=== PATIENT | female | born 1960 | race African-American/Black ===

== ENCOUNTER 2016-06-26 11:04 | Emergency (ER) | payer MEDICAID ==
[2016-06-26 11:11] VITALS: BP 150/117; BMI 34.3
--- NOTE | 2016-06-26 11:46 | DR.GENAD ---
HPI - PCP Primary Care Physician: dr. siddiqui - Complaint/Symptoms Chief Complaint:: patient stated that her left side has been hurting for the last 3 days she stated that she has been in bed the pain in so severe. it also running down her left leg - Nurses notes reviewed Nurses Notes Review: Yes - Source History Provided: Patient - Mode of Arrival Mode of Arrival: Ambulatory - Timing Onset of Chief Complaint: 06/23/16 Came on: Gradually - Duration Duration: Constant How lon Duration: Days - Location Location: left flank - Severity Severity: Mild - Modifying Factors Worsens:: nothing - Associated Signs and Symptoms Associated Signs and Symptoms: radiates to left leg - Other History Other History: hx of same but nothing found PMH - PMH Past Medical History: Yes Past Medical History: Arthritis, Hypertension Past Surgical History: Yes Surgical History: , RIVET THROWER Surgery, 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 - Family History History of Family Medical Conditions: Yes Family Medical History: Hypertension - Social History Does patient currently use any type of tobacco product: No Have you used tobacco products in the last 12 months: No Type of Tobacco Use: None Does any household member use tobacco: No Alcohol Use: None Do you use any recreational Drugs:: No Lives With: Family Lives Where: Home - infectious screening In the last 2 months have you had wt loss of >10#?: NO Have you had fever, night sweats or hemotysis?: No Have you traveled outside the country in the last 6 months?: No Isolation: Standard ROS - Review of Systems Constitutional: No Symptoms Reported Eyes: No Symptoms Reported ENTM: No Symptoms Reported Respiratoy: No Symptoms Reported Cardiovascular: No Symptoms Reported Gastrointestinal/Abdominal: No Symptoms Reported Genitourinary: No Symptoms Reported Neurological: No Symptoms Reported Musculoskeletal: Leg (left leg pain) Integumentary: No Symptoms Reported Hematologic/Lymphatic: No Symptoms Reported Endocrine: No Symptoms Reported Psychiatric: No Symptoms Reported All Other Systems: Reviewed and Negative PE - Vital Signs Vitals: Temperature 99.1 F Pulse Rate 117 Respiratory Rate 20 Blood Pressure [Right Arm] 175/85 Blood Pressure [Left Arm] 147/85 Blood Pressure 150/117 O2 Sat by Pulse Oximetry 98 - General Limitations: No Limitations General Appearance: Alert, In No Apparent Distress - Head Head Exam: Normal Inspection - Eyes Eye exam: Normal Appearance, EOMI. negative: Scleral Icterus, Conjunctival Injection - ENT ENT Exam: Normal Exam External Ear Exam: Normal External Inspection - Neck Neck Exam: Normal Inspection, Full ROM, Trachea Midline - Respiratory Respiratory Exam: negative: Accessory Muscle Use, Respiratory Distress - Cardiovascular Cardiovascular Exam: Regular Rate - Abdominal Exam Abdominal Exam: Normal Inspection, Normal Bowel Sounds, Soft. negative: Distention - Extremities Extremities Exam: Normal Inspection, Full ROM - Back Back Exam: Normal Inspection, Full ROM. negative: (L) Straight Leg Raise - Neurologic Neurological Exam: Alert, Oriented X3, CN II-XII Intact Course - Treatment Treatment: UDS machine not working will treat and have follow up PCP. ROR - Labs Reviewed Laboratory: Specimen Type Clean catch urine 06/26/16 12:00 Urine Color Yellow (YELLOW) 06/26/16 12:00 Urine Appearance Clear (CLEAR) 06/26/16 12:00 Urine pH 6.0 (5.0 - 8.0) 06/26/16 12:00 Ur Specific [place] 1.025 (1.000-1.030) 06/26/16 12:00 Urine Protein 3+ (NEGATIVE) 06/26/16 12:00 Urine Glucose (UA) Negative (NEGATIVE) 06/26/16 12:00 Urine Ketones 1+ (NEGATIVE) 06/26/16 12:00 Urine Occult Blood 1+ (NEGATIVE) 06/26/16 12:00 Urine Nitrite Negative (NEGATIVE) 06/26/16 12:00 Urine Bilirubin Negative (NEGATIVE) 06/26/16 12:00 Urine Urobilinogen Normal (NORMAL) 06/26/16 12:00 Ur Leukocyte Esterase 1+ (NEGATIVE) 06/26/16 12:00 Urine RBC Rare /HPF (NEGATIVE) 06/26/16 12:00 Urine WBC 0-2 /HPF (NEGATIVE) 06/26/16 12:00 Ur Squamous Epith Cells Moderate /HPF (NEGATIVE) 06/26/16 12:00 Urine Bacteria Trace /HPF (NEGATIVE) 06/26/16 12:00 Urine Mucus Few /HPF (NEGATIVE) 06/26/16 12:00 Ur Culture Indicated? No/not indicated 06/26/16 12:00 - Diagnosis Discharge Problem: Flank pain, chronic - Discharge Plan Condition: Stable Prescriptions: Tramadol HCl 50 mg PO Q8H PRN #15 tab PRN Reason: Pain - Follow ups/Referrals Follow ups/Referrals: Reji SIDDIQUI [Primary Care Provider] - 3 days - Instructions
[2016-06-26] MEDS ORDERED: TORADOL 60 MG VIAL IM ONE (11:48)
[2016-06-26] MEDS ORDERED: TORADOL 60 MG VIAL ONE (12:00)
[2016-06-26 12:40] LABS: BILIRUBIN,URINE NEGATIVE (NEGATIVE); BLOOD/HEMOGLOBIN,URINE 1+ (NEGATIVE); GLUCOSE, URINE NEGATIVE (NEGATIVE); KETONES,URINE 1+ (NEGATIVE); LEUKOCYTE ESTERASE ,URINE 1+ (NEGATIVE); NITRITES,URINE NEGATIVE (NEGATIVE); PROTEIN,URINE 3+ (NEGATIVE); UROBILINOGEN,URINE NORMAL (NORMAL)
[2016-06-26 13:03] LABS: APPEARANCE,URINE CLEAR (CLEAR); BACTERIA,URINE TRACE /HPF (NEGATIVE); COLOR,URINE YELLOW (YELLOW); MUCUS,URINE FEW /HPF (NEGATIVE); RBC,URINE RARE /HPF (NEGATIVE); SQUAMOUS EPITHELIAL CELL,UR MODERATE /HPF (NEGATIVE)
[2016-06-26] MEDS ORDERED: PREDNISONE TAB 20 MG PO ONE ×2 (13:41→13:42)
== END 2016-06-26 13:44 | disposition home or self-care (01) ==
LOC: ER 11:04
DX: R10.84 Generalized abdominal pain (principal)
CPT/HCPCS: 80307; 81001; 96372; 99282; G0434; J1885; J7506

== ENCOUNTER 2016-08-27 12:47 | Emergency (ER) | payer MEDICAID ==
[2016-08-27 12:51] VITALS: BP 107/72; BMI 32.5
--- NOTE | 2016-08-27 14:24 | DR.GENAD ---
HPI - PCP Primary Care Physician: CHEN - Complaint/Symptoms Chief Complaint:: LEFT SIDE PAIN; PAIN IN LEFT FOOT WHEN WALKING. - Nurses notes reviewed Nurses Notes Review: Yes - Source History Provided: Patient - Mode of Arrival Mode of Arrival: Ambulatory - Timing Onset of Chief Complaint: 08/26/16 Came on: Suddenly - Duration Duration: Constant Duration: Days - Severity Severity: Moderate PMH - PMH Past Medical History: Yes Past Medical History: Arthritis, Hypertension Past Surgical History: Yes Surgical History: , 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 - Family History History of Family Medical Conditions: Yes Family Medical History: Hypertension - Social History Does patient currently use any type of tobacco product: No Have you used tobacco products in the last 12 months: No Type of Tobacco Use: None Does any household member use tobacco: No Alcohol Use: Occasionally Do you use any recreational Drugs:: No Lives With: Family Lives Where: Home - infectious screening In the last 2 months have you had wt loss of >10#?: NO Have you had fever, night sweats or hemotysis?: No Have you traveled outside the country in the last 6 months?: No Isolation: Standard PE - Vital Signs Vitals: Temperature 98.8 F Pulse Rate 85 Respiratory Rate 20 Blood Pressure [Right Arm] 175/85 Blood Pressure [Left Arm] 147/85 Blood Pressure 107/72 O2 Sat by Pulse Oximetry 97 - Discharge Plan Condition: Stable Prescriptions: Acetaminophen W/ Codeine [Tylenol/Codeine #3 300-30 mg] 1 tab PO Q4-6H PRN #15 tab PRN Reason: Pain Cyclobenzaprine HCl [FLEXERIL 10 MG *] 10 mg PO TID PRN #20 tab PRN Reason: Ibuprofen [MOTRIN TAB 600 MG *] 600 mg PO TID PRN #20 tab PRN Reason: Pain/Inflammation - Follow ups/Referrals Follow ups/Referrals: Reji SIDDIQUI [Primary Care Provider] - 3 days - Instructions Instructions: Muscle Pain, Adult, Arthritis Additional Instructions: RETURN TO ED IF WORSE.
[2016-08-27] MEDS ORDERED: NORFLEX INJ IM ONE (14:26)
[2016-08-27] MEDS ORDERED: TORADOL 60 MG VIAL IM ONE (14:26)
[2016-08-27] MEDS ORDERED: NORFLEX INJ ONE (14:26)
[2016-08-27] MEDS ORDERED: TORADOL 60 MG VIAL ONE (14:26)
== END 2016-08-27 15:57 | disposition home or self-care (01) ==
LOC: ER 13:09
DX: R10.84 Generalized abdominal pain (principal); M79.672 Pain in left foot; M79.1 Myalgia; M19.90 Unspecified osteoarthritis, unspecified site
CPT/HCPCS: 96372; 99282; J1885; J2360

== ENCOUNTER 2016-10-12 20:03 | Inpatient (IN) | payer MEDICAID ==
[2016-10-12] MEDS ORDERED: NS 1000 ML 1,000 ML IV ONE ×2 (20:41→21:47)
--- NOTE | 2016-10-12 20:42 | DR.GENAD ---
HPI - PCP Primary Care Physician: CHEN - HPI Comment HPI Comment: HISTORY BELOW. - Complaint/Symptoms Chief Complaint Doctors Comments: PATIENT PASSED OUT 3 TIMES AT HOME WHEN SHE TRY TO GET UP AND GO. SHE IS BEING WEAK IN BED FOR 3 DAYS. NO FEVER. DIZZY AND HAVING SEVERE HEADACHE. Chief Complaint:: "I WAS WALKING AND I PASSED OUT, I'M SICK, I'M WEAK AND I HURT ALL OVER. I DON'T KNOW WHAT IS GOING ON. ". O/S 30 MINS PRIOR TO ARRIVAL - Nurses notes reviewed Nurses Notes Review: Yes - Source History Provided: Patient - Mode of Arrival Mode of Arrival: Ambulatory - Timing Onset of Chief Complaint: 10/12/16 Came on: Suddenly - Duration Duration: Constant Duration: Days - Severity Severity: Severe PMH - PMH Past Medical History: Yes Past Medical History: Arthritis, Hypertension Past Medical History Comment: FIBROMYALGIA Past Surgical History: Yes Surgical History: , 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 - Family History History of Family Medical Conditions: Yes Family Medical History: Hypertension - Social History Does patient currently use any type of tobacco product: No Have you used tobacco products in the last 12 months: No Type of Tobacco Use: None Alcohol Use: None Do you use any recreational Drugs:: No Lives With: Spouse Lives Where: Home - infectious screening Have you traveled outside the country in the last 6 months?: No Isolation: Standard ROS - Review of Systems Constitutional: Diaphoresis, Weakness, Fatigue, Loss of Appetite. negative: Chills, Fever Eyes: No Symptoms Reported. negative: Eye Pain, Discharge ENTM: Nose Congestion. negative: Ear Pain, Nose Discharge, Throat Pain Respiratoy: Non-Productive Cough. negative: Productive Cough, Short of Breath, Wheezing, Hemoptysis Cardiovascular: Chest Pain (CHEST WALL SORENESS.), Syncope. negative: Edema, Palpitations Gastrointestinal/Abdominal: Nausea. negative: Abdominal Pain, Diarrhea, Vomiting Genitourinary: Other (DECREASE URINE OUTPUT.). negative: Dysuria, Frequency, Hematuria Neurological: Headache, Weakness, Dizziness Musculoskeletal: Muscle Pain Integumentary: Dryness Hematologic/Lymphatic: No Symptoms Reported Endocrine: No Symptoms Reported All Other Systems: Reviewed and Negative PE - Vital Signs Vitals: Temperature 98.1 F Pulse Rate [Apical] 75 Pulse Rate 95 Respiratory Rate 18 Blood Pressure [Right Arm] 175/85 Blood Pressure [Left Arm] 155/60 Blood Pressure 104/65 O2 Sat by Pulse Oximetry 97 - General Limitations: No Limitations General Appearance: Alert - Head Head Exam: Normal Inspection - Eyes Eye exam: Normal Appearance - ENT ENT Exam: Normal External Ear Exam External Ear Exam: Normal External Inspection TM/Canal Exam: Bilateral Normal Nose Exam: Normal Nose Exam Mouth Exam: Normal Inspection Throat Exam: Normal Inspection - Neck Neck Exam: Trachea Midline - Chest Chest Inspection: Symmetric Chest Wall Rise - Respiratory Respiratory Exam: Normal Lung Sounds Bilat Respiratory Exam: Bilateral Clear to Auscultation - Cardiovascular Cardiovascular Exam: Regular Rate, Normal Rhythm, Normal Heart Sounds - Abdominal Exam Abdominal Exam: Normal Bowel Sounds, Soft. negative: Tenderness - Extremities Extremities Exam: Tenderness (LOWER EXTREMITIES SORE ON PALPATION.) - Back Back Exam: Normal Inspection - Neurologic Neurological Exam: Alert, Oriented X3, CN II-XII Intact, Reflexes Normal. negative: Motor Sensory Deficit - Psychiatric Psychiatric Exam: Anxious - Skin Skin Exam: Erythema MDM - Additional Information Additional Information Obtained From: Family - Differential Diagnosis Differential Diagnosis: DEHYDRATION, HYPOTENSIOMN, UTI, HEADACHE, SINUSITIS, PNEUMONIA. Course - Treatment Treatment: IV FLUIDS AND ANTIBIOTICS IN ED. BP IMPROVED. - Consultation Consultation Comments: DISCUSS PATIENT WITH DR. HENSON. HE WILL ADMIT PATIENT. - Education/Counseling Education/Counseling: Patient, Family, Education Educated On: Treatment, Diagnosis ROR - Labs Reviewed Laboratory Results Reviewed?: Yes Result Diagrams: 10/12/16 20:33 10/12/16 20:33 Laboratory: WBC 21.9 X10^3/uL (3.6-10.0) H* 10/12/16 20:33 RBC 5.37 X10^6/uL (3.5-5.4) 10/12/16 20:33 Hgb 11.7 g/dL (12.0-16.0) L 10/12/16 20:33 Hct 37.5 % (36.0-47.0) 10/12/16 20:33 MCV 69.8 fL (80.0-100.0) L 10/12/16 20:33 MCH 21.8 pg (27.0-34.0) L 10/12/16 20:33 MCHC 31.3 g/dL (33.0-35.0) L 10/12/16 20:33 RDW 14.4 % (11.6-16.5) 10/12/16 20:33 Plt Count 338 X10^3/uL (150.0-450.0) 10/12/16 20:33 Plt Count Comment Adequate (ADEQUATE) 10/12/16 20:33 MPV 8.9 fL (7.4-11.0) 10/12/16 20:33 Neut % 70.2 % (42.0-75.0) 10/12/16 20:33 Lymph % 18.0 % (21.0-51.0) L 10/12/16 20:33 [place] % 9.8 % (0.0-13.0) 10/12/16 20:33 Eos % 1.3 % (0.9-2.9) 10/12/16 20: Baso % 0.7 % (0.2-1.0) 10/12/16 20:33 Neut # 15.4 x10^3/uL (2.2-4.8) H 10/12/16 20:33 Lymph # 4.0 X10^3/uL (1.3-2.9) H 10/12/16 20:33 [place] # 2.1 x10^3/uL (0.3-0.8) H 10/12/16 20:33 Eos # 0.3 x10^3/uL (0.0-0.2) H 10/12/16 20:33 Baso # 0.1 X10^3/uL (0.0-0.1) 10/12/16 20:33 Absolute Nucleated RBC 0.5 /100WBC 10/12/16 20:33 Total Counted 100 10/12/16 20:33 Neutrophils % (Manual) 64 % (39-76) 10/12/16 20:33 Band Neutrophils % 6 % (0-10) 10/12/16 20:33 Lymphocytes % (Manual) 23 % (13-43) 10/12/16 20:33 Monocytes % (Manual) 7 % (4-9) 10/12/16 20:33 Plt Morphology Comment Normal (NORMAL) 10/12/16 20:33 RBC Morphology Abnormal (NORMAL) A 10/12/16 20:33 Hypochromasia Slight A 10/12/16 20:33 Target Cells Noted 10/12/16 20:33 Sodium 137 mmol/L (136-145) 10/12/16 20:33 Corrected Sodium TNP 10/12/16 20:33 Potassium 3.2 mmol/L (3.5-5.1) L 10/12/16 20:33 Chloride 100 mmol/L (98-107) 10/12/16 20:33 Carbon Dioxide 24.9 mmol/L (21-32) 10/12/16 20:33 BUN 27 mg/dL (7-18) H 10/12/16 20:33 Creatinine 2.66 mg/dL (0.55-1.02) H 10/12/16 20:33 Est GFR (MDRD) Af Amer 24 (>60) L 10/12/16 20:33 Est GFR (MDRD) Non-Af 20 (>60) L 10/12/16 20:33 Glucose 109 mg/dL (65-99) H 10/12/16 20:33 Lactic Acid 1.7 mmol/L (0.4-2.0) 10/12/16 22:03 Calcium 9.1 mg/dL (8.5-10.1) 10/12/16 20:33 Corrected Calcium 9.7 mg/dL (8.5-10.1) 10/12/16 20:33 Total Bilirubin 0.20 mg/dL (0.2-1.0) 10/12/16 20:33 AST 20 Units/L (15-37) 10/12/16 20:33 ALT 24 Units/L (12-78) 10/12/16 20:33 Alkaline Phosphatase 154 Units/L (46-116) H 10/12/16 20:33 Creatine Kinase 102 Units/L (26-192) 10/12/16 20:33 CK-MB (CK-2) 2.3 ng/mL (0-4.0) 10/12/16 20:33 CK/CKMB % Calc 2.3 % (<4) 10/12/16 20:33 Troponin I < 0.02 ng/mL (0-1.5) 10/12/16 20:33 Total Protein 8.1 g/dL (6.4-8.2) 10/12/16 20:33 Albumin 3.3 g/dL (3.4-5.0) L 10/12/16 20:33 Globulin 4.8 g/dL (2.5-4.5) H 10/12/16 20:33 Albumin/Globulin Ratio 0.7 Ratio (1.1-2.1) L 10/12/16 20:33 Specimen Type Clean catch urine 10/12/16 22:25 Urine Color Yellow (YELLOW) 10/12/16 22:25 Urine Appearance Slightly hazy (CLEAR) 10/12/16 22:25 Urine pH 6.0 (5.0 - 8.0) 10/12/16 22:25 Ur Specific [place] 1.010 (1.000-1.030) 10/12/16 22:25 Urine Protein 3+ (NEGATIVE) 10/12/16 22:25 Urine Glucose (UA) Negative (NEGATIVE) 10/12/16 22: Urine Ketones Negative (NEGATIVE) 10/12/16 22:25 Urine Occult Blood 4+ (NEGATIVE) 10/12/16 22:25 Urine Nitrite Negative (NEGATIVE) 10/12/16 22: Urine Bilirubin Negative (NEGATIVE) 10/12/16 22:25 Urine Urobilinogen Normal (NORMAL) 10/12/16 22:25 Ur Leukocyte Esterase 1+ (NEGATIVE) 10/12/16 22:25 Urine RBC 0-2 /HPF (NEGATIVE) 10/12/16 22:25 Urine WBC 8-10 /HPF (NEGATIVE) 10/12/16 22:25 Ur Squamous Epith Cells Moderate /HPF (NEGATIVE) 10/12/16 22:25 Urine Bacteria 1+ /HPF (NEGATIVE) 10/12/16 22:25 Hyaline Casts Many /LPF (NEGATIVE) 10/12/16 22:25 Urine Mucus Moderate /HPF (NEGATIVE) 10/12/16 22:25 Ur Culture Indicated? Yes/culture set up 10/12/16 22:25 Urine Opiates Screen Positive (NEG=<300) A 10/12/16 22:25 Urine Methadone Screen Negative (NEG=<300) 10/12/16 22:25 Ur Barbiturates Screen Negative (NEG=<200) 10/12/16 22:25 Ur Phencyclidine Scrn Negative (NEG=<25) 10/12/16 22:25 Ur Amphetamines Screen Negative (NEG=<1000) 10/12/16 22:25 U Benzodiazepines Scrn Positive (NEG=<200) A 10/12/16 22:25 Urine Cocaine Screen Negative (NEG=<300) 10/12/16 22:25 U Marijuana (THC) Screen Positive (NEG=<50) A 10/12/16 22:25 - XRAY XRAY Interpreted by: Radiologist XRAY Findings: REPORT DISCUSS WITH PATIENT AND FAMILY. - EKG Rhythm: NSR - Diagnosis Discharge Problem: Dehydration, Generalized weakness Hypotension Qualifiers: Hypotension type: unspecified hypotension type Qualified Code(s): I95.9 - Hypotension, unspecified UTI (urinary tract infection) Qualifiers: Urinary tract infection type: site unspecified Hematuria presence: without hematuria Qualified Code(s): N39.0 - Urinary tract infection, site not specified Headache Qualifiers: Headache type: unspecified Headache chronicity pattern: acute headache Intractability: intractable Qualified Code(s): R51 - Headache - Discharge Plan Disposition: ADMITTED INPATIENT Condition: Stable - Follow ups/Referrals - Instructions
[2016-10-12] MEDS ORDERED: NS 1000 ML 1,000 ML ONE ×2 (20:44→22:02)
[2016-10-12 20:48] LABS: BASOPHILS # (AUTO) 0.1 X10^3/uL (0.0-0.1); BASOPHILS % (AUTO) 0.7 % (0.2-1.0); EOSINOPHILS # (AUTO) 0.3 x10^3/uL (0.0-0.2); EOSINOPHILS % (AUTO) 1.3 % (0.9-2.9); HEMATOCRIT 37.5 % (36.0-47.0); HEMOGLOBIN 11.7 g/dL (12.0-16.0); MEAN CORPUSCULAR HEMOGLOBIN 21.8 pg (27.0-34.0); MEAN CORPUSCULAR HGB CONC 31.3 g/dL (33.0-35.0); MEAN CORPUSCULAR VOLUME 69.8 fL (80.0-100.0); MEAN PLATELET VOLUME 8.9 fL (7.4-11.0); MONOCYTES # (AUTO) 2.1 x10^3/uL (0.3-0.8); MONOCYTES % (AUTO) 9.8 % (0.0-13.0); NEUTROPHILS # (AUTO) 15.4 x10^3/uL (2.2-4.8); NEUTROPHILS % (AUTO) 70.2 % (42.0-75.0); PLATELET COUNT 338 X10^3/uL (150.0-450.0); RED BLOOD COUNT 5.37 X10^6/uL (3.5-5.4); RED CELL DISTRIBUTION WIDTH 14.4 % (11.6-16.5)
[2016-10-12 20:57] LABS: WHITE BLOOD COUNT 21.9 X10^3/uL (3.6-10.0)
[2016-10-12 20:59] LABS: ALANINE AMINOTRANSFERASE 24 Units/L (12-78); ALBUMIN 3.3 g/dL (3.4-5.0); ALKALINE PHOSPHATASE 154 Units/L (46-116); ASPARTATE AMINO TRANSFERASE 20 Units/L (15-37); BLOOD UREA NITROGEN 27 mg/dL (7-18); CALCIUM 9.1 mg/dL (8.5-10.1); CARBON DIOXIDE 24.9 mmol/L (21-32); CHLORIDE 100 mmol/L (98-107); COR CA(FOR HYPOALB) 9.7 mg/dL (8.5-10.1); CREATININE 2.66 mg/dL (0.55-1.02); GLUCOSE 109 mg/dL (65-99); SODIUM 137 mmol/L (136-145); TOTAL PROTEIN 8.1 g/dL (6.4-8.2); eGFR BLACK RACES 24 (>60); eGFR NON BLACK RACES 20 (>60)
[2016-10-12 21:04] LABS: BAND NEUTROPHILS % 6 % (0-10)
[2016-10-12 21:05] LABS: HYPOCHROMASIA SLIGHT; PLATELET MORPHOLOGY COMMENT NORMAL (NORMAL); TARGET CELLS NOTED
[2016-10-12 21:06] LABS: CKMB % 2.3 % (<4); CREATINE KINASE 102 Units/L (26-192); CREATINE KINASE MB 2.3 ng/mL (0-4.0); TROPONIN I < 0.02 ng/mL (0-1.5)
--- NOTE | 2016-10-12 21:11 | CT ---
EXAM: CT BRAIN WITHOUT CONTRAST INDICATION: Headache COMPARISION: No Priors TECHNIQUE: Routine axial CT of the brain was performed without intravenous contrast. FINDINGS: The cerebral and cerebellar cortex are normal. The ventricular system is nondilated. No intra or ext ra-axial mass or hemorrhage. The marquez-white junction is preserved. There is no evidence of subacute ischemic change. The basilar cisterns are clear. The skull is intact. The mastoid air cells are clear. IMPRESSION: Normal brain CT examination Reported By:
--- NOTE | 2016-10-12 22:22 | RAD ---
HISTORY: 56-year-old female with chest pain. Study: Frontal view of the chest. Comparison: Chest radiographs February 23, 2016. Findings: The trachea is midline. The cardiac silhouette is unremarkable. The lungs are clear without focal consolidation, effusion or pneumothorax. Soft tissues are unremarkable. Osseus structures are unrem arkable. IMPRESSION: 1. No acute cardiopulmonary disease. Reported By:
[2016-10-12 22:37] LABS: BILIRUBIN,URINE NEGATIVE (NEGATIVE); BLOOD/HEMOGLOBIN,URINE 4+ (NEGATIVE); GLUCOSE, URINE NEGATIVE (NEGATIVE); KETONES,URINE NEGATIVE (NEGATIVE); LEUKOCYTE ESTERASE ,URINE 1+ (NEGATIVE); NITRITES,URINE NEGATIVE (NEGATIVE); PROTEIN,URINE 3+ (NEGATIVE); UROBILINOGEN,URINE NORMAL (NORMAL)
[2016-10-12 22:43] LABS: COLOR,URINE YELLOW (YELLOW)
[2016-10-12 22:44] LABS: APPEARANCE,URINE SLIGHTLY HAZY (CLEAR); BACTERIA,URINE 1+ /HPF (NEGATIVE); HYALINE CASTS, URINE MANY /LPF (NEGATIVE); MUCUS,URINE MODERATE /HPF (NEGATIVE); RBC,URINE 0-2 /HPF (NEGATIVE); SQUAMOUS EPITHELIAL CELL,UR MODERATE /HPF (NEGATIVE)
[2016-10-12] MEDS ORDERED: ROCEPHIN VIAL 1 GM 1 GM in NS 50 ML IV + SPIKE MINIBAG* 50 ML IV ONE (22:56)
[2016-10-12] MEDS ORDERED: NS 50 ML IV + SPIKE MINIBAG* 50 ML IV ONE (23:03)
[2016-10-12] MEDS ORDERED: ROCEPHIN VIAL 1 GM ONE (23:04)
[2016-10-13] MEDS ORDERED: NS 100 ML IV + SPIKE MINIBAG* 100 ML IV ONE (00:06)
[2016-10-13] MEDS ORDERED: ZOSYN VIAL 3.375 GM IV ONE (00:07)
[2016-10-13] MEDS ORDERED: TYLENOL 500 MG TAB EXTRA STRENGTH PO PRN (00:11)
[2016-10-13] MEDS: ZOSYN VIAL 3.375 GM 3.375 GM in NS 100 ML IV + SPIKE MINIBAG* 100 ML IV SCH ×4 (00:16→21:45)
[2016-10-13] MEDS ORDERED: ZOFRAN INJ 4 MG VIAL IVP ONE (00:39)
[2016-10-13] MEDS ORDERED: VANCOMYCIN 1 GM PREMIX (ADDVANTAGE) 250 ML IV SCH ×2 (01:00→09:00)
[2016-10-13] MEDS ORDERED: PHARMACY CONSULT - VANCOMYCIN XX SCH (01:00)
[2016-10-13] MEDS ORDERED: CONSULT PHARMACY - ANTIBIOTIC XX SCH (01:00)
[2016-10-13 01:21] VITALS: BMI 31.1
[2016-10-13] MEDS: MORPHINE SULFATE INJ 4 MG IVP PRN ×5 (01:35→20:34)
[2016-10-13] MEDS: NS 1000 ML 1,000 ML IV SCH ×4 (01:35→16:04)
[2016-10-13] MEDS: MAALOX or MYLANTA PO PRN ×3 (04:14→19:30)
[2016-10-13] MEDS ORDERED: LEVAQUIN PREMIX IV 750 MG 750 MG/150 ML BAG IV ONE (06:00)
[2016-10-13 06:14] LABS: BASOPHILS # (AUTO) 0.1 X10^3/uL (0.0-0.1); BASOPHILS % (AUTO) 0.5 % (0.2-1.0); EOSINOPHILS # (AUTO) 0.4 x10^3/uL (0.0-0.2); EOSINOPHILS % (AUTO) 2.3 % (0.9-2.9); HEMATOCRIT 32.7 % (36.0-47.0); HEMOGLOBIN 10.1 g/dL (12.0-16.0); LYMPHOCYTES # (AUTO) 3.8 X10^3/uL (1.3-2.9); LYMPHOCYTES % (AUTO) 23.1 % (21.0-51.0); MEAN CORPUSCULAR HEMOGLOBIN 21.8 pg (27.0-34.0); MEAN CORPUSCULAR VOLUME 70.2 fL (80.0-100.0); MEAN PLATELET VOLUME 9.4 fL (7.4-11.0); MONOCYTES # (AUTO) 1.7 x10^3/uL (0.3-0.8); MONOCYTES % (AUTO) 10.2 % (0.0-13.0); NEUTROPHILS # (AUTO) 10.5 x10^3/uL (2.2-4.8); NEUTROPHILS % (AUTO) 63.9 % (42.0-75.0); PLATELET COUNT 260 X10^3/uL (150.0-450.0); RED BLOOD COUNT 4.65 X10^6/uL (3.5-5.4); RED CELL DISTRIBUTION WIDTH 14.5 % (11.6-16.5); WHITE BLOOD COUNT 16.4 X10^3/uL (3.6-10.0)
[2016-10-13 06:26] LABS: ALANINE AMINOTRANSFERASE 18 Units/L (12-78); ALBUMIN 2.6 g/dL (3.4-5.0); ALKALINE PHOSPHATASE 123 Units/L (46-116); ASPARTATE AMINO TRANSFERASE 18 Units/L (15-37); BLOOD UREA NITROGEN 20 mg/dL (7-18); CALCIUM 7.9 mg/dL (8.5-10.1); CHLORIDE 104 mmol/L (98-107); GLUCOSE 109 mg/dL (65-99); SODIUM 139 mmol/L (136-145); TOTAL PROTEIN 6.8 g/dL (6.4-8.2); eGFR BLACK RACES 46 (>60); eGFR NON BLACK RACES 38 (>60)
[2016-10-13] MEDS ORDERED: K-RIDER 10 MEQ/NS 100 ML 10 MEQ/100 ML BAG IV PRN (06:35)
[2016-10-13] MEDS ORDERED: K-LYTE EFFERVESCENT PO PRN (06:35)
[2016-10-13] MEDS ORDERED: POTASSIUM CHLORIDE LIQ 20 MEQ UDC PO PRN (06:35)
[2016-10-13] MEDS: K-DUR TAB 20 MEQ PO PRN (06:45)
[2016-10-13 07:14] LABS: BAND NEUTROPHILS % 2 % (0-10)
[2016-10-13 07:15] LABS: HYPOCHROMASIA 2+; PLATELET MORPHOLOGY COMMENT NORMAL (NORMAL)
[2016-10-13] MEDS ORDERED: LEVAQUIN PREMIX IV 750 MG 750 MG/150 ML BAG IV SCH (09:00)
[2016-10-13] MEDS: NORVASC TAB 10 MG PO SCH (09:05)
[2016-10-13] MEDS: LYRICA 25 MG PO SCH (09:05)
[2016-10-13] MEDS: ZESTRIL TAB 5 MG PO SCH (09:05)
--- NOTE | 2016-10-13 12:43 | DR.H&P ---
H&P - History & Physical for Day of: H&P Date: 10/12/16 - Chief Complaint Chief Complaint: WEAKNESS, DIZZINESS, HEADACHE, PASSING OUT - Allergies Allergies/Adverse Reactions: Allergies Allergy/AdvReac Type Severity Reaction Status Date / Time MS No Known Drug Allergy Allergy Verified 10/12/16 20:09 [No Known Drug Allergy] - History of Present Illness History of Present Illness: IS A 56 YEAR OLD PATIENT OF WHO PRESENTED TO THE EMERGENCY ROOM WITH COMPLAINTS OF WEAKNESS, DIZZINESS, HEADACHE FOR THE PAST THREE DAYS. PATIENT STATED THAT SHE PASSED OUT 30 MINUTES PRIOR TO ARRIVAL TO ER. SHE REPORTS FATIGUE AND LOSS OF APPETITE. PATIENT IS NOTED WITH CHEST WALL SORENESS, BUT DENIES ANY SHORTNESS OF BREATH OR FEVER. ON ARRIVAL, VITALS WERE 98.1, 75, 97%, 18, 104/65. LABS AND XRAY/CT WERE OBTAINED. CBC WNL EXCEPT WBC 21.9, HGB 11.7, HCT 37.5. CMP WNL EXCEPT POTASSIUM 3.2, BUN 27, CREATININE 2.66, ALKALINE PHOSPHATASE 154, ALBUMIN 8.3. URINALYSIS REPORTED WBC 8-10, LEUKOCYTES 1+, PROTEIN 3+, BACTERIA 1+. URINE DRUG SCREEN REPORTED PATIENT POSITIVE FOR OPIATES, BENZODIAZEPINES, AND MARIJUANA. BRAIN CT AND CHEST XRAY WERE NORMAL . SHE WAS GIVEN IV FLUIDS AND ANTIBIOTICS IN THE ER. BP IMPROVED TO 155/60. WE ADMITTED PATIENT FOR FURTHER TREATMENT AND EVALUATION. WE WILL START PATIENT ON IV FLUIDS, VANCOMYCIN, AND LEVAQUIN. WE WILL REVIEW HOME MEDICATIONS AND CONTINUE TO MONITOR LABS. 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 denies: See HPI, Pain, Vision Change, Conjunctivae Inflammation, Eyelid Inflammation, Redness, Other ENT: No Symptoms Reported. denies: See HPI, Ear Pain, Ear Discharge, Nose Pain , Nose Discharge, Nose Congestion, Mouth Pain, Mouth Swelling, Throat Pain, Throat Swelling, Other Respiratory: No Symptoms Reported. denies: See HPI, Cough, Dry, Shortness of Breath, Hemoptysis, SOB with Excertion, Pleuritic Pain, Sputum, Wheezing, Other Cardiovascular: Chest Pain, See HPI, Light Headedness Gastrointestinal: No Symptoms Reported. denies: See HPI, Nausea, Vomiting, Abdominal Pain, Diarrhea, Constipation, Melena, Hematochezia, Other Genitourinary: Dysuria Musculoskeletal: See HPI (HEADACHE, ACHING ALL OVER ) Skin: denies: No Symptoms Reported, See HPI, Rash, Lesions, Jaundice, Bruising, Wound, Ecchymosis, Other Neurological: No Symptoms Reported. denies: See HPI, Weakness, Numbness, Incoordination, Change in Speech, Confusion, Seizures, Other - Physical Exam Vital Signs: Temperature 97.8 F Pulse Rate [Right Brachial] 78 Respiratory Rate 20 Blood Pressure [Right Arm] 115/79 O2 Sat by Pulse Oximetry 99 Oriented: Normal Eyes: Normal. negative: Blurred Vision, Diplopia, Discharge, Pain, Redness, Photophobia, Other Ear: Normal. negative: Right, Left, Swelling, Ecchymosis, Hemotypanum, Abrasion , Laceration Nose: Normal. negative: Injected, Discharge, Blood, Other Throat: Normal. negative: Tonsillar Hypertrophy, Red, Exudate, Dry, Other Respiratory: Clear Throughout. negative: Diminished Throughout, Rhonchi Throughout, Rales Throughout, Wheezes Throughout, RUL Clear, RML Clear, RLL Clear, ORALIA Clear, LML Clear, LLL Clear, RUL Diminished, RML Diminished, RLL Diminished, [place]ALIA Diminished, LML Diminished, LLL Diminished, RUL Absent, RML Absent, RLL Absent, ORALIA Absent, LML Absent, LLL Absent, RUL Rhonchi, RML Rhonchi , RLL Rhonchi, ORALIA Rhonchi, LML Rhonchi, LLL Rhonchi, RUL Insp. Wheeze, RML Insp. Wheeze, RLL Insp. Wheeze, ORALIA Insp.Wheeze, LML Insp.Wheeze, LLL Insp.Wheeze, RUL Exp. Wheeze, RML Exp. Wheeze, RLL Exp. Wheeze, ORALIA Exp. Wheeze , LML Exp. Wheeze, LLL Exp. Wheeze, RUL Rales, RML Rales, RLL Rales, ORALIA Rales, LML Rales, LLL Rales, RUL Rub, RML Rub, RLL Rub, ORALIA Rub, LML Rub, LLL Rub, RUL Squeak, RML Squeak, RLL Squeak, ORALIA Squeak, LML Squeak, LLL Squeak Cardiovascular: Normal : Dysuria. negative: Normal, Hematuria, Frequency, Discharge, Testicular Pain , Bleeding, , Other Auscultation: Bowel Sounds: Normal. negative: Bruit, Absent, Increased, Decreased, High Pitched, Other Palpation: Normal. negative: Spleen Enlarged, Liver Enlarged, Mass Pulsatile, Other Tenderness: Diffuse Skin: Normal. negative: Decreased Turgur, Rash, Papular, Macular, Maculopapular , Vesicular, Pustular, Petechial, Red, Tender, Hot, Diaphoresis, Wound, Bruising , Ecchymosis, Other Musculoskeletal: Leg, Tender Psychiatric: Normal Mood Description: Calm Affect: Normal Speech Pattern: Clear - Assessment/Plan (1) UTI (urinary tract infection) Qualifiers: Urinary tract infection type: site unspecified Hematuria presence: without hematuria Indwelling urinary catheter type: I Encounter type: E Qualified Code(s): N39.0 - Urinary tract infection, site not specified Status: Acute Plan: LEVAQUIN 750MG IV DAILY, CONTINUE TO MONITOR (2) Generalized weakness Status: Acute Plan: IV FLUIDS, RECHECK LABS, MONITOR (3) Headache Qualifiers: Headache type: unspecified Headache chronicity pattern: acute headache Intractability: intractable Qualified Code(s): R51 - Headache Status: Acute Plan: MORPHINE, MONITOR (4) Fibromyalgia Status: Chronic Plan: CONTINUE LYRICA, CONTINUE TO MONITOR (5) Hypertension Qualifiers: Hypertension type: essential hypertension Qualified Code(s): I10 - Essential (primary) hypertension Status: Chronic Plan: CONTINUE LISINOPRIL, CONTINUE TO MONITOR
--- NOTE | 2016-10-13 15:30 | PCM.PROG ---
Progress Note - Progress Note for Day of Date: 10/13/16 - Subjective Subjective: IS AWAKE IN BED ON MORNING ROUNDS. SHE IS WITH COMPLAINTS OF ABDOMINAL PAIN AND DIARRHEA AT THIS TIME. ON EXAMINATION, LUNGS ARE CLEAR TO AUSCULTATION. BOWEL SOUNDS ARE HYPERACTIVE IN ALL QUADRANTS. VITALS THIS MORNING ARE 97.8,78,20,99,115/79. LABS ARE WNL EXCEPT WBC 16.4, HGB 10.1, HCT 32.7, POTASSIUM 3.3, BUN 20, CREATININE 1.50, GLUCOSE 109, CALCIUM 7.9, ALKALINE PHOSPHATASE 123, ALBUMIN 2.6. WE WILL ORDER CT ABD/PELVIS WITH CONTRAST FOR AM AND CULTURE STOOL. WE WILL RECHECK LABS AND FOLLOW UP WITH PATIENT IN AM. - Past Medical Family Social History Past Med/Fam/Surg Hx: No changes since H&P Allergies: Allergies MS No Known Drug Allergy [No Known Drug Allergy] Allergy (Verified 10/12/16 20: 09) - Review of Systems ROS: No change since H&P - Vital Signs and I&O's Vital Signs: Temperature 98.2 F Pulse Rate [Right Brachial] 83 Respiratory Rate 20 Blood Pressure [Right Arm] 116/82 O2 Sat by Pulse Oximetry 98 - Physical Exam Oriented: Normal Eyes: Normal. negative: Blurred Vision, Diplopia, Discharge, Pain, Redness, Photophobia, Other Ear: Normal. negative: Right, Left, Swelling, Ecchymosis, Hemotypanum, Abrasion , Laceration Nose: Normal. negative: Injected, Discharge, Blood, Other Throat: Normal. negative: Tonsillar Hypertrophy, Red, Exudate, Dry, Other Respiratory: Normal Cardiovascular: Normal : Dysuria. negative: Normal, Hematuria, Frequency, Discharge, Testicular Pain , Bleeding, , Other Auscultation: Bowel Sounds: Normal. negative: Bruit, Absent, Increased, Decreased, High Pitched, Other Palpation: Normal Tenderness: Diffuse Skin: Normal. negative: Decreased Turgur, Rash, Papular, Macular, Maculopapular , Vesicular, Pustular, Petechial, Red, Tender, Hot, Diaphoresis, Wound, Bruising , Ecchymosis, Other Musculoskeletal: Normal Psychiatric: Normal Mood Description: Calm Affect: Normal Speech Pattern: Clear - Laboratory and Diagnostics Result Diagrams: 10/13/16 05:25 10/13/16 09:01 Labs: Laboratory WBC 16.4 X10^3/uL (3.6-10.0) H 10/13/16 05:25 RBC 4.65 X10^6/uL (3.5-5.4) 10/13/16 05:25 Hgb 10.1 g/dL (12.0-16.0) L 10/13/16 05:25 Hct 32.7 % (36.0-47.0) L 10/13/16 05:25 MCV 70.2 fL (80.0-100.0) L 10/13/16 05:25 MCH 21.8 pg (27.0-34.0) L 10/13/16 05:25 MCHC 31.0 g/dL (33.0-35.0) L 10/13/16 05:25 RDW 14.5 % (11.6-16.5) 10/13/16 05:25 Plt Count 260 X10^3/uL (150.0-450.0) 10/13/16 05:25 Plt Count Comment Adequate (ADEQUATE) 10/13/16 05:25 MPV 9.4 fL (7.4-11.0) 10/13/16 05:25 Neut % 63.9 % (42.0-75.0) 10/13/16 05:25 Lymph % 23.1 % (21.0-51.0) 10/13/16 05:25 [place] % 10.2 % (0.0-13.0) 10/13/16 05:25 Eos % 2.3 % (0.9-2.9) 10/13/16 05:25 Baso % 0.5 % (0.2-1.0) 10/13/16 05:25 Neut # 10.5 x10^3/uL (2.2-4.8) H 10/13/16 05:25 Lymph # 3.8 X10^3/uL (1.3-2.9) H 10/13/16 05:25 [place] # 1.7 x10^3/uL (0.3-0.8) H 10/13/16 05:25 Eos # 0.4 x10^3/uL (0.0-0.2) H 10/13/16 05:25 Baso # 0.1 X10^3/uL (0.0-0.1) 10/13/16 05:25 Absolute Nucleated RBC 0.1 /100WBC 10/13/16 05:25 Total Counted 100 10/13/16 05:25 Neutrophils % (Manual) 59 % (39-76) 10/13/16 05:25 Band Neutrophils % 2 % (0-10) 10/13/16 05:25 Lymphocytes % (Manual) 33 % (13-43) 10/13/16 05:25 Monocytes % (Manual) 4 % (4-9) 10/13/16 05:25 Eosinophils % (Manual) 2 % (0-6) 10/13/16 05:25 Plt Morphology Comment Normal (NORMAL) 10/13/16 05:25 RBC Morphology Abnormal (NORMAL) A 10/13/16 05:25 Hypochromasia 2+ A 10/13/16 05:25 Target Cells Noted 10/12/16 20:33 Sodium 139 mmol/L (136-145) 10/13/16 05:25 Corrected Sodium TNP 10/13/16 05:25 Potassium 3.3 mmol/L (3.5-5.1) L 10/13/16 09:01 Chloride 104 mmol/L (98-107) 10/13/16 05:25 Carbon Dioxide 23.0 mmol/L (21-32) 10/13/16 05:25 BUN 20 mg/dL (7-18) H 10/13/16 05:25 Creatinine 1.50 mg/dL (0.55-1.02) H 10/13/16 05:25 Est GFR (MDRD) Af Amer 46 (>60) L 10/13/16 05:25 Est GFR (MDRD) Non-Af 38 (>60) L 10/13/16 05:25 Glucose 109 mg/dL (65-99) H 10/13/16 05:25 Lactic Acid 1.7 mmol/L (0.4-2.0) 10/12/16 22:03 Calcium 7.9 mg/dL (8.5-10.1) L 10/13/16 05:25 Corrected Calcium 9.0 mg/dL (8.5-10.1) 10/13/16 05:25 Total Bilirubin 0.20 mg/dL (0.2-1.0) 10/13/16 05:25 AST 18 Units/L (15-37) 10/13/16 05:25 ALT 18 Units/L (12-78) 10/13/16 05:25 Alkaline Phosphatase 123 Units/L (46-116) H 10/13/16 05:25 Creatine Kinase 102 Units/L (26-192) 10/12/16 20:33 CK-MB (CK-2) 2.3 ng/mL (0-4.0) 10/12/16 20:33 CK/CKMB % Calc 2.3 % (<4) 10/12/16 20:33 Troponin I < 0.02 ng/mL (0-1.5) 10/12/16 20:33 Total Protein 6.8 g/dL (6.4-8.2) 10/13/16 05:25 Albumin 2.6 g/dL (3.4-5.0) L 10/13/16 05:25 Globulin 4.2 g/dL (2.5-4.5) 10/13/16 05:25 Albumin/Globulin Ratio 0.6 Ratio (1.1-2.1) L 10/13/16 05:25 Specimen Type Clean catch urine 10/12/16 22:25 Urine Color Yellow (YELLOW) 10/12/16 22:25 Urine Appearance Slightly hazy (CLEAR) 10/12/16 22:25 Urine pH 6.0 (5.0 - 8.0) 10/12/16 22:25 Ur Specific [place] 1.010 (1.000-1.030) 10/12/16 22:25 Urine Protein 3+ (NEGATIVE) 10/12/16 22:25 Urine Glucose (UA) Negative (NEGATIVE) 10/12/16 22:25 Urine Ketones Negative (NEGATIVE) 10/12/16 22:25 Urine Occult Blood 4+ (NEGATIVE) 10/12/16 22:25 Urine Nitrite Negative (NEGATIVE) 10/12/16 22:25 Urine Bilirubin Negative (NEGATIVE) 10/12/16 22:25 Urine Urobilinogen Normal (NORMAL) 10/12/16 22:25 Ur Leukocyte Esterase 1+ (NEGATIVE) 10/12/16 22:25 Urine RBC 0-2 /HPF (NEGATIVE) 10/12/16 22:25 Urine WBC 8-10 /HPF (NEGATIVE) 10/12/16 22:25 Ur Squamous Epith Cells Moderate /HPF (NEGATIVE) 10/12/16 22:25 Urine Bacteria 1+ /HPF (NEGATIVE) 10/12/16 22:25 Hyaline Casts Many /LPF (NEGATIVE) 10/12/16 22:25 Urine Mucus Moderate /HPF (NEGATIVE) 10/12/16 22:25 Ur Culture Indicated? Yes/culture set up 10/12/16 22:25 Urine Opiates Screen Positive (NEG=<300) A 10/12/16 22:25 Urine Methadone Screen Negative (NEG=<300) 10/12/16 22:25 Ur Barbiturates Screen Negative (NEG=<200) 10/12/16 22:25 Ur Phencyclidine Scrn Negative (NEG=<25) 10/12/16 22:25 Ur Amphetamines Screen Negative (NEG=<1000) 10/12/16 22:25 U Benzodiazepines Scrn Positive (NEG=<200) A 10/12/16 22:25 Urine Cocaine Screen Negative (NEG=<300) 10/12/16 22:25 U Marijuana (THC) Screen Positive (NEG=<50) A 10/12/16 22:25 - Plan (1) UTI (urinary tract infection) Status: Acute Qualifiers: Urinary tract infection type: site unspecified Hematuria presence: without hematuria Indwelling urinary catheter type: I Encounter type: E Qualified Code(s): N39.0 - Urinary tract infection, site not specified Plan: LEVAQUIN 750MG IV DAILY, CONTINUE TO MONITOR (2) Generalized weakness Status: Acute Plan: IV FLUIDS, RECHECK LABS, MONITOR (3) Headache Status: Acute Qualifiers: Headache type: unspecified Headache chronicity pattern: acute headache Intractability: intractable Qualified Code(s): R51 - Headache Plan: MORPHINE, MONITOR (4) Fibromyalgia Status: Chronic Plan: CONTINUE LYRICA, CONTINUE TO MONITOR (5) Hypertension Status: Chronic Qualifiers: Hypertension type: essential hypertension Qualified Code(s): I10 - Essential (primary) hypertension Plan: CONTINUE LISINOPRIL, CONTINUE TO MONITOR (6) Abdominal pain Status: Acute Qualifiers: Abdominal location: A Plan: CHECK CT ABD/PELVIS WITH CONTRAST, CONTINUE MORPHINE, CONTINUE TO MONITOR
[2016-10-14] MEDS: MORPHINE SULFATE INJ 4 MG IVP PRN ×5 (00:34→19:43)
[2016-10-14] MEDS: ATIVAN INJ 2 MG VIAL IVP PRN (02:12)
[2016-10-14] MEDS: MAALOX or MYLANTA PO PRN (02:16)
[2016-10-14] MEDS: NS 1000 ML 1,000 ML IV SCH ×2 (02:17→19:44)
[2016-10-14 02:49] LABS: CRYPTOSPORIDIUM PARVUM ANTIGEN NEGATIVE (NEGATIVE); GIARDIA LAMBLIA ANTIGEN NEGATIVE (NEGATIVE)
[2016-10-14 05:05] LABS: BASOPHILS # (AUTO) 0.1 X10^3/uL (0.0-0.1); BASOPHILS % (AUTO) 0.8 % (0.2-1.0); EOSINOPHILS # (AUTO) 0.2 x10^3/uL (0.0-0.2); EOSINOPHILS % (AUTO) 2.5 % (0.9-2.9); HEMATOCRIT 31.9 % (36.0-47.0); LYMPHOCYTES # (AUTO) 2.8 X10^3/uL (1.3-2.9); MEAN CORPUSCULAR HGB CONC 31.4 g/dL (33.0-35.0); MEAN CORPUSCULAR VOLUME 69.9 fL (80.0-100.0); MEAN PLATELET VOLUME 9.5 fL (7.4-11.0); MONOCYTES # (AUTO) 0.8 x10^3/uL (0.3-0.8); MONOCYTES % (AUTO) 8.2 % (0.0-13.0); NEUTROPHILS # (AUTO) 5.7 x10^3/uL (2.2-4.8); NEUTROPHILS % (AUTO) 59.5 % (42.0-75.0); PLATELET COUNT 235 X10^3/uL (150.0-450.0); RED BLOOD COUNT 4.56 X10^6/uL (3.5-5.4); RED CELL DISTRIBUTION WIDTH 14.7 % (11.6-16.5); WHITE BLOOD COUNT 9.6 X10^3/uL (3.6-10.0)
[2016-10-14 05:09] LABS: ALANINE AMINOTRANSFERASE 18 Units/L (12-78); ALBUMIN 2.6 g/dL (3.4-5.0); ALKALINE PHOSPHATASE 113 Units/L (46-116); ASPARTATE AMINO TRANSFERASE 17 Units/L (15-37); BLOOD UREA NITROGEN 8 mg/dL (7-18); CALCIUM 8.4 mg/dL (8.5-10.1); CARBON DIOXIDE 24.9 mmol/L (21-32); CHLORIDE 107 mmol/L (98-107); COR CA(FOR HYPOALB) 9.5 mg/dL (8.5-10.1); CREATININE 0.82 mg/dL (0.55-1.02); GLUCOSE 100 mg/dL (65-99); SODIUM 141 mmol/L (136-145); TOTAL PROTEIN 6.6 g/dL (6.4-8.2); eGFR BLACK RACES > 60 (>60); eGFR NON BLACK RACES > 60 (>60)
[2016-10-14 05:57] LABS: HYPOCHROMASIA 2+; PLATELET MORPHOLOGY COMMENT NORMAL (NORMAL)
[2016-10-14] MEDS: ZOSYN VIAL 3.375 GM 3.375 GM in NS 100 ML IV + SPIKE MINIBAG* 100 ML IV SCH ×3 (05:58→22:35)
[2016-10-14] MEDS ORDERED: NS 100 ML IV 100 ML IV ONE (07:13)
--- NOTE | 2016-10-14 08:20 | CT ---
HISTORY: Abdominal pain. Study: CT abdomen and pelvis with contrast Comparison: CT abdomen/pelvis dated June 14, 2016. Technique: Multiple axial images of the abdomen and pelvis were obtained from the lung bases to the pubic symph ysis after the administration of IV contrast. Dose reduction techniques including Automated Exposur e Control (AEC) and adjustment of mA and kV were utilized. Findings: The visualized portions of the lung bases are unremarkable. The liver, spleen, pancreas, kidneys, a nd adrenal glands are unremarkable in their CT appearance. The gallbladder is unremarkable in its CT appearance. No significant mesenteric lymphadenopathy or stranding can be observed. No free fluid or free air is seen within the abdomen. The visualized large and small bowel appear normal. The ap pendix is normal. The uterus and ovaries are surgically absent. The urinary bladder is grossly unre markable. The bony structures are grossly intact. IMPRESSION: No CT evidence of acute abdominal/pelvic pathology. Reported By:
[2016-10-14] MEDS: K-DUR TAB 20 MEQ PO PRN (08:41)
[2016-10-14] MEDS: NORVASC TAB 10 MG PO SCH (08:42)
[2016-10-14] MEDS: ZESTRIL TAB 5 MG PO SCH (08:42)
[2016-10-14] MEDS ORDERED: VANCOMYCIN HCL 500 MG VIAL 250 MG, VANCOMYCIN HCL 1 GM VIAL 1 GM in D5W 250 ML IV 250 ML IV SCH (09:00)
[2016-10-14] MEDS ORDERED: ZOFRAN INJ 4 MG VIAL IVP PRN (09:31)
[2016-10-14] MEDS ORDERED: PHENERGAN INJ 25 MG IM PRN (09:31)
--- NOTE | 2016-10-14 10:12 | VAS ---
HISTORY: Left leg pain and swelling Study: Left lower extremity venous ultrasound Comparison: January 16, 2015 TECHNIQUE: Multiple marquez scale and color flow Doppler images of the deep venous system were obtaine d of the right and left lower extremity. FINDINGS: The deep venous system of the left lower extremity was evaluated from the level of the common femora l vein through the popliteal vein. Normal color flow and augmentation can be observed. In addition , normal compression is seen throughout the deep venous system. IMPRESSION: 1. Negative for DVT. Reported By:
[2016-10-14] MEDS: FLAGYL TAB 500 MG PO SCH ×3 (10:25→21:20)
[2016-10-14] MEDS: BENTYL CAP 10 MG PO SCH ×4 (10:26→21:20)
[2016-10-14] MEDS: PEPCID 20 MG IV PREMIX* 20 MG/50 ML BAG IV SCH ×2 (10:26→21:21)
--- NOTE | 2016-10-14 11:35 | PCM.PROG ---
Progress Note - Progress Note for Day of Date: 10/14/16 - Subjective Subjective: IS AWAKE IN BED ON MORNING ROUNDS. SHE CONTINUES WITH COMPLAINTS OF ABDOMINAL PAIN AND DIARRHEA. PATIENT ALSO COMPLAINS OF MODERATE LEFT LEG PAIN AND SWELLING. ON EXAMINATION, LUNGS ARE CLEAR TO AUSCULTATION. BOWEL SOUNDS ARE HYPERACTIVE IN ALL QUADRANTS. VITALS THIS MORNING ARE 98.6,82, 21,98%,142/82. LABS ARE WNL EXCEPT WBC IMPROVED FROM 16.4 TO 9.6, HGB 10.0, HCT 31.9, POTASSIUM 3.3, BUN 8, CREATININE 0.82, GLUCOSE 100, CALCIUM 8.4, ALBUMIN 2.6. STOOL POSITIVE FOR C-DIFF TOXIN AND POSITIVE FOR OCCULT BLOOD. WE WILL START ON PEPCID, FLAGYL, BENTYL, ZOFRAN, AND PHENERGAN. WE WILL ORDER A VENOUS DOPPLER OF LEFT LEG TO CHECK FOR BLOOD CLOT. WE WILL RECHECK LABS AND FOLLOW UP WITH PATIENT IN AM. - Past Medical Family Social History Past Med/Fam/Surg Hx: No changes since H&P Allergies: Allergies MS No Known Drug Allergy [No Known Drug Allergy] Allergy (Verified 10/12/16 20: 09) - Review of Systems ROS: No change since H&P - Vital Signs and I&O's Vital Signs: Temperature 98.6 F Pulse Rate [Right Brachial] 82 Respiratory Rate 21 Blood Pressure [Right Arm] 142/82 O2 Sat by Pulse Oximetry 98 Intake and Output: Intake & Output 10/11/16 10/12/16 10/13/16 10/14/16 11:59 11:59 11:59 11:59 Intake Total 3112 Balance 3112 - Physical Exam Oriented: Normal Eyes: Normal. negative: Blurred Vision, Diplopia, Discharge, Pain, Redness, Photophobia, Other Ear: Normal. negative: Right, Left, Swelling, Ecchymosis, Hemotypanum, Abrasion , Laceration Nose: Normal. negative: Injected, Discharge, Blood, Other Throat: Normal. negative: Tonsillar Hypertrophy, Red, Exudate, Dry, Other Respiratory: Normal Cardiovascular: Normal : Dysuria. negative: Normal, Hematuria, Frequency, Discharge, Testicular Pain , Bleeding, , Other Auscultation: Bowel Sounds: Normal. negative: Bruit, Absent, Increased, Decreased, High Pitched, Other Palpation: Normal Tenderness: Diffuse Skin: Normal. negative: Decreased Turgur, Rash, Papular, Macular, Maculopapular , Vesicular, Pustular, Petechial, Red, Tender, Hot, Diaphoresis, Wound, Bruising , Ecchymosis, Other Musculoskeletal: Leg (LEFT LEG TENDER AND SWELLING ), Swelling, Tender Psychiatric: Normal Mood Description: Calm Affect: Normal Speech Pattern: Clear, Appropriate - Laboratory and Diagnostics Result Diagrams: 10/14/16 03:50 10/14/16 03:50 Labs: 10/14/16 00:49 Stool - Final Laboratory WBC 9.6 X10^3/uL (3.6-10.0) 10/14/16 03:50 RBC 4.56 X10^6/uL (3.5-5.4) 10/14/16 03:50 Hgb 10.0 g/dL (12.0-16.0) L 10/14/16 03:50 Hct 31.9 % (36.0-47.0) L 10/14/16 03:50 MCV 69.9 fL (80.0-100.0) L 10/14/16 03:50 MCH 22.0 pg (27.0-34.0) L 10/14/16 03:50 MCHC 31.4 g/dL (33.0-35.0) L 10/14/16 03:50 RDW 14.7 % (11.6-16.5) 10/14/16 03:50 Plt Count 235 X10^3/uL (150.0-450.0) 10/14/16 03:50 Plt Count Comment Adequate (ADEQUATE) 10/14/16 03:50 MPV 9.5 fL (7.4-11.0) 10/14/16 03:50 Neut % 59.5 % (42.0-75.0) 10/14/16 03:50 Lymph % 29.0 % (21.0-51.0) 10/14/16 03:50 [place] % 8.2 % (0.0-13.0) 10/14/16 03:50 Eos % 2.5 % (0.9-2.9) 10/14/16 03:50 Baso % 0.8 % (0.2-1.0) 10/14/16 03:50 Neut # 5.7 x10^3/uL (2.2-4.8) H 10/14/16 03:50 Lymph # 2.8 X10^3/uL (1.3-2.9) 10/14/16 03:50 [place] # 0.8 x10^3/uL (0.3-0.8) 10/14/16 03:50 Eos # 0.2 x10^3/uL (0.0-0.2) 10/14/16 03:50 Baso # 0.1 X10^3/uL (0.0-0.1) 10/14/16 03:50 Absolute Nucleated RBC 0.0 /100WBC 10/14/16 03:50 Total Counted 100 10/14/16 03:50 Neutrophils % (Manual) 58 % (39-76) 10/14/16 03:50 Band Neutrophils % 2 % (0-10) 10/13/16 05:25 Lymphocytes % (Manual) 34 % (13-43) 10/14/16 03:50 Monocytes % (Manual) 5 % (4-9) 10/14/16 03:50 Eosinophils % (Manual) 3 % (0-6) 10/14/16 03:50 Plt Morphology Comment Normal (NORMAL) 10/14/16 03:50 RBC Morphology Abnormal (NORMAL) A 10/14/16 03:50 Hypochromasia 2+ A 10/14/16 03:50 Target Cells Noted 10/12/16 20:33 Sodium 141 mmol/L (136-145) 10/14/16 03:50 Corrected Sodium TNP 10/14/16 03:50 Potassium 3.3 mmol/L (3.5-5.1) L 10/14/16 03:50 Chloride 107 mmol/L (98-107) 10/14/16 03:50 Carbon Dioxide 24.9 mmol/L (21-32) 10/14/16 03:50 BUN 8 mg/dL (7-18) 10/14/16 03:50 Creatinine 0.82 mg/dL (0.55-1.02) 10/14/16 03:50 Est GFR (MDRD) Af Amer > 60 (>60) 10/14/16 03:50 Est GFR (MDRD) Non-Af > 60 (>60) 10/14/16 03:50 Glucose 100 mg/dL (65-99) H 10/14/16 03:50 Lactic Acid 1.7 mmol/L (0.4-2.0) 10/12/16 22:03 Calcium 8.4 mg/dL (8.5-10.1) L 10/14/16 03:50 Corrected Calcium 9.5 mg/dL (8.5-10.1) 10/14/16 03:50 Magnesium 1.7 mg/dL (1.7-2.9) 10/14/16 03:50 Total Bilirubin 0.30 mg/dL (0.2-1.0) 10/14/16 03:50 AST 17 Units/L (15-37) 10/14/16 03:50 ALT 18 Units/L (12-78) 10/14/16 03:50 Alkaline Phosphatase 113 Units/L (46-116) 10/14/16 03:50 Creatine Kinase 102 Units/L (26-192) 10/12/16 20:33 CK-MB (CK-2) 2.3 ng/mL (0-4.0) 10/12/16 20:33 CK/CKMB % Calc 2.3 % (<4) 10/12/16 20:33 Troponin I < 0.02 ng/mL (0-1.5) 10/12/16 20:33 Total Protein 6.6 g/dL (6.4-8.2) 10/14/16 03:50 Albumin 2.6 g/dL (3.4-5.0) L 10/14/16 03:50 Globulin 4.0 g/dL (2.5-4.5) 10/14/16 03:50 Albumin/Globulin Ratio 0.7 Ratio (1.1-2.1) L 10/14/16 03:50 Specimen Type Clean catch urine 10/12/16 22:25 Urine Color Yellow (YELLOW) 10/12/16 22:25 Urine Appearance Slightly hazy (CLEAR) 10/12/16 22:25 Urine pH 6.0 (5.0 - 8.0) 10/12/16 22:25 Ur Specific [place] 1.010 (1.000-1.030) 10/12/16 22:25 Urine Protein 3+ (NEGATIVE) 10/12/16 22:25 Urine Glucose (UA) Negative (NEGATIVE) 10/12/16 22:25 Urine Ketones Negative (NEGATIVE) 10/12/16 22:25 Urine Occult Blood 4+ (NEGATIVE) 10/12/16 22:25 Urine Nitrite Negative (NEGATIVE) 10/12/16 22:25 Urine Bilirubin Negative (NEGATIVE) 10/12/16 22:25 Urine Urobilinogen Normal (NORMAL) 10/12/16 22:25 Ur Leukocyte Esterase 1+ (NEGATIVE) 10/12/16 22:25 Urine RBC 0-2 /HPF (NEGATIVE) 10/12/16 22:25 Urine WBC 8-10 /HPF (NEGATIVE) 10/12/16 22:25 Ur Squamous Epith Cells Moderate /HPF (NEGATIVE) 10/12/16 22:25 Urine Bacteria 1+ /HPF (NEGATIVE) 10/12/16 22:25 Hyaline Casts Many /LPF (NEGATIVE) 10/12/16 22:25 Urine Mucus Moderate /HPF (NEGATIVE) 10/12/16 22:25 Ur Culture Indicated? Yes/culture set up 10/12/16 22:25 Stool Description 15 g liquid,brown 10/14/16 00:49 Stl Occult Blood (IFOB) Positive (NEGATIVE) A 10/14/16 00:49 Stool for White Cells No wbc's seen (None) 10/14/16 00:49 Stl C. diff Tox B Gene Positive (NEGATIVE) A 10/14/16 00:49 Stl C. diff [id number] Negative (NEGATIVE) 10/14/16 00:49 Urine Opiates Screen Positive (NEG=<300) A 10/12/16 22:25 Urine Methadone Screen Negative (NEG=<300) 10/12/16 22:25 Ur Barbiturates Screen Negative (NEG=<200) 10/12/16 22:25 Ur Phencyclidine Scrn Negative (NEG=<25) 10/12/16 22:25 Ur Amphetamines Screen Negative (NEG=<1000) 10/12/16 22:25 U Benzodiazepines Scrn Positive (NEG=<200) A 10/12/16 22:25 Urine Cocaine Screen Negative (NEG=<300) 10/12/16 22:25 U Marijuana (THC) Screen Positive (NEG=<50) A 10/12/16 22:25 Cryptosporid parvum Ag Negative (NEGATIVE) 10/14/16 00:49 E. histolytica Antigen Negative (NEGATIVE) 10/14/16 00:49 Giardia lamblia Ag Negative (NEGATIVE) 10/14/16 00:49 - Plan (1) UTI (urinary tract infection) Status: Acute Qualifiers: Urinary tract infection type: site unspecified Hematuria presence: without hematuria Indwelling urinary catheter type: I Encounter type: E Qualified Code(s): N39.0 - Urinary tract infection, site not specified Plan: LEVAQUIN 750MG IV DAILY, CONTINUE TO MONITOR (2) Generalized weakness Status: Acute Plan: IV FLUIDS, RECHECK LABS, MONITOR (3) Headache Status: Acute Qualifiers: Headache type: unspecified Headache chronicity pattern: acute headache Intractability: intractable Qualified Code(s): R51 - Headache Plan: MORPHINE, MONITOR (4) Fibromyalgia Status: Chronic Plan: CONTINUE LYRICA, CONTINUE TO MONITOR (5) Hypertension Status: Chronic Qualifiers: Hypertension type: essential hypertension Qualified Code(s): I10 - Essential (primary) hypertension Plan: CONTINUE LISINOPRIL, CONTINUE TO MONITOR (6) Abdominal pain Status: Acute Qualifiers: Abdominal location: A Plan: START BENTYL, CONTINUE MORPHINE, CONTINUE TO MONITOR (7) C. difficile diarrhea Status: Acute Plan: START FLAGYL, CONTINUE TO MONITOR
[2016-10-14] MEDS: LYRICA 25 MG PO SCH (11:36)
[2016-10-14] MEDS: PROTONIX TAB 40 MG PO SCH (13:23)
[2016-10-15 05:28] LABS: BASOPHILS % (AUTO) 0.5 % (0.2-1.0); EOSINOPHILS # (AUTO) 0.3 x10^3/uL (0.0-0.2); EOSINOPHILS % (AUTO) 3.3 % (0.9-2.9); HEMATOCRIT 32.2 % (36.0-47.0); HEMOGLOBIN 10.1 g/dL (12.0-16.0); LYMPHOCYTES # (AUTO) 2.2 X10^3/uL (1.3-2.9); LYMPHOCYTES % (AUTO) 27.1 % (21.0-51.0); MEAN CORPUSCULAR HEMOGLOBIN 21.9 pg (27.0-34.0); MEAN CORPUSCULAR HGB CONC 31.4 g/dL (33.0-35.0); MEAN CORPUSCULAR VOLUME 69.9 fL (80.0-100.0); MEAN PLATELET VOLUME 9.1 fL (7.4-11.0); MONOCYTES # (AUTO) 0.7 x10^3/uL (0.3-0.8); MONOCYTES % (AUTO) 8.3 % (0.0-13.0); NEUTROPHILS # (AUTO) 4.9 x10^3/uL (2.2-4.8); NEUTROPHILS % (AUTO) 60.8 % (42.0-75.0); PLATELET COUNT 240 X10^3/uL (150.0-450.0); RED BLOOD COUNT 4.61 X10^6/uL (3.5-5.4); RED CELL DISTRIBUTION WIDTH 14.3 % (11.6-16.5); WHITE BLOOD COUNT 8.1 X10^3/uL (3.6-10.0)
[2016-10-15 05:31] LABS: ALANINE AMINOTRANSFERASE 18 Units/L (12-78); ALBUMIN 2.7 g/dL (3.4-5.0); ALKALINE PHOSPHATASE 109 Units/L (46-116); ASPARTATE AMINO TRANSFERASE 16 Units/L (15-37); BLOOD UREA NITROGEN 7 mg/dL (7-18); CALCIUM 8.7 mg/dL (8.5-10.1); CARBON DIOXIDE 26.3 mmol/L (21-32); CHLORIDE 107 mmol/L (98-107); COR CA(FOR HYPOALB) 9.7 mg/dL (8.5-10.1); CREATININE 0.82 mg/dL (0.55-1.02); GLUCOSE 95 mg/dL (65-99); SODIUM 142 mmol/L (136-145); TOTAL PROTEIN 6.6 g/dL (6.4-8.2); eGFR BLACK RACES > 60 (>60); eGFR NON BLACK RACES > 60 (>60)
[2016-10-15] MEDS: FLAGYL TAB 500 MG PO SCH ×3 (05:53→22:30)
[2016-10-15] MEDS: ZOSYN VIAL 3.375 GM 3.375 GM in NS 100 ML IV + SPIKE MINIBAG* 100 ML IV SCH ×3 (05:53→22:30)
[2016-10-15] MEDS: MORPHINE SULFATE INJ 4 MG IVP PRN ×4 (05:59→20:42)
[2016-10-15 06:06] LABS: HYPOCHROMASIA 2+; MICROCYTOSIS 1+; PLATELET MORPHOLOGY COMMENT NORMAL (NORMAL)
[2016-10-15] MEDS: BENTYL CAP 10 MG PO SCH ×4 (08:49→20:41)
[2016-10-15] MEDS: PEPCID 20 MG IV PREMIX* 20 MG/50 ML BAG IV SCH ×2 (08:49→20:41)
[2016-10-15] MEDS: ZESTRIL TAB 5 MG PO SCH (08:49)
[2016-10-15] MEDS: NORVASC TAB 10 MG PO SCH (08:50)
[2016-10-15] MEDS: PROTONIX TAB 40 MG PO SCH (08:50)
[2016-10-15] MEDS ORDERED: LEVAQUIN PREMIX IV 750 MG 750 MG/150 ML BAG IV SCH (09:00)
--- NOTE | 2016-10-15 10:11 | PCM.PROG ---
Progress Note - Progress Note for Day of Date: 10/15/16 - Subjective Subjective: IS AWAKE IN BED ON MORNING ROUNDS. SHE CONTINUES WITH COMPLAINTS OF ABDOMINAL PAIN, NAUSEA, AND DIARRHEA. ON EXAMINATION, LUNGS ARE CLEAR TO AUSCULTATION. BOWEL SOUNDS ARE HYPERACTIVE IN ALL QUADRANTS. VITALS THIS MORNING ARE 98.6, 76, 18, 98, 169/86. LABS ARE WNL EXCEPT HGB 10.1, HCT 32.2, POTASSIUM 3.6, BUN 7, CREATININE 0.82, ALBUMIN 2.7. VENOUS DOPPLER NEGATIVE FOR DVT. WE WILL CONTINUE ON PEPCID, FLAGYL, BENTYL, ZOFRAN, AND PHENERGAN. WE WILL RECHECK LABS AND FOLLOW UP WITH PATIENT IN AM. - Past Medical Family Social History Past Med/Fam/Surg Hx: No changes since H&P Allergies: Allergies MS No Known Drug Allergy [No Known Drug Allergy] Allergy (Verified 10/12/16 20: 09) - Review of Systems ROS: No change since H&P - Vital Signs and I&O's Vital Signs: Temperature 98.6 F Pulse Rate [Right Brachial] 76 Respiratory Rate 18 Blood Pressure [Right Arm] 169/86 O2 Sat by Pulse Oximetry 98 Intake and Output: Intake & Output 10/12/16 10/13/16 10/14/16 10/15/16 11:59 11:59 11:59 11:59 Intake Total 3112 1000 Balance 3112 1000 - Physical Exam Oriented: Normal Eyes: Normal. negative: Blurred Vision, Diplopia, Discharge, Pain, Redness, Photophobia, Other Ear: Normal. negative: Right, Left, Swelling, Ecchymosis, Hemotypanum, Abrasion , Laceration Nose: Normal. negative: Injected, Discharge, Blood, Other Throat: Normal. negative: Tonsillar Hypertrophy, Red, Exudate, Dry, Other Respiratory: Normal Cardiovascular: Normal : Dysuria. negative: Normal, Hematuria, Frequency, Discharge, Testicular Pain , Bleeding, , Other Auscultation: Bowel Sounds: Normal. negative: Bruit, Absent, Increased, Decreased, High Pitched, Other Palpation: Normal Tenderness: Diffuse Skin: Normal. negative: Decreased Turgur, Rash, Papular, Macular, Maculopapular , Vesicular, Pustular, Petechial, Red, Tender, Hot, Diaphoresis, Wound, Bruising , Ecchymosis, Other Musculoskeletal: Leg (LEFT LEG TENDER AND SWELLING ), Swelling, Tender Psychiatric: Normal Mood Description: Calm Affect: Normal Speech Pattern: Clear, Appropriate - Laboratory and Diagnostics Result Diagrams: 10/15/16 04:30 10/15/16 04:30 Labs: 10/14/16 00:49 Stool - Final Laboratory WBC 8.1 X10^3/uL (3.6-10.0) 10/15/16 04:30 RBC 4.61 X10^6/uL (3.5-5.4) 10/15/16 04:30 Hgb 10.1 g/dL (12.0-16.0) L 10/15/16 04:30 Hct 32.2 % (36.0-47.0) L 10/15/16 04:30 MCV 69.9 fL (80.0-100.0) L 10/15/16 04:30 MCH 21.9 pg (27.0-34.0) L 10/15/16 04:30 MCHC 31.4 g/dL (33.0-35.0) L 10/15/16 04:30 RDW 14.3 % (11.6-16.5) 10/15/16 04:30 Plt Count 240 X10^3/uL (150.0-450.0) 10/15/16 04:30 Plt Count Comment Adequate (ADEQUATE) 10/15/16 04:30 MPV 9.1 fL (7.4-11.0) 10/15/16 04:30 Neut % 60.8 % (42.0-75.0) 10/15/16 04:30 Lymph % 27.1 % (21.0-51.0) 10/15/16 04:30 [place] % 8.3 % (0.0-13.0) 10/15/16 04:30 Eos % 3.3 % (0.9-2.9) H 10/15/16 04:30 Baso % 0.5 % (0.2-1.0) 10/15/16 04:30 Neut # 4.9 x10^3/uL (2.2-4.8) H 10/15/16 04:30 Lymph # 2.2 X10^3/uL (1.3-2.9) 10/15/16 04:30 [place] # 0.7 x10^3/uL (0.3-0.8) 10/15/16 04:30 Eos # 0.3 x10^3/uL (0.0-0.2) H 10/15/16 04:30 Baso # 0.0 X10^3/uL (0.0-0.1) 10/15/16 04:30 Absolute Nucleated RBC 0.0 /100WBC 10/15/16 04:30 Total Counted 100 10/14/16 03:50 Neutrophils % (Manual) 58 % (39-76) 10/14/16 03:50 Band Neutrophils % 2 % (0-10) 10/13/16 05:25 Lymphocytes % (Manual) 34 % (13-43) 10/14/16 03:50 Monocytes % (Manual) 5 % (4-9) 10/14/16 03:50 Eosinophils % (Manual) 3 % (0-6) 10/14/16 03:50 Plt Morphology Comment Normal (NORMAL) 10/15/16 04:30 RBC Morphology Abnormal (NORMAL) A 10/15/16 04:30 Hypochromasia 2+ A 10/15/16 04:30 Microcytosis 1+ A 10/15/16 04:30 Target Cells Noted 10/12/16 20:33 Sodium 142 mmol/L (136-145) 10/15/16 04:30 Corrected Sodium TNP 10/15/16 04:30 Potassium 3.6 mmol/L (3.5-5.1) 10/15/16 04:30 Chloride 107 mmol/L (98-107) 10/15/16 04:30 Carbon Dioxide 26.3 mmol/L (21-32) 10/15/16 04:30 BUN 7 mg/dL (7-18) 10/15/16 04:30 Creatinine 0.82 mg/dL (0.55-1.02) 10/15/16 04:30 Est GFR (MDRD) Af Amer > 60 (>60) 10/15/16 04:30 Est GFR (MDRD) Non-Af > 60 (>60) 10/15/16 04:30 Glucose 95 mg/dL (65-99) 10/15/16 04:30 Lactic Acid 1.7 mmol/L (0.4-2.0) 10/12/16 22:03 Calcium 8.7 mg/dL (8.5-10.1) 10/15/16 04:30 Corrected Calcium 9.7 mg/dL (8.5-10.1) 10/15/16 04:30 Magnesium 1.7 mg/dL (1.7-2.9) 10/14/16 03:50 Total Bilirubin 0.30 mg/dL (0.2-1.0) 10/15/16 04:30 AST 16 Units/L (15-37) 10/15/16 04:30 ALT 18 Units/L (12-78) 10/15/16 04:30 Alkaline Phosphatase 109 Units/L (46-116) 10/15/16 04:30 Creatine Kinase 102 Units/L (26-192) 10/12/16 20:33 CK-MB (CK-2) 2.3 ng/mL (0-4.0) 10/12/16 20:33 CK/CKMB % Calc 2.3 % (<4) 10/12/16 20:33 Troponin I < 0.02 ng/mL (0-1.5) 10/12/16 20:33 Total Protein 6.6 g/dL (6.4-8.2) 10/15/16 04:30 Albumin 2.7 g/dL (3.4-5.0) L 10/15/16 04:30 Globulin 3.9 g/dL (2.5-4.5) 10/15/16 04:30 Albumin/Globulin Ratio 0.7 Ratio (1.1-2.1) L 10/15/16 04:30 Specimen Type Clean catch urine 10/12/16 22:25 Urine Color Yellow (YELLOW) 10/12/16 22:25 Urine Appearance Slightly hazy (CLEAR) 10/12/16 22:25 Urine pH 6.0 (5.0 - 8.0) 10/12/16 22:25 Ur Specific [place] 1.010 (1.000-1.030) 10/12/16 22:25 Urine Protein 3+ (NEGATIVE) 10/12/16 22:25 Urine Glucose (UA) Negative (NEGATIVE) 10/12/16 22:25 Urine Ketones Negative (NEGATIVE) 10/12/16 22:25 Urine Occult Blood 4+ (NEGATIVE) 10/12/16 22:25 Urine Nitrite Negative (NEGATIVE) 10/12/16 22:25 Urine Bilirubin Negative (NEGATIVE) 10/12/16 22:25 Urine Urobilinogen Normal (NORMAL) 10/12/16 22:25 Ur Leukocyte Esterase 1+ (NEGATIVE) 10/12/16 22:25 Urine RBC 0-2 /HPF (NEGATIVE) 10/12/16 22:25 Urine WBC 8-10 /HPF (NEGATIVE) 10/12/16 22:25 Ur Squamous Epith Cells Moderate /HPF (NEGATIVE) 10/12/16 22:25 Urine Bacteria 1+ /HPF (NEGATIVE) 10/12/16 22:25 Hyaline Casts Many /LPF (NEGATIVE) 10/12/16 22:25 Urine Mucus Moderate /HPF (NEGATIVE) 10/12/16 22:25 Ur Culture Indicated? Yes/culture set up 10/12/16 22:25 Stool Description 15 g liquid,brown 10/14/16 00:49 Stl Occult Blood (IFOB) Positive (NEGATIVE) A 10/14/16 00:49 Stool for White Cells No wbc's seen (None) 10/14/16 00:49 Stl C. diff Tox B Gene Positive (NEGATIVE) A 10/14/16 00:49 Stl C. diff 027-NAP1-BI Negative (NEGATIVE) 10/14/16 00:49 Urine Opiates Screen Positive (NEG=<300) A 10/12/16 22:25 Urine Methadone Screen Negative (NEG=<300) 10/12/16 22:25 Ur Barbiturates Screen Negative (NEG=<200) 10/12/16 22:25 Ur Phencyclidine Scrn Negative (NEG=<25) 10/12/16 22:25 Ur Amphetamines Screen Negative (NEG=<1000) 10/12/16 22:25 U Benzodiazepines Scrn Positive (NEG=<200) A 10/12/16 22:25 Urine Cocaine Screen Negative (NEG=<300) 10/12/16 22:25 U Marijuana (THC) Screen Positive (NEG=<50) A 10/12/16 22:25 Cryptosporid parvum Ag Negative (NEGATIVE) 10/14/16 00:49 E. histolytica Antigen Negative (NEGATIVE) 10/14/16 00:49 Giardia lamblia Ag Negative (NEGATIVE) 10/14/16 00:49 - Plan (1) UTI (urinary tract infection) Status: Acute Qualifiers: Urinary tract infection type: site unspecified Hematuria presence: without hematuria Indwelling urinary catheter type: I Encounter type: E Qualified Code(s): N39.0 - Urinary tract infection, site not specified Plan: LEVAQUIN 750MG IV DAILY, CONTINUE TO MONITOR (2) Abdominal pain Status: Acute Qualifiers: Abdominal location: A Plan: START BENTYL, CONTINUE MORPHINE, CONTINUE TO MONITOR (3) C. difficile diarrhea Status: Acute Plan: START FLAGYL, CONTINUE TO MONITOR (4) Generalized weakness Status: Acute Plan: IV FLUIDS, RECHECK LABS, MONITOR (5) Headache Status: Acute Qualifiers: Headache type: unspecified Headache chronicity pattern: acute headache Intractability: intractable Qualified Code(s): R51 - Headache Plan: MORPHINE, MONITOR (6) Fibromyalgia Status: Chronic Plan: CONTINUE LYRICA, CONTINUE TO MONITOR (7) Hypertension Status: Chronic Qualifiers: Hypertension type: essential hypertension Qualified Code(s): I10 - Essential (primary) hypertension Plan: CONTINUE LISINOPRIL, CONTINUE TO MONITOR
[2016-10-15] MEDS: LYRICA 25 MG PO SCH (10:23)
[2016-10-15] MEDS: NS 1000 ML 1,000 ML IV SCH ×2 (12:09→22:30)
[2016-10-15] MEDS: ATIVAN INJ 2 MG VIAL IVP PRN (22:33)
[2016-10-16] MEDS: NS 1000 ML 1,000 ML IV SCH (01:42)
[2016-10-16] MEDS: MORPHINE SULFATE INJ 4 MG IVP PRN ×5 (02:48→22:17)
[2016-10-16 05:03] LABS: ALANINE AMINOTRANSFERASE 15 Units/L (12-78); ALBUMIN 2.6 g/dL (3.4-5.0); ALKALINE PHOSPHATASE 98 Units/L (46-116); ASPARTATE AMINO TRANSFERASE 13 Units/L (15-37); BLOOD UREA NITROGEN 8 mg/dL (7-18); CALCIUM 8.5 mg/dL (8.5-10.1); CARBON DIOXIDE 25.4 mmol/L (21-32); CHLORIDE 108 mmol/L (98-107); COR CA(FOR HYPOALB) 9.6 mg/dL (8.5-10.1); GLUCOSE 97 mg/dL (65-99); SODIUM 142 mmol/L (136-145); TOTAL PROTEIN 6.2 g/dL (6.4-8.2); eGFR BLACK RACES > 60 (>60); eGFR NON BLACK RACES > 60 (>60)
[2016-10-16 05:32] LABS: BASOPHILS # (AUTO) 0.1 X10^3/uL (0.0-0.1); BASOPHILS % (AUTO) 0.7 % (0.2-1.0); EOSINOPHILS # (AUTO) 0.3 x10^3/uL (0.0-0.2); EOSINOPHILS % (AUTO) 3.2 % (0.9-2.9); HEMATOCRIT 30.6 % (36.0-47.0); HEMOGLOBIN 9.6 g/dL (12.0-16.0); LYMPHOCYTES # (AUTO) 2.5 X10^3/uL (1.3-2.9); LYMPHOCYTES % (AUTO) 29.7 % (21.0-51.0); MEAN CORPUSCULAR HEMOGLOBIN 21.9 pg (27.0-34.0); MEAN CORPUSCULAR HGB CONC 31.2 g/dL (33.0-35.0); MEAN PLATELET VOLUME 9.3 fL (7.4-11.0); MONOCYTES # (AUTO) 0.5 x10^3/uL (0.3-0.8); MONOCYTES % (AUTO) 6.3 % (0.0-13.0); NEUTROPHILS % (AUTO) 60.1 % (42.0-75.0); PLATELET COUNT 229 X10^3/uL (150.0-450.0); RED BLOOD COUNT 4.37 X10^6/uL (3.5-5.4); RED CELL DISTRIBUTION WIDTH 14.5 % (11.6-16.5); WHITE BLOOD COUNT 8.3 X10^3/uL (3.6-10.0)
[2016-10-16] MEDS: FLAGYL TAB 500 MG PO SCH ×5 (05:40→20:59)
[2016-10-16] MEDS: ZOSYN VIAL 3.375 GM 3.375 GM in NS 100 ML IV + SPIKE MINIBAG* 100 ML IV SCH ×4 (05:40→20:59)
[2016-10-16 05:45] LABS: HYPOCHROMASIA 2+; MICROCYTOSIS 1+; PLATELET MORPHOLOGY COMMENT NORMAL (NORMAL)
[2016-10-16] MEDS: ZESTRIL TAB 5 MG PO SCH ×2 (07:57→10:03)
[2016-10-16] MEDS: BENTYL CAP 10 MG PO SCH ×5 (07:57→20:59)
[2016-10-16] MEDS: K-DUR TAB 20 MEQ PO PRN (07:58)
[2016-10-16] MEDS: NORVASC TAB 10 MG PO SCH ×2 (07:58→10:03)
[2016-10-16] MEDS: PROTONIX TAB 40 MG PO SCH ×2 (07:58→10:03)
[2016-10-16] MEDS ORDERED: PHARMACY COMMENT IV SCH (08:45)
[2016-10-16] MEDS: LYRICA 25 MG PO SCH (10:02)
[2016-10-16] MEDS: PEPCID 20 MG IV PREMIX* 20 MG/50 ML BAG IV SCH ×2 (10:03→20:59)
--- NOTE | 2016-10-16 10:17 | PCM.PROG ---
Progress Note - Progress Note for Day of Date: 10/16/16 - Subjective Subjective: IS AWAKE IN BED ON MORNING ROUNDS. SHE CONTINUES WITH COMPLAINTS OF ABDOMINAL PAIN THAT HAS IMPROVED SOME SINCE YESTERDAY. ON EXAMINATION, LUNGS ARE CLEAR TO AUSCULTATION. BOWEL SOUNDS ARE HYPERACTIVE IN ALL QUADRANTS. VITALS THIS MORNING ARE 98.7, 76, 18, 99, 135/77. LABS ARE WNL EXCEPT HGB 9.3, HCT 30.6, POTASSIUM 3.4, BUN 8, CREATININE 0.70, AST 13, TOTAL PROTEIN 6.2, ALBUMIN 2.6. WE WILL CONTINUE ON PEPCID, FLAGYL, BENTYL, ZOFRAN, AND PHENERGAN. WE WILL CHECK A KUB IN AM. WE WILL RECHECK LABS AND FOLLOW UP WITH PATIENT IN AM. - Past Medical Family Social History Past Med/Fam/Surg Hx: No changes since H&P Allergies: Allergies MS No Known Drug Allergy [No Known Drug Allergy] Allergy (Verified 10/12/16 20: 09) - Review of Systems ROS: No change since H&P - Vital Signs and I&O's Vital Signs: Temperature 98.7 F Pulse Rate [Right Brachial] 76 Respiratory Rate 18 Blood Pressure [Right Arm] 135/77 O2 Sat by Pulse Oximetry 99 Intake and Output: Intake & Output 10/13/16 10/14/16 10/15/16 10/16/16 11:59 11:59 11:59 11:59 Intake Total 3112 1000 1752 Balance 3112 1000 1752 - Physical Exam Oriented: Normal Eyes: Normal. negative: Blurred Vision, Diplopia, Discharge, Pain, Redness, Photophobia, Other Ear: Normal. negative: Right, Left, Swelling, Ecchymosis, Hemotypanum, Abrasion , Laceration Nose: Normal. negative: Injected, Discharge, Blood, Other Throat: Normal. negative: Tonsillar Hypertrophy, Red, Exudate, Dry, Other Respiratory: Normal Cardiovascular: Normal : Dysuria. negative: Normal, Hematuria, Frequency, Discharge, Testicular Pain , Bleeding, , Other Auscultation: Bowel Sounds: Normal. negative: Bruit, Absent, Increased, Decreased, High Pitched, Other Tenderness: Diffuse Skin: Normal. negative: Decreased Turgur, Rash, Papular, Macular, Maculopapular , Vesicular, Pustular, Petechial, Red, Tender, Hot, Diaphoresis, Wound, Bruising , Ecchymosis, Other Musculoskeletal: Leg (LEFT LEG TENDER AND SWELLING ), Swelling, Tender Psychiatric: Normal Mood Description: Calm Affect: Normal Speech Pattern: Clear, Appropriate - Laboratory and Diagnostics Result Diagrams: 10/16/16 04:15 10/16/16 04:15 Labs: 10/14/16 00:49 Stool Stool Culture - Final 10/14/16 00:49 Stool - Final Laboratory WBC 8.3 X10^3/uL (3.6-10.0) 10/16/16 04:15 RBC 4.37 X10^6/uL (3.5-5.4) 10/16/16 04:15 Hgb 9.6 g/dL (12.0-16.0) L 10/16/16 04:15 Hct 30.6 % (36.0-47.0) L 10/16/16 04:15 MCV 70.0 fL (80.0-100.0) L 10/16/16 04:15 MCH 21.9 pg (27.0-34.0) L 10/16/16 04:15 MCHC 31.2 g/dL (33.0-35.0) L 10/16/16 04:15 RDW 14.5 % (11.6-16.5) 10/16/16 04:15 Plt Count 229 X10^3/uL (150.0-450.0) 10/16/16 04:15 Plt Count Comment Adequate (ADEQUATE) 10/16/16 04:15 MPV 9.3 fL (7.4-11.0) 10/16/16 04:15 Neut % 60.1 % (42.0-75.0) 10/16/16 04:15 Lymph % 29.7 % (21.0-51.0) 10/16/16 04:15 [place] % 6.3 % (0.0-13.0) 10/16/16 04:15 Eos % 3.2 % (0.9-2.9) H 10/16/16 04:15 Baso % 0.7 % (0.2-1.0) 10/16/16 04:15 Neut # 5.0 x10^3/uL (2.2-4.8) H 10/16/16 04:15 Lymph # 2.5 X10^3/uL (1.3-2.9) 10/16/16 04:15 [place] # 0.5 x10^3/uL (0.3-0.8) 10/16/16 04:15 Eos # 0.3 x10^3/uL (0.0-0.2) H 10/16/16 04:15 Baso # 0.1 X10^3/uL (0.0-0.1) 10/16/16 04:15 Absolute Nucleated RBC 0.1 /100WBC 10/16/16 04:15 Total Counted 100 10/14/16 03:50 Neutrophils % (Manual) 58 % (39-76) 10/14/16 03:50 Band Neutrophils % 2 % (0-10) 10/13/16 05:25 Lymphocytes % (Manual) 34 % (13-43) 10/14/16 03:50 Monocytes % (Manual) 5 % (4-9) 10/14/16 03:50 Eosinophils % (Manual) 3 % (0-6) 10/14/16 03:50 Plt Morphology Comment Normal (NORMAL) 10/16/16 04:15 RBC Morphology Abnormal (NORMAL) A 10/16/16 04:15 Hypochromasia 2+ A 10/16/16 04:15 Microcytosis 1+ A 10/16/16 04:15 Target Cells Noted 10/12/16 20:33 Sodium 142 mmol/L (136-145) 10/16/16 04:15 Corrected Sodium TNP 10/16/16 04:15 Potassium 3.4 mmol/L (3.5-5.1) L 10/16/16 04:15 Chloride 108 mmol/L (98-107) H 10/16/16 04:15 Carbon Dioxide 25.4 mmol/L (21-32) 10/16/16 04:15 BUN 8 mg/dL (7-18) 10/16/16 04:15 Creatinine 0.70 mg/dL (0.55-1.02) 10/16/16 04:15 Est GFR (MDRD) Af Amer > 60 (>60) 10/16/16 04:15 Est GFR (MDRD) Non-Af > 60 (>60) 10/16/16 04:15 Glucose 97 mg/dL (65-99) 10/16/16 04:15 Lactic Acid 1.7 mmol/L (0.4-2.0) 10/12/16 22:03 Calcium 8.5 mg/dL (8.5-10.1) 10/16/16 04:15 Corrected Calcium 9.6 mg/dL (8.5-10.1) 10/16/16 04:15 Magnesium 1.7 mg/dL (1.7-2.9) 10/14/16 03:50 Total Bilirubin 0.20 mg/dL (0.2-1.0) 10/16/16 04:15 AST 13 Units/L (15-37) L 10/16/16 04:15 ALT 15 Units/L (12-78) 10/16/16 04:15 Alkaline Phosphatase 98 Units/L (46-116) 10/16/16 04:15 Creatine Kinase 102 Units/L (26-192) 10/12/16 20:33 CK-MB (CK-2) 2.3 ng/mL (0-4.0) 10/12/16 20:33 CK/CKMB % Calc 2.3 % (<4) 10/12/16 20:33 Troponin I < 0.02 ng/mL (0-1.5) 10/12/16 20:33 Total Protein 6.2 g/dL (6.4-8.2) L 10/16/16 04:15 Albumin 2.6 g/dL (3.4-5.0) L 10/16/16 04:15 Globulin 3.6 g/dL (2.5-4.5) 10/16/16 04:15 Albumin/Globulin Ratio 0.7 Ratio (1.1-2.1) L 10/16/16 04:15 Specimen Type Clean catch urine 10/12/16 22:25 Urine Color Yellow (YELLOW) 10/12/16 22:25 Urine Appearance Slightly hazy (CLEAR) 10/12/16 22:25 Urine pH 6.0 (5.0 - 8.0) 10/12/16 22:25 Ur Specific [place] 1.010 (1.000-1.030) 10/12/16 22:25 Urine Protein 3+ (NEGATIVE) 10/12/16 22:25 Urine Glucose (UA) Negative (NEGATIVE) 10/12/16 22:25 Urine Ketones Negative (NEGATIVE) 10/12/16 22:25 Urine Occult Blood 4+ (NEGATIVE) 10/12/16 22:25 Urine Nitrite Negative (NEGATIVE) 10/12/16 22:25 Urine Bilirubin Negative (NEGATIVE) 10/12/16 22:25 Urine Urobilinogen Normal (NORMAL) 10/12/16 22:25 Ur Leukocyte Esterase 1+ (NEGATIVE) 10/12/16 22:25 Urine RBC 0-2 /HPF (NEGATIVE) 10/12/16 22:25 Urine WBC 8-10 /HPF (NEGATIVE) 10/12/16 22:25 Ur Squamous Epith Cells Moderate /HPF (NEGATIVE) 10/12/16 22:25 Urine Bacteria 1+ /HPF (NEGATIVE) 10/12/16 22:25 Hyaline Casts Many /LPF (NEGATIVE) 10/12/16 22:25 Urine Mucus Moderate /HPF (NEGATIVE) 10/12/16 22:25 Ur Culture Indicated? Yes/culture set up 10/12/16 22:25 Stool Description 15 g liquid,brown 10/14/16 00:49 Stl Occult Blood (IFOB) Positive (NEGATIVE) A 10/14/16 00:49 Stool for White Cells No wbc's seen (None) 10/14/16 00:49 Stl C. diff Tox B Gene Positive (NEGATIVE) A 10/14/16 00:49 Stl C. diff 027-NAP1-BI Negative (NEGATIVE) 10/14/16 00:49 Urine Opiates Screen Positive (NEG=<300) A 10/12/16 22:25 Urine Methadone Screen Negative (NEG=<300) 10/12/16 22:25 Ur Barbiturates Screen Negative (NEG=<200) 10/12/16 22:25 Ur Phencyclidine Scrn Negative (NEG=<25) 10/12/16 22:25 Ur Amphetamines Screen Negative (NEG=<1000) 10/12/16 22:25 U Benzodiazepines Scrn Positive (NEG=<200) A 10/12/16 22:25 Urine Cocaine Screen Negative (NEG=<300) 10/12/16 22:25 U Marijuana (THC) Screen Positive (NEG=<50) A 10/12/16 22:25 Cryptosporid parvum Ag Negative (NEGATIVE) 10/14/16 00:49 E. histolytica Antigen Negative (NEGATIVE) 10/14/16 00:49 Giardia lamblia Ag Negative (NEGATIVE) 10/14/16 00:49 - Plan (1) UTI (urinary tract infection) Status: Acute Qualifiers: Urinary tract infection type: site unspecified Hematuria presence: without hematuria Indwelling urinary catheter type: I Encounter type: E Qualified Code(s): N39.0 - Urinary tract infection, site not specified Plan: CONTINUE TO MONITOR (2) Abdominal pain Status: Acute Qualifiers: Abdominal location: A Plan: START BENTYL, CONTINUE MORPHINE, CONTINUE TO MONITOR (3) C. difficile diarrhea Status: Acute Plan: START FLAGYL, CONTINUE TO MONITOR (4) Generalized weakness Status: Acute Plan: IV FLUIDS, RECHECK LABS, MONITOR (5) Headache Status: Acute Qualifiers: Headache type: tension-type Headache chronicity pattern: acute headache Intractability: intractable Qualified Code(s): G44.201 - Tension-type headache , unspecified, intractable Plan: MORPHINE, MONITOR (6) Fibromyalgia Status: Chronic Plan: CONTINUE LYRICA, CONTINUE TO MONITOR (7) Hypertension Status: Chronic Qualifiers: Hypertension type: essential hypertension Qualified Code(s): I10 - Essential (primary) hypertension Plan: CONTINUE LISINOPRIL, CONTINUE TO MONITOR
[2016-10-16] MEDS: ATIVAN INJ 2 MG VIAL IVP PRN (14:22)
[2016-10-16 22:22] LABS: BILIRUBIN,URINE NEGATIVE (NEGATIVE); BLOOD/HEMOGLOBIN,URINE NEGATIVE (NEGATIVE); GLUCOSE, URINE NEGATIVE (NEGATIVE); KETONES,URINE NEGATIVE (NEGATIVE); LEUKOCYTE ESTERASE ,URINE NEGATIVE (NEGATIVE); NITRITES,URINE NEGATIVE (NEGATIVE); PROTEIN,URINE NEGATIVE (NEGATIVE); UROBILINOGEN,URINE NORMAL (NORMAL)
[2016-10-17] MEDS: NS 1000 ML 1,000 ML IV SCH ×2 (00:20→03:38)
[2016-10-17 00:38] LABS: APPEARANCE,URINE CLEAR (CLEAR); BACTERIA,URINE NEGATIVE /HPF (NEGATIVE); COLOR,URINE YELLOW (YELLOW); RBC,URINE 0-3 /HPF (NEGATIVE); SQUAMOUS EPITHELIAL CELL,UR RARE /HPF (NEGATIVE)
[2016-10-17] MEDS: ATIVAN INJ 2 MG VIAL IVP PRN (03:40)
[2016-10-17] MEDS: MORPHINE SULFATE INJ 4 MG IVP PRN ×2 (03:40→07:30)
[2016-10-17] MEDS: ZOSYN VIAL 3.375 GM 3.375 GM in NS 100 ML IV + SPIKE MINIBAG* 100 ML IV SCH (05:37)
[2016-10-17] MEDS: FLAGYL TAB 500 MG PO SCH (05:37)
[2016-10-17 06:15] LABS: BASOPHILS % (AUTO) 0.5 % (0.2-1.0); EOSINOPHILS # (AUTO) 0.2 x10^3/uL (0.0-0.2); EOSINOPHILS % (AUTO) 3.2 % (0.9-2.9); HEMATOCRIT 31.8 % (36.0-47.0); HEMOGLOBIN 9.9 g/dL (12.0-16.0); LYMPHOCYTES # (AUTO) 2.5 X10^3/uL (1.3-2.9); LYMPHOCYTES % (AUTO) 35.9 % (21.0-51.0); MEAN CORPUSCULAR HEMOGLOBIN 21.9 pg (27.0-34.0); MEAN CORPUSCULAR HGB CONC 31.1 g/dL (33.0-35.0); MEAN CORPUSCULAR VOLUME 70.2 fL (80.0-100.0); MEAN PLATELET VOLUME 9.6 fL (7.4-11.0); MONOCYTES # (AUTO) 0.5 x10^3/uL (0.3-0.8); MONOCYTES % (AUTO) 7.5 % (0.0-13.0); NEUTROPHILS # (AUTO) 3.8 x10^3/uL (2.2-4.8); NEUTROPHILS % (AUTO) 52.9 % (42.0-75.0); PLATELET COUNT 252 X10^3/uL (150.0-450.0); RED BLOOD COUNT 4.53 X10^6/uL (3.5-5.4); RED CELL DISTRIBUTION WIDTH 14.3 % (11.6-16.5); WHITE BLOOD COUNT 7.1 X10^3/uL (3.6-10.0)
[2016-10-17 06:37] LABS: ALANINE AMINOTRANSFERASE 17 Units/L (12-78); ALBUMIN 2.8 g/dL (3.4-5.0); ALKALINE PHOSPHATASE 97 Units/L (46-116); ASPARTATE AMINO TRANSFERASE 16 Units/L (15-37); BLOOD UREA NITROGEN 8 mg/dL (7-18); CALCIUM 8.4 mg/dL (8.5-10.1); CARBON DIOXIDE 24.3 mmol/L (21-32); CHLORIDE 110 mmol/L (98-107); COR CA(FOR HYPOALB) 9.4 mg/dL (8.5-10.1); CREATININE 0.81 mg/dL (0.55-1.02); GLUCOSE 82 mg/dL (65-99); SODIUM 144 mmol/L (136-145); TOTAL PROTEIN 6.5 g/dL (6.4-8.2); eGFR BLACK RACES > 60 (>60); eGFR NON BLACK RACES > 60 (>60)
--- NOTE | 2016-10-17 07:11 | RAD ---
HISTORY: Abdominal pain Study: KUB Comparison: CT abdomen pelvis October 14, 2016 Findings: Evaluation of the abdomen demonstrates a normal bowel gas pattern. No pathological soft tissue mass or calcification can be observed. The bony structures are grossly intact. IMPRESSION: 1. No evidence for acute abdominal pathology identified. Reported By:
[2016-10-17 07:15] LABS: HYPOCHROMASIA SLIGHT; PLATELET MORPHOLOGY COMMENT NORMAL (NORMAL)
[2016-10-17 07:47] VITALS: BP 110/70
[2016-10-17] MEDS: PEPCID 20 MG IV PREMIX* 20 MG/50 ML BAG IV SCH (08:53)
[2016-10-17] MEDS: PROTONIX TAB 40 MG PO SCH (08:54)
[2016-10-17] MEDS: ZESTRIL TAB 5 MG PO SCH (08:55)
[2016-10-17] MEDS: NORVASC TAB 10 MG PO SCH (08:55)
[2016-10-17] MEDS: LYRICA 25 MG PO SCH (08:59)
[2016-10-17] MEDS: BENTYL CAP 10 MG PO SCH (08:59)
== END 2016-10-17 10:25 | disposition home or self-care (01) | DRG 690 ==
LOC: ER 20:03 → ICU 23:52 → OBSVTOIN 10-13 08:30 → MED/SURG 10-13 20:15
PROVIDERS: ADMIT Internal Medicine; ATTEND Internal Medicine
DX: N39.0 Urinary tract infection, site not specified (principal); R51 Headache; R53.83 Other fatigue; D72.828 Other elevated white blood cell count; M79.7 Fibromyalgia; M13.89 Other specified arthritis, multiple sites; I10 Essential (primary) hypertension; R55 Syncope and collapse; I95.89 Other hypotension; R10.84 Generalized abdominal pain; A04.7 Enterocolitis due to Clostridium difficile; R60.0 Localized edema; F12.90 Cannabis use, unspecified, uncomplicated; F11.90 Opioid use, unspecified, uncomplicated; Z79.899 Other long term (current) drug therapy
CPT/HCPCS: 36415; 70450; 71010; 74000; 74177; 80053; 80307; 81001; 82270; 82550; 82553; 83605; 83735; 84132; 84484; 85025; 87040; 87045; 87086; 87205; 87328; 87329; 87336; 87427; 87493; 87899; 93005; 93010; 93971; 96365; 96367; 96374; 96375; 99284; A4222; S0028; G0378; G0434; J0696; J1956; J2060; J2270; J2405; J2543; J2550; J3370

== ENCOUNTER 2016-11-27 12:19 | Inpatient (IN) | payer MEDICAID ==
[2016-11-27 12:25] VITALS: BMI 34.3
[2016-11-27 15:48] LABS: BASOPHILS # (AUTO) 0.1 X10^3/uL (0.0-0.1); BASOPHILS % (AUTO) 0.7 % (0.2-1.0); EOSINOPHILS # (AUTO) 0.2 x10^3/uL (0.0-0.2); EOSINOPHILS % (AUTO) 1.9 % (0.9-2.9); HEMATOCRIT 34.8 % (36.0-47.0); HEMOGLOBIN 10.9 g/dL (12.0-16.0); LYMPHOCYTES # (AUTO) 2.2 X10^3/uL (1.3-2.9); MEAN CORPUSCULAR HEMOGLOBIN 21.9 pg (27.0-34.0); MEAN CORPUSCULAR HGB CONC 31.4 g/dL (33.0-35.0); MEAN CORPUSCULAR VOLUME 69.7 fL (80.0-100.0); MEAN PLATELET VOLUME 9.3 fL (7.4-11.0); MONOCYTES % (AUTO) 9.1 % (0.0-13.0); NEUTROPHILS # (AUTO) 7.5 x10^3/uL (2.2-4.8); NEUTROPHILS % (AUTO) 68.3 % (42.0-75.0); PLATELET COUNT 184 X10^3/uL (150.0-450.0); RED BLOOD COUNT 4.99 X10^6/uL (3.5-5.4); RED CELL DISTRIBUTION WIDTH 14.9 % (11.6-16.5)
--- NOTE | 2016-11-27 15:50 | DR.DIZZY ---
HPI - Time seen Time seen: 15:00 - PCP Primary Care Physician: SIXTO WHITMORE - HPI Comment HPI Comment: pT C/O 2 weeks h/o diarrhea, nausea and vomiting but no fever. She "hurt all over especially abdominal pain." She had a recent hospitalization for C diff. - Complaint Chief Complaint Doctor Comments: "I've had diarrhea for 2 weeks" Chief Complaint:: PT STATES " I HAVE NOT FELT GOOD IN A FEW DAY'S AND I CAN'T DO NOTHING AND MY DAUGHTER CALLED DR. MEDRANO AND THEY TOLD ME TO COME " . Self Treatment fo Chief Complaint: PT STATES " I HAVE BEEN HAVING DIARRHEA FOR 2 WEEKS "... PT IS FALLING ASLEEP IN TRIAGE.. - Nurses Notes Reviewed Nurses Notes Review: Yes - Source History Provided: Patient - Mode of Arrival Mode of Arrival: Ambulatory - Timing Onset of Chief Complaint: 11/24/16 Came on: Gradually Symptom Onset: Known - Duration Duration: Intermittent How lon Duration: Weeks - Location of Weakness Weakness Location: Generalized - Context Does pt take pot. toxic medication?: No Stroke Symptoms: None - Severity Severity: Normal activity level - Modifying factors Worsens: Nothing - Associated signs and symptoms Associated Signs and Symptoms: Weak, Nausea, Vomiting PMH - PMH Past Medical History: Yes Past Medical History: Arthritis, GERD, Hypertension Past Surgical History: Yes Surgical History: , [employer] Surgery, 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, Ortho Surgery - Family History History of Family Medical Conditions: Yes Family Medical History: Hypertension - Social History Does patient currently use any type of tobacco product: No Have you used tobacco products in the last 12 months: No Type of Tobacco Use: None Does any household member use tobacco: No Alcohol Use: None Do you use any recreational Drugs:: No Lives With: Family Lives Where: Home - infectious screening In the last 2 months have you had wt loss of >10#?: NO Have you had fever, night sweats or hemotysis?: No Have you traveled outside the country in the last 6 months?: No Isolation: Standard ROS - Review of Systems Constitutional: Weakness, Fatigue, Loss of Appetite Eyes: No Symptoms Reported ENTM: No Symptoms Reported Respiratoy: No Symptoms Reported Cardiovascular: No Symptoms Reported Gastrointestinal/Abdominal: Abdominal Pain, Diarrhea, Nausea, Vomiting Genitourinary: No Symptoms Reported Neurological: No Symptoms Reported Musculoskeletal: No Symptoms Reported Integumentary: No Symptoms Reported Hematologic/Lymphatic: No Symptoms Reported Endocrine: No Symptoms Reported Psychiatric: No Symptoms Reported All Other Systems: Reviewed and Negative PE - Vital Signs Vitals: Temperature 99.1 F Pulse Rate [Standing] 110 Pulse Rate [Sitting] 101 Pulse Rate [Lying] 101 Pulse Rate 111 Respiratory Rate 20 Blood Pressure [Right Arm] 110/70 Blood Pressure [Left Arm] 155/60 Blood Pressure [Standing] 135/88 Blood Pressure [Sitting] 139/76 Blood Pressure [Lying] 138/77 Blood Pressure 124/74 O2 Sat by Pulse Oximetry 95 - General Limitations: No Limitations General Appearance: Alert, In No Apparent Distress - Head Head Exam: Normal Inspection - Eyes Eye exam: Normal Appearance, PERRL - ENT ENT Exam: Mucous Membranes Moist - Neck Neck Exam: Normal Inspection, Full ROM, Trachea Midline - Chest Chest Inspection: Normal Inspection, Symmetric Chest Wall Rise - Respiratory Respiratory Exam: Normal Lung Sounds Bilat Respiratory Exam: Bilateral Clear to Auscultation - Cardiovascular Cardiovascular Exam: Regular Rate, Normal Rhythm, Tachycardia, Normal Heart Sounds - Abdominal Exam Abdominal Exam: Normal Inspection, Tenderness (LLOQ), Hyperactive Bowel Sounds Abdominal Tenderness: LLQ - Rectal Rectal Exam: Deferred - Extremeties Extremities Exam: Normal Inspection, Full ROM, Tenderness - Back Back Exam: Normal Inspection, Full ROM - Neurologic Neurological Exam: Alert, Oriented X3, CN II-XII Intact Patient Oriented To: Person, Place, Time Speech: Fluid Speech Cranial Nerve Exam: EOM Function (II, III, IV, ): Normal, Facial Sensation (V) : Normal, Facial Palsy (VII): Normal, Gag reflex (XI): Normal, Spinal Accessory Function (XI): Normal, Tongue Deviation: Normal - Psychiatric Psychiatric Exam: Normal Affect, Normal Mood - Skin Skin Exam: Warm, Dry, Intact, Normal Color MDM - Differential Diagnosis Differential Diagnosis: Anemia, Dehydration, Electrolyte disorder, Labyrinthitis , Vertigo- peripheral ROR - Labs Reviewed Result Diagrams: 11/27/16 15:43 11/27/16 15:43 Laboratory: 11/27/16 16:13 Stool - Final WBC 11.0 X10^3/uL (3.6-10.0) H 11/27/16 15:43 RBC 4.99 X10^6/uL (3.5-5.4) 11/27/16 15:43 Hgb 10.9 g/dL (12.0-16.0) L 11/27/16 15:43 Hct 34.8 % (36.0-47.0) L 11/27/16 15:43 MCV 69.7 fL (80.0-100.0) L 11/27/16 15:43 MCH 21.9 pg (27.0-34.0) L 11/27/16 15:43 MCHC 31.4 g/dL (33.0-35.0) L 11/27/16 15:43 RDW 14.9 % (11.6-16.5) 11/27/16 15:43 Plt Count 184 X10^3/uL (150.0-450.0) 11/27/16 15:43 Plt Count Comment Adequate (ADEQUATE) 11/27/16 15:43 MPV 9.3 fL (7.4-11.0) 11/27/16 15:43 Neut % 68.3 % (42.0-75.0) 11/27/16 15:43 Lymph % 20.0 % (21.0-51.0) L 11/27/16 15:43 [place] % 9.1 % (0.0-13.0) 11/27/16 15:43 Eos % 1.9 % (0.9-2.9) 11/27/16 15:43 Baso % 0.7 % (0.2-1.0) 11/27/16 15:43 Neut # 7.5 x10^3/uL (2.2-4.8) H 11/27/16 15:43 Lymph # 2.2 X10^3/uL (1.3-2.9) 11/27/16 15:43 [place] # 1.0 x10^3/uL (0.3-0.8) H 11/27/16 15:43 Eos # 0.2 x10^3/uL (0.0-0.2) 11/27/16 15:43 Baso # 0.1 X10^3/uL (0.0-0.1) 11/27/16 15:43 Absolute Nucleated RBC 0.0 /100WBC 11/27/16 15:43 Plt Morphology Comment Normal (NORMAL) 11/27/16 15:43 RBC Morphology Abnormal (NORMAL) A 11/27/16 15:43 Hypochromasia 2+ A 11/27/16 15:43 Microcytosis 1+ A 11/27/16 15:43 Sodium 143 mmol/L (136-145) 11/27/16 15:43 Corrected Sodium TNP 11/27/16 15:43 Potassium 3.1 mmol/L (3.5-5.1) L 11/27/16 15:43 Chloride 105 mmol/L (98-107) 11/27/16 15:43 Carbon Dioxide 28.8 mmol/L (21-32) 11/27/16 15:43 BUN 12 mg/dL (7-18) 11/27/16 15:43 Creatinine 1.01 mg/dL (0.55-1.02) 11/27/16 15:43 Est GFR (MDRD) Af Amer > 60 (>60) 11/27/16 15:43 Est GFR (MDRD) Non-Af 60 (>60) 11/27/16 15:43 Glucose 90 mg/dL (65-99) 11/27/16 15:43 Calcium 8.4 mg/dL (8.5-10.1) L 11/27/16 15:43 Corrected Calcium 9.1 mg/dL (8.5-10.1) 11/27/16 15:43 Total Bilirubin 0.10 mg/dL (0.2-1.0) L 11/27/16 15:43 AST 21 Units/L (15-37) 11/27/16 15:43 ALT 27 Units/L (12-78) 11/27/16 15:43 Alkaline Phosphatase 128 Units/L (46-116) H 11/27/16 15:43 Total Protein 7.1 g/dL (6.4-8.2) 11/27/16 15:43 Albumin 3.1 g/dL (3.4-5.0) L 11/27/16 15:43 Globulin 4.0 g/dL (2.5-4.5) 11/27/16 15:43 Albumin/Globulin Ratio 0.8 Ratio (1.1-2.1) L 11/27/16 15:43 Stl C. diff Tox B Gene Positive (NEGATIVE) A 11/27/16 16:13 Stl C. diff [id number] Negative (NEGATIVE) 11/27/16 16:13 H. pylori IgG Antibody Positive (NEGATIVE) A 11/27/16 15:43 - Diagnosis Discharge Problem: Dehydration, C. difficile colitis, Hypokalemia - Discharge Plan Condition: Stable - Follow ups/Referrals Follow ups/Referrals: Maldonado Medrano [Primary Care Provider] - 3 days - Instructions Additional Notes - Additional Notes Additional Notes: I spoke with Dr. Amezcua and he agreed to accept this patient for admission.
[2016-11-27] MEDS ORDERED: NS 1000 ML 300 ML IV ONE (16:01)
[2016-11-27] MEDS ORDERED: TORADOL 60 MG VIAL IVP ONE (16:01)
[2016-11-27 16:02] LABS: HYPOCHROMASIA 2+; MICROCYTOSIS 1+; PLATELET MORPHOLOGY COMMENT NORMAL (NORMAL)
[2016-11-27] MEDS ORDERED: ZOFRAN INJ 4 MG VIAL IVP ONE (16:02)
[2016-11-27 16:03] LABS: BLOOD UREA NITROGEN 12 mg/dL (7-18); CALCIUM 8.4 mg/dL (8.5-10.1); CARBON DIOXIDE 28.8 mmol/L (21-32); CHLORIDE 105 mmol/L (98-107); CREATININE 1.01 mg/dL (0.55-1.02); GLUCOSE 90 mg/dL (65-99); SODIUM 143 mmol/L (136-145); eGFR BLACK RACES > 60 (>60); eGFR NON BLACK RACES 60 (>60)
[2016-11-27] MEDS ORDERED: PEPCID 20 MG IV PREMIX* 20 MG/50 ML BAG IV ONE ×2 (16:05→16:10)
[2016-11-27] MEDS ORDERED: NS 1000 ML 1,000 ML ONE (16:08)
[2016-11-27] MEDS ORDERED: ZOFRAN INJ 4 MG VIAL ONE (16:08)
[2016-11-27] MEDS ORDERED: TORADOL 30 MG VIAL ONE (16:09)
[2016-11-27 16:10] LABS: ALANINE AMINOTRANSFERASE 27 Units/L (12-78); ALBUMIN 3.1 g/dL (3.4-5.0); ALKALINE PHOSPHATASE 128 Units/L (46-116); ASPARTATE AMINO TRANSFERASE 21 Units/L (15-37); COR CA(FOR HYPOALB) 9.1 mg/dL (8.5-10.1); TOTAL PROTEIN 7.1 g/dL (6.4-8.2)
[2016-11-27] MEDS ORDERED: K-DUR TAB 20 MEQ PO ONE ×2 (16:48→19:30)
--- NOTE | 2016-11-27 17:23 | RAD ---
HISTORY: 56-year-old female with abdominal pain. Study: Single frontal view of the abdomen and pelvis. Comparison: Abdominal radiographs October 17, 2016. Findings: Evaluation of the abdomen demonstrates a nonobstructive bowel gas pattern with gas and stool througho ut the colon. No radiographic evidence of free intraperitoneal air. No pathological soft tissue mass or calcification can be observed. The bony structures are grossly intact. IMPRESSION: 1. No evidence for acute abdominal pathology identified. Reported By:
[2016-11-27] MEDS ORDERED: FLAGYL IV PREMIX 500 MG BAG 500 MG/100 ML BAG IV ONE ×2 (20:14→21:13)
[2016-11-27] MEDS ORDERED: ZOFRAN INJ 4 MG VIAL IVP PRN (22:16)
[2016-11-27 22:40] LABS: BILIRUBIN,URINE NEGATIVE (NEGATIVE); BLOOD/HEMOGLOBIN,URINE NEGATIVE (NEGATIVE); GLUCOSE, URINE NEGATIVE (NEGATIVE); KETONES,URINE NEGATIVE (NEGATIVE); LEUKOCYTE ESTERASE ,URINE NEGATIVE (NEGATIVE); NITRITES,URINE NEGATIVE (NEGATIVE); PH,URINE 6.5 (5.0 - 8.0); PROTEIN,URINE 1+ (NEGATIVE); UROBILINOGEN,URINE NORMAL (NORMAL)
[2016-11-27 22:49] LABS: APPEARANCE,URINE CLEAR (CLEAR); BACTERIA,URINE NEGATIVE /HPF (NEGATIVE); COLOR,URINE YELLOW (YELLOW); RBC,URINE 0-3 /HPF (NEGATIVE); SQUAMOUS EPITHELIAL CELL,UR MODERATE /HPF (NEGATIVE)
[2016-11-27] MEDS: MORPHINE SULFATE INJ 2 MG IVP PRN (22:49)
[2016-11-27] MEDS: NS 1000 ML 1,000 ML IV SCH (22:50)
[2016-11-27] MEDS ORDERED: ZITHROMAX INJ 500 MG VIAL 500 MG in NS 250 ML IV 250 ML IV SCH (23:00)
[2016-11-28 04:47] LABS: BASOPHILS % (AUTO) 0.5 % (0.2-1.0); EOSINOPHILS # (AUTO) 0.2 x10^3/uL (0.0-0.2); EOSINOPHILS % (AUTO) 2.5 % (0.9-2.9); HEMATOCRIT 32.5 % (36.0-47.0); HEMOGLOBIN 10.2 g/dL (12.0-16.0); LYMPHOCYTES # (AUTO) 2.4 X10^3/uL (1.3-2.9); LYMPHOCYTES % (AUTO) 37.9 % (21.0-51.0); MEAN CORPUSCULAR HEMOGLOBIN 21.8 pg (27.0-34.0); MEAN CORPUSCULAR HGB CONC 31.3 g/dL (33.0-35.0); MEAN CORPUSCULAR VOLUME 69.7 fL (80.0-100.0); MEAN PLATELET VOLUME 10.4 fL (7.4-11.0); MONOCYTES # (AUTO) 0.7 x10^3/uL (0.3-0.8); MONOCYTES % (AUTO) 10.3 % (0.0-13.0); NEUTROPHILS # (AUTO) 3.1 x10^3/uL (2.2-4.8); NEUTROPHILS % (AUTO) 48.8 % (42.0-75.0); PLATELET COUNT 157 X10^3/uL (150.0-450.0); RED BLOOD COUNT 4.67 X10^6/uL (3.5-5.4); WHITE BLOOD COUNT 6.4 X10^3/uL (3.6-10.0)
[2016-11-28 04:59] LABS: ALANINE AMINOTRANSFERASE 24 Units/L (12-78); ALBUMIN 2.7 g/dL (3.4-5.0); ALKALINE PHOSPHATASE 104 Units/L (46-116); ASPARTATE AMINO TRANSFERASE 17 Units/L (15-37); BLOOD UREA NITROGEN 8 mg/dL (7-18); CALCIUM 7.8 mg/dL (8.5-10.1); CARBON DIOXIDE 26.6 mmol/L (21-32); CHLORIDE 111 mmol/L (98-107); COR CA(FOR HYPOALB) 8.8 mg/dL (8.5-10.1); CREATININE 0.66 mg/dL (0.55-1.02); GLUCOSE 97 mg/dL (65-99); SODIUM 146 mmol/L (136-145); TOTAL PROTEIN 6.1 g/dL (6.4-8.2); eGFR BLACK RACES > 60 (>60); eGFR NON BLACK RACES > 60 (>60)
[2016-11-28] MEDS: MORPHINE SULFATE INJ 2 MG IVP PRN ×2 (05:18→12:22)
[2016-11-28] MEDS ORDERED: K-RIDER 10 MEQ/NS 100 ML 10 MEQ/100 ML BAG IV PRN (05:41)
[2016-11-28] MEDS ORDERED: K-LYTE EFFERVESCENT PO PRN (05:41)
[2016-11-28] MEDS: K-DUR TAB 20 MEQ PO PRN ×3 (06:06→21:00)
[2016-11-28 06:44] LABS: HYPOCHROMASIA 2+; MICROCYTOSIS 1+; PLATELET MORPHOLOGY COMMENT NORMAL (NORMAL)
[2016-11-28] MEDS ORDERED: LASIX PO PRN (07:45)
--- NOTE | 2016-11-28 09:02 | DR.H&P ---
H&P - History & Physical for Day of: H&P Date: 11/27/16 - Chief Complaint Chief Complaint: IS A 56 YEAR OLD PATIENT OF OURS WHO PRESENTED TO THE EMERGENCY ROOM WITH COMPLAINTS OF DIARRHEA X 2 WEEKS. SHE ALSO REPORTS ASSOCIATED SYMPTOMS OF ABDOMINAL PAIN, NAUSEA,VOMITING, AND ACHING ALL OVER, BUT DENIES FEVER. SHE REPORTS A RECENT HOSPITALIZATION FOR C-DIFF. ON ARRIVAL TO ER, VITALS WERE 99.1-111-20-95%-124/74. ABNORMAL LABS INCLUDE WBC 11.0, HGB 10.9, HCT 34.8, MCV 69.7, MCH 21.9, MCHC 31.4, LYMPH % 20, NEUT# 7.5, MONO# 1.0 , POTASSIUM 3.1, CALCIUM 8.4, TOTAL BILI 0.10, AKL PHOS 128, ALBUMIN 3.1 A/G RATIO 0.8. STOOL STUDIES WERE POSITIVE FOR C-DIFF AN CAMPY. H-PYLORI POSITIVE. KUB NEGATIVE. SHE WAS GIVEN A NS BOLUS, TORADOL 30MG IVP, ZOFRAN 8MG IVP, PEPCID 20MG IV, FLAGYL 500MG IV, AND ZITHROMAX 500MG IV IN ER. WE ADMITTED PATIENT FOR FURTHER TREATMENT AND EVALUATION. SHE WAS STARTED ON NS @ 80ML/HR, FLAGYL 500MG PO QID, ZOFRAN 4MG IV Q6H PRN, MORPHINE 2MG IV Q6H PRN, AND POTASSIUM PROTOCOL. WE PLANNED TO RECHECK LABS AND FOLLOW UP WITH PATIENT IN AM. - Allergies Allergies/Adverse Reactions: Allergies Allergy/AdvReac Type Severity Reaction Status Date / Time MS No Known Drug Allergy Allergy Verified 11/27/16 22:15 [No Known Drug Allergy] - Past Medical History Past Medical History: Arthritis, GERD, Hypertension Additional Medical History: FIBROMYALGIA - Past Surgical History Surgical History: , WHEEL BLOCKER Surgery, 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, Ortho Surgery - Family History Family Medical History: Hypertension - Social History Does patient currently use any type of tobacco product: No Have you used tobacco products in the last 12 months: No Type of Tobacco Use: None Does any household member use tobacco: No Alcohol Use: None Drug Use: None - Review of Systems Constitutional: See HPI, Fever, Weakness, Malaise Eyes: No Symptoms Reported ENT: No Symptoms Reported Respiratory: No Symptoms Reported Cardiovascular: No Symptoms Reported Gastrointestinal: See HPI, Nausea, Vomiting, Abdominal Pain, Diarrhea Genitourinary: No Symptoms Reported Musculoskeletal: No Symptoms Reported Skin: No Symptoms Reported Neurological: No Symptoms Reported - Physical Exam Vital Signs: Temperature 98.9 F Pulse Rate [Right Brachial] 93 Pulse Rate [Standing] 110 Pulse Rate [Sitting] 101 Pulse Rate [Lying] 101 Pulse Rate 111 Respiratory Rate 18 Blood Pressure [Right Arm] 144/96 Blood Pressure [Left Arm] 155/60 Blood Pressure [Standing] 135/88 Blood Pressure [Sitting] 139/76 Blood Pressure [Lying] 138/77 Blood Pressure 124/74 O2 Sat by Pulse Oximetry 100 Oriented: Normal Eyes: Normal Ear: Normal Nose: Normal Throat: Normal Respiratory: Clear Throughout Cardiovascular: Normal : Normal Auscultation: Bowel Sounds: Increased Palpation: Normal Tenderness: Diffuse, Moderate Skin: Normal Musculoskeletal: Normal Psychiatric: Normal Mood Description: Calm Affect: Normal Speech Pattern: Clear - Assessment/Plan (1) C. difficile colitis Status: Acute Plan: FLAGYL 500MG PO QID, MORPHINE 2MG IV Q6H PRN FOR ABDOMINAL PAIN, CONTINUE TO MONITOR (2) Helicobacter pylori (H. pylori) Status: Acute Plan: PEPCID 20MG IV Q12H, PROTONIX 40MG IV BID, CONTINUE TO MONITOR
--- NOTE | 2016-11-28 09:11 | PCM.PROG ---
Progress Note - Progress Note for Day of Date: 11/28/16 - Past Medical Family Social History Past Med/Fam/Surg Hx: No changes since H&P Allergies: Allergies MS No Known Drug Allergy [No Known Drug Allergy] Allergy (Verified 11/27/16 22: 15) - Review of Systems ROS: No change since H&P - Vital Signs and I&O's Vital Signs: Temperature 98.9 F Pulse Rate [Right Brachial] 93 Pulse Rate [Standing] 110 Pulse Rate [Sitting] 101 Pulse Rate [Lying] 101 Pulse Rate 111 Respiratory Rate 18 Blood Pressure [Right Arm] 144/96 Blood Pressure [Left Arm] 155/60 Blood Pressure [Standing] 135/88 Blood Pressure [Sitting] 139/76 Blood Pressure [Lying] 138/77 Blood Pressure 124/74 O2 Sat by Pulse Oximetry 100 Intake and Output: Intake & Output 11/25/16 11/26/16 11/27/16 11/28/16 11:59 11:59 11:59 11:59 Intake Total 735 Balance 735 - Physical Exam Oriented: Normal Eyes: Normal Ear: Normal Nose: Normal Throat: Normal Respiratory: Normal Cardiovascular: Normal : Normal Auscultation: Bowel Sounds: Increased Palpation: Normal Tenderness: Diffuse, Moderate Skin: Normal Musculoskeletal: Normal Psychiatric: Normal Mood Description: Calm Affect: Normal Speech Pattern: Clear - Laboratory and Diagnostics Result Diagrams: 11/28/16 03:30 11/28/16 03:30 Labs: 11/27/16 16:13 Stool - Final Laboratory WBC 6.4 X10^3/uL (3.6-10.0) 11/28/16 03:30 RBC 4.67 X10^6/uL (3.5-5.4) 11/28/16 03:30 Hgb 10.2 g/dL (12.0-16.0) L 11/28/16 03:30 Hct 32.5 % (36.0-47.0) L 11/28/16 03:30 MCV 69.7 fL (80.0-100.0) L 11/28/16 03:30 MCH 21.8 pg (27.0-34.0) L 11/28/16 03:30 MCHC 31.3 g/dL (33.0-35.0) L 11/28/16 03:30 RDW 15.0 % (11.6-16.5) 11/28/16 03:30 Plt Count 157 X10^3/uL (150.0-450.0) 11/28/16 03:30 Plt Count Comment Adequate (ADEQUATE) 11/28/16 03:30 MPV 10.4 fL (7.4-11.0) 11/28/16 03:30 Neut % 48.8 % (42.0-75.0) 11/28/16 03:30 Lymph % 37.9 % (21.0-51.0) 11/28/16 03:30 [place] % 10.3 % (0.0-13.0) 11/28/16 03:30 Eos % 2.5 % (0.9-2.9) 11/28/16 03:30 Baso % 0.5 % (0.2-1.0) 11/28/16 03:30 Neut # 3.1 x10^3/uL (2.2-4.8) 11/28/16 03:30 Lymph # 2.4 X10^3/uL (1.3-2.9) 11/28/16 03:30 [place] # 0.7 x10^3/uL (0.3-0.8) 11/28/16 03:30 Eos # 0.2 x10^3/uL (0.0-0.2) 11/28/16 03:30 Baso # 0.0 X10^3/uL (0.0-0.1) 11/28/16 03:30 Absolute Nucleated RBC 0.1 /100WBC 11/28/16 03:30 Plt Morphology Comment Normal (NORMAL) 11/28/16 03:30 RBC Morphology Abnormal (NORMAL) A 11/28/16 03:30 Hypochromasia 2+ A 11/28/16 03:30 Microcytosis 1+ A 11/28/16 03:30 Sodium 146 mmol/L (136-145) H 11/28/16 03:30 Corrected Sodium TNP 11/28/16 03:30 Potassium 2.7 mmol/L (3.5-5.1) L* 11/28/16 03:30 Chloride 111 mmol/L (98-107) H 11/28/16 03:30 Carbon Dioxide 26.6 mmol/L (21-32) 11/28/16 03:30 BUN 8 mg/dL (7-18) 11/28/16 03:30 Creatinine 0.66 mg/dL (0.55-1.02) 11/28/16 03:30 Est GFR (MDRD) Af Amer > 60 (>60) 11/28/16 03:30 Est GFR (MDRD) Non-Af > 60 (>60) 11/28/16 03:30 Glucose 97 mg/dL (65-99) 11/28/16 03:30 Calcium 7.8 mg/dL (8.5-10.1) L 11/28/16 03:30 Corrected Calcium 8.8 mg/dL (8.5-10.1) 11/28/16 03:30 Total Bilirubin 0.30 mg/dL (0.2-1.0) 11/28/16 03:30 AST 17 Units/L (15-37) 11/28/16 03:30 ALT 24 Units/L (12-78) 11/28/16 03:30 Alkaline Phosphatase 104 Units/L (46-116) 11/28/16 03:30 Total Protein 6.1 g/dL (6.4-8.2) L 11/28/16 03:30 Albumin 2.7 g/dL (3.4-5.0) L 11/28/16 03:30 Globulin 3.4 g/dL (2.5-4.5) 11/28/16 03:30 Albumin/Globulin Ratio 0.8 Ratio (1.1-2.1) L 11/28/16 03:30 Specimen Type Clean catch urine 11/27/16 22:34 Urine Color Yellow (YELLOW) 11/27/16 22:34 Urine Appearance Clear (CLEAR) 11/27/16 22:34 Urine pH 6.5 (5.0 - 8.0) 11/27/16 22:34 Ur Specific [place] 1.015 (1.000-1.030) 11/27/16 22:34 Urine Protein 1+ (NEGATIVE) 11/27/16 22:34 Urine Glucose (UA) Negative (NEGATIVE) 11/27/16 22:34 Urine Ketones Negative (NEGATIVE) 11/27/16 22:34 Urine Occult Blood Negative (NEGATIVE) 11/27/16 22:34 Urine Nitrite Negative (NEGATIVE) 11/27/16 22:34 Urine Bilirubin Negative (NEGATIVE) 11/27/16 22:34 Urine Urobilinogen Normal (NORMAL) 11/27/16 22:34 Ur Leukocyte Esterase Negative (NEGATIVE) 11/27/16 22:34 Urine RBC 0-3 /HPF (NEGATIVE) 11/27/16 22:34 Urine WBC 0-3 /HPF (NEGATIVE) 11/27/16 22:34 Ur Squamous Epith Cells Moderate /HPF (NEGATIVE) 11/27/16 22:34 Urine Bacteria Negative /HPF (NEGATIVE) 11/27/16 22:34 Ur Culture Indicated? No/not indicated 11/27/16 22:34 Stl C. diff Tox B Gene Positive (NEGATIVE) A 11/27/16 16:13 Stl C. diff 027-NAP1-BI Negative (NEGATIVE) 11/27/16 16:13 H. pylori IgG Antibody Positive (NEGATIVE) A 11/27/16 15:43 - Plan (1) C. difficile colitis Status: Acute Plan: FLAGYL 500MG PO QID, MORPHINE 2MG IV Q6H PRN FOR ABDOMINAL PAIN, CONTINUE TO MONITOR (2) Helicobacter pylori (H. pylori) Status: Acute Plan: PEPCID 20MG IV Q12H, PROTONIX 40MG IV BID, CONTINUE TO MONITOR (3) Nausea & vomiting Status: Acute Qualifiers: Vomiting type: unspecified Vomiting Intractability: unspecified Qualified Code(s): R11.2 - Nausea with vomiting, unspecified Plan: ZOFRAN 4MG IV Q6H PRN, CONTINUE TO MONITOR (4) Hypertension Status: Chronic Qualifiers: Hypertension type: essential hypertension Qualified Code(s): I10 - Essential (primary) hypertension Plan: CONTINUE LISINOPRIL, CONTINUE AMLODIPINE, CONTINUE TO MONITOR
[2016-11-28] MEDS: PROTONIX INJ 40 MG VIAL IVP SCH ×3 (09:59→20:59)
[2016-11-28] MEDS: CIPRO IV 400 MG PREMIX* 400 MG/200 ML IV.SOLN. IV SCH ×2 (10:00→20:58)
[2016-11-28] MEDS: PEPCID 20 MG IV PREMIX* 20 MG/50 ML BAG IV SCH ×2 (10:00→20:59)
[2016-11-28] MEDS: FLAGYL TAB 500 MG PO SCH ×4 (10:00→21:00)
[2016-11-28] MEDS: NORVASC TAB 10 MG PO SCH (10:00)
[2016-11-28] MEDS: LYRICA 25 MG PO SCH (10:01)
[2016-11-28] MEDS: ZESTRIL TAB 5 MG PO SCH (10:01)
[2016-11-28] MEDS: BENTYL CAP 10 MG PO PRN (10:02)
[2016-11-28] MEDS: NORCO 7.5/325 MG TAB PO PRN ×2 (13:30→20:59)
[2016-11-28] MEDS ORDERED: TORADOL 30 MG VIAL IVP ONE (16:32)
[2016-11-28] MEDS: NS 1000 ML 1,000 ML IV SCH (17:35)
[2016-11-29] MEDS: NS 1000 ML 1,000 ML IV SCH ×2 (03:08→14:15)
[2016-11-29] MEDS: NORCO 7.5/325 MG TAB PO PRN ×3 (04:01→16:39)
[2016-11-29 05:20] LABS: ALANINE AMINOTRANSFERASE 20 Units/L (12-78); ALBUMIN 2.7 g/dL (3.4-5.0); ALKALINE PHOSPHATASE 95 Units/L (46-116); ASPARTATE AMINO TRANSFERASE 16 Units/L (15-37); BASOPHILS % (AUTO) 0.2 % (0.2-1.0); BLOOD UREA NITROGEN 7 mg/dL (7-18); CALCIUM 8.3 mg/dL (8.5-10.1); CARBON DIOXIDE 26.8 mmol/L (21-32); CHLORIDE 110 mmol/L (98-107); COR CA(FOR HYPOALB) 9.3 mg/dL (8.5-10.1); CREATININE 0.73 mg/dL (0.55-1.02); EOSINOPHILS # (AUTO) 0.2 x10^3/uL (0.0-0.2); EOSINOPHILS % (AUTO) 3.1 % (0.9-2.9); GLUCOSE 101 mg/dL (65-99); HEMATOCRIT 31.3 % (36.0-47.0); HEMOGLOBIN 9.9 g/dL (12.0-16.0); LYMPHOCYTES # (AUTO) 2.3 X10^3/uL (1.3-2.9); LYMPHOCYTES % (AUTO) 40.5 % (21.0-51.0); MEAN CORPUSCULAR HEMOGLOBIN 22.1 pg (27.0-34.0); MEAN CORPUSCULAR HGB CONC 31.6 g/dL (33.0-35.0); MEAN CORPUSCULAR VOLUME 69.8 fL (80.0-100.0); MEAN PLATELET VOLUME 10.6 fL (7.4-11.0); MONOCYTES # (AUTO) 0.5 x10^3/uL (0.3-0.8); MONOCYTES % (AUTO) 9.6 % (0.0-13.0); NEUTROPHILS # (AUTO) 2.6 x10^3/uL (2.2-4.8); NEUTROPHILS % (AUTO) 46.6 % (42.0-75.0); PLATELET COUNT 172 X10^3/uL (150.0-450.0); RED BLOOD COUNT 4.48 X10^6/uL (3.5-5.4); SODIUM 145 mmol/L (136-145); TOTAL PROTEIN 6.3 g/dL (6.4-8.2); WHITE BLOOD COUNT 5.7 X10^3/uL (3.6-10.0); eGFR BLACK RACES > 60 (>60); eGFR NON BLACK RACES > 60 (>60)
[2016-11-29 05:45] LABS: HYPOCHROMASIA 1+; MICROCYTOSIS 1+; PLATELET MORPHOLOGY COMMENT NORMAL (NORMAL)
[2016-11-29 05:46] LABS: TARGET CELLS FEW
[2016-11-29] MEDS: MORPHINE SULFATE INJ 2 MG IVP PRN ×3 (06:27→20:29)
[2016-11-29] MEDS: CIPRO IV 400 MG PREMIX* 400 MG/200 ML IV.SOLN. IV SCH ×2 (08:48→20:28)
[2016-11-29] MEDS: FLAGYL TAB 500 MG PO SCH ×4 (08:49→20:29)
[2016-11-29] MEDS: NORVASC TAB 10 MG PO SCH (08:49)
[2016-11-29] MEDS: PROTONIX INJ 40 MG VIAL IVP SCH ×2 (08:49→20:29)
[2016-11-29] MEDS: PEPCID 20 MG IV PREMIX* 20 MG/50 ML BAG IV SCH ×2 (08:49→20:28)
[2016-11-29] MEDS: LYRICA 25 MG PO SCH (08:49)
[2016-11-29] MEDS: ZESTRIL TAB 5 MG PO SCH (08:50)
[2016-11-29] MEDS: BENTYL CAP 10 MG PO PRN ×2 (08:51→16:39)
[2016-11-29] MEDS: NORCO 10/325 TAB PO PRN (18:14)
[2016-11-30] MEDS: NORCO 10/325 TAB PO PRN ×5 (00:18→22:24)
[2016-11-30] MEDS: MORPHINE SULFATE INJ 2 MG IVP PRN ×3 (02:45→20:36)
[2016-11-30] MEDS: BENTYL CAP 10 MG PO PRN ×2 (02:46→20:36)
[2016-11-30] MEDS: NS 1000 ML 1,000 ML IV SCH ×3 (03:16→16:11)
[2016-11-30 05:13] LABS: BASOPHILS % (AUTO) 0.4 % (0.2-1.0); EOSINOPHILS # (AUTO) 0.1 x10^3/uL (0.0-0.2); EOSINOPHILS % (AUTO) 2.3 % (0.9-2.9); HEMATOCRIT 31.7 % (36.0-47.0); LYMPHOCYTES # (AUTO) 2.7 X10^3/uL (1.3-2.9); LYMPHOCYTES % (AUTO) 44.6 % (21.0-51.0); MEAN CORPUSCULAR HEMOGLOBIN 21.8 pg (27.0-34.0); MEAN CORPUSCULAR HGB CONC 31.6 g/dL (33.0-35.0); MEAN PLATELET VOLUME 10.6 fL (7.4-11.0); MONOCYTES # (AUTO) 0.5 x10^3/uL (0.3-0.8); MONOCYTES % (AUTO) 7.9 % (0.0-13.0); NEUTROPHILS # (AUTO) 2.7 x10^3/uL (2.2-4.8); NEUTROPHILS % (AUTO) 44.8 % (42.0-75.0); PLATELET COUNT 180 X10^3/uL (150.0-450.0); RED BLOOD COUNT 4.59 X10^6/uL (3.5-5.4); RED CELL DISTRIBUTION WIDTH 14.8 % (11.6-16.5)
[2016-11-30 05:27] LABS: ALANINE AMINOTRANSFERASE 19 Units/L (12-78); ALKALINE PHOSPHATASE 94 Units/L (46-116); ASPARTATE AMINO TRANSFERASE 15 Units/L (15-37); BLOOD UREA NITROGEN 6 mg/dL (7-18); CALCIUM 8.6 mg/dL (8.5-10.1); CARBON DIOXIDE 27.5 mmol/L (21-32); CHLORIDE 107 mmol/L (98-107); COR CA(FOR HYPOALB) 9.4 mg/dL (8.5-10.1); CREATININE 0.63 mg/dL (0.55-1.02); GLUCOSE 97 mg/dL (65-99); SODIUM 143 mmol/L (136-145); TOTAL PROTEIN 6.7 g/dL (6.4-8.2); eGFR BLACK RACES > 60 (>60); eGFR NON BLACK RACES > 60 (>60)
[2016-11-30] MEDS ORDERED: NS 100 ML IV 100 ML IV ONE (05:41)
[2016-11-30 05:57] LABS: HYPOCHROMASIA 2+; MICROCYTOSIS 1+; PLATELET MORPHOLOGY COMMENT NORMAL (NORMAL)
[2016-11-30] MEDS: K-DUR TAB 20 MEQ PO PRN (06:57)
--- NOTE | 2016-11-30 07:58 | CT ---
CT abdomen and pelvis without and with contrast Indication: Abdominal pain. Diarrhea and nausea. Comparison: 10/14/2016 Technique: CT images of the abdomen pelvis were obtained before and after IV contrast administration. Oral contrast was also given prior to scanning. Automatic exposure control was utilized. Findings: No nephrolithiasis or radiopaque cholelithiasis identified on the noncontrast images. No ur eteral stones were seen. After IV contrast administration, the liver, gallbladder, spleen, stomach, duodenum, pancreas, adrena ls, and kidneys are within normal limits. There is mild intrahepatic and extrahepatic biliary dilatio n with smooth tapering of the common duct at the ampulla. This finding is unchanged. There is mild di ffuse thickening of the sigmoid colon and rectum, although these bowel loops are relatively nondisten ded. No significant thickening or dilatation of the remaining lower GI tract appreciated. The appendi x appears normal. The urinary bladder is unremarkable. The uterus is not identified. No free fluid or adenopathy identified. Impression: Mild long segment thickening of the rectosigmoid colon, suggesting colitis, likely infectious. Stable mild biliary dilation of uncertain significance. Correlation with biliary markers for obstruct ion could be helpful, if indicated. Reported By:
[2016-11-30] MEDS: PROTONIX INJ 40 MG VIAL IVP SCH ×2 (08:50→20:36)
[2016-11-30] MEDS: NORVASC TAB 10 MG PO SCH (08:52)
[2016-11-30] MEDS: LYRICA 25 MG PO SCH (08:52)
[2016-11-30] MEDS: FLAGYL TAB 500 MG PO SCH ×4 (08:52→20:36)
[2016-11-30] MEDS: PEPCID 20 MG IV PREMIX* 20 MG/50 ML BAG IV SCH ×2 (08:52→20:35)
[2016-11-30] MEDS: ZESTRIL TAB 5 MG PO SCH (08:52)
[2016-11-30] MEDS: CIPRO IV 400 MG PREMIX* 400 MG/200 ML IV.SOLN. IV SCH ×2 (09:25→20:35)
[2016-12-01] MEDS: MORPHINE SULFATE INJ 2 MG IVP PRN ×5 (01:54→21:43)
[2016-12-01 05:34] LABS: BASOPHILS % (AUTO) 0.4 % (0.2-1.0); EOSINOPHILS # (AUTO) 0.2 x10^3/uL (0.0-0.2); EOSINOPHILS % (AUTO) 1.7 % (0.9-2.9); HEMATOCRIT 34.1 % (36.0-47.0); HEMOGLOBIN 10.6 g/dL (12.0-16.0); LYMPHOCYTES # (AUTO) 2.3 X10^3/uL (1.3-2.9); LYMPHOCYTES % (AUTO) 25.1 % (21.0-51.0); MEAN CORPUSCULAR HEMOGLOBIN 21.6 pg (27.0-34.0); MEAN CORPUSCULAR HGB CONC 31.2 g/dL (33.0-35.0); MEAN CORPUSCULAR VOLUME 69.3 fL (80.0-100.0); MEAN PLATELET VOLUME 10.5 fL (7.4-11.0); MONOCYTES % (AUTO) 10.5 % (0.0-13.0); NEUTROPHILS # (AUTO) 5.7 x10^3/uL (2.2-4.8); NEUTROPHILS % (AUTO) 62.3 % (42.0-75.0); PLATELET COUNT 215 X10^3/uL (150.0-450.0); RED BLOOD COUNT 4.92 X10^6/uL (3.5-5.4); RED CELL DISTRIBUTION WIDTH 14.7 % (11.6-16.5); WHITE BLOOD COUNT 9.1 X10^3/uL (3.6-10.0)
[2016-12-01 05:43] LABS: ALANINE AMINOTRANSFERASE 16 Units/L (12-78); ALBUMIN 3.2 g/dL (3.4-5.0); ALKALINE PHOSPHATASE 101 Units/L (46-116); ASPARTATE AMINO TRANSFERASE 18 Units/L (15-37); BLOOD UREA NITROGEN 7 mg/dL (7-18); CALCIUM 9.1 mg/dL (8.5-10.1); CARBON DIOXIDE 27.6 mmol/L (21-32); CHLORIDE 105 mmol/L (98-107); COR CA(FOR HYPOALB) 9.7 mg/dL (8.5-10.1); CREATININE 0.71 mg/dL (0.55-1.02); GLUCOSE 99 mg/dL (65-99); SODIUM 141 mmol/L (136-145); TOTAL PROTEIN 6.9 g/dL (6.4-8.2); eGFR BLACK RACES > 60 (>60); eGFR NON BLACK RACES > 60 (>60)
[2016-12-01 05:55] LABS: HYPOCHROMASIA 2+; MICROCYTOSIS 1+; PLATELET MORPHOLOGY COMMENT NORMAL (NORMAL); TARGET CELLS NOTED
[2016-12-01] MEDS: POTASSIUM CHLORIDE LIQ 20 MEQ UDC PO PRN (06:05)
[2016-12-01] MEDS: NORCO 10/325 TAB PO PRN ×3 (06:13→19:19)
[2016-12-01] MEDS: NS 1000 ML 1,000 ML IV SCH ×3 (06:16→16:23)
[2016-12-01] MEDS: CIPRO IV 400 MG PREMIX* 400 MG/200 ML IV.SOLN. IV SCH ×2 (08:06→20:40)
[2016-12-01] MEDS: PROTONIX INJ 40 MG VIAL IVP SCH ×2 (08:07→20:41)
[2016-12-01] MEDS: ZESTRIL TAB 5 MG PO SCH (08:07)
[2016-12-01] MEDS: FLAGYL TAB 500 MG PO SCH ×4 (08:07→20:41)
[2016-12-01] MEDS: PEPCID 20 MG IV PREMIX* 20 MG/50 ML BAG IV SCH ×2 (08:07→20:40)
[2016-12-01] MEDS: LYRICA 25 MG PO SCH (08:07)
[2016-12-01] MEDS: NORVASC TAB 10 MG PO SCH (08:08)
--- NOTE | 2016-12-01 08:23 | PCM.PROG ---
Progress Note - Progress Note for Day of Date: 12/01/16 - Subjective Subjective: WAS ADMITTED ON 11/27/16 FOR COLITIS. STOOLS TESTED POSITIVE FOR C-DIFF AND CAMPYLOBACTER. SHE ALSO TESTED POSITIVE FOR H-PYLORI. SHE IS ALERT AND ORIENTED ON MORNING ROUNDS. SHE IS NOTED WITH COMPLAINTS OF ABDOMINAL PAIN AND CONTINUES WITH LOOSE STOOLS. BOWEL SOUNDS ARE HYPERACTIVE ON AUSCULTATION. VITALS THIS AM ARE 98.2-77-20-98%-174/81. CBC WNL EXCEPT HGB 10.6 , HCT 34.1. CMP WNL EXCEPT POTASSIUM 3.3, ALBUMIN 3.2. A CT OF THE ABD/PELVIS WAS OBTAINED YESTERDAY AND REPORTS MILD LONG SEGMENT THICKENING OF THE RECTOSIGMOID COLON, SUGGESTING COLITIS, LIKELY INFECTIOUS; STABLE MILD BILIARY DILATION OF UNCERTAIN SIGNIFICANCE. CORRELATION WITH BILIARY MARKERS FOR OBSTRUCTION COULD BE HELPFUL IF INDICATED. WE WILL CONTINUE TO TREAT PATIENT WITH CIPRO AND FLAGYL. WE WILL RECHECK LABS AND FOLLOW UP WITH PATIENT IN AM. - Past Medical Family Social History Past Med/Fam/Surg Hx: No changes since H&P Allergies: Allergies No Known Drug Allergies Allergy (Verified 11/29/16 11:47) - Review of Systems ROS: No change since H&P - Vital Signs and I&O's Vital Signs: Temperature 98.2 F Pulse Rate [Right Brachial] 77 Pulse Rate [Standing] 110 Pulse Rate [Sitting] 101 Pulse Rate [Lying] 101 Pulse Rate 111 Respiratory Rate 20 Blood Pressure [Right Arm] 174/81 Blood Pressure [Left Arm] 156/98 Blood Pressure [Standing] 135/88 Blood Pressure [Sitting] 139/76 Blood Pressure [Lying] 138/77 Blood Pressure 124/74 O2 Sat by Pulse Oximetry 98 Intake and Output: Intake & Output 11/28/16 11/29/16 11/30/16 12/01/16 11:59 11:59 11:59 11:59 Intake Total 735 1700 2950 3090 Balance 735 1700 2950 3090 - Physical Exam Oriented: Normal Eyes: Normal Ear: Normal Nose: Normal Throat: Normal Respiratory: Normal Cardiovascular: Normal : Normal Auscultation: Bowel Sounds: Increased Palpation: Normal Tenderness: Diffuse, Moderate Skin: Normal Musculoskeletal: Normal Psychiatric: Normal Mood Description: Calm Affect: Normal Speech Pattern: Clear, Appropriate - Laboratory and Diagnostics Result Diagrams: 12/01/16 03:45 12/01/16 03:45 Labs: 11/27/16 16:13 Stool Stool Culture - Final Campylobacter Species 11/27/16 16:13 Stool - Final Laboratory WBC 9.1 X10^3/uL (3.6-10.0) 12/01/16 03:45 RBC 4.92 X10^6/uL (3.5-5.4) 12/01/16 03:45 Hgb 10.6 g/dL (12.0-16.0) L 12/01/16 03:45 Hct 34.1 % (36.0-47.0) L 12/01/16 03:45 MCV 69.3 fL (80.0-100.0) L 12/01/16 03:45 MCH 21.6 pg (27.0-34.0) L 12/01/16 03:45 MCHC 31.2 g/dL (33.0-35.0) L 12/01/16 03:45 RDW 14.7 % (11.6-16.5) 12/01/16 03:45 Plt Count 215 X10^3/uL (150.0-450.0) 12/01/16 03:45 Plt Count Comment Adequate (ADEQUATE) 12/01/16 03:45 MPV 10.5 fL (7.4-11.0) 12/01/16 03:45 Neut % 62.3 % (42.0-75.0) 12/01/16 03:45 Lymph % 25.1 % (21.0-51.0) 12/01/16 03:45 [place] % 10.5 % (0.0-13.0) 12/01/16 03:45 Eos % 1.7 % (0.9-2.9) 12/01/16 03:45 Baso % 0.4 % (0.2-1.0) 12/01/16 03:45 Neut # 5.7 x10^3/uL (2.2-4.8) H 12/01/16 03:45 Lymph # 2.3 X10^3/uL (1.3-2.9) 12/01/16 03:45 [place] # 1.0 x10^3/uL (0.3-0.8) H 12/01/16 03:45 Eos # 0.2 x10^3/uL (0.0-0.2) 12/01/16 03:45 Baso # 0.0 X10^3/uL (0.0-0.1) 12/01/16 03:45 Absolute Nucleated RBC 0.0 /100WBC 12/01/16 03:45 Plt Morphology Comment Normal (NORMAL) 12/01/16 03:45 RBC Morphology Abnormal (NORMAL) A 12/01/16 03:45 Hypochromasia 2+ A 12/01/16 03:45 Microcytosis 1+ A 12/01/16 03:45 Target Cells Noted 12/01/16 03:45 Sodium 141 mmol/L (136-145) 12/01/16 03:45 Corrected Sodium TNP 12/01/16 03:45 Potassium 3.3 mmol/L (3.5-5.1) L 12/01/16 03:45 Chloride 105 mmol/L (98-107) 12/01/16 03:45 Carbon Dioxide 27.6 mmol/L (21-32) 12/01/16 03:45 BUN 7 mg/dL (7-18) 12/01/16 03:45 Creatinine 0.71 mg/dL (0.55-1.02) 12/01/16 03:45 Est GFR (MDRD) Af Amer > 60 (>60) 12/01/16 03:45 Est GFR (MDRD) Non-Af > 60 (>60) 12/01/16 03:45 Glucose 99 mg/dL (65-99) 12/01/16 03:45 Calcium 9.1 mg/dL (8.5-10.1) 12/01/16 03:45 Corrected Calcium 9.7 mg/dL (8.5-10.1) 12/01/16 03:45 Total Bilirubin 0.30 mg/dL (0.2-1.0) 12/01/16 03:45 AST 18 Units/L (15-37) 12/01/16 03:45 ALT 16 Units/L (12-78) 12/01/16 03:45 Alkaline Phosphatase 101 Units/L (46-116) 12/01/16 03:45 Total Protein 6.9 g/dL (6.4-8.2) 12/01/16 03:45 Albumin 3.2 g/dL (3.4-5.0) L 12/01/16 03:45 Globulin 3.7 g/dL (2.5-4.5) 12/01/16 03:45 Albumin/Globulin Ratio 0.9 Ratio (1.1-2.1) L 12/01/16 03:45 Specimen Type Clean catch urine 11/27/16 22:34 Urine Color Yellow (YELLOW) 11/27/16 22:34 Urine Appearance Clear (CLEAR) 11/27/16 22:34 Urine pH 6.5 (5.0 - 8.0) 11/27/16 22:34 Ur Specific [place] 1.015 (1.000-1.030) 11/27/16 22:34 Urine Protein 1+ (NEGATIVE) 11/27/16 22:34 Urine Glucose (UA) Negative (NEGATIVE) 11/27/16 22:34 Urine Ketones Negative (NEGATIVE) 11/27/16 22:34 Urine Occult Blood Negative (NEGATIVE) 11/27/16 22:34 Urine Nitrite Negative (NEGATIVE) 11/27/16 22:34 Urine Bilirubin Negative (NEGATIVE) 11/27/16 22:34 Urine Urobilinogen Normal (NORMAL) 11/27/16 22:34 Ur Leukocyte Esterase Negative (NEGATIVE) 11/27/16 22:34 Urine RBC 0-3 /HPF (NEGATIVE) 11/27/16 22:34 Urine WBC 0-3 /HPF (NEGATIVE) 11/27/16 22:34 Ur Squamous Epith Cells Moderate /HPF (NEGATIVE) 11/27/16 22:34 Urine Bacteria Negative /HPF (NEGATIVE) 11/27/16 22:34 Ur Culture Indicated? No/not indicated 11/27/16 22:34 Stl C. diff Tox B Gene Positive (NEGATIVE) A 11/27/16 16:13 Stl C. diff 027-NAP1-BI Negative (NEGATIVE) 11/27/16 16:13 H. pylori IgG Antibody Positive (NEGATIVE) A 11/27/16 15:43 - Plan (1) C. difficile colitis Status: Acute Plan: FLAGYL 500MG PO QID, MORPHINE 2MG IV Q6H PRN FOR ABDOMINAL PAIN, CONTINUE TO MONITOR (2) Campylobacter diarrhea Status: Acute Plan: CIPRO 400MG IV Q12H, CONTINUE TO MONITOR (3) Helicobacter pylori (H. pylori) Status: Acute Plan: PEPCID 20MG IV Q12H, PROTONIX 40MG IV BID, CONTINUE TO MONITOR (4) Hypertension Status: Chronic Qualifiers: Hypertension type: essential hypertension Qualified Code(s): I10 - Essential (primary) hypertension Plan: CONTINUE LISINOPRIL, CONTINUE AMLODIPINE, CONTINUE TO MONITOR (5) Nausea & vomiting Status: Acute Qualifiers: Vomiting type: unspecified Vomiting Intractability: unspecified Qualified Code(s): R11.2 - Nausea with vomiting, unspecified Plan: ZOFRAN 4MG IV Q6H PRN, CONTINUE TO MONITOR
[2016-12-01] MEDS ORDERED: ZESTRIL TAB 5 MG PO STA (11:35)
[2016-12-02] MEDS: MORPHINE SULFATE INJ 2 MG IVP PRN ×3 (04:23→12:27)
[2016-12-02] MEDS: NS 1000 ML 1,000 ML IV SCH ×4 (04:26→21:35)
[2016-12-02 04:55] LABS: BASOPHILS % (AUTO) 0.6 % (0.2-1.0); EOSINOPHILS # (AUTO) 0.2 x10^3/uL (0.0-0.2); EOSINOPHILS % (AUTO) 2.7 % (0.9-2.9); HEMATOCRIT 32.7 % (36.0-47.0); HEMOGLOBIN 10.2 g/dL (12.0-16.0); LYMPHOCYTES # (AUTO) 2.5 X10^3/uL (1.3-2.9); LYMPHOCYTES % (AUTO) 40.6 % (21.0-51.0); MEAN CORPUSCULAR HEMOGLOBIN 21.8 pg (27.0-34.0); MEAN CORPUSCULAR HGB CONC 31.3 g/dL (33.0-35.0); MEAN CORPUSCULAR VOLUME 69.7 fL (80.0-100.0); MONOCYTES # (AUTO) 0.5 x10^3/uL (0.3-0.8); MONOCYTES % (AUTO) 8.9 % (0.0-13.0); NEUTROPHILS # (AUTO) 2.9 x10^3/uL (2.2-4.8); NEUTROPHILS % (AUTO) 47.2 % (42.0-75.0); PLATELET COUNT 211 X10^3/uL (150.0-450.0); RED BLOOD COUNT 4.69 X10^6/uL (3.5-5.4); RED CELL DISTRIBUTION WIDTH 14.7 % (11.6-16.5); WHITE BLOOD COUNT 6.1 X10^3/uL (3.6-10.0)
[2016-12-02 05:05] LABS: ALANINE AMINOTRANSFERASE 19 Units/L (12-78); ALBUMIN 2.9 g/dL (3.4-5.0); ALKALINE PHOSPHATASE 88 Units/L (46-116); ASPARTATE AMINO TRANSFERASE 14 Units/L (15-37); BLOOD UREA NITROGEN 7 mg/dL (7-18); CALCIUM 8.9 mg/dL (8.5-10.1); CARBON DIOXIDE 27.4 mmol/L (21-32); CHLORIDE 108 mmol/L (98-107); COR CA(FOR HYPOALB) 9.8 mg/dL (8.5-10.1); CREATININE 0.63 mg/dL (0.55-1.02); GLUCOSE 103 mg/dL (65-99); SODIUM 142 mmol/L (136-145); TOTAL PROTEIN 6.5 g/dL (6.4-8.2); eGFR BLACK RACES > 60 (>60); eGFR NON BLACK RACES > 60 (>60)
[2016-12-02 05:36] LABS: HYPOCHROMASIA 2+; MICROCYTOSIS 1+; PLATELET MORPHOLOGY COMMENT NORMAL (NORMAL); TARGET CELLS NOTED
[2016-12-02] MEDS: NORCO 10/325 TAB PO PRN ×4 (06:45→21:39)
[2016-12-02] MEDS: PROTONIX INJ 40 MG VIAL IVP SCH ×2 (08:20→20:24)
[2016-12-02] MEDS: ZESTRIL TAB 10 MG PO SCH (08:21)
[2016-12-02] MEDS: LYRICA 25 MG PO SCH (08:21)
[2016-12-02] MEDS: FLAGYL TAB 500 MG PO SCH ×4 (08:21→20:30)
[2016-12-02] MEDS: NORVASC TAB 10 MG PO SCH (08:21)
[2016-12-02] MEDS: CIPRO IV 400 MG PREMIX* 400 MG/200 ML IV.SOLN. IV SCH ×2 (08:21→20:31)
[2016-12-02] MEDS: PEPCID 20 MG IV PREMIX* 20 MG/50 ML BAG IV SCH ×2 (08:21→20:30)
--- NOTE | 2016-12-02 11:16 | PCM.PROG ---
Progress Note - Progress Note for Day of Date: 12/02/16 - Subjective Subjective: IS ALERT AND ORIENTED ON MORNING ROUNDS. SHE IS SITTING UP IN BED WITH SPOUSE AT BEDSIDE. SHE CONTINUES WITH COMPLAINTS OF ABDOMINAL PAIN. SHE REPORTS THAT STOOLS ARE MORE FORMED. SHE REPORTS FEELINGS OF IMPROVEMENT COMPARED TO THE PAST SEVERAL DAYS. BOWEL SOUNDS REMAIN HYPERACTIVE ON AUSCULTATION. VITALS THIS AM ARE 98.6-78-20-99%-157/93. CBC WNL EXCEPT HGB 10.2 , HCT 32.7. CMP WNL EXCEPT CHLORIDE 108, GLUCOSE 103, AST 14, ALBUMIN 2.9. WE WILL CONTINUE WITH CURRENT PLAN OF CARE. WE WILL RECHECK LABS AND FOLLOW UP WITH PATIENT IN AM. - Past Medical Family Social History Past Med/Fam/Surg Hx: No changes since H&P Allergies: Allergies No Known Drug Allergies Allergy (Verified 11/29/16 11:47) - Review of Systems ROS: No change since H&P - Vital Signs and I&O's Vital Signs: Temperature 98.6 F Pulse Rate [Right Brachial] 78 Pulse Rate [Standing] 110 Pulse Rate [Sitting] 101 Pulse Rate [Lying] 101 Pulse Rate 111 Respiratory Rate 20 Blood Pressure [Right Arm] 157/93 Blood Pressure [Left Arm] 156/98 Blood Pressure [Standing] 135/88 Blood Pressure [Sitting] 139/76 Blood Pressure [Lying] 138/77 Blood Pressure 124/74 O2 Sat by Pulse Oximetry 99 Intake and Output: Intake & Output 11/29/16 11/30/16 12/01/16 12/02/16 11:59 11:59 11:59 11:59 Intake Total 1700 2950 3090 2830 Balance 1700 2950 3090 2830 - Physical Exam Oriented: Normal Eyes: Normal Ear: Normal Nose: Normal Throat: Normal Respiratory: Normal Cardiovascular: Normal : Normal Auscultation: Bowel Sounds: Increased Palpation: Normal Tenderness: Diffuse, Moderate Skin: Normal Musculoskeletal: Normal Psychiatric: Normal Mood Description: Calm Affect: Normal Speech Pattern: Clear, Appropriate - Laboratory and Diagnostics Result Diagrams: 12/02/16 04:05 12/02/16 04:05 Labs: 11/27/16 16:13 Stool Stool Culture - Final Campylobacter Species 11/27/16 16:13 Stool - Final Laboratory WBC 6.1 X10^3/uL (3.6-10.0) 12/02/16 04:05 RBC 4.69 X10^6/uL (3.5-5.4) 12/02/16 04:05 Hgb 10.2 g/dL (12.0-16.0) L 12/02/16 04:05 Hct 32.7 % (36.0-47.0) L 12/02/16 04:05 MCV 69.7 fL (80.0-100.0) L 12/02/16 04:05 MCH 21.8 pg (27.0-34.0) L 12/02/16 04:05 MCHC 31.3 g/dL (33.0-35.0) L 12/02/16 04:05 RDW 14.7 % (11.6-16.5) 12/02/16 04:05 Plt Count 211 X10^3/uL (150.0-450.0) 12/02/16 04:05 Plt Count Comment Adequate (ADEQUATE) 12/02/16 04:05 MPV 10.0 fL (7.4-11.0) 12/02/16 04:05 Neut % 47.2 % (42.0-75.0) 12/02/16 04:05 Lymph % 40.6 % (21.0-51.0) 12/02/16 04:05 [place] % 8.9 % (0.0-13.0) 12/02/16 04:05 Eos % 2.7 % (0.9-2.9) 12/02/16 04:05 Baso % 0.6 % (0.2-1.0) 12/02/16 04:05 Neut # 2.9 x10^3/uL (2.2-4.8) 12/02/16 04:05 Lymph # 2.5 X10^3/uL (1.3-2.9) 12/02/16 04:05 [place] # 0.5 x10^3/uL (0.3-0.8) 12/02/16 04:05 Eos # 0.2 x10^3/uL (0.0-0.2) 12/02/16 04:05 Baso # 0.0 X10^3/uL (0.0-0.1) 12/02/16 04:05 Absolute Nucleated RBC 0.0 /100WBC 12/02/16 04:05 Plt Morphology Comment Normal (NORMAL) 12/02/16 04:05 RBC Morphology Abnormal (NORMAL) A 12/02/16 04:05 Hypochromasia 2+ A 12/02/16 04:05 Microcytosis 1+ A 12/02/16 04:05 Target Cells Noted 12/02/16 04:05 Sodium 142 mmol/L (136-145) 12/02/16 04:05 Corrected Sodium TNP 12/02/16 04:05 Potassium 3.7 mmol/L (3.5-5.1) 12/02/16 04:05 Chloride 108 mmol/L (98-107) H 12/02/16 04:05 Carbon Dioxide 27.4 mmol/L (21-32) 12/02/16 04:05 BUN 7 mg/dL (7-18) 12/02/16 04:05 Creatinine 0.63 mg/dL (0.55-1.02) 12/02/16 04:05 Est GFR (MDRD) Af Amer > 60 (>60) 12/02/16 04:05 Est GFR (MDRD) Non-Af > 60 (>60) 12/02/16 04:05 Glucose 103 mg/dL (65-99) H 12/02/16 04:05 Calcium 8.9 mg/dL (8.5-10.1) 12/02/16 04:05 Corrected Calcium 9.8 mg/dL (8.5-10.1) 12/02/16 04:05 Total Bilirubin 0.20 mg/dL (0.2-1.0) 12/02/16 04:05 AST 14 Units/L (15-37) L 12/02/16 04:05 ALT 19 Units/L (12-78) 12/02/16 04:05 Alkaline Phosphatase 88 Units/L (46-116) 12/02/16 04:05 Total Protein 6.5 g/dL (6.4-8.2) 12/02/16 04:05 Albumin 2.9 g/dL (3.4-5.0) L 12/02/16 04:05 Globulin 3.6 g/dL (2.5-4.5) 12/02/16 04:05 Albumin/Globulin Ratio 0.8 Ratio (1.1-2.1) L 12/02/16 04:05 Specimen Type Clean catch urine 11/27/16 22:34 Urine Color Yellow (YELLOW) 11/27/16 22:34 Urine Appearance Clear (CLEAR) 11/27/16 22:34 Urine pH 6.5 (5.0 - 8.0) 11/27/16 22:34 Ur Specific [place] 1.015 (1.000-1.030) 11/27/16 22:34 Urine Protein 1+ (NEGATIVE) 11/27/16 22:34 Urine Glucose (UA) Negative (NEGATIVE) 11/27/16 22:34 Urine Ketones Negative (NEGATIVE) 11/27/16 22:34 Urine Occult Blood Negative (NEGATIVE) 11/27/16 22:34 Urine Nitrite Negative (NEGATIVE) 11/27/16 22:34 Urine Bilirubin Negative (NEGATIVE) 11/27/16 22:34 Urine Urobilinogen Normal (NORMAL) 11/27/16 22:34 Ur Leukocyte Esterase Negative (NEGATIVE) 11/27/16 22:34 Urine RBC 0-3 /HPF (NEGATIVE) 11/27/16 22:34 Urine WBC 0-3 /HPF (NEGATIVE) 11/27/16 22:34 Ur Squamous Epith Cells Moderate /HPF (NEGATIVE) 11/27/16 22:34 Urine Bacteria Negative /HPF (NEGATIVE) 11/27/16 22:34 Ur Culture Indicated? No/not indicated 11/27/16 22:34 Stl C. diff Tox B Gene Positive (NEGATIVE) A 11/27/16 16:13 Stl C. diff [id number] Negative (NEGATIVE) 11/27/16 16:13 H. pylori IgG Antibody Positive (NEGATIVE) A 11/27/16 15:43 - Plan (1) C. difficile colitis Status: Acute Plan: FLAGYL 500MG PO QID, MORPHINE 2MG IV Q6H PRN FOR ABDOMINAL PAIN, CONTINUE TO MONITOR (2) Campylobacter diarrhea Status: Acute Plan: CIPRO 400MG IV Q12H, CONTINUE TO MONITOR (3) Helicobacter pylori (H. pylori) Status: Acute Plan: PEPCID 20MG IV Q12H, PROTONIX 40MG IV BID, CONTINUE TO MONITOR (4) Hypertension Status: Chronic Qualifiers: Hypertension type: essential hypertension Qualified Code(s): I10 - Essential (primary) hypertension Plan: CONTINUE LISINOPRIL, CONTINUE AMLODIPINE, CONTINUE TO MONITOR (5) Nausea & vomiting Status: Acute Qualifiers: Vomiting type: unspecified Vomiting Intractability: unspecified Qualified Code(s): R11.2 - Nausea with vomiting, unspecified Plan: ZOFRAN 4MG IV Q6H PRN, CONTINUE TO MONITOR
[2016-12-02] MEDS: TORADOL 30 MG VIAL IVP PRN ×2 (14:16→20:28)
[2016-12-03] MEDS: TORADOL 30 MG VIAL IVP PRN ×3 (03:36→17:20)
[2016-12-03 05:18] LABS: BASOPHILS % (AUTO) 0.4 % (0.2-1.0); EOSINOPHILS # (AUTO) 0.1 x10^3/uL (0.0-0.2); EOSINOPHILS % (AUTO) 1.6 % (0.9-2.9); HEMATOCRIT 34.3 % (36.0-47.0); HEMOGLOBIN 10.7 g/dL (12.0-16.0); LYMPHOCYTES # (AUTO) 2.3 X10^3/uL (1.3-2.9); MEAN CORPUSCULAR HEMOGLOBIN 21.5 pg (27.0-34.0); MEAN CORPUSCULAR HGB CONC 31.3 g/dL (33.0-35.0); MEAN CORPUSCULAR VOLUME 68.7 fL (80.0-100.0); MEAN PLATELET VOLUME 10.4 fL (7.4-11.0); MONOCYTES # (AUTO) 0.7 x10^3/uL (0.3-0.8); MONOCYTES % (AUTO) 7.9 % (0.0-13.0); NEUTROPHILS # (AUTO) 5.6 x10^3/uL (2.2-4.8); NEUTROPHILS % (AUTO) 64.1 % (42.0-75.0); PLATELET COUNT 239 X10^3/uL (150.0-450.0); RED BLOOD COUNT 4.99 X10^6/uL (3.5-5.4); RED CELL DISTRIBUTION WIDTH 14.8 % (11.6-16.5); WHITE BLOOD COUNT 8.7 X10^3/uL (3.6-10.0)
[2016-12-03 05:23] LABS: ALANINE AMINOTRANSFERASE 17 Units/L (12-78); ALBUMIN 3.2 g/dL (3.4-5.0); ALKALINE PHOSPHATASE 94 Units/L (46-116); ASPARTATE AMINO TRANSFERASE 15 Units/L (15-37); BLOOD UREA NITROGEN 7 mg/dL (7-18); CALCIUM 9.1 mg/dL (8.5-10.1); CARBON DIOXIDE 25.9 mmol/L (21-32); CHLORIDE 106 mmol/L (98-107); COR CA(FOR HYPOALB) 9.7 mg/dL (8.5-10.1); CREATININE 0.68 mg/dL (0.55-1.02); GLUCOSE 100 mg/dL (65-99); SODIUM 140 mmol/L (136-145); eGFR BLACK RACES > 60 (>60); eGFR NON BLACK RACES > 60 (>60)
[2016-12-03 05:33] LABS: HYPOCHROMASIA 2+; MICROCYTOSIS 1+; PLATELET MORPHOLOGY COMMENT NORMAL (NORMAL); TARGET CELLS NOTED
[2016-12-03] MEDS: NORCO 10/325 TAB PO PRN ×4 (07:21→20:39)
[2016-12-03] MEDS: NORVASC TAB 10 MG PO SCH (09:01)
[2016-12-03] MEDS: ZESTRIL TAB 10 MG PO SCH (09:01)
[2016-12-03] MEDS: LYRICA 25 MG PO SCH (09:01)
[2016-12-03] MEDS: FLAGYL TAB 500 MG PO SCH ×4 (09:01→20:39)
[2016-12-03] MEDS: PEPCID 20 MG IV PREMIX* 20 MG/50 ML BAG IV SCH ×2 (09:02→20:40)
[2016-12-03] MEDS: PROTONIX INJ 40 MG VIAL IVP SCH ×2 (09:02→20:39)
[2016-12-03] MEDS: CIPRO IV 400 MG PREMIX* 400 MG/200 ML IV.SOLN. IV SCH ×2 (09:03→20:40)
--- NOTE | 2016-12-03 10:07 | PCM.PROG ---
Progress Note - Progress Note for Day of Date: 12/03/16 - Subjective Subjective: IS ALERT AND ORIENTED ON MORNING ROUNDS. SHE IS SITTING UP IN BED WITH SPOUSE AT BEDSIDE. SHE DENIES ABDOMINAL PAIN THIS AM AND REPORTS FEELING WELL. SHE REPORTS THAT STOOLS ARE SOFT, BUT DENIES DIARRHEA. VITALS THIS AM ARE 98.4-93-20-100%-161/91. CBC WNL EXCEPT HGB 10.7, HCT 34.3. CMP WNL EXCEPT POTASSIUM 3.4, GLUCOSE 100, ALBUMIN 3.0. WE WILL CONTINUE WITH CURRENT PLAN OF CARE. WE WILL RECHECK LABS AND FOLLOW UP WITH PATIENT IN AM WITH PLANS TO DISCHARGE IF STABLE. - Past Medical Family Social History Past Med/Fam/Surg Hx: No changes since H&P Allergies: Allergies No Known Drug Allergies Allergy (Verified 11/29/16 11:47) - Review of Systems ROS: No change since H&P - Vital Signs and I&O's Vital Signs: Temperature 98.5 F Pulse Rate [Right Brachial] 103 Pulse Rate [Standing] 110 Pulse Rate [Sitting] 101 Pulse Rate [Lying] 101 Pulse Rate 111 Respiratory Rate 20 Blood Pressure [Right Arm] 175/98 Blood Pressure [Left Arm] 156/98 Blood Pressure [Standing] 135/88 Blood Pressure [Sitting] 139/76 Blood Pressure [Lying] 138/77 Blood Pressure 124/74 O2 Sat by Pulse Oximetry 98 Intake and Output: Intake & Output 11/30/16 12/01/16 12/02/16 12/03/16 11:59 11:59 11:59 11:59 Intake Total 2950 3090 2830 2068 Balance 2950 3090 2830 2068 - Physical Exam Oriented: Normal Eyes: Normal Ear: Normal Nose: Normal Throat: Normal Respiratory: Normal Cardiovascular: Normal : Normal Auscultation: Bowel Sounds: Increased Palpation: Normal Tenderness: Diffuse, Moderate Skin: Normal Musculoskeletal: Normal Psychiatric: Normal Mood Description: Calm Affect: Normal Speech Pattern: Clear, Appropriate - Laboratory and Diagnostics Result Diagrams: 12/03/16 03:51 12/03/16 03:51 Labs: 11/27/16 16:13 Stool Stool Culture - Final Campylobacter Species 11/27/16 16:13 Stool - Final Laboratory WBC 8.7 X10^3/uL (3.6-10.0) 12/03/16 03:51 RBC 4.99 X10^6/uL (3.5-5.4) 12/03/16 03:51 Hgb 10.7 g/dL (12.0-16.0) L 12/03/16 03:51 Hct 34.3 % (36.0-47.0) L 12/03/16 03:51 MCV 68.7 fL (80.0-100.0) L 12/03/16 03:51 MCH 21.5 pg (27.0-34.0) L 12/03/16 03:51 MCHC 31.3 g/dL (33.0-35.0) L 12/03/16 03:51 RDW 14.8 % (11.6-16.5) 12/03/16 03:51 Plt Count 239 X10^3/uL (150.0-450.0) 12/03/16 03:51 Plt Count Comment Adequate (ADEQUATE) 12/03/16 03:51 MPV 10.4 fL (7.4-11.0) 12/03/16 03:51 Neut % 64.1 % (42.0-75.0) 12/03/16 03:51 Lymph % 26.0 % (21.0-51.0) 12/03/16 03:51 [place] % 7.9 % (0.0-13.0) 12/03/16 03:51 Eos % 1.6 % (0.9-2.9) 12/03/16 03:51 Baso % 0.4 % (0.2-1.0) 12/03/16 03:51 Neut # 5.6 x10^3/uL (2.2-4.8) H 12/03/16 03:51 Lymph # 2.3 X10^3/uL (1.3-2.9) 12/03/16 03:51 Grayson # 0.7 x10^3/uL (0.3-0.8) 12/03/16 03:51 Eos # 0.1 x10^3/uL (0.0-0.2) 12/03/16 03:51 Baso # 0.0 X10^3/uL (0.0-0.1) 12/03/16 03:51 Absolute Nucleated RBC 0.1 /100WBC 12/03/16 03:51 Plt Morphology Comment Normal (NORMAL) 12/03/16 03:51 RBC Morphology Abnormal (NORMAL) A 12/03/16 03:51 Hypochromasia 2+ A 12/03/16 03:51 Microcytosis 1+ A 12/03/16 03:51 Target Cells Noted 12/03/16 03:51 Sodium 140 mmol/L (136-145) 12/03/16 03:51 Corrected Sodium TNP 12/03/16 03:51 Potassium 3.4 mmol/L (3.5-5.1) L 12/03/16 03:51 Chloride 106 mmol/L (98-107) 12/03/16 03:51 Carbon Dioxide 25.9 mmol/L (21-32) 12/03/16 03:51 BUN 7 mg/dL (7-18) 12/03/16 03:51 Creatinine 0.68 mg/dL (0.55-1.02) 12/03/16 03:51 Est GFR (MDRD) Af Amer > 60 (>60) 12/03/16 03:51 Est GFR (MDRD) Non-Af > 60 (>60) 12/03/16 03:51 Glucose 100 mg/dL (65-99) H 12/03/16 03:51 Calcium 9.1 mg/dL (8.5-10.1) 12/03/16 03:51 Corrected Calcium 9.7 mg/dL (8.5-10.1) 12/03/16 03:51 Total Bilirubin 0.20 mg/dL (0.2-1.0) 12/03/16 03:51 AST 15 Units/L (15-37) 12/03/16 03:51 ALT 17 Units/L (12-78) 12/03/16 03:51 Alkaline Phosphatase 94 Units/L (46-116) 12/03/16 03:51 Total Protein 7.0 g/dL (6.4-8.2) 12/03/16 03:51 Albumin 3.2 g/dL (3.4-5.0) L 12/03/16 03:51 Globulin 3.8 g/dL (2.5-4.5) 12/03/16 03:51 Albumin/Globulin Ratio 0.8 Ratio (1.1-2.1) L 12/03/16 03:51 Specimen Type Clean catch urine 11/27/16 22:34 Urine Color Yellow (YELLOW) 11/27/16 22:34 Urine Appearance Clear (CLEAR) 11/27/16 22:34 Urine pH 6.5 (5.0 - 8.0) 11/27/16 22:34 Ur Specific Bunch 1.015 (1.000-1.030) 11/27/16 22:34 Urine Protein 1+ (NEGATIVE) 11/27/16 22:34 Urine Glucose (UA) Negative (NEGATIVE) 11/27/16 22:34 Urine Ketones Negative (NEGATIVE) 11/27/16 22:34 Urine Occult Blood Negative (NEGATIVE) 11/27/16 22:34 Urine Nitrite Negative (NEGATIVE) 11/27/16 22:34 Urine Bilirubin Negative (NEGATIVE) 11/27/16 22:34 Urine Urobilinogen Normal (NORMAL) 11/27/16 22:34 Ur Leukocyte Esterase Negative (NEGATIVE) 11/27/16 22:34 Urine RBC 0-3 /HPF (NEGATIVE) 11/27/16 22:34 Urine WBC 0-3 /HPF (NEGATIVE) 11/27/16 22:34 Ur Squamous Epith Cells Moderate /HPF (NEGATIVE) 11/27/16 22:34 Urine Bacteria Negative /HPF (NEGATIVE) 11/27/16 22:34 Ur Culture Indicated? No/not indicated 11/27/16 22:34 Stl C. diff Tox B Gene Positive (NEGATIVE) A 11/27/16 16:13 Stl C. diff [id number] Negative (NEGATIVE) 11/27/16 16:13 H. pylori IgG Antibody Positive (NEGATIVE) A 11/27/16 15:43 - Plan (1) C. difficile colitis Status: Acute Plan: FLAGYL 500MG PO QID, MORPHINE 2MG IV Q6H PRN FOR ABDOMINAL PAIN, CONTINUE TO MONITOR (2) Campylobacter diarrhea Status: Acute Plan: CIPRO 400MG IV Q12H, CONTINUE TO MONITOR (3) Helicobacter pylori (H. pylori) Status: Acute Plan: PEPCID 20MG IV Q12H, PROTONIX 40MG IV BID, CONTINUE TO MONITOR (4) Hypertension Status: Chronic Qualifiers: Hypertension type: essential hypertension Qualified Code(s): I10 - Essential (primary) hypertension Plan: CONTINUE LISINOPRIL, CONTINUE AMLODIPINE, CONTINUE TO MONITOR (5) Nausea & vomiting Status: Acute Qualifiers: Vomiting type: unspecified Vomiting Intractability: unspecified Qualified Code(s): R11.2 - Nausea with vomiting, unspecified Plan: ZOFRAN 4MG IV Q6H PRN, CONTINUE TO MONITOR
[2016-12-04] MEDS: TORADOL 30 MG VIAL IVP PRN ×2 (00:04→08:02)
[2016-12-04] MEDS: NORCO 10/325 TAB PO PRN (04:29)
[2016-12-04] MEDS: NS 1000 ML 1,000 ML IV SCH (04:33)
[2016-12-04 04:58] LABS: BASOPHILS % (AUTO) 0.5 % (0.2-1.0); EOSINOPHILS # (AUTO) 0.1 x10^3/uL (0.0-0.2); EOSINOPHILS % (AUTO) 1.2 % (0.9-2.9); HEMATOCRIT 34.6 % (36.0-47.0); HEMOGLOBIN 10.8 g/dL (12.0-16.0); LYMPHOCYTES # (AUTO) 2.5 X10^3/uL (1.3-2.9); LYMPHOCYTES % (AUTO) 27.1 % (21.0-51.0); MEAN CORPUSCULAR HEMOGLOBIN 21.8 pg (27.0-34.0); MEAN CORPUSCULAR HGB CONC 31.2 g/dL (33.0-35.0); MEAN PLATELET VOLUME 10.4 fL (7.4-11.0); MONOCYTES # (AUTO) 0.8 x10^3/uL (0.3-0.8); MONOCYTES % (AUTO) 8.3 % (0.0-13.0); NEUTROPHILS # (AUTO) 5.9 x10^3/uL (2.2-4.8); NEUTROPHILS % (AUTO) 62.9 % (42.0-75.0); PLATELET COUNT 222 X10^3/uL (150.0-450.0); RED BLOOD COUNT 4.94 X10^6/uL (3.5-5.4); RED CELL DISTRIBUTION WIDTH 14.5 % (11.6-16.5); WHITE BLOOD COUNT 9.3 X10^3/uL (3.6-10.0)
[2016-12-04 05:14] LABS: ALANINE AMINOTRANSFERASE 15 Units/L (12-78); ALBUMIN 3.2 g/dL (3.4-5.0); ALKALINE PHOSPHATASE 90 Units/L (46-116); ASPARTATE AMINO TRANSFERASE 19 Units/L (15-37); BLOOD UREA NITROGEN 9 mg/dL (7-18); CALCIUM 9.5 mg/dL (8.5-10.1); CARBON DIOXIDE 23.9 mmol/L (21-32); CHLORIDE 106 mmol/L (98-107); COR CA(FOR HYPOALB) 10.1 mg/dL (8.5-10.1); CREATININE 0.76 mg/dL (0.55-1.02); GLUCOSE 102 mg/dL (65-99); SODIUM 139 mmol/L (136-145); TOTAL PROTEIN 6.8 g/dL (6.4-8.2); eGFR BLACK RACES > 60 (>60); eGFR NON BLACK RACES > 60 (>60)
[2016-12-04] MEDS: POTASSIUM CHLORIDE LIQ 20 MEQ UDC PO PRN (05:30)
[2016-12-04 05:56] LABS: PLATELET MORPHOLOGY COMMENT NORMAL (NORMAL)
[2016-12-04 05:57] LABS: HYPOCHROMASIA 2+; MICROCYTOSIS 1+; TARGET CELLS FEW
[2016-12-04] MEDS: NORVASC TAB 10 MG PO SCH (08:01)
[2016-12-04] MEDS: ZESTRIL TAB 10 MG PO SCH (08:01)
[2016-12-04] MEDS: LYRICA 25 MG PO SCH (08:01)
[2016-12-04] MEDS: FLAGYL TAB 500 MG PO SCH (08:01)
[2016-12-04] MEDS: BENTYL CAP 10 MG PO PRN (08:02)
[2016-12-04 08:34] VITALS: BP 140/94
[2016-12-04] MEDS: CIPRO IV 400 MG PREMIX* 400 MG/200 ML IV.SOLN. IV SCH (10:56)
[2016-12-04] MEDS: PROTONIX INJ 40 MG VIAL IVP SCH (10:56)
== END 2016-12-04 11:06 | disposition home or self-care (01) | DRG 373 ==
LOC: ER 12:31 → MED/SURG 21:05
PROVIDERS: ADMIT Internal Medicine; ATTEND Internal Medicine
DX: A04.5 Campylobacter enteritis (principal); A04.7 Enterocolitis due to Clostridium difficile; E86.0 Dehydration; B96.81 Helicobacter pylori [H. pylori] as the cause of diseases classified elsewhere; R11.2 Nausea with vomiting, unspecified; K21.9 Gastro-esophageal reflux disease without esophagitis; I10 Essential (primary) hypertension; M13.89 Other specified arthritis, multiple sites; R10.32 Left lower quadrant pain
CPT/HCPCS: 36415; 74000; 74178; 80053; 81001; 84132; 85025; 86677; 87045; 87427; 87493; 87899; 96365; 96374; 96375; 99231; 99281; 99284; A4222; C9113; S0028; S0030; J0456; J0744; J1885; J2270; J2405

== ENCOUNTER 2017-03-29 09:56 | Emergency (ER) | payer MEDICAID ==
[2017-03-29 10:05] VITALS: BP 158/90; BMI 32.5
--- NOTE | 2017-03-29 10:51 | DR.EXTPAIN ---
HPI - Time seen Time seen: 10:45 - PCP Primary Care Physician: SIXTO WHITMORE - Complaint/Symptoms Chief Complaint Doctor Comments: She has pain in the large joints on her left side. She fell into a hole in her yard last night and again inside home this a.m. There was no LOC. Chief Complaint:: PT C/O STEPPING IN TO HOLE YESTERDAY AND THEN LOOSING HER FOOTING IN HER HOUSE AND FALLING ON HER LEFT SIDE".... PT C/O LEFT SIDE AND HIP PAIN THAT GOES ALL THE WAY DOWN.. 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, 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, Ortho Surgery - Family History History of Family Medical Conditions: Yes Family Medical History: Hypertension - Social History Does patient currently use any type of tobacco product: No Have you used tobacco products in the last 12 months: No Does any household member use tobacco: No Alcohol Use: None Do you use any recreational Drugs:: No Lives With: Family Lives Where: Home - infectious screening In the last 2 months have you had wt loss of >10#?: NO Have you had fever, night sweats or hemotysis?: No Have you traveled outside the country in the last 6 months?: No Isolation: Standard ROS - Review of Systems Constitutional: No Symptoms Reported Eyes: No Symptoms Reported ENTM: No Symptoms Reported Respiratoy: No Symptoms Reported Cardiovascular: No Symptoms Reported Gastrointestinal/Abdominal: No Symptoms Reported Genitourinary: No Symptoms Reported Neurological: No Symptoms Reported Musculoskeletal: Joint Pain (shoulder, hip and knee on left) Integumentary: No Symptoms Reported Hematologic/Lymphatic: No Symptoms Reported Endocrine: No Symptoms Reported Psychiatric: No Symptoms Reported All Other Systems: Reviewed and Negative PE - Vital Signs Vitals: Temperature 97.2 F Pulse Rate 73 Respiratory Rate 18 Blood Pressure [Right Arm] 140/94 Blood Pressure [Left Arm] 156/98 Blood Pressure [Standing] 135/88 Blood Pressure [Sitting] 139/76 Blood Pressure [Lying] 138/77 Blood Pressure 158/90 O2 Sat by Pulse Oximetry 97 - General Limitations: No Limitations General Appearance: Alert, In No Apparent Distress - Head Head Exam: Normal Inspection - Eyes Eye exam: Normal Appearance, PERRL, EOMI - ENT ENT Exam: Normal Exam - Neck Neck Exam: Normal Inspection, Full ROM, Trachea Midline - Chest Chest Inspection: Symmetric Chest Wall Rise - Respiratory Respiratory Exam: Normal Lung Sounds Bilat - Cardiovascular Cardiovascular Exam: Regular Rate, Normal Rhythm - Abdominal Exam Abdominal Exam: Normal Inspection, Normal Bowel Sounds, Soft - Extremities Extremities Exam: Normal Inspection - Neurological Neurological Exam: Alert, Oriented X3, CN II-XII Intact - Psychiatric Psychiatric Exam: Normal Affect, Normal Mood - Skin Skin Exam: Warm, Dry, Intact, Normal Color ROR - XRAY XRAY Interpreted by: Self (Left Shoulder and knee: no fracture, joint space intact. Left Knee: s/p joint replacement, otherwise normal study. ) - Diagnosis Discharge Problem: Fall, Sprain of ankle, Sprain of hip, Sprain of left shoulder - Discharge Plan Disposition: 01 HOME, SELF-CARE Condition: Stable - Follow ups/Referrals Follow ups/Referrals: Maldonado Medrano [Primary Care Provider] - 3 days - Instructions
[2017-03-29] MEDS ORDERED: TORADOL 60 MG VIAL IM ONE (11:02)
[2017-03-29] MEDS ORDERED: TORADOL 60 MG VIAL ONE (11:15)
--- NOTE | 2017-03-29 13:56 | RAD ---
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 There is mild AC joint DJD. No destructive osseous lesions are seen. IMPRESSION: Chronic changes as above without acute bony radiographic abnormality. Reported By:
--- NOTE | 2017-03-29 13:58 | RAD ---
HISTORY: Status post fall with left hip pain Study: Two views left hip Comparison: November 30, 2016 and June 20, 2014 Findings: There is no acute fracture or dislocation. No destructive osseous lesions are seen. Lower lumbar spon dylosis is noted. IMPRESSION: No acute bony radiographic abnormality. Reported By:
--- NOTE | 2017-03-29 14:00 | RAD ---
HISTORY: Status post fall with left knee pain Study: Three views left knee Comparison: June 20, 2014 Findings: There is no acute fracture or dislocation. No periprosthetic lucency is seen to suggest acute or expander dino hardware failure. There is no large effusion. No destructive osseous lesions are seen. IMPRESSION: No acute radiographic abnormality. Reported By:
== END 2017-03-29 12:01 | disposition home or self-care (01) ==
LOC: ER 09:56
DX: S93.409A Sprain of unspecified ligament of unspecified ankle, initial encounter (principal); S73.109A Unspecified sprain of unspecified hip, initial encounter; S43.402A Unspecified sprain of left shoulder joint, initial encounter; W17.2XXA Fall into hole, initial encounter; Y92.009 Unspecified place in unspecified non-institutional (private) residence as the place of occurrence of the external cause
CPT/HCPCS: 73030; 73501; 73564; 96372; 99282; J1885

== ENCOUNTER 2017-04-10 08:14 | Emergency (ER) | payer MEDICAID ==
[2017-04-10 08:20] VITALS: BP 125/83; BMI 30.9
--- NOTE | 2017-04-10 08:35 | DR.URIAD ---
HPI - Time Seen Time seen: 08:55 - PCP Primary Care Physician: iveth - HPI Comment HPI Comment: ALSO COUGH AND CONGESTION FOR FEW DAYS. NO FEVER. COUGH GAGGING PATIENT. - Complaint Chief Complaint Doctors Comments: GENERALIZE BODY ACHES, NAUSEA AND HEADACHE TIMES ONE DAY. 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: , 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, 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, Ortho Surgery - Family History History of Family Medical Conditions: Yes Family Medical History: Hypertension - Social History Does patient currently use any type of tobacco product: No Have you used tobacco products in the last 12 months: No Type of Tobacco Use: None Does any household member use tobacco: No Alcohol Use: None Do you use any recreational Drugs:: No Lives With: Family Lives Where: Home - infectious screening In the last 2 months have you had wt loss of >10#?: NO Have you had fever, night sweats or hemotysis?: No Have you traveled outside the country in the last 6 months?: No Isolation: Standard ROS - Review of Systems Constitutional: Chills, Weakness, Fatigue. negative: Fever Eyes: No Symptoms Reported. negative: Eye Pain, Discharge ENTM: Nose Discharge, Nose Congestion, Throat Pain. negative: Ear Pain Respiratoy: Productive Cough. negative: Short of Breath, Wheezing Cardiovascular: No Symptoms Reported Gastrointestinal/Abdominal: Nausea Genitourinary: No Symptoms Reported Neurological: Headache, Weakness Musculoskeletal: Muscle Pain Integumentary: No Symptoms Reported Hematologic/Lymphatic: No Symptoms Reported Endocrine: No Symptoms Reported All Other Systems: Reviewed and Negative PE - Vital Signs Vitals: Temperature 97.2 F Pulse Rate 109 Respiratory Rate 19 Blood Pressure [Right Arm] 140/94 Blood Pressure [Left Arm] 156/98 Blood Pressure [Standing] 135/88 Blood Pressure [Sitting] 139/76 Blood Pressure [Lying] 138/77 Blood Pressure 125/83 O2 Sat by Pulse Oximetry 96 - General Limitations: No Limitations General Appearance: Alert - Head Head Exam: Normal Inspection - Eyes Eye exam: Normal Appearance - ENT ENT Exam: Normal External Ear Exam TM/Canal Exam: Bilateral Bulging Mouth Exam: Normal Inspection Throat Exam: Normal Inspection - Neck Neck Exam: Normal Inspection - Chest Chest Inspection: Symmetric Chest Wall Rise - Respiratory Respiratory Exam: Normal Lung Sounds Bilat Respiratory Exam: Bilateral Clear to Auscultation - Cardiovascular Cardiovascular Exam: Regular Rate, Normal Rhythm, Normal Heart Sounds - Abdominal Exam Abdominal Exam: Normal Bowel Sounds, Soft. negative: Tenderness - Extremeties Extremities Exam: Normal Inspection - Back Back Exam: Normal Inspection - Neurologic Neurological Exam: Alert, Oriented X3 - Psychiatric Psychiatric Exam: Normal Affect, Normal Mood - Skin Skin Exam: Normal Color MDM - Differential Diagnosis Differential Diagnosis: Influenza A, Influenza B, Otitis media, Streptococcal pharyngitis, Viral pharyngitis, Pneumonia, Sinsusitis, URI Course - Treatment Treatment: SEE ORDER, - Education/Counseling Education/Counseling: Patient, Education Educated On: Treatment, Diagnosis, Needs for Follow Up ROR - Labs Reviewed Laboratory Results Reviewed?: Yes Laboratory: Influenza Type A (PCR) Positive (NEGATIVE) A 04/10/17 08:30 Influenza Type B (PCR) Negative (NEGATIVE) 04/10/17 08:30 - Diagnosis Discharge Problem: Influenza, Bronchitis - Discharge Plan Condition: Stable Prescriptions: Amoxicillin [Amoxil 875 mg] 875 mg PO Q12H #20 tab Benzonatate [TESSALON PERLES *] 200 mg PO TID PRN #30 cap PRN Reason: Cough Oseltamivir Phosphate [Tamiflu] 75 mg PO BID #10 cap - Follow ups/Referrals Follow ups/Referrals: Maldonado Medrano [Primary Care Provider] - 3 days - Instructions Instructions: Influenza, Adult, [id number], Acute Bronchitis, [id number] Additional Instructions: RETURN TO ED IF WORSE.
[2017-04-10] MEDS ORDERED: PHENERGAN W/CODEINE 6.25MG/10MG PO ONE (08:42)
[2017-04-10] MEDS ORDERED: TORADOL 60 MG VIAL IM ONE (08:44)
[2017-04-10] MEDS ORDERED: ZOFRAN INJ 4 MG VIAL IM ONE (08:44)
[2017-04-10] MEDS ORDERED: ZOFRAN INJ 4 MG VIAL ONE (08:48)
[2017-04-10] MEDS ORDERED: PHENERGAN W/CODEINE 6.25MG/10MG ONE ×2 (08:48→08:51)
[2017-04-10] MEDS ORDERED: TORADOL 60 MG VIAL ONE (08:48)
== END 2017-04-10 09:41 | disposition home or self-care (01) ==
LOC: ER 08:29
DX: J11.1 Influenza due to unidentified influenza virus with other respiratory manifestations (principal); J40 Bronchitis, not specified as acute or chronic
CPT/HCPCS: 87502; 96372; 99282; J1885; J2405

== ENCOUNTER 2017-05-31 13:34 | Emergency (ER) | payer MEDICAID ==
[2017-05-31 13:49] VITALS: BMI 32.5
--- NOTE | 2017-05-31 13:57 | DR.CP ---
HPI - Time Seen Time seen: 13:45 - PCP Primary Care Physician: SIXTO - Complaint Chief Complaint Doctor Comments: Patient presented via EMS with complaint of chest pain. She denies history of cardiopoulmonary disease. Patient states that her pain is 10/10. Chief Complaint:: PT STATES CHEST PAIN STARTED EARLIER AND I THOUGHT IT WAS HEARTBURN. WALKED TO MY FRIENDS HOUSE THEN BACK HOME. PAIN STARTED HURTING 10/ 10. FRIEND CALLED EMS. - Source History Provided: Patient, EMS - Mode of Arrival Mode of Arrival: EMS - Timing Onset of Chief Complaint: 05/31/17 - Location Chest Pain Radiation Location: None - Associated Signs and Symptoms Associated Signs and Symptoms: Shortness of Breath PMH - PMH Past Medical History: Yes Past Medical History: Arthritis, GERD, Hypertension. 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, Ortho Surgery - Family History History of Family Medical Conditions: Yes Family Medical History: Hypertension - Social History Does any household member use tobacco: No Alcohol Use: Rarely Do you use any recreational Drugs:: No Lives With: Alone Lives Where: Home - infectious screening In the last 2 months have you had wt loss of >10#?: NO Have you had fever, night sweats or hemotysis?: No Have you traveled outside the country in the last 6 months?: No Isolation: Standard ROS - Review of Systems Eyes: No Symptoms Reported ENTM: No Symptoms Reported Respiratoy: No Symptoms Reported Cardiovascular: No Symptoms Reported Gastrointestinal/Abdominal: No Symptoms Reported Genitourinary: No Symptoms Reported Neurological: No Symptoms Reported Musculoskeletal: No Symptoms Reported Integumentary: No Symptoms Reported Hematologic/Lymphatic: No Symptoms Reported Endocrine: No Symptoms Reported Psychiatric: No Symptoms Reported All Other Systems: Reviewed and Negative PE - Vitals Vitals: Temperature 99.7 F Pulse Rate [Right Brachial] 104 Pulse Rate 127 Respiratory Rate 15 Blood Pressure [Right Arm] 118/81 Blood Pressure [Left Arm] 156/98 Blood Pressure [Standing] 135/88 Blood Pressure [Sitting] 139/76 Blood Pressure [Lying] 138/77 Blood Pressure 117/66 O2 Sat by Pulse Oximetry 99 - General Limitations: No Limitations General Appearance: Alert, In No Apparent Distress - Head Head Exam: Normal Inspection, Atraumatic - Eyes Eye exam: Normal Appearance, PERRL, EOMI - ENT ENT Exam: Normal Exam - Respiratory Respiratory Exam: Normal Lung Sounds Bilat Respiratory Exam: Bilateral Clear to Auscultation - Cardiovascular Cardiovascular Exam: Regular Rate Pulse: Normal, Radial Edema: Normal - Abdominal Exam Abdominal Exam: Normal Inspection Abdominal Tenderness: negative: RUQ, RLQ, LUQ, LLQ, Epigastrium, Suprapubic, Diffuse, Mild, Moderate, Severe, Other - Extremities Extremities Exam: Normal Inspection, Full ROM - Back Back Exam: Normal Inspection - Neurologic Neurological Exam: Alert, Oriented X3, CN II-XII Intact - Psychiatric Psychiatric Exam: Normal Affect, Normal Mood - Skin Skin Exam: Warm, Dry, Intact Course - Reevaluation 1st: Improved - Consultation Called: 15:15 (Dr Amezcua agree to admit for chest pain protocol) ROR - Labs Reviewed Result Diagrams: 05/31/17 13:55 05/31/17 13:55 Laboratory: WBC 5.6 X10^3/uL (3.6-10.0) 05/31/17 13:55 RBC 4.67 X10^6/uL (3.5-5.4) 05/31/17 13:55 Hgb 10.7 g/dL (12.0-16.0) L 05/31/17 13:55 Hct 33.9 % (36.0-47.0) L 05/31/17 13:55 MCV 72.6 fL (80.0-100.0) L 05/31/17 13:55 MCH 22.8 pg (27.0-34.0) L 05/31/17 13:55 MCHC 31.4 g/dL (33.0-35.0) L 05/31/17 13:55 RDW 15.2 % (11.6-16.5) 05/31/17 13:55 Plt Count 156 X10^3/uL (150.0-450.0) 05/31/17 13:55 Plt Count Comment Adequate (ADEQUATE) 05/31/17 13:55 MPV 10.1 fL (7.4-11.0) 05/31/17 13:55 Neut % 45.8 % (42.0-75.0) 05/31/17 13:55 Lymph % 42.2 % (21.0-51.0) 05/31/17 13:55 [place] % 9.0 % (0.0-13.0) 05/31/17 13:55 Eos % 2.8 % (0.9-2.9) 05/31/17 13:55 Baso % 0.2 % (0.2-1.0) 05/31/17 13:55 Neut # 2.5 x10^3/uL (2.2-4.8) 05/31/17 13:55 Lymph # 2.3 X10^3/uL (1.3-2.9) 05/31/17 13:55 [place] # 0.5 x10^3/uL (0.3-0.8) 05/31/17 13:55 Eos # 0.2 x10^3/uL (0.0-0.2) 05/31/17 13:55 Baso # 0.0 X10^3/uL (0.0-0.1) 05/31/17 13:55 Absolute Nucleated RBC 0.1 /100WBC 05/31/17 13:55 Plt Morphology Comment Normal (NORMAL) 05/31/17 13:55 RBC Morphology Abnormal (NORMAL) A 05/31/17 13:55 Hypochromasia 2+ A 05/31/17 13:55 Microcytosis 2+ A 05/31/17 13:55 INR Target Range - 05/31/17 13:55 INR 0.92 (0.8-1.3) 05/31/17 13:55 PTT 35.9 SECONDS (22.9-36.5) 05/31/17 13:55 PTT Comment - 05/31/17 13:55 Sodium 143 mmol/L (136-145) 05/31/17 13:55 Corrected Sodium TNP 05/31/17 13:55 Potassium 3.6 mmol/L (3.5-5.1) 05/31/17 13:55 Chloride 109 mmol/L (98-107) H 05/31/17 13:55 Carbon Dioxide 24.2 mmol/L (21-32) 05/31/17 13:55 BUN 13 mg/dL (7-18) 05/31/17 13:55 Creatinine 0.67 mg/dL (0.55-1.02) 05/31/17 13:55 Est GFR (MDRD) Af Amer > 60 (>60) 05/31/17 13:55 Est GFR (MDRD) Non-Af > 60 (>60) 05/31/17 13:55 Glucose 110 mg/dL (65-99) H 05/31/17 13:55 Calcium 8.8 mg/dL (8.5-10.1) 05/31/17 13:55 Corrected Calcium 9.4 mg/dL (8.5-10.1) 05/31/17 13:55 Magnesium 1.9 mg/dL (1.7-2.9) 05/31/17 13:55 Total Bilirubin 0.10 mg/dL (0.2-1.0) L 05/31/17 13:55 AST 19 Units/L (15-37) 05/31/17 13:55 ALT 16 Units/L (12-78) 05/31/17 13:55 Alkaline Phosphatase 101 Units/L (46-116) 05/31/17 13:55 Creatine Kinase 43 Units/L (26-192) 05/31/17 13:55 CK-MB (CK-2) < 1.0 ng/mL (0-4.0) 05/31/17 13:55 CK/CKMB % Calc 2.3 % (<4) 05/31/17 13:55 Troponin I < 0.02 ng/mL (0-1.5) 05/31/17 13:55 Total Protein 6.9 g/dL (6.4-8.2) 05/31/17 13:55 Albumin 3.3 g/dL (3.4-5.0) L 05/31/17 13:55 Globulin 3.6 g/dL (2.5-4.5) 05/31/17 13:55 Albumin/Globulin Ratio 0.9 Ratio (1.1-2.1) L 05/31/17 13:55 Specimen Type Clean catch urine 05/31/17 13:55 Urine Color Yellow (YELLOW) 05/31/17 13:55 Urine Appearance Clear (CLEAR) 05/31/17 13:55 Urine pH 7.0 (5.0 - 8.0) 05/31/17 13:55 Ur Specific V[place] 1.005 (1.000-1.030) 05/31/17 13:55 Urine Protein Negative (NEGATIVE) 05/31/17 13:55 Urine Glucose (UA) Negative (NEGATIVE) 05/31/17 13:55 Urine Ketones Negative (NEGATIVE) 05/31/17 13:55 Urine Occult Blood Negative (NEGATIVE) 05/31/17 13:55 Urine Nitrite Negative (NEGATIVE) 05/31/17 13:55 Urine Bilirubin Negative (NEGATIVE) 05/31/17 13:55 Urine Urobilinogen Normal (NORMAL) 05/31/17 13:55 Ur Leukocyte Esterase Negative (NEGATIVE) 05/31/17 13:55 Urine RBC None seen /HPF (NONE SEEN) 05/31/17 13:55 Urine WBC 0-2 /HPF (NONE SEEN) 05/31/17 13:55 Ur Squamous Epith Cells Few /HPF (NEGATIVE) 05/31/17 13:55 Urine Bacteria Negative /HPF (NEGATIVE) 05/31/17 13:55 Ur Culture Indicated? No/not indicated 05/31/17 13:55 Urine Opiates Screen Positive (NEG=<300) A 05/31/17 13:58 Urine Methadone Screen Negative (NEG=<300) 05/31/17 13:58 Ur Barbiturates Screen Negative (NEG=<200) 05/31/17 13:58 Ur Phencyclidine Scrn Negative (NEG=<25) 05/31/17 13:58 Ur Amphetamines Screen Negative (NEG=<1000) 05/31/17 13:58 U Benzodiazepines Scrn Negative (NEG=<200) 05/31/17 13:58 Urine Cocaine Screen Negative (NEG=<300) 05/31/17 13:58 U Marijuana (THC) Screen Positive (NEG=<50) A 05/31/17 13:58 - XRAY XRAY Interpreted by: Radiologist (Chest:Comparison of 10/12/16--Continued normal heart size with clear lungs and pleural spaces.) - Diagnosis Discharge Problem: Chest pain Qualifiers: Chest pain type: unspecified Qualified Code(s): R07.9 - Chest pain, unspecified - Discharge Plan Condition: Stable - Follow ups/Referrals Follow ups/Referrals: Maldonado Medrano [Primary Care Provider] - 3 days - Instructions
[2017-05-31 14:13] LABS: BASOPHILS % (AUTO) 0.2 % (0.2-1.0); EOSINOPHILS # (AUTO) 0.2 x10^3/uL (0.0-0.2); EOSINOPHILS % (AUTO) 2.8 % (0.9-2.9); HEMATOCRIT 33.9 % (36.0-47.0); HEMOGLOBIN 10.7 g/dL (12.0-16.0); LYMPHOCYTES # (AUTO) 2.3 X10^3/uL (1.3-2.9); LYMPHOCYTES % (AUTO) 42.2 % (21.0-51.0); MEAN CORPUSCULAR HEMOGLOBIN 22.8 pg (27.0-34.0); MEAN CORPUSCULAR HGB CONC 31.4 g/dL (33.0-35.0); MEAN CORPUSCULAR VOLUME 72.6 fL (80.0-100.0); MEAN PLATELET VOLUME 10.1 fL (7.4-11.0); MONOCYTES # (AUTO) 0.5 x10^3/uL (0.3-0.8); NEUTROPHILS # (AUTO) 2.5 x10^3/uL (2.2-4.8); NEUTROPHILS % (AUTO) 45.8 % (42.0-75.0); PLATELET COUNT 156 X10^3/uL (150.0-450.0); RED BLOOD COUNT 4.67 X10^6/uL (3.5-5.4); RED CELL DISTRIBUTION WIDTH 15.2 % (11.6-16.5); WHITE BLOOD COUNT 5.6 X10^3/uL (3.6-10.0)
[2017-05-31 14:14] LABS: BILIRUBIN,URINE NEGATIVE (NEGATIVE); BLOOD/HEMOGLOBIN,URINE NEGATIVE (NEGATIVE); GLUCOSE, URINE NEGATIVE (NEGATIVE); KETONES,URINE NEGATIVE (NEGATIVE); LEUKOCYTE ESTERASE ,URINE NEGATIVE (NEGATIVE); NITRITES,URINE NEGATIVE (NEGATIVE); PROTEIN,URINE NEGATIVE (NEGATIVE); UROBILINOGEN,URINE NORMAL (NORMAL)
[2017-05-31] MEDS ORDERED: NITROSTAT SL PRN (14:15)
[2017-05-31 14:23] LABS: APPEARANCE,URINE CLEAR (CLEAR); COLOR,URINE YELLOW (YELLOW)
[2017-05-31 14:24] LABS: BACTERIA,URINE NEGATIVE /HPF (NEGATIVE); RBC,URINE NONE SEEN /HPF (NONE SEEN); SQUAMOUS EPITHELIAL CELL,UR FEW /HPF (NEGATIVE)
[2017-05-31 14:25] LABS: HYPOCHROMASIA 2+; MICROCYTOSIS 2+; PLATELET MORPHOLOGY COMMENT NORMAL (NORMAL)
[2017-05-31 14:33] LABS: BLOOD UREA NITROGEN 13 mg/dL (7-18); CALCIUM 8.8 mg/dL (8.5-10.1); CARBON DIOXIDE 24.2 mmol/L (21-32); CHLORIDE 109 mmol/L (98-107); CREATININE 0.67 mg/dL (0.55-1.02); SODIUM 143 mmol/L (136-145); TROPONIN I < 0.02 ng/mL (0-1.5); eGFR BLACK RACES > 60 (>60); eGFR NON BLACK RACES > 60 (>60)
[2017-05-31 14:36] LABS: ALANINE AMINOTRANSFERASE 16 Units/L (12-78); ALBUMIN 3.3 g/dL (3.4-5.0); ALKALINE PHOSPHATASE 101 Units/L (46-116); ASPARTATE AMINO TRANSFERASE 19 Units/L (15-37); CKMB % 2.3 % (<4); COR CA(FOR HYPOALB) 9.4 mg/dL (8.5-10.1); CREATINE KINASE 43 Units/L (26-192); CREATINE KINASE MB < 1.0 ng/mL (0-4.0); MAGNESIUM 1.9 mg/dL (1.7-2.9); TOTAL PROTEIN 6.9 g/dL (6.4-8.2)
[2017-05-31] MEDS ORDERED: MORPHINE SULFATE INJ 4 MG ONE (14:49)
[2017-05-31] MEDS ORDERED: MORPHINE SULFATE INJ 4 MG IVP ONE (14:58)
[2017-05-31] MEDS: ASPIRIN PO SCH (14:58)
[2017-05-31] MEDS: NS 1000 ML 1,000 ML IV SCH (15:11)
--- NOTE | 2017-05-31 15:13 | RAD ---
Examination: AP chest History: Chest pain Comparison 10/12/2016 Findings: Continued normal heart size with clear lungs and pleural spaces. Impression: No change; no acute findings. Reported By:
[2017-05-31] MEDS ORDERED: ZOFRAN INJ 4 MG VIAL IVP PRN (15:51)
[2017-05-31 20:07] LABS: CKMB % 2.3 % (<4); CREATINE KINASE 43 Units/L (26-192); CREATINE KINASE MB < 1.0 ng/mL (0-4.0); TROPONIN I < 0.02 ng/mL (0-1.5)
[2017-05-31] MEDS ORDERED: MORPHINE SULFATE INJ 2 MG INJ IVP ONE (20:07)
[2017-06-01] MEDS: NS 1000 ML 1,000 ML IV SCH ×2 (00:31→06:01)
[2017-06-01 02:17] LABS: CKMB % 3.2 % (<4); CREATINE KINASE 31 Units/L (26-192); CREATINE KINASE MB < 1.0 ng/mL (0-4.0); TROPONIN I < 0.02 ng/mL (0-1.5)
[2017-06-01 06:06] LABS: BASOPHILS % (AUTO) 0.3 % (0.2-1.0); EOSINOPHILS # (AUTO) 0.2 x10^3/uL (0.0-0.2); EOSINOPHILS % (AUTO) 4.6 % (0.9-2.9); HEMATOCRIT 41.4 % (36.0-47.0); HEMOGLOBIN 13.1 g/dL (12.0-16.0); LYMPHOCYTES % (AUTO) 43.7 % (21.0-51.0); MEAN CORPUSCULAR HEMOGLOBIN 22.8 pg (27.0-34.0); MEAN CORPUSCULAR HGB CONC 31.5 g/dL (33.0-35.0); MEAN CORPUSCULAR VOLUME 72.3 fL (80.0-100.0); MEAN PLATELET VOLUME 10.9 fL (7.4-11.0); MONOCYTES # (AUTO) 0.4 x10^3/uL (0.3-0.8); MONOCYTES % (AUTO) 7.8 % (0.0-13.0); NEUTROPHILS % (AUTO) 43.6 % (42.0-75.0); PLATELET COUNT 186 X10^3/uL (150.0-450.0); RED BLOOD COUNT 5.72 X10^6/uL (3.5-5.4); RED CELL DISTRIBUTION WIDTH 15.2 % (11.6-16.5); WHITE BLOOD COUNT 4.6 X10^3/uL (3.6-10.0)
[2017-06-01 06:21] LABS: ALANINE AMINOTRANSFERASE 18 Units/L (12-78); ALBUMIN 3.7 g/dL (3.4-5.0); ALKALINE PHOSPHATASE 118 Units/L (46-116); ASPARTATE AMINO TRANSFERASE 19 Units/L (15-37); BLOOD UREA NITROGEN 6 mg/dL (7-18); CALCIUM 9.4 mg/dL (8.5-10.1); CARBON DIOXIDE 26.1 mmol/L (21-32); CHLORIDE 105 mmol/L (98-107); CHOL/HDL RATIO 2.8 (0.0-5.0); CHOLESTEROL 222 mg/dL (0-200); CREATININE 0.46 mg/dL (0.55-1.02); HDL CHOLESTEROL 80 mg/dL (40-60); SODIUM 143 mmol/L (136-145); TOTAL PROTEIN 8.2 g/dL (6.4-8.2); TRIGLYCERIDES 112 mg/dL (0-150); eGFR BLACK RACES > 60 (>60); eGFR NON BLACK RACES > 60 (>60)
[2017-06-01 06:25] LABS: PLATELET MORPHOLOGY COMMENT NORMAL (NORMAL)
[2017-06-01 06:26] LABS: HYPOCHROMASIA 2+; MICROCYTOSIS 1+
[2017-06-01] MEDS ORDERED: K-LYTE EFFERVESCENT PO PRN (08:34)
[2017-06-01] MEDS ORDERED: MAGNESIUM SULFATE 1 GM/100 mL PREMIX 1 GM/100 ML BAG IV PRN (08:34)
[2017-06-01] MEDS ORDERED: POTASSIUM CHL 40 MEQ/NS 0.45% 500 ML IV PRN (08:34)
[2017-06-01] MEDS ORDERED: MAG-OX TAB PO PRN (08:34)
[2017-06-01] MEDS ORDERED: POTASSIUM CHL 60 MEQ/NS 0.45% 500 ML IV PRN (08:34)
[2017-06-01] MEDS ORDERED: POTASSIUM CHLORIDE LIQ 20 MEQ UDC PO PRN (08:34)
[2017-06-01] MEDS ORDERED: K-RIDER 10 MEQ/NS 100 ML 10 MEQ/100 ML BAG IV PRN (08:34)
[2017-06-01 09:11] VITALS: BP 141/87
[2017-06-01] MEDS ORDERED: NORCO 10/325 TAB PO ONE (09:57)
[2017-06-01] MEDS: ASPIRIN PO SCH (10:18)
--- NOTE | 2017-06-01 12:08 | DR.CARTERS ---
Short Stay Summary - Admission Date Date of Admission: 05/31/17 - Discharge Date Discharge Date: 06/01/17 - Admission Diagnoses (1) Chest pain Status: Acute (2) Epigastric pain Status: Acute - Discharge Medications Discharge Medications: Alprazolam [XANAX 0.5 MG *] 0.5 mg PO BID 06/01/17 [History] Carisoprodol [Soma] 300 mg PO TID PRN 06/01/17 [History] Famotidine [Pepcid] 40 mg PO BID #60 tablet 06/01/17 [Rx] Gabapentin [NEURONTIN CAP 300 mg *] 300 mg PO TID 06/01/17 [History] Gi Cocktail [Levsin/Maalox/Lidoc Visc] 15 ml PO TID PRN #90 ml 06/01/17 [Rx] Pantoprazole Sodium [Protonix] 40 mg PO BID #60 tab 06/01/17 [Rx] Potassium Chloride [MICRO K EXTENCAP 10 mEQ *] 1 tab PO DAILY 06/01/17 [History] Zolpidem Tartrate [AMBIEN 10 MG *] 10 mg PO HS 06/01/17 [History] - Discharge Plan Disposition: 01 HOME, SELF-CARE Condition: Stable Prescriptions: Famotidine [Pepcid] 40 mg PO BID #60 tablet Gi Cocktail [Levsin/Maalox/Lidoc Visc] 15 ml PO TID PRN #90 ml PRN Reason: Pantoprazole Sodium [Protonix] 40 mg PO BID #60 tab - Follow up/Referrals Follow up/Referrals: Maldonado Medrano [Primary Care Provider] - 06/08/17 10:50 am - Instructions Instructions: Hypertension, [id number], Managing Your High Blood Pressure, Chest Pain Observation Additional Instructions: DIET TOLERATED. ACTIVITY TOLERATED. Forms: Patient Portal
== END 2017-06-01 11:45 | disposition home or self-care (01) ==
LOC: ER 13:39 → MED/SURG 15:45
PROVIDERS: ADMIT Internal Medicine; ATTEND Internal Medicine
DX: R07.89 Other chest pain (principal); R10.13 Epigastric pain; R94.31 Abnormal electrocardiogram [ECG] [EKG]; Z86.79 Personal history of other diseases of the circulatory system
CPT/HCPCS: 36415; 71045; 80053; 80061; 80307; 81001; 82550; 82553; 83735; 84484; 85025; 85610; 85730; 93005; 93010; 94760; 96365; 96374; 96375; 99284; 99285; A4216; A4222; G0378; G0434; J2270

== ENCOUNTER 2017-08-17 13:34 | Emergency (ER) | payer OTHER, MEDICAID ==
[2017-08-17 13:43] VITALS: BP 113/67; BMI 32.5
== END 2017-08-17 14:54 | disposition left against medical advice (07) ==
LOC: ER 13:47
DX: M25.512 Pain in left shoulder (principal)
CPT/HCPCS: 99281

== ENCOUNTER 2017-08-22 12:24 | Emergency (ER) | payer OTHER, MEDICAID ==
[2017-08-22 12:29] VITALS: BMI 32.5
--- NOTE | 2017-08-22 12:50 | DR.EXTPAIN ---
HPI - Time seen Time seen: 12:43 - PCP Primary Care Physician: iveth - Complaint/Symptoms Chief Complaint Doctor Comments: Patient complains of left abdominal pain for three days. Denies fever, vomiting or diarrhea. Denies dysuria. Patient is lethargic. Chief Complaint:: when pt was awake in triage, she mumbled that her back on her left side has been hurting for 2 weeks and she has seen dr lazaro 2 days ago. - Source History Provided: Patient - Mode of arrival Mode of Arrival: Ambulatory - Timing Onset of Chief Complaint: 08/22/17 PMH - PMH Past Medical History: Yes Past Medical History: Arthritis, GERD, Hypertension Past Surgical History: Yes Surgical History: , 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 - Family History History of Family Medical Conditions: Yes Family Medical History: Diabetes Mellitus, Hypertension - Social History Does patient currently use any type of tobacco product: No Have you used tobacco products in the last 12 months: No Type of Tobacco Use: None Does any household member use tobacco: No Alcohol Use: None Do you use any recreational Drugs:: No Lives With: Family Lives Where: Home - infectious screening In the last 2 months have you had wt loss of >10#?: NO Have you had fever, night sweats or hemotysis?: No Have you traveled outside the country in the last 6 months?: No Isolation: Standard ROS - Review of Systems Eyes: No Symptoms Reported ENTM: No Symptoms Reported Respiratoy: No Symptoms Reported Cardiovascular: No Symptoms Reported Gastrointestinal/Abdominal: No Symptoms Reported Genitourinary: No Symptoms Reported Neurological: No Symptoms Reported Musculoskeletal: No Symptoms Reported Integumentary: No Symptoms Reported Hematologic/Lymphatic: No Symptoms Reported Endocrine: No Symptoms Reported Psychiatric: No Symptoms Reported All Other Systems: Reviewed and Negative PE - Vital Signs Vitals: Temperature 98.6 F Pulse Rate 78 Respiratory Rate 16 Blood Pressure [Right Arm] 141/87 Blood Pressure [Left Arm] 156/98 Blood Pressure [Standing] 135/88 Blood Pressure [Sitting] 139/76 Blood Pressure [Lying] 138/77 Blood Pressure 100/57 O2 Sat by Pulse Oximetry 100 - General General Appearance: Alert, In No Apparent Distress - Head Head Exam: Normal Inspection, Atraumatic - Eyes Eye exam: Normal Appearance, PERRL, EOMI - ENT ENT Exam: Normal Exam - Neck Neck Exam: Normal Inspection, Full ROM - Chest Chest Inspection: Normal Inspection - Respiratory Respiratory Exam: Normal Lung Sounds Bilat Respiratory Exam: Bilateral Clear to Auscultation - Cardiovascular Cardiovascular Exam: Regular Rate, Normal Rhythm - Abdominal Exam Abdominal Exam: Normal Inspection, Normal Bowel Sounds Abdominal Tenderness: LUQ, Suprapubic - Upper Extremities Shoulder Exam: Normal Inspection, Full ROM Arm Exam: Normal Inspection, Full ROM Elbow Exam: Normal Inspection Forearm Exam: Normal Inspection, Full ROM Hand Exam: Normal Inspection Neuromotor Exam: Normal Exam Neurosensory Exam: Normal Exam Hand Tendon Exam: Flexor Digitorium Profundus (Location) - Lower Extremities Hip/Pelvis Exam: Normal Inspection, Full ROM Upper Leg Exam: Normal Inspection, Full ROM Knee Exam: Normal Inspection Lower Leg Exam: Normal Inspection Ankle Exam: Normal Inspection Foot/Toe Exam: Normal Inspection Neurovascular/Tendon Exam: Normal Capillary Refill Gait Exam: Observed and Normal - Back Back Exam: Normal Inspection, Full ROM - Neurological Neurological Exam: Alert, Oriented X3, CN II-XII Intact - Psychiatric Psychiatric Exam: Normal Affect - Skin Skin Exam: Warm, Dry, Intact Distribution: Generalized ROR - Labs Reviewed Result Diagrams: 08/22/17 13:00 Laboratory: WBC 10.6 X10^3/uL (3.6-10.0) H 08/22/17 13:00 RBC 4.53 X10^6/uL (3.5-5.4) 08/22/17 13:00 Hgb 10.4 g/dL (12.0-16.0) L 08/22/17 13:00 Hct 32.7 % (36.0-47.0) L 08/22/17 13:00 MCV 72.1 fL (80.0-100.0) L 08/22/17 13:00 MCH 22.9 pg (27.0-34.0) L 08/22/17 13:00 MCHC 31.8 g/dL (33.0-35.0) L 08/22/17 13:00 RDW 15.4 % (11.6-16.5) 08/22/17 13:00 Plt Count 175 X10^3/uL (150.0-450.0) 08/22/17 13:00 Plt Count Comment Adequate (ADEQUATE) 08/22/17 13:00 MPV 9.7 fL (7.4-11.0) 08/22/17 13:00 Neut % (Auto) 55.6 % (42.0-75.0) 08/22/17 13:00 Lymph % (Auto) 37.9 % (21.0-51.0) 08/22/17 13:00 [place] % (Auto) 3.8 % (0.0-13.0) 08/22/17 13:00 Eos % (Auto) 2.1 % (0.9-2.9) 08/22/17 13:00 Baso % (Auto) 0.6 % (0.2-1.0) 08/22/17 13:00 Neut # (Auto) 5.9 x10^3/uL (2.2-4.8) H 08/22/17 13:00 Lymph # (Auto) 4.0 X10^3/uL (1.3-2.9) H 08/22/17 13:00 [place] # (Auto) 0.4 x10^3/uL (0.3-0.8) 08/22/17 13:00 Eos # (Auto) 0.2 x10^3/uL (0.0-0.2) 08/22/17 13:00 Baso # (Auto) 0.1 X10^3/uL (0.0-0.1) 08/22/17 13:00 Absolute Nucleated RBC 0.0 /100WBC 08/22/17 13:00 Plt Morphology Comment Normal (NORMAL) 08/22/17 13:00 RBC Morphology Abnormal (NORMAL) A 08/22/17 13:00 Hypochromasia 1+ A 08/22/17 13:00 C-Reactive Protein 11.30 mg/L (0-3.0) H 08/22/17 13:00 Specimen Type Clean catch urine 08/22/17 13:12 Urine Color Yellow (YELLOW) 08/22/17 13:12 Urine Appearance Clear (CLEAR) 08/22/17 13:12 Urine pH 6.5 (5.0 - 8.0) 08/22/17 13:[address] 1.005 (1.000-1.030) 08/22/17 13:12 Urine Protein Negative (NEGATIVE) 08/22/17 13:12 Urine Glucose (UA) Negative (NEGATIVE) 08/22/17 13:12 Urine Ketones Negative (NEGATIVE) 08/22/17 13:12 Urine Occult Blood Negative (NEGATIVE) 08/22/17 13:12 Urine Nitrite Negative (NEGATIVE) 08/22/17 13:12 Urine Bilirubin Negative (NEGATIVE) 08/22/17 13:12 Urine Urobilinogen Normal (NORMAL) 08/22/17 13:12 Ur Leukocyte Esterase Negative (NEGATIVE) 08/22/17 13:12 - XRAY XRAY Interpreted by: Radiologist (KUB: comparison CT 11/30/16:The bowel gas pattern is nonspecific. There is a small to moderate amount of stool within the colon. No pathologic calcification is identifed. The bony structures are grossly intact..) - Diagnosis Discharge Problem: Constipation Qualifiers: Constipation type: slow transit constipation Qualified Code(s): K59.01 - Slow transit constipation - Discharge Plan Condition: Stable - Follow ups/Referrals Follow ups/Referrals: Maldonado Lazaro [Primary Care Provider] - 3 days - Instructions
[2017-08-22 13:08] LABS: BASOPHILS # (AUTO) 0.1 X10^3/uL (0.0-0.1); BASOPHILS % (AUTO) 0.6 % (0.2-1.0); EOSINOPHILS # (AUTO) 0.2 x10^3/uL (0.0-0.2); EOSINOPHILS % (AUTO) 2.1 % (0.9-2.9); HEMATOCRIT 32.7 % (36.0-47.0); HEMOGLOBIN 10.4 g/dL (12.0-16.0); LYMPHOCYTES % (AUTO) 37.9 % (21.0-51.0); MEAN CORPUSCULAR HEMOGLOBIN 22.9 pg (27.0-34.0); MEAN CORPUSCULAR HGB CONC 31.8 g/dL (33.0-35.0); MEAN CORPUSCULAR VOLUME 72.1 fL (80.0-100.0); MEAN PLATELET VOLUME 9.7 fL (7.4-11.0); MONOCYTES # (AUTO) 0.4 x10^3/uL (0.3-0.8); MONOCYTES % (AUTO) 3.8 % (0.0-13.0); NEUTROPHILS # (AUTO) 5.9 x10^3/uL (2.2-4.8); NEUTROPHILS % (AUTO) 55.6 % (42.0-75.0); PLATELET COUNT 175 X10^3/uL (150.0-450.0); RED BLOOD COUNT 4.53 X10^6/uL (3.5-5.4); RED CELL DISTRIBUTION WIDTH 15.4 % (11.6-16.5); WHITE BLOOD COUNT 10.6 X10^3/uL (3.6-10.0)
[2017-08-22 13:18] LABS: PLATELET MORPHOLOGY COMMENT NORMAL (NORMAL)
[2017-08-22 13:19] LABS: HYPOCHROMASIA 1+
--- NOTE | 2017-08-22 13:21 | RAD ---
HISTORY: Abdominal pain Study: KUB Comparison: CT performed on 11/30/2016 Findings: The bowel gas pattern is nonspecific. There is a small to moderate amount of stool within the colon. No pathologic calcification is identified. The bony structures are grossly intact. IMPRESSION: 1. Nonspecific bowel gas pattern without acute abnormality identified. Reported By:
[2017-08-22 13:33] LABS: BILIRUBIN,URINE NEGATIVE (NEGATIVE); BLOOD/HEMOGLOBIN,URINE NEGATIVE (NEGATIVE); GLUCOSE, URINE NEGATIVE (NEGATIVE); KETONES,URINE NEGATIVE (NEGATIVE); LEUKOCYTE ESTERASE ,URINE NEGATIVE (NEGATIVE); NITRITES,URINE NEGATIVE (NEGATIVE); PH,URINE 6.5 (5.0 - 8.0); PROTEIN,URINE NEGATIVE (NEGATIVE); UROBILINOGEN,URINE NORMAL (NORMAL)
[2017-08-22 13:36] LABS: APPEARANCE,URINE CLEAR (CLEAR); COLOR,URINE YELLOW (YELLOW)
[2017-08-22] MEDS ORDERED: CITROMA PO ONE (13:46)
[2017-08-22] MEDS ORDERED: CITROMA ONE (13:48)
[2017-08-22 13:52] VITALS: BP 118/74
== END 2017-08-22 13:52 | disposition home or self-care (01) ==
LOC: ER 12:38
DX: K59.01 Slow transit constipation (principal); R79.82 Elevated C-reactive protein (CRP); R10.84 Generalized abdominal pain
CPT/HCPCS: 36415; 74018; 81003; 85025; 86140; 99282

== ENCOUNTER 2018-11-06 11:12 | Inpatient (IN) ==
[2018-11-06 11:23] VITALS: BMI 32.5
[2018-11-06] MEDS ORDERED: ZOFRAN INJ 4 MG VIAL IVP ONE (11:38)
--- NOTE | 2018-11-06 11:38 | DR.DIZZY ---
HPI - Time seen Time seen: 11:35 - PCP Primary Care Physician: DR PARKS - Complaint Chief Complaint Doctor Comments: Patient is complaining of dizziness, generalized weakness with vomiting two days ago with the dizziness getting worst with patient being unable to stand at times with the room spinning and she has to hold onto something to control her balance. States she went to the bathroom last night and could not get off the commode and a friend had to pick her up and put her back into the bed and the same thing happened today she was unable to get off the commode and a friend had to pick her up. She is having headache and dizziness when she stands. She denies falling. She has been having SOB but denies chest pain. She is a patient of Dr. Parks in [place]. States she is hurting all over presently in her back and legs with pain 10 of 10. She took tylenol yesterday. Chief Complaint:: PT STATES THAT SHE HAS HAD C/O PROGRESSIVELY WORSENING GENERALIZED WEAKNESS SINCE THURSDAY TO THE POINT WHERE SHE CAN'T STAND UP WITHOUT ASSISTANCE.PT ALSO C/O GENERALIZED BODYACHES. - Nurses Notes Reviewed Nurses Notes Review: Yes - Source History Provided: Patient - Mode of Arrival Mode of Arrival: Ambulatory - Timing Onset of Chief Complaint: 11/06/18 Came on: Gradually Symptom Onset: Unknown - Duration Duration: Intermittent How lon Duration: Days - Location of Weakness Weakness Location: Generalized - Context Onset: At rest Does pt take pot. toxic medication?: No History of: None Stroke Symptoms: Weakness of limb - Severity Severity: Abnormal activity level (weakness; problems getting up from commode) - Modifying factors Worsens: Change in Position - Associated signs and symptoms Associated Signs and Symptoms: Weak, Headache, Nausea PMH - PMH Past Medical History: Yes Past Medical History: Hypertension Past Medical History Comment: FIBROMYALGIA Past Surgical History: Yes Surgical History: , 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 Past Surgical History Comment: TUBAL LIGATION - Family History History of Family Medical Conditions: Yes Family Medical History: Hypertension - Social History Does patient currently use any type of tobacco product: No Have you used tobacco products in the last 12 months: No Type of Tobacco Use: None Does any household member use tobacco: No Alcohol Use: Occasionally Do you use any recreational Drugs:: No Lives With: Family Lives Where: Home - infectious screening In the last 2 months have you had wt loss of >10#?: NO Have you had fever, night sweats or hemotysis?: No Have you traveled outside the country in the last 6 months?: No Isolation: Standard ROS - Review of Systems Constitutional: No Symptoms Reported, Weakness, Loss of Appetite. negative: See HPI, Chills, Diaphoresis, Fever, Malaise, Irritable, Fatigue, Other Eyes: No Symptoms Reported ENTM: No Symptoms Reported Respiratoy: No Symptoms Reported, Short of Breath. negative: See HPI, Productive Cough, Non-Productive Cough, Moist Cough, Dry Cough, Hacking Cough, Barking Cough, Brassy Cough, Orthopnea, Stridor, Wheezing, Hemoptysis, Other Cardiovascular: No Symptoms Reported Gastrointestinal/Abdominal: Nausea, Vomiting. negative: No Symptoms Reported, See HPI, Abdominal Pain, Constipation, Diarrhea, Food Intolerance, Other Genitourinary: No Symptoms Reported. negative: See HPI, Discharge, Dysuria, Frequency, Hematuria, Pain, Bleeding, Other Neurological: No Symptoms Reported, Headache, Weakness, Dizziness, Problems Walking (dizziness and weakness). negative: See HPI, Anxiety, Depressed, Emotional Problems, Numbness, Paresthesia, Pre-existing Deficit, Seizure, Tingling, Tremors, Speech Problem, Other Musculoskeletal: No Symptoms Reported, Back Pain, Leg, Knee Integumentary: No Symptoms Reported Hematologic/Lymphatic: No Symptoms Reported Endocrine: No Symptoms Reported Psychiatric: No Symptoms Reported. negative: See HPI, Anxiety, Depression, Hallucinations, Excessive crying, Suicidal, Other PE - General Limitations: No Limitations General Appearance: Alert, In Distress (mild) - Head Head Exam: Normal Inspection, Atraumatic, Normocephalic - Eyes Eye exam: Normal Appearance, PERRL, EOMI. negative: Scleral Icterus, Conjunctival Injection, Nystagmus, Miosis, Mydrasis, Periorbital Swelling, P eriorbital Tenderness, Other Pupils: Regular, Round: Bilateral Anterior Chamber: Normal Inspection: Bilateral Posterior Chamber: Deferred: Bilateral - ENT ENT Exam: Normal Exam, Normal Oropharynx, Normal External Ear Exam, Mucous Membranes Moist, TM's Normal Bilaterally - Neck Neck Exam: Normal Inspection, Full ROM, Trachea Midline. negative: Tenderness, Meningismus, Lymphadenopathy, Thyromegaly, Other - Chest Chest Inspection: Normal Inspection, Symmetric Chest Wall Rise - Respiratory Respiratory Exam: Normal Lung Sounds Bilat Respiratory Exam: Bilateral Clear to Auscultation - Cardiovascular Cardiovascular Exam: Regular Rate, Normal Rhythm, Normal Heart Sounds - Abdominal Exam Abdominal Exam: Normal Inspection, Normal Bowel Sounds, Soft, Tenderness (slight epigastric tenderness). negative: Distention, Guarding, Rebound, Rigidity, Dimnished Bowel Sounds, Hyperactive Bowel Sounds, Hypoactive Bowel Sounds, Organomegaly, Trauma, Incision, Ascites, Mass, Bruit, Pulsatile Mass, Hernia, Other Abdominal Tenderness: Epigastrium, Mild. negative: RUQ, RLQ, LUQ, LLQ, Suprapubic, Diffuse, Moderate, Severe, Other - Rectal Rectal Exam: Deferred - Extremeties Extremities Exam: Normal Inspection, Full ROM, Tenderness, Normal Capillary Refill. negative: Edema, Joint Swelling, Calf Tenderness, Other - Back Back Exam: Normal Inspection, Full ROM, Tenderness (left upper scapular tenderness) - Neurologic Neurological Exam: Alert, Oriented X3, CN II-XII Intact, Reflexes Normal. negative: Normal Gait (gait not tested) Patient Oriented To: Person, Place, Time Speech: Fluid Speech Cranial Nerve Exam: EOM Function (II, III, IV, ): Normal, Facial Sensation (V): Normal, Facial Palsy (VII): Normal, Gag reflex (XI): Normal, Spinal Accessory Function (XI): Normal, Tongue Deviation: Normal Cerebellar Function: Normal Vibratory/Position Motor Strength - LUE: 5/5 Motor Strength - RUE: 5/5 Motor Strength - LLE: 5/5 Motor Strength - RLE: 5/5 Upper Motor Neuron Exam: Babinski Sign: Normal Sensory Exam Upper Extremity: Light Touch: Normal Sensory Exam Lower Extremity: Light Touch: Normal DTR: bicep (L): 2+, bicep (R): 2+, Patellar (L): 2+, patellar (R): 2+ - Psychiatric Psychiatric Exam: Normal Affect, Normal Mood. negative: Depressed, Agitated, Anxious, Flat Affect, Manic, Homicidal Ideation, Suicidal Ideation, Other - Skin Skin Exam: Warm, Dry, Intact, Normal Color. negative: Rash, Cyanosis, Diaphoresis, Erythema, Pallor, Mottled, Other - Vital Signs Vitals: Temperature 99.5 F Pulse Rate [Standing] 82 Pulse Rate [Sitting] 80 Pulse Rate [Lying] 72 Pulse Rate 92 Respiratory Rate 18 Blood Pressure [Right Arm] 173/88 Blood Pressure [Left Arm] 187/101 Blood Pressure [Standing] 93/56 Blood Pressure [Sitting] 102/66 Blood Pressure [Lying] 88/52 Blood Pressure 127/56 O2 Sat by Pulse Oximetry 99 Course - Reevaluation 1st: Improved - Consultation Called: 13:57 Call Returned: 13:57 (Dr. Medrano to admit) - Education/Counseling Education/Counseling: Patient, Education Educated On: Treatment, Diagnosis, Needs for Follow Up ROR - Labs Reviewed Laboratory Results Reviewed?: Yes (All labs and x-ray results reviewed and discussed with patient) Result Diagrams: 11/06/18 11:44 11/06/18 11:44 - XRAY XRAY Interpreted by: Radiologist (CT brain: No acute intracranial pathology.) XRAY Findings: CXR: No acute chest disease demonstrated - EKG Rate: 70 [place]: Normal Rhythm: NSR Block: None Hypertrophy: LAE, LVH ST: Old, Inf, Infarct - Labs Reviewed Laboratory: WBC 11.8 X10^3/uL (3.6-10.0) H 11/06/18 11:44 RBC 5.09 X10^6/uL (3.5-5.4) 11/06/18 11:44 Hgb 11.5 g/dL (12.0-16.0) L 11/06/18 11:44 Hct 36.5 % (36.0-47.0) 11/06/18 11:44 MCV 71.8 fL (80.0-100.0) L 11/06/18 11:44 MCH 22.5 pg (27.0-34.0) L 11/06/18 11:44 MCHC 31.4 g/dL (33.0-35.0) L 11/06/18 11:44 RDW 14.4 % (11.6-16.5) 11/06/18 11:44 Plt Count 219 X10^3/uL (150.0-450.0) 11/06/18 11:44 Plt Count Comment Adequate (ADEQUATE) 11/06/18 11:44 MPV 9.4 fL (7.4-11.0) 11/06/18 11:44 Neut % (Auto) 66.1 % (42.0-75.0) 11/06/18 11:44 Lymph % (Auto) 23.1 % (21.0-51.0) 11/06/18 11:44 [place] % (Auto) 8.7 % (0.0-13.0) 11/06/18 11:44 Eos % (Auto) 1.7 % (0.9-2.9) 11/06/18 11:44 Baso % (Auto) 0.4 % (0.2-1.0) 11/06/18 11:44 Neut # (Auto) 7.8 x10^3/uL (2.2-4.8) H 11/06/18 11:44 Lymph # (Auto) 2.7 X10^3/uL (1.3-2.9) 11/06/18 11:44 [place] # (Auto) 1.0 x10^3/uL (0.3-0.8) H 11/06/18 11:44 Eos # (Auto) 0.2 x10^3/uL (0.0-0.2) 11/06/18 11:44 Baso # (Auto) 0.1 X10^3/uL (0.0-0.1) 11/06/18 11:44 Absolute Nucleated RBC 0.0 /100WBC 11/06/18 11:44 Plt Morphology Comment Normal (NORMAL) 11/06/18 11:44 RBC Morphology Abnormal (NORMAL) A 11/06/18 11:44 Hypochromasia 1+ A 11/06/18 11:44 Microcytosis Slight A 11/06/18 11:44 INR Target Range - 11/06/18 11:44 INR 1.00 (0.8-1.3) 11/06/18 11:44 APTT 33.0 SECONDS (22.9-36.5) 11/06/18 11:44 PTT Comment - 11/06/18 11:44 Sodium 138 mmol/L (136-145) 11/06/18 11:44 Corrected Sodium 139 mmol/L (136-145) 11/06/18 11:44 Potassium 2.4 mmol/L (3.5-5.1) L* 11/06/18 11:44 Chloride 98 mmol/L (98-107) 11/06/18 11:44 Carbon Dioxide 26.9 mmol/L (21-32) 11/06/18 11:44 BUN 39 mg/dL (7-18) H 11/06/18 11:44 Creatinine 3.56 mg/dL (0.55-1.02) H 11/06/18 11:44 Est GFR (MDRD) Af Amer 17 (>60) L 11/06/18 11:44 Est GFR (MDRD) Non-Af 14 (>60) L 11/06/18 11:44 Glucose 121 mg/dL (65-99) H 11/06/18 11:44 Calcium 8.0 mg/dL (8.5-10.1) L 11/06/18 11:44 Corrected Calcium TNP 11/06/18 11:44 Magnesium 1.9 mg/dL (1.7-2.9) 11/06/18 11:44 Total Bilirubin 0.20 mg/dL (0.2-1.0) 11/06/18 11:44 AST 19 Units/L (15-37) 11/06/18 11:44 ALT 11 Units/L (12-78) L 11/06/18 11:44 Alkaline Phosphatase 111 Units/L (46-116) 11/06/18 11:44 Creatine Kinase 119 Units/L (26-192) 11/06/18 11:44 CK-MB (CK-2) 2.0 ng/mL (0-4.0) 11/06/18 11:44 CK/CKMB % Calc 1.7 % (<4) 11/06/18 11:44 Troponin I < 0.02 ng/mL (0-1.5) 11/06/18 11:44 Total Protein 7.3 g/dL (6.4-8.2) 11/06/18 11:44 Albumin 3.6 g/dL (3.4-5.0) 11/06/18 11:44 Globulin 3.7 g/dL (2.5-4.5) 11/06/18 11:44 Albumin/Globulin Ratio 1.0 Ratio (1.1-2.1) L 11/06/18 11:44 Opioid - Opioid Risk Tool Age (Vineet box if 16-45): No History of Preadolescent Sexual Abuse: No Total: 0 Total Score Risk Category: Low Risk - Diagnosis Discharge Problem: Hypokalemia, Dehydration, Gastroenteritis, Hyperglycemia Acute renal failure (ARF) Qualifiers: Acute renal failure type: unspecified Qualified Code(s): N17.9 - Acute kidney failure, unspecified - Discharge Plan Disposition: 09 ADMITTED INPATIENT Condition: Stable
[2018-11-06 11:52] LABS: BASOPHILS # (AUTO) 0.1 X10^3/uL (0.0-0.1); BASOPHILS % (AUTO) 0.4 % (0.2-1.0); EOSINOPHILS # (AUTO) 0.2 x10^3/uL (0.0-0.2); EOSINOPHILS % (AUTO) 1.7 % (0.9-2.9); HEMATOCRIT 36.5 % (36.0-47.0); HEMOGLOBIN 11.5 g/dL (12.0-16.0); LYMPHOCYTES # (AUTO) 2.7 X10^3/uL (1.3-2.9); LYMPHOCYTES % (AUTO) 23.1 % (21.0-51.0); MEAN CORPUSCULAR HEMOGLOBIN 22.5 pg (27.0-34.0); MEAN CORPUSCULAR HGB CONC 31.4 g/dL (33.0-35.0); MEAN CORPUSCULAR VOLUME 71.8 fL (80.0-100.0); MEAN PLATELET VOLUME 9.4 fL (7.4-11.0); MONOCYTES % (AUTO) 8.7 % (0.0-13.0); NEUTROPHILS # (AUTO) 7.8 x10^3/uL (2.2-4.8); NEUTROPHILS % (AUTO) 66.1 % (42.0-75.0); PLATELET COUNT 219 X10^3/uL (150.0-450.0); RED BLOOD COUNT 5.09 X10^6/uL (3.5-5.4); RED CELL DISTRIBUTION WIDTH 14.4 % (11.6-16.5); WHITE BLOOD COUNT 11.8 X10^3/uL (3.6-10.0)
[2018-11-06 11:56] LABS: HYPOCHROMASIA 1+; PLATELET MORPHOLOGY COMMENT NORMAL (NORMAL)
[2018-11-06 11:57] LABS: MICROCYTOSIS SLIGHT
[2018-11-06] MEDS ORDERED: NS 1000 ML 1,000 ML IV SCH (12:00)
[2018-11-06] MEDS ORDERED: ZOFRAN INJ 4 MG VIAL ONE (12:04)
[2018-11-06 12:14] LABS: ALANINE AMINOTRANSFERASE 11 Units/L (12-78); ALBUMIN 3.6 g/dL (3.4-5.0); ALKALINE PHOSPHATASE 111 Units/L (46-116); ASPARTATE AMINO TRANSFERASE 19 Units/L (15-37); BLOOD UREA NITROGEN 39 mg/dL (7-18); CARBON DIOXIDE 26.9 mmol/L (21-32); CHLORIDE 98 mmol/L (98-107); CKMB % 1.7 % (<4); COR NA(FOR HYPERGLY) 139 mmol/L (136-145); CREATINE KINASE 119 Units/L (26-192); CREATININE 3.56 mg/dL (0.55-1.02); MAGNESIUM 1.9 mg/dL (1.7-2.9); SODIUM 138 mmol/L (136-145); TOTAL PROTEIN 7.3 g/dL (6.4-8.2); TROPONIN I < 0.02 ng/mL (0-1.5); eGFR NON BLACK RACES 14 (>60)
[2018-11-06] MEDS: K-LYTE EFFERVESCENT PO SCH (12:25)
[2018-11-06] MEDS ORDERED: ROCEPHIN VIAL 1 GRAM IVP ONE (12:54)
[2018-11-06] MEDS ORDERED: ROCEPHIN VIAL 1 GRAM ONE (13:08)
[2018-11-06] MEDS ORDERED: MORPHINE SULFATE INJ 2 MG INJ IVP ONE (13:11)
[2018-11-06] MEDS ORDERED: MORPHINE SULFATE INJ 2 MG INJ ONE (13:12)
[2018-11-06] MEDS ORDERED: ZOFRAN INJ 4 MG VIAL IVP PRN (14:05)
[2018-11-06 14:30] LABS: BILIRUBIN,URINE NEGATIVE (NEGATIVE); BLOOD/HEMOGLOBIN,URINE 2+ (NEGATIVE); GLUCOSE, URINE NEGATIVE (NEGATIVE); KETONES,URINE NEGATIVE (NEGATIVE); LEUKOCYTE ESTERASE ,URINE NEGATIVE (NEGATIVE); NITRITES,URINE NEGATIVE (NEGATIVE); PROTEIN,URINE 2+ (NEGATIVE); UROBILINOGEN,URINE NORMAL (NORMAL)
[2018-11-06 14:40] LABS: COLOR,URINE YELLOW (YELLOW)
[2018-11-06 14:41] LABS: APPEARANCE,URINE CLEAR (CLEAR); BACTERIA,URINE NEGATIVE /HPF (NEGATIVE); SQUAMOUS EPITHELIAL CELL,UR FEW /HPF (NEGATIVE)
[2018-11-06] MEDS: NS 1/2 + KCL 20 MEQ/L 1,000 ML IV SCH ×2 (17:18→23:26)
[2018-11-06] MEDS: NORCO 5/325 MG TAB PO PRN (21:56)
[2018-11-06] MEDS ORDERED: KLOR-CON PO PRN (23:09)
[2018-11-06] MEDS ORDERED: K-DUR TAB 20 MEQ PO PRN (23:09)
[2018-11-07] MEDS: NS 1/2 + KCL 20 MEQ/L 1,000 ML IV SCH ×4 (02:41→23:35)
[2018-11-07] MEDS: NORCO 5/325 MG TAB PO PRN ×4 (03:39→23:35)
[2018-11-07 05:22] LABS: BASOPHILS % (AUTO) 0.5 % (0.2-1.0); EOSINOPHILS # (AUTO) 0.1 x10^3/uL (0.0-0.2); EOSINOPHILS % (AUTO) 2.2 % (0.9-2.9); HEMATOCRIT 33.7 % (36.0-47.0); HEMOGLOBIN 10.6 g/dL (12.0-16.0); LYMPHOCYTES # (AUTO) 2.9 X10^3/uL (1.3-2.9); LYMPHOCYTES % (AUTO) 44.5 % (21.0-51.0); MEAN CORPUSCULAR HEMOGLOBIN 22.8 pg (27.0-34.0); MEAN CORPUSCULAR HGB CONC 31.3 g/dL (33.0-35.0); MEAN CORPUSCULAR VOLUME 72.8 fL (80.0-100.0); MEAN PLATELET VOLUME 10.2 fL (7.4-11.0); MONOCYTES # (AUTO) 0.6 x10^3/uL (0.3-0.8); MONOCYTES % (AUTO) 9.4 % (0.0-13.0); NEUTROPHILS # (AUTO) 2.9 x10^3/uL (2.2-4.8); NEUTROPHILS % (AUTO) 43.4 % (42.0-75.0); PLATELET COUNT 183 X10^3/uL (150.0-450.0); RED BLOOD COUNT 4.63 X10^6/uL (3.5-5.4); RED CELL DISTRIBUTION WIDTH 14.2 % (11.6-16.5); WHITE BLOOD COUNT 6.6 X10^3/uL (3.6-10.0)
[2018-11-07 05:29] LABS: ALANINE AMINOTRANSFERASE 10 Units/L (12-78); ALKALINE PHOSPHATASE 90 Units/L (46-116); ASPARTATE AMINO TRANSFERASE 18 Units/L (15-37); BLOOD UREA NITROGEN 26 mg/dL (7-18); CARBON DIOXIDE 27.8 mmol/L (21-32); CHLORIDE 104 mmol/L (98-107); COR CA(FOR HYPOALB) 8.8 mg/dL (8.5-10.1); CREATININE 1.15 mg/dL (0.55-1.02); SODIUM 141 mmol/L (136-145); TOTAL PROTEIN 6.6 g/dL (6.4-8.2); eGFR NON BLACK RACES 51 (>60)
[2018-11-07 05:58] LABS: HYPOCHROMASIA 1+; PLATELET MORPHOLOGY COMMENT NORMAL (NORMAL); TARGET CELLS PRESENT
[2018-11-07] MEDS: K-LYTE EFFERVESCENT PO SCH (09:13)
[2018-11-07] MEDS: ROCEPHIN VIAL 1 GRAM IVP SCH (09:25)
--- NOTE | 2018-11-07 14:57 | DR.H&P ---
H&P - History & Physical for Day of: H&P Date: 11/06/18 - Chief Complaint Chief Complaint: WEAKNESS, DIZZINESS, SOB, ABDOMINAL PAIN - History of Present Illness History of Present Illness: IS A 58 YEAR OLD PATIENT OF DR.JOSHUA HERBERT WHO PRESENTED TO THE ER WITH COMPLAINTS OF GENERALIZED WEAKNESS AND DIZZINESS. PATIENT REPORTS BEING UNABLE TO STAND DUE TO THE SEVERITY OF SYMPTOMS. SHE ALSO REPORTS HEADACHE AND SHORTNESS OF BREATH. SHE ALSO COMPLAINS OF GENERALIZED BODY ACHES. SYMPTOMS STARTED TWO DAYS AGO AND HAVE PROGRESSIVELY GOTTEN WORSE. ON ARRIVAL TO THE ER, VITALS WERE 100.4-92-18-99%-127/56. LABS WERE OBTAINED. ABNORMAL LAB VALUES INCLUDE THE FOLLOWING: WBC 11.8, HGB 11.5, POTASSIUM 2.4, BUN 39, CREATININE 3.56, GLUCOSE 121, CALCIUM 8.0, ALT 11. CARDIAC ENZYMES WITHIN NORMAL LIMITS. UDS POSITIVE FOR OPIATES AND MARIJUANA. URINALYSIS REVEALED: WBC 0-2, RBC 3-5, BACTERIA NEGATIVE, LEUKOCYTES NEGATIVE. A CHEST XRAY WAS OBTAINED AND REVEALED: NO ACTIVE CHEST DISEASE. A BRAIN CT WAS OBTAINED AND REVEALED: NO ACUTE INTRACRANIAL PATHOLOGY. SHE WAS GIVEN MORPHINE 2MG IV X 1, ROCEPHIN 1G IV X 1 DOSE, ZOFRAN 4MG IV. SHE WAS ADMITTED FOR FURTHER EVALUATION AND TREATMENT OF ACUTE RENAL FAILURE, HYPOKALEMIA, LEUKOCYTOSIS, AND DEHYDRATION. SHE WAS STARTED ON 1/2NS WIITH 20MEQ KCL AT 125ML/HR, ROCEPHIN 1G IV DAILY, IV ALICIA, AND NORCO 5/325MG 1 TAB PO Q6H PRN. OTHERWISE, WE PLAN TO FOLLOW UP WITH AM LABS AND CONTINUE TO MONITOR. - Past Medical History Past Medical History: Hypertension Additional Medical History: FIBROMYALGIA - Past Surgical History Surgical History: , 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, Ortho Surgery, Other - Family History Family Medical History: Hypertension - Social History Does patient currently use any type of tobacco product: No Have you used tobacco products in the last 12 months: No Type of Tobacco Use: Cigarettes How many years tobacco product used: 15 Does any household member use tobacco: No Alcohol Use: Occasionally Drug Use: Prescription Drugs - Medications Home Medications: No Known Drug Allergies Allergy (Verified 08/22/17 12:25) - Review of Systems Constitutional: Weakness, Malaise Eyes: No Symptoms Reported ENT: No Symptoms Reported Respiratory: Shortness of Breath Cardiovascular: No Symptoms Reported, Light Headedness Gastrointestinal: Abdominal Pain Genitourinary: No Symptoms Reported Musculoskeletal: See HPI Skin: No Symptoms Reported Neurological: Weakness - Physical Exam Vital Signs: Temperature 98.4 F Pulse Rate [Right Brachial] 70 Pulse Rate [Standing] 82 Pulse Rate [Sitting] 80 Pulse Rate [Lying] 72 Pulse Rate 92 Respiratory Rate 20 Blood Pressure [Right Arm] 138/87 Blood Pressure [Left Arm] 187/101 Blood Pressure [Standing] 93/56 Blood Pressure [Sitting] 102/66 Blood Pressure [Lying] 88/52 Blood Pressure 127/56 O2 Sat by Pulse Oximetry 98 Oriented: Normal Eyes: Normal Ear: Normal Nose: Normal Throat: Normal Respiratory: Diminished Throughout Cardiovascular: Normal. negative: S3, S4, Murmur : Normal Auscultation: Bowel Sounds: Normal Palpation: Normal Tenderness: Normal Skin: Normal Musculoskeletal: Normal Psychiatric: Normal Mood Description: Calm Affect: Normal Speech Pattern: Clear - Assessment/Plan (1) Dehydration Status: Acute Plan: 1/2NS [place] 20MEQ KCL AT 125ML/HR, (2) Acute renal failure (ARF) Qualifiers: Acute renal failure type: unspecified Qualified Code(s): N17.9 - Acute kidney failure, unspecified Status: Acute Plan: 1/2NS [place]ITH 20MEQ KCL AT 125ML/HR, (3) Leukocytosis Qualifiers: Leukocytosis type: unspecified Qualified Code(s): D72.829 - Elevated white blood cell count, unspecified Status: Acute Plan: ROCEPHIN 1G IV DAILY, CONTINUE TO MONITOR (4) Hypokalemia Status: Acute Plan: 1/2NS WIITH 20MEQ KCL AT 125ML/HR, - Allergies Allergies/Adverse Reactions: Allergies Allergy/AdvReac Type Severity Reaction Status Date / Time No Known Drug Allergies Allergy Verified 08/22/17 12:25
[2018-11-08 05:16] LABS: BASOPHILS % (AUTO) 0.6 % (0.2-1.0); EOSINOPHILS # (AUTO) 0.3 x10^3/uL (0.0-0.2); EOSINOPHILS % (AUTO) 4.7 % (0.9-2.9); HEMOGLOBIN 11.4 g/dL (12.0-16.0); LYMPHOCYTES # (AUTO) 2.4 X10^3/uL (1.3-2.9); LYMPHOCYTES % (AUTO) 40.4 % (21.0-51.0); MEAN CORPUSCULAR HGB CONC 31.5 g/dL (33.0-35.0); MEAN CORPUSCULAR VOLUME 73.1 fL (80.0-100.0); MEAN PLATELET VOLUME 10.1 fL (7.4-11.0); MONOCYTES # (AUTO) 0.6 x10^3/uL (0.3-0.8); MONOCYTES % (AUTO) 10.4 % (0.0-13.0); NEUTROPHILS # (AUTO) 2.6 x10^3/uL (2.2-4.8); NEUTROPHILS % (AUTO) 43.9 % (42.0-75.0); PLATELET COUNT 191 X10^3/uL (150.0-450.0); RED BLOOD COUNT 4.93 X10^6/uL (3.5-5.4); RED CELL DISTRIBUTION WIDTH 14.4 % (11.6-16.5)
[2018-11-08 05:26] LABS: ALANINE AMINOTRANSFERASE 11 Units/L (12-78); ALBUMIN 3.4 g/dL (3.4-5.0); ALKALINE PHOSPHATASE 94 Units/L (46-116); ASPARTATE AMINO TRANSFERASE 19 Units/L (15-37); BLOOD UREA NITROGEN 9 mg/dL (7-18); CALCIUM 9.2 mg/dL (8.5-10.1); CARBON DIOXIDE 27.6 mmol/L (21-32); CHLORIDE 106 mmol/L (98-107); CREATININE 0.62 mg/dL (0.55-1.02); MAGNESIUM 1.9 mg/dL (1.7-2.9); SODIUM 141 mmol/L (136-145); TOTAL PROTEIN 7.3 g/dL (6.4-8.2); eGFR NON BLACK RACES > 60 (>60)
[2018-11-08 05:45] LABS: HYPOCHROMASIA 1+; PLATELET MORPHOLOGY COMMENT NORMAL (NORMAL)
[2018-11-08 05:46] LABS: TARGET CELLS PRESENT
[2018-11-08] MEDS: NS 1/2 + KCL 20 MEQ/L 1,000 ML IV SCH ×4 (06:14→22:43)
[2018-11-08] MEDS ORDERED: ZESTRIL TAB 20 MG ONE ×2 (08:40→19:28)
[2018-11-08] MEDS: NORVASC TAB 10 MG PO SCH (08:51)
[2018-11-08] MEDS: ROCEPHIN VIAL 1 GRAM IVP SCH (08:51)
[2018-11-08] MEDS ORDERED: ZESTRIL TAB 20 MG PO SCH (09:00)
[2018-11-08] MEDS: K-LYTE EFFERVESCENT PO SCH (09:35)
[2018-11-08] MEDS: NORCO 5/325 MG TAB PO PRN (09:35)
[2018-11-08] MEDS: FOLIC ACID TAB 1 MG PO SCH (14:35)
[2018-11-08] MEDS: NORCO 10/325 TAB PO PRN ×2 (14:35→20:31)
[2018-11-08] MEDS: NEURONTIN CAP 300 MG PO SCH ×2 (14:35→22:42)
[2018-11-08] MEDS: ESTRACE PO SCH (14:35)
[2018-11-08] MEDS: SOMA TAB 350 MG PO PRN ×2 (14:36→20:30)
[2018-11-08] MEDS: MICRO K EXTEN CAP 10 MEQ PO SCH (16:53)
[2018-11-08] MEDS: ZESTRIL TAB 20 MG PO SCH (20:30)
[2018-11-08] MEDS: XANAX PO SCH (20:31)
[2018-11-08] MEDS ORDERED: ORPHENADRINE CITRATE 100 MG PO SCH (21:00)
[2018-11-08] MEDS ORDERED: AMBIEN PO SCH (21:00)
--- NOTE | 2018-11-08 21:23 | PCM.PROG ---
Progress Note - Progress Note for Day of Date of Exam: 11/07/18 - Subjective Subjective: IS BEING TREATED FOR ACUTE RENAL FAILURE, LEUKOCYTOSIS, HYPOKALEMIA, AND DEHYDRATION. TODAY, SHE IS ALERT AND ORIENTED, LYING IN BED ON MORNING ROUNDS. SHE CONTINUES WITH REPORTS OF WEAKNESS AND BODY ACHES THIS MORNING. ON EXAMINATION, HEART IS REGULAR IN RATE AND RHYTHM. BILATERAL LUNGS ARE NOTED WITH DIMINISHED LUNG SOUNDS THROUGHOUT. ABDOMEN IS ROUND, SOFT, AND NOTED WITH MILD, DIFFUSE TENDERNESS. NORMAL BOWEL SOUNDS ARE NOTED IN ALL QUADRANTS. HER VITALS THIS MORNING ARE: 98.5-62-20-98%-117/63. LABS WERE OBTAINED. ABNORMAL LAB VALUES INCLUDE THE FOLLOWING: HGB 10.6, HCT 33.7, POTASSIUM 3.3, BUN 26, CREATININE 1.15, CALCIUM 8.0, ALT 10, ALBUMIN 3.0. BLOOD CULTURES ARE PENDING. TODAY, WE WILL OBTAIN AN ABDOMINAL SERIES. OTHERWISE, WE WILL CONTINUE WITH IV FLUIDS AND CURRENT PLAN OF CARE. WE PLAN TO FOLLOW UP WITH AM LABS AND CONTINUE TO MONITOR. - Past Medical Family Social History Past Med/Fam/Surg Hx: No changes since H&P Allergies: Allergies No Known Drug Allergies Allergy (Verified 08/22/17 12:25) - Review of Systems ROS: No change since H&P - Vital Signs and I&O's Vital Signs: Temperature 98.4 F Pulse Rate [Right Brachial] 83 Pulse Rate [Standing] 82 Pulse Rate [Sitting] 80 Pulse Rate [Lying] 72 Pulse Rate 92 Respiratory Rate 20 Blood Pressure [Right Arm] 129/95 Blood Pressure [Left Arm] 187/101 Blood Pressure [Standing] 93/56 Blood Pressure [Sitting] 102/66 Blood Pressure [Lying] 88/52 Blood Pressure 127/56 O2 Sat by Pulse Oximetry 98 Intake and Output: Intake & Output 11/06/18 11/07/18 11/08/18 11/09/18 11:59 11:59 11:59 11:59 Intake Total 2230 / 2230 2380 / 2380 460 / 460 Balance 2230 / 2230 2380 / 2380 460 / 460 - Physical Exam Oriented: Normal Eyes: Normal Ear: Normal Nose: Normal Throat: Normal Respiratory: Generalized, Diminished Cardiovascular: Normal. negative: S3, S4, Murmur : Normal Auscultation: Bowel Sounds: Normal Palpation: Normal Tenderness: Normal Skin: Normal Musculoskeletal: Normal Psychiatric: Normal Mood Description: Calm Affect: Normal Speech Pattern: Clear, Appropriate - Laboratory and Diagnostics Result Diagrams: 11/08/18 04:36 11/08/18 04:36 Labs: Laboratory WBC 6.0 X10^3/uL (3.6-10.0) 11/08/18 04:36 RBC 4.93 X10^6/uL (3.5-5.4) 11/08/18 04:36 Hgb 11.4 g/dL (12.0-16.0) L 11/08/18 04:36 Hct 36.0 % (36.0-47.0) 11/08/18 04:36 MCV 73.1 fL (80.0-100.0) L 11/08/18 04:36 MCH 23.0 pg (27.0-34.0) L 11/08/18 04:36 MCHC 31.5 g/dL (33.0-35.0) L 11/08/18 04:36 RDW 14.4 % (11.6-16.5) 11/08/18 04:36 Plt Count 191 X10^3/uL (150.0-450.0) 11/08/18 04:36 Plt Count Comment Adequate (ADEQUATE) 11/08/18 04:36 MPV 10.1 fL (7.4-11.0) 11/08/18 04:36 Neut % (Auto) 43.9 % (42.0-75.0) 11/08/18 04:36 Lymph % (Auto) 40.4 % (21.0-51.0) 11/08/18 04:36 [place] % (Auto) 10.4 % (0.0-13.0) 11/08/18 04:36 Eos % (Auto) 4.7 % (0.9-2.9) H 11/08/18 04:36 Baso % (Auto) 0.6 % (0.2-1.0) 11/08/18 04:36 Neut # (Auto) 2.6 x10^3/uL (2.2-4.8) 11/08/18 04:36 Lymph # (Auto) 2.4 X10^3/uL (1.3-2.9) 11/08/18 04:36 [place] # (Auto) 0.6 x10^3/uL (0.3-0.8) 11/08/18 04:36 Eos # (Auto) 0.3 x10^3/uL (0.0-0.2) H 11/08/18 04:36 Baso # (Auto) 0.0 X10^3/uL (0.0-0.1) 11/08/18 04:36 Absolute Nucleated RBC 0.1 /100WBC 11/08/18 04:36 Plt Morphology Comment Normal (NORMAL) 11/08/18 04:36 RBC Morphology Abnormal (NORMAL) A 11/08/18 04:36 Hypochromasia 1+ A 11/08/18 04:36 Microcytosis Slight A 11/06/18 11:44 Target Cells Present 11/08/18 04:36 INR Target Range - 11/06/18 11:44 INR 1.00 (0.8-1.3) 11/06/18 11:44 APTT 33.0 SECONDS (22.9-36.5) 11/06/18 11:44 PTT Comment - 11/06/18 11:44 Sodium 141 mmol/L (136-145) 11/08/18 04:36 Corrected Sodium TNP 11/08/18 04:36 Potassium 4.1 mmol/L (3.5-5.1) 11/08/18 04:36 Chloride 106 mmol/L (98-107) 11/08/18 04:36 Carbon Dioxide 27.6 mmol/L (21-32) 11/08/18 04:36 BUN 9 mg/dL (7-18) 11/08/18 04:36 Creatinine 0.62 mg/dL (0.55-1.02) 11/08/18 04:36 Est GFR (MDRD) Af Amer > 60 (>60) 11/08/18 04:36 Est GFR (MDRD) Non-Af > 60 (>60) 11/08/18 04:36 Glucose 92 mg/dL (65-99) 11/08/18 04:36 Calcium 9.2 mg/dL (8.5-10.1) 11/08/18 04:36 Corrected Calcium TNP 11/08/18 04:36 Magnesium 1.9 mg/dL (1.7-2.9) 11/08/18 04:36 Total Bilirubin 0.40 mg/dL (0.2-1.0) 11/08/18 04:36 AST 19 Units/L (15-37) 11/08/18 04:36 ALT 11 Units/L (12-78) L 11/08/18 04:36 Alkaline Phosphatase 94 Units/L (46-116) 11/08/18 04:36 Creatine Kinase 119 Units/L (26-192) 11/06/18 11:44 CK-MB (CK-2) 2.0 ng/mL (0-4.0) 11/06/18 11:44 CK/CKMB % Calc 1.7 % (<4) 11/06/18 11:44 Troponin I < 0.02 ng/mL (0-1.5) 11/06/18 11:44 Total Protein 7.3 g/dL (6.4-8.2) 11/08/18 04:36 Albumin 3.4 g/dL (3.4-5.0) 11/08/18 04:36 Globulin 3.9 g/dL (2.5-4.5) 11/08/18 04:36 Albumin/Globulin Ratio 0.9 Ratio (1.1-2.1) L 11/08/18 04:36 Specimen Type Clean catch urine 11/06/18 14:00 Urine Color Yellow (YELLOW) 11/06/18 14:00 Urine Appearance Clear (CLEAR) 11/06/18 14:00 Urine pH 6.0 (5.0 - 8.0) 11/06/18 14:00 Ur Specific [place] 1.020 (1.000-1.030) 11/06/18 14:00 Urine Protein 2+ (NEGATIVE) 11/06/18 14:00 Urine Glucose (UA) Negative (NEGATIVE) 11/06/18 14:00 Urine Ketones Negative (NEGATIVE) 11/06/18 14:00 Urine Occult Blood 2+ (NEGATIVE) 11/06/18 14:00 Urine Nitrite Negative (NEGATIVE) 11/06/18 14:00 Urine Bilirubin Negative (NEGATIVE) 11/06/18 14:00 Urine Urobilinogen Normal (NORMAL) 11/06/18 14:00 Ur Leukocyte Esterase Negative (NEGATIVE) 11/06/18 14:00 Urine RBC 3-5 /HPF (NONE SEEN) 11/06/18 14:00 Urine WBC 0-2 /HPF (NONE SEEN) 11/06/18 14:00 Ur Squamous Epith Cells Few /HPF (NEGATIVE) 11/06/18 14:00 Urine Bacteria Negative /HPF (NEGATIVE) 11/06/18 14:00 Ur Culture Indicated? No/not indicated 11/06/18 14:00 Urine Opiates Screen Positive (NEG=<300) A 11/06/18 14:00 Urine Methadone Screen Negative (NEG=<300) 11/06/18 14:00 Ur Barbiturates Screen Negative (NEG=<200) 11/06/18 14:00 Ur Phencyclidine Scrn Negative (NEG=<25) 11/06/18 14:00 Ur Amphetamines Screen Negative (NEG=<1000) 11/06/18 14:00 U Benzodiazepines Scrn Negative (NEG=<200) 11/06/18 14:00 Urine Cocaine Screen Negative (NEG=<300) 11/06/18 14:00 U Marijuana (THC) Screen Positive (NEG=<50) A 11/06/18 14:00 - Plan (1) Dehydration Status: Acute Plan: 1/2 NS WIITH 20MEQ KCL AT 125ML/HR, (2) Acute renal failure (ARF) Status: Acute Qualifiers: Acute renal failure type: unspecified Qualified Code(s): N17.9 - Acute kidney failure, unspecified Plan: 1/2 NS WIITH 20MEQ KCL AT 125ML/HR, (3) Leukocytosis Status: Acute Qualifiers: Leukocytosis type: unspecified Qualified Code(s): D72.829 - Elevated white blood cell count, unspecified Plan: ROCEPHIN 1G IV DAILY, CONTINUE TO MONITOR (4) Hypokalemia Status: Acute Plan: 1/2 NS WIITH 20MEQ KCL AT 125ML/HR
[2018-11-09] MEDS: NORCO 10/325 TAB PO PRN ×2 (03:30→08:52)
[2018-11-09 05:21] LABS: BASOPHILS % (AUTO) 0.6 % (0.2-1.0); EOSINOPHILS # (AUTO) 0.2 x10^3/uL (0.0-0.2); EOSINOPHILS % (AUTO) 2.5 % (0.9-2.9); HEMATOCRIT 37.7 % (36.0-47.0); HEMOGLOBIN 11.8 g/dL (12.0-16.0); LYMPHOCYTES # (AUTO) 2.4 X10^3/uL (1.3-2.9); LYMPHOCYTES % (AUTO) 34.9 % (21.0-51.0); MEAN CORPUSCULAR HEMOGLOBIN 22.9 pg (27.0-34.0); MEAN CORPUSCULAR HGB CONC 31.2 g/dL (33.0-35.0); MEAN CORPUSCULAR VOLUME 73.5 fL (80.0-100.0); MEAN PLATELET VOLUME 10.3 fL (7.4-11.0); MONOCYTES # (AUTO) 0.6 x10^3/uL (0.3-0.8); NEUTROPHILS # (AUTO) 3.8 x10^3/uL (2.2-4.8); PLATELET COUNT 181 X10^3/uL (150.0-450.0); RED BLOOD COUNT 5.13 X10^6/uL (3.5-5.4); RED CELL DISTRIBUTION WIDTH 14.5 % (11.6-16.5)
[2018-11-09] MEDS: NEURONTIN CAP 300 MG PO SCH (05:25)
[2018-11-09] MEDS: NS 1/2 + KCL 20 MEQ/L 1,000 ML IV SCH (05:25)
[2018-11-09 05:32] LABS: ALANINE AMINOTRANSFERASE 12 Units/L (12-78); ALBUMIN 3.4 g/dL (3.4-5.0); ALKALINE PHOSPHATASE 94 Units/L (46-116); ASPARTATE AMINO TRANSFERASE 16 Units/L (15-37); BLOOD UREA NITROGEN 9 mg/dL (7-18); CALCIUM 9.1 mg/dL (8.5-10.1); CARBON DIOXIDE 27.1 mmol/L (21-32); CHLORIDE 103 mmol/L (98-107); CREATININE 0.72 mg/dL (0.55-1.02); SODIUM 139 mmol/L (136-145); TOTAL PROTEIN 7.6 g/dL (6.4-8.2); eGFR NON BLACK RACES > 60 (>60)
[2018-11-09 05:52] LABS: HYPOCHROMASIA 1+; PLATELET MORPHOLOGY COMMENT NORMAL (NORMAL)
[2018-11-09] MEDS ORDERED: ZESTRIL TAB 20 MG ONE (08:45)
[2018-11-09] MEDS: ZESTRIL TAB 20 MG PO SCH (08:51)
[2018-11-09] MEDS: ROCEPHIN VIAL 1 GRAM IVP SCH (08:51)
[2018-11-09] MEDS: XANAX PO SCH (08:52)
[2018-11-09] MEDS: SOMA TAB 350 MG PO PRN (08:52)
[2018-11-09] MEDS: ESTRACE PO SCH (08:52)
[2018-11-09] MEDS: FOLIC ACID TAB 1 MG PO SCH (08:53)
[2018-11-09] MEDS: NORVASC TAB 10 MG PO SCH (08:53)
[2018-11-09] MEDS: K-LYTE EFFERVESCENT PO SCH (08:54)
[2018-11-09] MEDS: MICRO K EXTEN CAP 10 MEQ PO SCH (08:55)
[2018-11-09 10:35] LABS: CRYPTOSPORIDIUM PARVUM ANTIGEN NEGATIVE (NEGATIVE); GIARDIA LAMBLIA ANTIGEN NEGATIVE (NEGATIVE)
[2018-11-09 16:03] VITALS: BP 132/92
== END 2018-11-09 12:25 | disposition home or self-care (01) | DRG 684 ==
LOC: ER 11:16 → MED/SURG 13:51
PROVIDERS: ADMIT Internal Medicine; ATTEND Internal Medicine
DX: E86.0 Dehydration; M79.7 Fibromyalgia; R42 Dizziness and giddiness; K52.89 Other specified noninfective gastroenteritis and colitis; R94.31 Abnormal electrocardiogram [ECG] [EKG]; R51 Headache; F11.90 Opioid use, unspecified, uncomplicated; F12.90 Cannabis use, unspecified, uncomplicated; R53.1 Weakness; E11.65 Type 2 diabetes mellitus with hyperglycemia; N17.8 Other acute kidney failure; E87.6 Hypokalemia; R06.02 Shortness of breath
CPT/HCPCS: 36415; 70450; 71010; 71045; 74022; 80053; 80307; 81001; 82270; 82550; 82553; 83630; 83735; 84132; 84484; 85025; 85610; 85730; 87040; 87045; 87324; 87328; 87329; 87427; 87449; 87493; 87899; 93005; 96365; 96367; 96374; 96375; 99284; A4216; A4222; J7030; G0434; J0696; J2270; J2405; J8499

== ENCOUNTER 2018-12-21 13:12 | Inpatient (IN) ==
--- NOTE | 2018-12-21 13:27 | DR.DIZZY ---
HPI Time seen Time Seen by Provider: 12/21/18 13:26 PCP Primary Care Physician: DR HORNER HPI Comment HPI Comment: PATIENT IS 58YR OLD FEMALE IN THE EMERGENCY ROOM WITH DIZZINESS, PATIENT SPINNING AND 10/10 THROBBING HEADCHE RADIATING TO BACK OF NECK AND ASSOCIATED WITH NAUSEA. BP ELEVATED. DENIES FEVER, DYSRIA OR VOMITING. DENIES TRAUMA. Complaint Chief Complaint Doctor Comments: HEADACHE, DIZZINESS AND NAUSEA TIMES 2 DAYS. Chief Complaint:: PT C/O 2 DAY HISTORY OF SEVERE DIZZINESS ASSOCIATED WITH CONSTANT THROBBING HEADACHE. DENIES ANY OTHER COMPLAINTS. Nurses Notes Reviewed Nurses Notes Review: Yes Source History Provided: Patient Mode of Arrival Mode of Arrival: Stretcher Timing Onset of Chief Complaint: 12/19/18 Came on: Suddenly Symptom Onset: Known Duration Duration: Days Location of Weakness Weakness Location: Generalized Context Onset: At rest History of: None Stroke Symptoms: Ataxia and Dizziness Severity Severity: Abnormal activity level Modifying factors Worsens: Change in Position and Turning Head Associated signs and symptoms Associated Signs and Symptoms: Vertigo, Imbalance, Weak, Headache and Nausea PMH PMH Past Medical History: Yes Past Medical History: Hypertension Past Medical History Comment: FIBROMYALGIA Past Surgical History: Yes Surgical History: and 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 Past Surgical History Comment: TUBAL LIGATION Family History History of Family Medical Conditions: Yes Family Medical History: Hypertension Social History Does patient currently use any type of tobacco product: No Have you used tobacco products in the last 12 months: No Type of Tobacco Use: None Does any household member use tobacco: No Alcohol Use: Occasionally Do you use any recreational Drugs:: No Lives With: Alone Lives Where: Home infectious screening In the last 2 months have you had wt loss of >10#?: NO Have you had fever, night sweats or hemotysis?: No Have you traveled outside the country in the last 6 months?: No Isolation: Standard ROS Review of Systems Constitutional: No Symptoms Reported, See HPI, Weakness and Fatigue; negative Fever Eyes: No Symptoms Reported and See HPI; negative Blurred Vision, Photophobia and Diplopia ENTM: No Symptoms Reported and See HPI; negative Ear Pain, Hearing Loss, Nose Discharge, Nose Congestion and Throat Pain Respiratoy: No Symptoms Reported and See HPI; negative Productive Cough, Short of Breath and Wheezing Cardiovascular: No Symptoms Reported and See HPI; negative Chest Pain, Edema and Palpitations Gastrointestinal/Abdominal: See HPI and Nausea; negative Abdominal Pain, Constipation, Diarrhea and Vomiting Genitourinary: No Symptoms Reported and See HPI; negative Dysuria, Frequency and Hematuria Neurological: See HPI, Headache, Weakness and Dizziness Musculoskeletal: No Symptoms Reported and See HPI; negative Back Pain and Muscle Pain Integumentary: No Symptoms Reported and See HPI; negative Change in Color, Rash and Juandice Hematologic/Lymphatic: No Symptoms Reported and See HPI; negative Easy Bleeding, Easy Bruising and Swollen Glands Endocrine: No Symptoms Reported and See HPI; negative Increased Thirst, Increased Urine and Decreased Appetite Psychiatric: No Symptoms Reported and See HPI All Other Systems: Reviewed and Negative PE Vital Signs Vitals: Temperature 98.4 F Pulse Rate [Apical] 70 Pulse Rate 77 Respiratory Rate 18 Blood Pressure [Right Arm] 139/77 Blood Pressure [Left Arm] 117/90 Blood Pressure [Standing] 93/56 Blood Pressure [Sitting] 102/66 Blood Pressure [Lying] 88/52 Blood Pressure 117/90 O2 Sat by Pulse Oximetry 96 General Limitations: No Limitations General Appearance: Alert and In No Apparent Distress Head Head Exam: Normal Inspection, Atraumatic and Normocephalic Eyes Eye exam: Normal Appearance, PERRL and EOMI; negative Scleral Icterus and Conjunctival Injection Pupils: Regular, Round: Bilateral and Reactive: Bilateral Sclera/Conjunctival: Normal Inspection: Bilateral ENT ENT Exam: Normal Exam, Normal Oropharynx, Normal External Ear Exam and TM's Normal Bilaterally Neck Neck Exam: Normal Inspection, Full ROM and Trachea Midline; negative Tenderness and Lymphadenopathy Chest Chest Inspection: Normal Inspection and Symmetric Chest Wall Rise; negative Tenderness Respiratory Respiratory Exam: Normal Lung Sounds Bilat; negative Accessory Muscle Use, Chest Wall Tenderness and Respiratory Distress Respiratory Exam: Bilateral: Rhonchi and Lower: Rhonchi Cardiovascular Cardiovascular Exam: Regular Rate and Normal Rhythm; negative Systolic Murmur and Diastolic Murmur Abdominal Exam Abdominal Exam: Normal Inspection, Normal Bowel Sounds and Soft; negative Tenderness Rectal Rectal Exam: Deferred Extremeties Extremities Exam: Normal Inspection, Full ROM and Normal Capillary Refill; negative Tenderness, Edema and Calf Tenderness Back Back Exam: Normal Inspection and Full ROM; negative Tenderness, (R) CVA Tenderness, (L) CVA Tenderness, Paraspinal Tenderness and Vertebral Tenderness Neurologic Neurological Exam: Alert, Oriented X3, CN II-XII Intact and Normal Gait (ATAXIA.); negative Motor Sensory Deficit Patient Oriented To: Person, Place and Time Speech: Fluid Speech Cranial Nerve Exam: EOM Function (II, III, IV, ): Normal, Facial Sensation (V): Normal, Facial Palsy (VII): Normal, Gag reflex (XI): Normal, Spinal Accessory Function (XI): Normal and Tongue Deviation: Normal Motor Strength - LUE: 5/5 Motor Strength - RUE: 5/5 Motor Strength - LLE: 5/5 Motor Strength - RLE: 5/5 Upper Motor Neuron Exam: Babinski Sign: Normal DTR: achilles tendon (L): 2+, achilles tendon (R): 2+, brachioradialis (L): 2+, brachioradialis (R): 2+, Patellar (L): 2+ and patellar (R): 2+ Psychiatric Psychiatric Exam: Normal Affect and Normal Mood Skin Skin Exam: Warm, Dry, Intact and Normal Color MDM Additional Information Obtained Additional Information Obtained From: Old Records Differential Diagnosis Differential Diagnosis: Anemia, CVA, Dehydration, Dysrhythmia, Electrolyte disorder, Hypoglycemia, Labyrinthitis, Myocardial infarction, TIA and Central Vertigo COURSE Treatment Treatment: SEE ORDERS. 15:20 TYLENOL 650MG PO 15:34 MECLIZINE 25MG PO 16:00 NS 1L AT 125CC/HR. 16:09 ROCEPHIN 1GM IV. Reevaluation 1st: Improved (DIZZINESS SLIGHTLY IMPROVED WITH MECLIZINE.) Consultation Consultation Comments: DISCUSS PATIENT WITH DR. MENDOZA. HE WILL ADMIT PATIDONE.ENT. ADMIT ORDERS Education/Counseling Education/Counseling: Patient Educated On: Diagnosis ROR Labs Reviewed Laboratory Results Reviewed?: Yes Result Diagrams: 12/22/18 04:53 12/22/18 04:53 Laboratory: 12/21/18 13:46 Urine,Clean Catch Urine Culture - Preliminary WBC 7.4 X10^3/uL (3.6-10.0) 12/22/18 04:53 RBC 5.00 X10^6/uL (3.5-5.4) 12/22/18 04:53 Hgb 11.4 g/dL (12.0-16.0) L 12/22/18 04:53 Hct 35.6 % (36.0-47.0) L 12/22/18 04:53 MCV 71.2 fL (80.0-100.0) L 12/22/18 04:53 MCH 22.8 pg (27.0-34.0) L 12/22/18 04:53 MCHC 32.0 g/dL (33.0-35.0) L 12/22/18 04:53 RDW 15.2 % (11.6-16.5) 12/22/18 04:53 Plt Count 181 X10^3/uL (150.0-450.0) 12/22/18 04:53 Plt Count Comment Adequate (ADEQUATE) 12/22/18 04:53 MPV 9.2 fL (7.4-11.0) 12/22/18 04:53 Neut % (Auto) 53.9 % (42.0-75.0) 12/22/18 04:53 Lymph % (Auto) 36.1 % (21.0-51.0) 12/22/18 04:53 [place] % (Auto) 7.5 % (0.0-13.0) 12/22/18 04:53 Eos % (Auto) 1.9 % (0.9-2.9) 12/22/18 04:53 Baso % (Auto) 0.6 % (0.2-1.0) 12/22/18 04:53 Neut # (Auto) 4.0 x10^3/uL (2.2-4.8) 12/22/18 04:53 Lymph # (Auto) 2.7 X10^3/uL (1.3-2.9) 12/22/18 04:53 [place] # (Auto) 0.6 x10^3/uL (0.3-0.8) 12/22/18 04:53 Eos # (Auto) 0.1 x10^3/uL (0.0-0.2) 12/22/18 04:53 Baso # (Auto) 0.0 X10^3/uL (0.0-0.1) 12/22/18 04:53 Absolute Nucleated RBC 0.0 /100WBC 12/22/18 04:53 Plt Morphology Comment Normal (NORMAL) 12/22/18 04:53 RBC Morphology Abnormal (NORMAL) A 12/22/18 04:53 Hypochromasia 1+ A 12/22/18 04:53 Microcytosis Slight A 12/22/18 04:53 Sodium 138 mmol/L (136-145) 12/22/18 04:53 Corrected Sodium TNP 12/22/18 04:53 Potassium 3.2 mmol/L (3.5-5.1) L 12/22/18 04:53 Chloride 105 mmol/L (98-107) 12/22/18 04:53 Carbon Dioxide 22.9 mmol/L (21-32) 12/22/18 04:53 BUN 20 mg/dL (7-18) H 12/22/18 04:53 Creatinine 1.07 mg/dL (0.55-1.02) H 12/22/18 04:53 Est GFR (MDRD) Af Amer > 60 (>60) 12/22/18 04:53 Est GFR (MDRD) Non-Af 56 (>60) L 12/22/18 04:53 Glucose 107 mg/dL (65-99) H 12/22/18 04:53 Calcium 8.3 mg/dL (8.5-10.1) L 12/22/18 04:53 Corrected Calcium 8.9 mg/dL (8.5-10.1) 12/22/18 04:53 Magnesium 2.0 mg/dL (1.7-2.9) 12/22/18 04:53 Total Bilirubin 0.30 mg/dL (0.2-1.0) 12/22/18 04:53 AST 16 Units/L (15-37) 12/22/18 04:53 ALT 15 Units/L (12-78) 12/22/18 04:53 Alkaline Phosphatase 101 Units/L (46-116) 12/22/18 04:53 Creatine Kinase 54 Units/L (26-192) 12/21/18 22:33 CK-MB (CK-2) < 1.0 ng/mL (0-4.0) 12/21/18 22:33 CK/CKMB % Calc 1.9 % (<4) 12/21/18 22:33 Troponin I < 0.02 ng/mL (0-1.5) 12/21/18 22:33 Total Protein 6.8 g/dL (6.4-8.2) 12/22/18 04:53 Albumin 3.3 g/dL (3.4-5.0) L 12/22/18 04:53 Globulin 3.5 g/dL (2.5-4.5) 12/22/18 04:53 Albumin/Globulin Ratio 0.9 Ratio (1.1-2.1) L 12/22/18 04:53 Specimen Type Clean catch urine 12/21/18 13:46 Urine Color Yellow (YELLOW) 12/21/18 13:46 Urine Appearance Slightly hazy (CLEAR) 12/21/18 13:46 Urine pH 5.0 (5.0 - 8.0) 12/21/18 13:46 Ur Specific [place] 1.020 (1.000-1.030) 12/21/18 13:46 Urine Protein 2+ (NEGATIVE) 12/21/18 13:46 Urine Glucose (UA) Negative (NEGATIVE) 12/21/18 13:46 Urine Ketones Negative (NEGATIVE) 12/21/18 13:46 Urine Occult Blood 1+ (NEGATIVE) 12/21/18 13:46 Urine Nitrite Negative (NEGATIVE) 12/21/18 13:46 Urine Bilirubin Negative (NEGATIVE) 12/21/18 13:46 Urine Urobilinogen Normal (NORMAL) 12/21/18 13:46 Ur Leukocyte Esterase 1+ (NEGATIVE) 12/21/18 13:46 Urine RBC 3-5 /HPF (0-3) A 12/21/18 13:46 Urine WBC 20-30 /HPF (0-5) A 12/21/18 13:46 Ur Squamous Epith Cells Few /HPF (NEGATIVE) 12/21/18 13:46 Urine Bacteria 1+ /HPF (NEGATIVE) 12/21/18 13:46 Hyaline Casts Few /LPF (NEGATIVE) 12/21/18 13:46 Granular Casts Rare /LPF (NEGATIVE) 12/21/18 13:46 Ur Culture Indicated? Yes/culture set up 12/21/18 13:46 Urine Opiates Screen Positive (NEG=<300) A 12/21/18 13:46 Urine Methadone Screen Negative (NEG=<300) 12/21/18 13:46 Ur Barbiturates Screen Negative (NEG=<200) 12/21/18 13:46 Ur Phencyclidine Scrn Negative (NEG=<25) 12/21/18 13:46 Ur Amphetamines Screen Negative (NEG=<1000) 12/21/18 13:46 U Benzodiazepines Scrn Positive (NEG=<200) A 12/21/18 13:46 Urine Cocaine Screen Negative (NEG=<300) 12/21/18 13:46 U Marijuana (THC) Screen Positive (NEG=<50) A 12/21/18 13:46 XRAY XRAY Interpreted by: Radiologist XRAY Findings: REPORT NOTED AND DISCUSS WITH PATIENT. EKG Rate: 74 [place]: Normal Rhythm: NSR Block: None Hypertrophy: LVH ST: Old, Inf and Infarct (ABNORMAL R-WAVE PROGRESSION, EARLY TRANSITION.) Opioid Opioid Risk Tool Age (Vineet box if 16-45): No History of Preadolescent Sexual Abuse: No Total: 0 Total Score Risk Category: Low Risk Copyright: Kuldeep VILLEGAS predicting aberrant behaviors Diagnosis Discharge Problem: Vertigo Acute renal failure Qualifiers: Acute renal failure type: unspecified Qualified Code(s): N17.9 - Acute kidney failure, unspecified Hypertension Qualifiers: Hypertension type: essential hypertension Qualified Code(s): I10 - Essential (primary) hypertension UTI (urinary tract infection) Qualifiers: Urinary tract infection type: site unspecified Hematuria presence: without hematuria Qualified Code(s): N39.0 - Urinary tract infection, site not specified Instructions Forms: Excuse From Work
[2018-12-21] MEDS ORDERED: ANTIVERT TAB 25 MG PO ONE (13:34)
[2018-12-21] MEDS ORDERED: ANTIVERT TAB 25 MG ONE (13:40)
[2018-12-21 13:51] LABS: BASOPHILS # (AUTO) 0.1 X10^3/uL (0.0-0.1); BASOPHILS % (AUTO) 0.5 % (0.2-1.0); EOSINOPHILS # (AUTO) 0.2 x10^3/uL (0.0-0.2); EOSINOPHILS % (AUTO) 2.1 % (0.9-2.9); HEMATOCRIT 39.8 % (36.0-47.0); HEMOGLOBIN 12.5 g/dL (12.0-16.0); LYMPHOCYTES # (AUTO) 2.6 X10^3/uL (1.3-2.9); LYMPHOCYTES % (AUTO) 28.5 % (21.0-51.0); MEAN CORPUSCULAR HEMOGLOBIN 22.3 pg (27.0-34.0); MEAN CORPUSCULAR HGB CONC 31.3 g/dL (33.0-35.0); MEAN CORPUSCULAR VOLUME 71.1 fL (80.0-100.0); MEAN PLATELET VOLUME 9.2 fL (7.4-11.0); MONOCYTES # (AUTO) 0.7 x10^3/uL (0.3-0.8); NEUTROPHILS # (AUTO) 5.7 x10^3/uL (2.2-4.8); NEUTROPHILS % (AUTO) 61.9 % (42.0-75.0); PLATELET COUNT 218 X10^3/uL (150.0-450.0); WHITE BLOOD COUNT 9.2 X10^3/uL (3.6-10.0)
[2018-12-21 13:53] LABS: BILIRUBIN,URINE NEGATIVE (NEGATIVE); BLOOD/HEMOGLOBIN,URINE 1+ (NEGATIVE); GLUCOSE, URINE NEGATIVE (NEGATIVE); KETONES,URINE NEGATIVE (NEGATIVE); LEUKOCYTE ESTERASE ,URINE 1+ (NEGATIVE); NITRITES,URINE NEGATIVE (NEGATIVE); PROTEIN,URINE 2+ (NEGATIVE); UROBILINOGEN,URINE NORMAL (NORMAL)
[2018-12-21 14:06] LABS: BLOOD UREA NITROGEN 27 mg/dL (7-18); CALCIUM 9.4 mg/dL (8.5-10.1); CARBON DIOXIDE 22.1 mmol/L (21-32); CHLORIDE 99 mmol/L (98-107); CREATININE 2.15 mg/dL (0.55-1.02); SODIUM 136 mmol/L (136-145); TROPONIN I < 0.02 ng/mL (0-1.5); eGFR NON BLACK RACES 25 (>60)
[2018-12-21 14:08] LABS: HYPOCHROMASIA 1+; MICROCYTOSIS SLIGHT; PLATELET MORPHOLOGY COMMENT NORMAL (NORMAL)
[2018-12-21 14:10] LABS: ALANINE AMINOTRANSFERASE 17 Units/L (12-78); ALBUMIN 4.1 g/dL (3.4-5.0); ALKALINE PHOSPHATASE 121 Units/L (46-116); ASPARTATE AMINO TRANSFERASE 17 Units/L (15-37); CKMB % 1.8 % (<4); CREATINE KINASE 60 Units/L (26-192); CREATINE KINASE MB 1.1 ng/mL (0-4.0)
[2018-12-21 14:18] LABS: APPEARANCE,URINE SLIGHTLY HAZY (CLEAR); BACTERIA,URINE 1+ /HPF (NEGATIVE); COLOR,URINE YELLOW (YELLOW); GRANULAR CASTS,URINE RARE /LPF (NEGATIVE); HYALINE CASTS, URINE FEW /LPF (NEGATIVE); SQUAMOUS EPITHELIAL CELL,UR FEW /HPF (NEGATIVE)
--- NOTE | 2018-12-21 14:24 | CT ---
History: Dizziness Study: CT head without contrast. Sagittal and coronal reformations were provided. Dose reduction techniques were utilized. Comparison: October 12, 2016 Findings: The ventricles and sulci are normal in size and configuration. There is no intracranial hemorrhage or mass or edema or subdural collection of fluid. The calvarium is intact. The paranasal sinuses and mastoid sinuses are clear. Impression: No evidence for acute intracranial disease Reported By:
--- NOTE | 2018-12-21 14:25 | RAD ---
History: Shortness of breath Study: Portable AP chest Comparison: November 07, 2018 Findings: The lungs are clear and the heart and mediastinum are unremarkable. There is no edema or effusion or congestion. No bony abnormality is demonstrated. Impression: No evidence for active cardiopulmonary disease Reported By:
[2018-12-21] MEDS ORDERED: TYLENOL 325 MG TAB PO ONE ×2 (15:20→15:21)
[2018-12-21] MEDS ORDERED: NS 1000 ML 1,000 ML ONE ×2 (15:21→23:58)
[2018-12-21] MEDS: NS 1000 ML 1,000 ML IV SCH (15:25)
[2018-12-21] MEDS ORDERED: ROCEPHIN VIAL 1 GRAM IVP ONE (16:09)
[2018-12-21] MEDS ORDERED: ROCEPHIN VIAL 1 GRAM ONE (16:11)
[2018-12-21] MEDS: SOMA TAB 350 MG PO PRN (18:34)
[2018-12-21] MEDS: NORCO 10/325 TAB PO PRN ×2 (18:35→23:28)
[2018-12-21] MEDS ORDERED: ZESTRIL TAB 10 MG PO SCH (21:00)
[2018-12-21] MEDS: XANAX PO SCH (21:18)
[2018-12-21] MEDS: NEURONTIN CAP 300 MG PO SCH (21:18)
[2018-12-21] MEDS: AMBIEN PO SCH (21:19)
[2018-12-21 23:00] LABS: CKMB % 1.9 % (<4); CREATINE KINASE 54 Units/L (26-192); CREATINE KINASE MB < 1.0 ng/mL (0-4.0); TROPONIN I < 0.02 ng/mL (0-1.5)
[2018-12-22] MEDS: NS 1000 ML 1,000 ML IV SCH ×3 (00:23→17:25)
[2018-12-22] MEDS ORDERED: MAALOX or MYLANTA ONE ×2 (00:40→04:15)
[2018-12-22] MEDS: MAALOX or MYLANTA PO PRN ×2 (00:41→04:21)
[2018-12-22] MEDS: SOMA TAB 350 MG PO PRN ×4 (03:14→20:19)
[2018-12-22] MEDS: NORCO 10/325 TAB PO PRN ×4 (03:14→20:21)
[2018-12-22] MEDS ORDERED: PEPCID TAB 20 MG ONE (04:16)
[2018-12-22] MEDS: NEURONTIN CAP 300 MG PO SCH ×3 (05:00→20:59)
[2018-12-22 05:17] LABS: BASOPHILS % (AUTO) 0.6 % (0.2-1.0); EOSINOPHILS # (AUTO) 0.1 x10^3/uL (0.0-0.2); EOSINOPHILS % (AUTO) 1.9 % (0.9-2.9); HEMATOCRIT 35.6 % (36.0-47.0); HEMOGLOBIN 11.4 g/dL (12.0-16.0); LYMPHOCYTES # (AUTO) 2.7 X10^3/uL (1.3-2.9); LYMPHOCYTES % (AUTO) 36.1 % (21.0-51.0); MEAN CORPUSCULAR HEMOGLOBIN 22.8 pg (27.0-34.0); MEAN CORPUSCULAR VOLUME 71.2 fL (80.0-100.0); MEAN PLATELET VOLUME 9.2 fL (7.4-11.0); MONOCYTES # (AUTO) 0.6 x10^3/uL (0.3-0.8); MONOCYTES % (AUTO) 7.5 % (0.0-13.0); NEUTROPHILS % (AUTO) 53.9 % (42.0-75.0); PLATELET COUNT 181 X10^3/uL (150.0-450.0); RED CELL DISTRIBUTION WIDTH 15.2 % (11.6-16.5); WHITE BLOOD COUNT 7.4 X10^3/uL (3.6-10.0)
[2018-12-22 05:30] LABS: ALANINE AMINOTRANSFERASE 15 Units/L (12-78); ALBUMIN 3.3 g/dL (3.4-5.0); ALKALINE PHOSPHATASE 101 Units/L (46-116); ASPARTATE AMINO TRANSFERASE 16 Units/L (15-37); BLOOD UREA NITROGEN 20 mg/dL (7-18); CALCIUM 8.3 mg/dL (8.5-10.1); CARBON DIOXIDE 22.9 mmol/L (21-32); CHLORIDE 105 mmol/L (98-107); COR CA(FOR HYPOALB) 8.9 mg/dL (8.5-10.1); CREATININE 1.07 mg/dL (0.55-1.02); SODIUM 138 mmol/L (136-145); TOTAL PROTEIN 6.8 g/dL (6.4-8.2); eGFR NON BLACK RACES 56 (>60)
[2018-12-22 05:44] LABS: HYPOCHROMASIA 1+; MICROCYTOSIS SLIGHT; PLATELET MORPHOLOGY COMMENT NORMAL (NORMAL)
[2018-12-22] MEDS ORDERED: MICRO K EXTEN CAP 10 MEQ PO PRN (06:07)
[2018-12-22] MEDS ORDERED: POTASSIUM CHL 60 MEQ/NS 0.45% 500 ML IV PRN (06:07)
[2018-12-22] MEDS ORDERED: KLOR-CON PO PRN (06:07)
[2018-12-22] MEDS ORDERED: K-RIDER 10 MEQ/NS 100 ML 10 MEQ/100 ML BAG IV PRN (06:07)
[2018-12-22] MEDS ORDERED: POTASSIUM CHLORIDE LIQ 20 MEQ UDC PO PRN (06:07)
[2018-12-22] MEDS ORDERED: MAGNESIUM SULFATE 1 GRAM/100 mL PREMIX 1 GM/100 ML BAG IV PRN (06:07)
[2018-12-22] MEDS ORDERED: POTASSIUM CHL 40 MEQ/NS 0.45% 500 ML IV PRN (06:07)
[2018-12-22] MEDS ORDERED: K-DUR TAB 20 MEQ PO PRN (06:07)
[2018-12-22 08:29] VITALS: BMI 35.2
[2018-12-22] MEDS: ESTRACE PO SCH (08:58)
[2018-12-22] MEDS: FOLIC ACID TAB 1 MG PO SCH (08:59)
[2018-12-22] MEDS ORDERED: PEPCID TAB 20 MG PO SCH (09:00)
[2018-12-22] MEDS: XANAX PO SCH ×2 (09:01→20:20)
[2018-12-22] MEDS: ZESTRIL TAB 20 MG PO SCH ×2 (09:01→20:20)
[2018-12-22] MEDS: ROCEPHIN VIAL 1 GRAM IVP SCH (09:03)
[2018-12-22] MEDS ORDERED: NS 1000 ML 1,000 ML ONE ×2 (09:07→17:22)
[2018-12-22] MEDS: CARAFATE ORAL SUSP PO SCH ×4 (09:48→20:19)
[2018-12-22] MEDS: PROTONIX INJ 40 MG VIAL IVP SCH (09:48)
--- NOTE | 2018-12-22 15:49 | DR.H&P ---
H&P - History & Physical for Day of: H&P Date: 12/21/18 - Chief Complaint Chief Complaint: TAYLOR, DIZZINESS, ELEVATED BP - History of Present Illness History of Present Illness: PATIENT IS 58YR OLD FEMALE IN THE EMERGENCY ROOM WITH DIZZINESS, PATIENT SPINNING AND 10/10 THROBBING HEADCHE RADIATING TO BACK OF NECK AND ASSOCIATED WITH NAUSEA. BP ELEVATED. DENIES FEVER, DYSRIA OR VOMITING. DENIES TRAUMA. PT CMP REVEALED ACUTE RENAL INSUFFICIENCY, DEHYDRATION. PT ADMITTED FOR TREATMENT OF ACUTE ILLNESS - Past Medical History Past Medical History: Anxiety, Arthritis, Hypertension Additional Medical History: FIBROMYALGIA - Past Surgical History Surgical History: , 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 - Family History Family Medical History: Hypertension - Social History Does patient currently use any type of tobacco product: No Have you used tobacco products in the last 12 months: No Type of Tobacco Use: None How many years tobacco product used: 15 Does any household member use tobacco: No Alcohol Use: Occasionally Drug Use: Prescription Drugs, Marijuana - Medications Home Medications: No Known Drug Allergies Allergy (Verified 08/22/17 12:25) - Review of Systems Constitutional: Weakness Eyes: No Symptoms Reported, Vision Change Respiratory: No Symptoms Reported Cardiovascular: Light Headedness Gastrointestinal: Nausea Genitourinary: No Symptoms Reported Musculoskeletal: Neck Pain Skin: No Symptoms Reported Neurological: Weakness, Other (DIZZINESS, TAYLOR) - Physical Exam Vital Signs: Temperature 98.4 F Pulse Rate [Apical] 70 Pulse Rate 77 Respiratory Rate 18 Blood Pressure [Right Arm] 139/77 Blood Pressure [Left Arm] 117/90 Blood Pressure [Standing] 93/56 Blood Pressure [Sitting] 102/66 Blood Pressure [Lying] 88/52 Blood Pressure 117/90 O2 Sat by Pulse Oximetry 96 Oriented: Normal Eyes: Normal Ear: Normal Nose: Normal Throat: Normal Respiratory: RLL Diminished, LLL Diminished Cardiovascular: Normal : Normal Auscultation: Bowel Sounds: Normal Palpation: Normal Tenderness: Epigastric, Mild Skin: Normal Musculoskeletal: Back:Lumbar Psychiatric: Normal Speech Pattern: Clear, Appropriate - Assessment/Plan (1) Acute renal failure Qualifiers: Acute renal failure type: unspecified Qualified Code(s): N17.9 - Acute kidney failure, unspecified Status: Acute Plan: ADMIT, GENTLE IV HYDRATION. ADMISSION LABS, CE AND CXR ON ADMISSION. I&OS, CONFIRM HOME MEDICATION. BP CONTROL, CT HEAD PEFORMED IN ER (2) Dehydration Status: Acute (3) Anxiety Status: Chronic (4) Hypertension Status: Chronic (5) Arthralgia Status: Chronic - Allergies Allergies/Adverse Reactions: Allergies Allergy/AdvReac Type Severity Reaction Status Date / Time No Known Drug Allergies Allergy Verified 08/22/17 12:25
--- NOTE | 2018-12-22 18:17 | VAS ---
HISTORY: Dizziness, visual disturbance Study: Carotid ultrasound Comparison: None Technique: Multiple marquez scale and color flow Doppler images of the right and left carotid arterial system were obtained. The vertebral arterial system was evaluated as well. Findings: The peak systolic velocity of the right ICA is 77 cm/sec. The peak systolic velocity of the left ICA is 90 cm/sec. The ICA/CCA ratio on the right is 1.0. The ICA/CCA ratio on the left is 1.3. Bilateral antegrade vertebral flow was noted. IMPRESSION: 1. No hemodynamically significant stenosis is appreciated. Reported By:
--- NOTE | 2018-12-22 19:31 | US ---
RENAL ULTRASOUND History: Renal failure Comparison: None Technique: Multiple marquez scale and color flow Doppler images of the kidneys were obtained. The region of the urinary bladder was evaluated as well. Findings: The kidneys are normal in echogenicity. The right kidney measures 10.6 cm. No focal mass, hydronephrosis, or stones identified. The left kidney measures 10.6 cm. No focal mass, hydronephrosis, or stone identified. The region of the urinary bladder is grossly unremarkable. IMPRESSION: 1. Unremarkable evaluation of the kidneys. Reported By:
[2018-12-22] MEDS ORDERED: ZESTRIL TAB 20 MG ONE (19:59)
[2018-12-22] MEDS: AMBIEN PO SCH (20:20)
[2018-12-22] MEDS: ZOFRAN INJ 4 MG VIAL IVP PRN (20:26)
[2018-12-23] MEDS: NS 1000 ML 1,000 ML IV SCH ×2 (00:11→06:16)
[2018-12-23] MEDS: NORCO 10/325 TAB PO PRN ×2 (04:41→11:38)
[2018-12-23] MEDS: SOMA TAB 350 MG PO PRN ×2 (05:45→11:39)
[2018-12-23] MEDS: ZOFRAN INJ 4 MG VIAL IVP PRN (05:45)
[2018-12-23] MEDS ORDERED: NS 1000 ML 1,000 ML ONE (05:46)
[2018-12-23 06:11] LABS: BASOPHILS % (AUTO) 0.4 % (0.2-1.0); EOSINOPHILS # (AUTO) 0.2 x10^3/uL (0.0-0.2); EOSINOPHILS % (AUTO) 2.6 % (0.9-2.9); HEMATOCRIT 36.2 % (36.0-47.0); HEMOGLOBIN 11.3 g/dL (12.0-16.0); LYMPHOCYTES % (AUTO) 28.7 % (21.0-51.0); MEAN CORPUSCULAR HEMOGLOBIN 22.8 pg (27.0-34.0); MEAN CORPUSCULAR HGB CONC 31.3 g/dL (33.0-35.0); MEAN CORPUSCULAR VOLUME 72.9 fL (80.0-100.0); MEAN PLATELET VOLUME 9.7 fL (7.4-11.0); MONOCYTES # (AUTO) 0.5 x10^3/uL (0.3-0.8); NEUTROPHILS # (AUTO) 4.4 x10^3/uL (2.2-4.8); NEUTROPHILS % (AUTO) 61.3 % (42.0-75.0); PLATELET COUNT 171 X10^3/uL (150.0-450.0); RED BLOOD COUNT 4.97 X10^6/uL (3.5-5.4); RED CELL DISTRIBUTION WIDTH 15.4 % (11.6-16.5); WHITE BLOOD COUNT 7.1 X10^3/uL (3.6-10.0)
[2018-12-23] MEDS: CARAFATE ORAL SUSP PO SCH (06:16)
[2018-12-23] MEDS: NEURONTIN CAP 300 MG PO SCH (06:16)
[2018-12-23 07:11] LABS: ALANINE AMINOTRANSFERASE 13 Units/L (12-78); ALBUMIN 3.3 g/dL (3.4-5.0); ALKALINE PHOSPHATASE 103 Units/L (46-116); ASPARTATE AMINO TRANSFERASE 17 Units/L (15-37); BLOOD UREA NITROGEN 7 mg/dL (7-18); CARBON DIOXIDE 20.6 mmol/L (21-32); CHLORIDE 106 mmol/L (98-107); COR CA(FOR HYPOALB) 9.6 mg/dL (8.5-10.1); CREATININE 0.63 mg/dL (0.55-1.02); SODIUM 137 mmol/L (136-145); eGFR NON BLACK RACES > 60 (>60)
[2018-12-23 07:30] LABS: HYPOCHROMASIA 1+; PLATELET MORPHOLOGY COMMENT NORMAL (NORMAL)
[2018-12-23] MEDS ORDERED: PEPCID TAB 20 MG PO SCH (09:00)
[2018-12-23] MEDS ORDERED: MORPHINE SULFATE INJ 2 MG INJ IVP PRN (09:00)
[2018-12-23] MEDS: FOLIC ACID TAB 1 MG PO SCH (09:06)
[2018-12-23] MEDS: ZESTRIL TAB 20 MG PO SCH (09:07)
[2018-12-23] MEDS: ROCEPHIN VIAL 1 GRAM IVP SCH (09:08)
[2018-12-23] MEDS: PROTONIX INJ 40 MG VIAL IVP SCH (09:08)
[2018-12-23] MEDS: ESTRACE PO SCH (09:08)
[2018-12-23] MEDS: XANAX PO SCH (09:11)
[2018-12-23 12:08] VITALS: BP 156/80
[2018-12-24] MEDS ORDERED: ROCEPHIN VIAL 1 GRAM 1 G in NS 100 ML IV + SPIKE MINIBAG* 100 ML IV SCH (09:00)
== END 2018-12-23 13:09 | disposition home or self-care (01) | DRG 683 ==
LOC: ER 13:12 → MED/SURG 16:43 → ER 16:55
PROVIDERS: ADMIT Internal Medicine; ATTEND Internal Medicine
DX: M25.50 Pain in unspecified joint; E87.6 Hypokalemia; I10 Essential (primary) hypertension; K21.9 Gastro-esophageal reflux disease without esophagitis; R51 Headache; R94.31 Abnormal electrocardiogram [ECG] [EKG]; M79.7 Fibromyalgia; E86.0 Dehydration; R42 Dizziness and giddiness; F41.8 Other specified anxiety disorders; N17.9 Acute kidney failure, unspecified; N39.0 Urinary tract infection, site not specified
CPT/HCPCS: 36415; 70450; 71010; 71045; 76770; 80053; 80307; 81001; 82550; 82553; 83735; 84484; 85025; 87086; 93005; 93880; 94760; 96365; 96374; 99284; A4222; C9113; G0434; J0696; J2270; J2405; J3490; J7030

== ENCOUNTER 2019-01-26 18:42 | Inpatient (IN) ==
[2019-01-26 18:57] VITALS: BMI 34.1
--- NOTE | 2019-01-26 19:50 | DR.DIZZY ---
HPI Time seen Time Seen by Provider: 01/26/19 19:25 Complaint Chief Complaint:: [facility] [employer] DISPATCHED OUT TO PATIENT FOR WEAKNESS PATIENT BROUGHT IN BY STRETCHER. PATIENT STATED "I HAVE BEEN WEAK, SHAKY RIGHT SHOULDER PAIN AND FEEL BAD ALL OVER FOR 2 DAYS. NO ENERGY AND WHEN I WALK I FEEL LIKE IM GOING TO PASSOUT" Source History Provided: Patient Mode of Arrival Mode of Arrival: EMS Timing Onset of Chief Complaint: 01/24/19 PMH PMH Past Medical History: Yes Past Medical History: Anxiety, Arthritis and Hypertension Past Surgical History: Yes Surgical History: and 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 Past Surgical History Comment: TUBAL LAGATION Family History History of Family Medical Conditions: Yes Family Medical History: Hypertension Social History Alcohol Use: Occasionally Do you use any recreational Drugs:: No infectious screening Have you traveled outside the country in the last 6 months?: No Isolation: Standard PE Vital Signs Vitals: Temperature 98.6 F Pulse Rate [Left] 78 Pulse Rate 105 Respiratory Rate 20 Blood Pressure [Right Arm] 139/77 Blood Pressure [Left Arm] 111/64 Blood Pressure 111/64 O2 Sat by Pulse Oximetry 97 ROR Labs Reviewed Result Diagrams: 01/26/19 20:21 01/26/19 20:21 Laboratory: 01/26/19 23:30 Stool - Final WBC 20.9 X10^3/uL (3.6-10.0) H 01/26/19 20:21 RBC 5.57 X10^6/uL (3.5-5.4) H 01/26/19 20:21 Hgb 12.4 g/dL (12.0-16.0) 01/26/19 20:21 Hct 39.7 % (36.0-47.0) 01/26/19 20:21 MCV 71.3 fL (80.0-100.0) L 01/26/19 20:21 MCH 22.3 pg (27.0-34.0) L 01/26/19 20:21 MCHC 31.3 g/dL (33.0-35.0) L 01/26/19 20:21 RDW 15.7 % (11.6-16.5) 01/26/19 20:21 Plt Count 296 X10^3/uL (150.0-450.0) 01/26/19 20:21 Plt Count Comment Adequate (ADEQUATE) 01/26/19 20:21 MPV 8.9 fL (7.4-11.0) 01/26/19 20:21 Neut % (Auto) 75.4 % (42.0-75.0) H 01/26/19 20:21 Lymph % (Auto) 13.8 % (21.0-51.0) L 01/26/19 20:21 [place] % (Auto) 9.3 % (0.0-13.0) 01/26/19 20:21 Eos % (Auto) 1.2 % (0.9-2.9) 01/26/19 20:21 Baso % (Auto) 0.3 % (0.2-1.0) 01/26/19 20:21 Neut # (Auto) 15.8 x10^3/uL (2.2-4.8) H 01/26/19 20:21 Lymph # (Auto) 2.9 X10^3/uL (1.3-2.9) 01/26/19 20:21 [place] # (Auto) 1.9 x10^3/uL (0.3-0.8) H 01/26/19 20:21 Eos # (Auto) 0.3 x10^3/uL (0.0-0.2) H 01/26/19 20:21 Baso # (Auto) 0.1 X10^3/uL (0.0-0.1) 01/26/19 20:21 Absolute Nucleated RBC 0.0 /100WBC 01/26/19 20:21 Plt Morphology Comment Normal (NORMAL) 01/26/19 20:21 RBC Morphology Abnormal (NORMAL) A 01/26/19 20:21 Hypochromasia Slight A 01/26/19 20:21 Sodium 135 mmol/L (136-145) L 01/26/19 20:21 Corrected Sodium TNP 01/26/19 20:21 Potassium 3.4 mmol/L (3.5-5.1) L 01/26/19 20:21 Chloride 96 mmol/L (98-107) L 01/26/19 20:21 Carbon Dioxide 22.0 mmol/L (21-32) 01/26/19 20:21 BUN 35 mg/dL (7-18) H 01/26/19 20:21 Creatinine 5.00 mg/dL (0.55-1.02) H 01/26/19 20:21 Est GFR (MDRD) Af Amer 11 (>60) L 01/26/19 20:21 Est GFR (MDRD) Non-Af 9 (>60) L 01/26/19 20:21 Glucose 105 mg/dL (65-99) H 01/26/19 20:21 Calcium 9.3 mg/dL (8.5-10.1) 01/26/19 20:21 Corrected Calcium TNP 01/26/19 20:21 Total Bilirubin 1.90 mg/dL (0.2-1.0) H 01/26/19 20:21 AST 15 Units/L (15-37) 01/26/19 20:21 ALT 11 Units/L (12-78) L 01/26/19 20:21 Alkaline Phosphatase 115 Units/L (46-116) 01/26/19 20:21 Total Protein 8.2 g/dL (6.4-8.2) 01/26/19 20:21 Albumin 3.9 g/dL (3.4-5.0) 01/26/19 20:21 Globulin 4.3 g/dL (2.5-4.5) 01/26/19 20:21 Albumin/Globulin Ratio 0.9 Ratio (1.1-2.1) L 01/26/19 20:21 Amylase 133 Units/L (25-115) H 01/26/19 20:21 Lipase 131 Units/L (73-393) 01/26/19 20:21 Specimen Type Clean catch urine 01/26/19 23: Urine Color Yellow (YELLOW) 01/26/19 23:30 Urine Appearance Slightly hazy (CLEAR) 01/26/19 23: Urine pH 5.0 (5.0 - 8.0) 01/26/19 23: Ur Specific [place] 1.015 (1.000-1.030) 01/26/19 23: Urine Protein 2+ (NEGATIVE) 01/26/19 23:30 Urine Glucose (UA) Negative (NEGATIVE) 01/26/19 23:30 Urine Ketones Negative (NEGATIVE) 01/26/19 23: Urine Occult Blood 3+ (NEGATIVE) 01/26/19 23:30 Urine Nitrite Negative (NEGATIVE) 01/26/19 23:30 Urine Bilirubin Negative (NEGATIVE) 01/26/19 23:30 Urine Urobilinogen Normal (NORMAL) 01/26/19 23:30 Ur Leukocyte Esterase 2+ (NEGATIVE) 01/26/19 23:30 Urine RBC 0-2 /HPF (0-3) 01/26/19 23:30 Urine WBC 0-2 /HPF (0-5) 01/26/19 23:30 Ur Squamous Epith Cells Moderate /HPF (NEGATIVE) 01/26/19 23:30 Urine Bacteria Negative /HPF (NEGATIVE) 01/26/19 23:30 Hyaline Casts Few /LPF (NEGATIVE) 01/26/19 23:30 Granular Casts Moderate /LPF (NEGATIVE) 01/26/19 23:30 Ur Culture Indicated? No/not indicated 01/26/19 23:30 Stool Description See comment 01/26/19 23:30 Stool Description See comment 01/26/19 23:30 Stl Occult Blood (IFOB) Positive (NEGATIVE) A 01/26/19 23:30 Stool for White Cells Positive (NEGATIVE) A 01/26/19 23:30 Stl C. diff Tox B Gene Positive (NEGATIVE) A 01/26/19 23:30 Stl C. diff 027-NAP1-BI Negative (NEGATIVE) 01/26/19 23:30 Stool H. pylori Ag Negative (NEGATIVE) 01/26/19 23:30 Cryptosporid parvum Ag Negative (NEGATIVE) 01/26/19 23:30 Giardia lamblia Ag Negative (NEGATIVE) 01/26/19 23:30 Opioid Opioid Risk Tool Age (Vineet box if 16-45): No History of Preadolescent Sexual Abuse: No Total: 0 Total Score Risk Category: Low Risk Copyright: Kuldeep VILLEGAS predicting aberrant behaviors
[2019-01-26] MEDS ORDERED: DEMEROL INJ IVP ONE (19:52)
[2019-01-26] MEDS ORDERED: ZOFRAN INJ 4 MG VIAL IVP ONE (19:52)
[2019-01-26] MEDS ORDERED: PEPCID 20 MG IV PREMIX* 20 MG/50 ML BAG IV ONE ×2 (19:52→20:08)
[2019-01-26] MEDS: NS 1000 ML 1,000 ML IV SCH (20:18)
[2019-01-26 20:28] LABS: BASOPHILS # (AUTO) 0.1 X10^3/uL (0.0-0.1); BASOPHILS % (AUTO) 0.3 % (0.2-1.0); EOSINOPHILS # (AUTO) 0.3 x10^3/uL (0.0-0.2); EOSINOPHILS % (AUTO) 1.2 % (0.9-2.9); HEMATOCRIT 39.7 % (36.0-47.0); HEMOGLOBIN 12.4 g/dL (12.0-16.0); LYMPHOCYTES # (AUTO) 2.9 X10^3/uL (1.3-2.9); LYMPHOCYTES % (AUTO) 13.8 % (21.0-51.0); MEAN CORPUSCULAR HEMOGLOBIN 22.3 pg (27.0-34.0); MEAN CORPUSCULAR HGB CONC 31.3 g/dL (33.0-35.0); MEAN CORPUSCULAR VOLUME 71.3 fL (80.0-100.0); MEAN PLATELET VOLUME 8.9 fL (7.4-11.0); MONOCYTES # (AUTO) 1.9 x10^3/uL (0.3-0.8); MONOCYTES % (AUTO) 9.3 % (0.0-13.0); NEUTROPHILS # (AUTO) 15.8 x10^3/uL (2.2-4.8); NEUTROPHILS % (AUTO) 75.4 % (42.0-75.0); PLATELET COUNT 296 X10^3/uL (150.0-450.0); RED BLOOD COUNT 5.57 X10^6/uL (3.5-5.4); RED CELL DISTRIBUTION WIDTH 15.7 % (11.6-16.5); WHITE BLOOD COUNT 20.9 X10^3/uL (3.6-10.0)
[2019-01-26 20:39] LABS: ALANINE AMINOTRANSFERASE 11 Units/L (12-78); ALBUMIN 3.9 g/dL (3.4-5.0); ALKALINE PHOSPHATASE 115 Units/L (46-116); AMYLASE 133 Units/L (25-115); ASPARTATE AMINO TRANSFERASE 15 Units/L (15-37); BLOOD UREA NITROGEN 35 mg/dL (7-18); CALCIUM 9.3 mg/dL (8.5-10.1); CHLORIDE 96 mmol/L (98-107); LIPASE 131 Units/L (73-393); SODIUM 135 mmol/L (136-145); TOTAL PROTEIN 8.2 g/dL (6.4-8.2); eGFR NON BLACK RACES 9 (>60)
[2019-01-26 20:42] LABS: HYPOCHROMASIA SLIGHT; PLATELET MORPHOLOGY COMMENT NORMAL (NORMAL)
[2019-01-26] MEDS ORDERED: NS 1000 ML 1,000 ML IV ONE ×2 (21:55→23:01)
--- NOTE | 2019-01-27 00:12 | CT ---
CT abdomen and pelvis without contrast Indication: Vomiting with abdominal pain Comparison: 11/30/16 Technique: Multiple axial images of the abdomen and pelvis were obtained from the lung bases to the pubic symphysis without the administration of IV contrast. Coronal and sagittal reformatted images were also provided. Dose reduction techniques including automated exposure control (AEC) and adjustment of mA and kV were utilized. Findings: Overall sensitivity in detection of solid organ injury, mass or inflammatory change along with vascular injury or mesenteric hematoma is severely limited given lack of IV contrast administration. The lung bases are clear. No focal hepatic lesion is identified given limitations of a noncontrast examination. Persistent moderate dilatation the common bile duct. No intrahepatic bile duct dilatation. No stone identified within the distal pancreatic or common bile duct. The pancreas is unremarkable. Spleen and adrenal glands are normal. Neither kidney demonstrates evidence of nephrolithiasis, hydronephrosis or mass. Urinary bladder is normal. No pelvic or adnexal mass. The rectum demonstrates increased fluid distention as does the distal colon. The appendix is normal. Small bowel demonstrates mild fluid distention as well. Abdominal aorta is normal in caliber. No enlarged abdominal pelvic lymph node. No acute osseous abnormality. Impression: 1.Mild fluid distention of the small, colon and rectum consistent enterocolitis. No evidence of obstruction. 2. Persistent moderate dilatation of the common bile duct however this has not significant change from prior examination. Correlation with patient history, LFTs and potentially ERCP can be performed further evaluation. Reported By:
[2019-01-27 00:14] LABS: APPEARANCE,URINE SLIGHTLY HAZY (CLEAR); BILIRUBIN,URINE NEGATIVE (NEGATIVE); BLOOD/HEMOGLOBIN,URINE 3+ (NEGATIVE); COLOR,URINE YELLOW (YELLOW); GLUCOSE, URINE NEGATIVE (NEGATIVE); KETONES,URINE NEGATIVE (NEGATIVE); LEUKOCYTE ESTERASE ,URINE 2+ (NEGATIVE); NITRITES,URINE NEGATIVE (NEGATIVE); PROTEIN,URINE 2+ (NEGATIVE); UROBILINOGEN,URINE NORMAL (NORMAL)
[2019-01-27 00:21] LABS: BACTERIA,URINE NEGATIVE /HPF (NEGATIVE); GRANULAR CASTS,URINE MODERATE /LPF (NEGATIVE); HYALINE CASTS, URINE FEW /LPF (NEGATIVE); RBC,URINE 0-2 /HPF (0-3); SQUAMOUS EPITHELIAL CELL,UR MODERATE /HPF (NEGATIVE)
[2019-01-27] MEDS ORDERED: ZOSYN VIAL 3.375 GRAMS 3.375 G in NS 100 ML IV + SPIKE MINIBAG* 100 ML IV ONE (00:22)
[2019-01-27] MEDS ORDERED: ZOSYN VIAL 3.375 GRAMS IV ONE ×2 (00:24→04:56)
[2019-01-27] MEDS ORDERED: NS 100 ML IV + SPIKE MINIBAG* 100 ML IV ONE ×2 (00:25→04:56)
[2019-01-27 01:38] LABS: CRYPTOSPORIDIUM PARVUM ANTIGEN NEGATIVE (NEGATIVE); GIARDIA LAMBLIA ANTIGEN NEGATIVE (NEGATIVE)
[2019-01-27] MEDS ORDERED: PEPCID 20 MG IV PREMIX* 20 MG/50 ML BAG IV PRN ×2 (01:53→08:00)
[2019-01-27] MEDS ORDERED: FLAGYL 50 MG/1 ML - 120ML COMPOUNDED SUSP. PO SCH (02:00)
[2019-01-27] MEDS: ZOSYN VIAL 3.375 GRAMS 3.375 G in NS 100 ML IV + SPIKE MINIBAG* 100 ML IV SCH ×2 (02:02→05:02)
[2019-01-27] MEDS ORDERED: NS 1000 ML 1,000 ML ONE (02:21)
[2019-01-27] MEDS ORDERED: MORPHINE SULFATE INJ 2 MG INJ ONE (02:31)
[2019-01-27] MEDS: NS 1000 ML 1,000 ML IV SCH ×4 (02:31→21:18)
[2019-01-27] MEDS: MORPHINE SULFATE INJ 2 MG INJ IVP PRN ×2 (02:39→06:32)
[2019-01-27] MEDS ORDERED: FLAGYL IV PREMIX 500 MG BAG 500 MG/100 ML BAG IV ONE (03:23)
[2019-01-27] MEDS: FLAGYL IV PREMIX 500 MG BAG 500 MG/100 ML BAG IV SCH ×4 (03:35→21:21)
[2019-01-27] MEDS ORDERED: NEURONTIN CAP 300 MG PO ONE (04:56)
[2019-01-27] MEDS: NEURONTIN CAP 300 MG PO SCH (05:02)
[2019-01-27] MEDS ORDERED: BENTYL CAP 10 MG PO ONE (05:13)
[2019-01-27] MEDS: BENTYL CAP 10 MG PO PRN ×3 (05:20→21:20)
[2019-01-27 06:28] LABS: HEMOGLOBIN 11.5 g/dL (12.0-16.0)
[2019-01-27 06:39] LABS: ALANINE AMINOTRANSFERASE 12 Units/L (12-78); ALBUMIN 3.4 g/dL (3.4-5.0); ALKALINE PHOSPHATASE 104 Units/L (46-116); AMYLASE 73 Units/L (25-115); ASPARTATE AMINO TRANSFERASE 17 Units/L (15-37); BLOOD UREA NITROGEN 31 mg/dL (7-18); CALCIUM 8.3 mg/dL (8.5-10.1); CARBON DIOXIDE 18.3 mmol/L (21-32); CHLORIDE 104 mmol/L (98-107); CREATININE 3.04 mg/dL (0.55-1.02); LIPASE 75 Units/L (73-393); SODIUM 139 mmol/L (136-145); TOTAL PROTEIN 7.2 g/dL (6.4-8.2); eGFR NON BLACK RACES 17 (>60)
[2019-01-27 07:06] LABS: BASOPHILS % (AUTO) 0.3 % (0.2-1.0); EOSINOPHILS # (AUTO) 0.2 x10^3/uL (0.0-0.2); EOSINOPHILS % (AUTO) 1.5 % (0.9-2.9); HEMATOCRIT 37.5 % (36.0-47.0); LYMPHOCYTES # (AUTO) 2.2 X10^3/uL (1.3-2.9); LYMPHOCYTES % (AUTO) 14.6 % (21.0-51.0); MEAN CORPUSCULAR HEMOGLOBIN 22.1 pg (27.0-34.0); MEAN CORPUSCULAR HGB CONC 30.7 g/dL (33.0-35.0); MEAN CORPUSCULAR VOLUME 71.8 fL (80.0-100.0); MEAN PLATELET VOLUME 9.4 fL (7.4-11.0); MONOCYTES # (AUTO) 1.3 x10^3/uL (0.3-0.8); MONOCYTES % (AUTO) 8.5 % (0.0-13.0); NEUTROPHILS # (AUTO) 11.3 x10^3/uL (2.2-4.8); NEUTROPHILS % (AUTO) 75.1 % (42.0-75.0); PLATELET COUNT 238 X10^3/uL (150.0-450.0); RED BLOOD COUNT 5.23 X10^6/uL (3.5-5.4); RED CELL DISTRIBUTION WIDTH 15.6 % (11.6-16.5); WHITE BLOOD COUNT 15.1 X10^3/uL (3.6-10.0)
[2019-01-27 07:08] LABS: HYPOCHROMASIA 1+; MICROCYTOSIS SLIGHT; PLATELET MORPHOLOGY COMMENT NORMAL (NORMAL)
[2019-01-27] MEDS ORDERED: K-RIDER 10 MEQ/NS 100 ML 10 MEQ/100 ML BAG IV PRN (08:07)
[2019-01-27] MEDS ORDERED: POTASSIUM CHL 40 MEQ/NS 0.45% 500 ML IV PRN (08:07)
[2019-01-27] MEDS ORDERED: MICRO K EXTEN CAP 10 MEQ PO PRN (08:07)
[2019-01-27] MEDS ORDERED: POTASSIUM CHL 60 MEQ/NS 0.45% 500 ML IV PRN (08:07)
[2019-01-27] MEDS ORDERED: KLOR-CON PO PRN (08:07)
[2019-01-27] MEDS: ESTRACE PO SCH (08:32)
[2019-01-27] MEDS: FOLIC ACID TAB 1 MG PO SCH (08:32)
[2019-01-27] MEDS: XANAX PO SCH ×2 (08:32→21:21)
[2019-01-27] MEDS: SOMA TAB 350 MG PO PRN ×3 (08:32→21:22)
[2019-01-27] MEDS: PEPCID 20 MG IV PREMIX* 20 MG/50 ML BAG IV SCH (08:34)
[2019-01-27] MEDS ORDERED: VANCOMYCIN HCL PO SCH (09:00)
--- NOTE | 2019-01-27 09:27 | DR.H&P ---
H&P History & Physical for Day of: H&P Date: 01/27/19 Chief Complaint Chief Complaint: weakness, diarrhea Allergies Allergies Allergy/AdvReac Type Severity Reaction Status Date / Time No Known Drug Allergies Allergy Verified 08/22/17 12:25 History of Present Illness History of Present Illness: Ms. Montgomery is a 58y/o female presenting with generalized weakness, dizziness and abdominal pain. She reports her symptoms started on Thursday with feeling very weak and gradually worsened in the next 2 days. She had a syncopal episode yesterday and was too weak to get up therefore EMS was called. She stared having abdominal pain 2 days ago, mostly epigastric constant, crampy. Associated with watery diarrhea, nausea and vomiting. She had 6 episodes of loose stools yesterday. She has had poor appetite and not been keeping herself hydrated. Denies sick contact or recent travel. Denies eating at any restaurants. PCP in [place]. ED work-up: found to be extremely hypotensive with SBP in 80s, received multiple boluses of IVF, stool cultures collected, started on Zosyn and Flagyl. CTAP done showed diffuse enterocolitis. Labs: WBC: 20K, K: 3.2 Cr: 5.0 Past Medical History Past Medical History: Anxiety, Arthritis and Hypertension Additional Medical History: FIBROMYALGIA Past Surgical History Surgical History: and 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 Family History Family Medical History: Hypertension Social History Does patient currently use any type of tobacco product: No Have you used tobacco products in the last 12 months: No Alcohol Use: Occasionally Drug Use: None Prescription drug monitoring program results: PDMP was not reviewed Medications Home Medications: No Known Drug Allergies Allergy (Verified 08/22/17 12:25) Labs Result Diagrams: 01/27/19 05:20 01/27/19 05:20 Labs: 01/26/19 23:30 Stool - Final Laboratory WBC 15.1 X10^3/uL (3.6-10.0) H 01/27/19 05:20 RBC 5.23 X10^6/uL (3.5-5.4) 01/27/19 05:20 Hgb 11.5 g/dL (12.0-16.0) L 01/27/19 05:20 Hct 37.5 % (36.0-47.0) 01/27/19 05:20 MCV 71.8 fL (80.0-100.0) L 01/27/19 05:20 MCH 22.1 pg (27.0-34.0) L 01/27/19 05:20 MCHC 30.7 g/dL (33.0-35.0) L 01/27/19 05:20 RDW 15.6 % (11.6-16.5) 01/27/19 05:20 Plt Count 238 X10^3/uL (150.0-450.0) 01/27/19 05:20 Plt Count Comment Adequate (ADEQUATE) 01/27/19 05:20 MPV 9.4 fL (7.4-11.0) 01/27/19 05:20 Neut % (Auto) 75.1 % (42.0-75.0) H 01/27/19 05:20 Lymph % (Auto) 14.6 % (21.0-51.0) L 01/27/19 05:20 [place] % (Auto) 8.5 % (0.0-13.0) 01/27/19 05:20 Eos % (Auto) 1.5 % (0.9-2.9) 01/27/19 05:20 Baso % (Auto) 0.3 % (0.2-1.0) 01/27/19 05:20 Neut # (Auto) 11.3 x10^3/uL (2.2-4.8) H 01/27/19 05:20 Lymph # (Auto) 2.2 X10^3/uL (1.3-2.9) 01/27/19 05:20 [place] # (Auto) 1.3 x10^3/uL (0.3-0.8) H 01/27/19 05:20 Eos # (Auto) 0.2 x10^3/uL (0.0-0.2) 01/27/19 05:20 Baso # (Auto) 0.0 X10^3/uL (0.0-0.1) 01/27/19 05:20 Absolute Nucleated RBC 0.0 /100WBC 01/27/19 05:20 Plt Morphology Comment Normal (NORMAL) 01/27/19 05:20 RBC Morphology Abnormal (NORMAL) A 01/27/19 05:20 Hypochromasia 1+ A 01/27/19 05:20 Microcytosis Slight A 01/27/19 05:20 Sodium 139 mmol/L (136-145) 01/27/19 05:20 Corrected Sodium TNP 01/27/19 05:20 Potassium 3.2 mmol/L (3.5-5.1) L 01/27/19 05:20 Chloride 104 mmol/L (98-107) 01/27/19 05:20 Carbon Dioxide 18.3 mmol/L (21-32) L 01/27/19 05:20 BUN 31 mg/dL (7-18) H 01/27/19 05:20 Creatinine 3.04 mg/dL (0.55-1.02) H 01/27/19 05:20 Est GFR (MDRD) Af Amer 20 (>60) L 01/27/19 05:20 Est GFR (MDRD) Non-Af 17 (>60) L 01/27/19 05:20 Glucose 80 mg/dL (65-99) 01/27/19 05:20 Calcium 8.3 mg/dL (8.5-10.1) L 01/27/19 05:20 Corrected Calcium TNP 01/27/19 05:20 Magnesium 2.1 mg/dL (1.7-2.9) 01/27/19 05:20 Total Bilirubin 1.10 mg/dL (0.2-1.0) H 01/27/19 05:20 AST 17 Units/L (15-37) 01/27/19 05:20 ALT 12 Units/L (12-78) 01/27/19 05:20 Alkaline Phosphatase 104 Units/L (46-116) 01/27/19 05:20 Total Protein 7.2 g/dL (6.4-8.2) 01/27/19 05:20 Albumin 3.4 g/dL (3.4-5.0) 01/27/19 05:20 Globulin 3.8 g/dL (2.5-4.5) 01/27/19 05:20 Albumin/Globulin Ratio 0.9 Ratio (1.1-2.1) L 01/27/19 05:20 Amylase 73 Units/L (25-115) 01/27/19 05:20 Lipase 75 Units/L (73-393) 01/27/19 05:20 Specimen Type Clean catch urine 01/26/19 23:30 Urine Color Yellow (YELLOW) 01/26/19 23:30 Urine Appearance Slightly hazy (CLEAR) 01/26/19 23: Urine pH 5.0 (5.0 - 8.0) 01/26/19 23:30 Ur Specific [place] 1.015 (1.000-1.030) 01/26/19 23:30 Urine Protein 2+ (NEGATIVE) 01/26/19 23: Urine Glucose (UA) Negative (NEGATIVE) 01/26/19 23: Urine Ketones Negative (NEGATIVE) 01/26/19 23: Urine Occult Blood 3+ (NEGATIVE) 01/26/19 23: Urine Nitrite Negative (NEGATIVE) 01/26/19 23: Urine Bilirubin Negative (NEGATIVE) 01/26/19 23: Urine Urobilinogen Normal (NORMAL) 01/26/19 23:30 Ur Leukocyte Esterase 2+ (NEGATIVE) 01/26/19 23:30 Urine RBC 0-2 /HPF (0-3) 01/26/19 23: Urine WBC 0-2 /HPF (0-5) 01/26/19 23:30 Ur Squamous Epith Cells Moderate /HPF (NEGATIVE) 01/26/19 23:30 Urine Bacteria Negative /HPF (NEGATIVE) 01/26/19 23: Hyaline Casts Few /LPF (NEGATIVE) 01/26/19 23:30 Granular Casts Moderate /LPF (NEGATIVE) 01/26/19 23:30 Ur Culture Indicated? No/not indicated 01/26/19 23:30 Stool Description See comment 01/26/19 23: Stool Description See comment 01/26/19 23:30 Stl Occult Blood (IFOB) Positive (NEGATIVE) A 01/26/19 23:30 Stool for White Cells Positive (NEGATIVE) A 01/26/19 23:30 Stl C. diff Tox B Gene Positive (NEGATIVE) A 01/26/19 23: Stl C. diff 027-NAP1-BI Negative (NEGATIVE) 01/26/19 23:30 Stool H. pylori Ag Negative (NEGATIVE) 01/26/19 23:30 C. difficile Toxin A&B Negative (NEGATIVE) 01/26/19 23: Cryptosporid parvum Ag Negative (NEGATIVE) 01/26/19 23:30 Giardia lamblia Ag Negative (NEGATIVE) 01/26/19 23:30 Review of Systems Constitutional: Chills, Weakness and Malaise Eyes: No Symptoms Reported ENT: No Symptoms Reported Respiratory: No Symptoms Reported Cardiovascular: [place] Gastrointestinal: Nausea, Vomiting, Abdominal Pain and Diarrhea Genitourinary: No Symptoms Reported Musculoskeletal: Shoulder Pain and Back Pain Skin: No Symptoms Reported Neurological: Weakness Physical Exam Vital Signs: Temperature 98.5 F Pulse Rate [Left] 90 Pulse Rate 105 Respiratory Rate 18 Blood Pressure [Right Arm] 139/77 Blood Pressure [Left Arm] 135/77 Blood Pressure 147/62 O2 Sat by Pulse Oximetry 100 Oriented: Normal Eyes: Normal Nose: Normal Throat: Normal Respiratory: Clear Throughout Cardiovascular: Normal Auscultation: Bowel Sounds: Decreased Tenderness: Diffuse, RUQ and Epigastric Skin: Normal Musculoskeletal: Normal Psychiatric: Normal Mood Description: Calm Affect: Normal Speech Pattern: Clear and Appropriate Assessment/Plan (1) C. difficile enteritis: Status: Acute Plan: presenting with multiple episodes of diarrhea, abdominal pain C.diff antigen positive, will add oral Vancomycin, continue Flagyl for severe C.diff due to renal failure and elevated WBC > 20 . Keep NPO for now. (2) Campylobacter enteritis: Status: Acute Plan: Stool culture: campy positive, add azithromycin 500 mg IV x 5 days (3) Hypokalemia: Status: Acute Plan: replace as per protocol (4) Acute renal failure (ARF): Qualifiers: Acute renal failure type: unspecified Qualified Code(s): N17.9 - Acute kidney failure, unspecified Status: Acute Plan: Cr on admission 5.0, trending down to 3.04, pre-renal, continue hydration. Monitor daily labs. Recent renal U/S: negative (5) Epigastric pain: Status: Acute Plan: Diffuse epigastric pain, RUQ pain. CT shows enterocolitis, dilated CBD, normal LFTs. Rule out GB disease with U/S, monitor labs (6) Dehydration: Status: Acute Plan: continue hydration with NS (7) Hypotension: Qualifiers: Hypotension type: hypotension due to hypovolemia Qualified Code(s): I95.89 - Other hypotension; E86.1 - Hypovolemia Status: Acute Plan: SBP on admission 80s, improved now with hydration. Hold all anti- hypertensives. (8) Microcytic anemia: Status: Acute Plan: Hgb: 11.5, MCV<80 FOBT Positive. Will check iron studies. Outpatient work-up with colonoscopy. (9) Back pain at L4-L5 level: Status: Acute
[2019-01-27] MEDS ORDERED: CULTURELLE PRO-WELL PROBIOTIC CAP PO SCH (10:00)
[2019-01-27] MEDS: ZOFRAN INJ 4 MG VIAL IVP PRN (10:03)
[2019-01-27] MEDS: VANCOMYCIN HCL PO SCH ×3 (10:38→21:20)
[2019-01-27] MEDS: VSL#3 PO SCH (10:38)
[2019-01-27] MEDS: ZITHROMAX INJ 500 MG VIAL 500 MG in D5W 250 ML IV 250 ML IV SCH ×2 (10:45→11:22)
[2019-01-27] MEDS: NORCO 10/325 TAB PO PRN ×3 (11:29→21:24)
--- NOTE | 2019-01-27 15:03 | US ---
HISTORY: Right upper quadrant pain, dilated common bile duct on CT scan Study: Gallbladder ultrasound Comparison: CT scan of the abdomen and pelvis done 01/27/2019. Technique: Multiple marquez scale and color flow Doppler images of the right upper quadrant were obtained. Findings: The liver is normal in echotexture and size. No focal intraparenchymal mass or intrahepatic biliary ductal dilatation can be observed. The gallbladder fails to demonstrate evidence for cholelithiasis or layering sludge. The common bile duct is unremarkable measuring 6.4 mm. No common duct stone is seen. No pericholecystic fluid or gallbladder wall thickening can be observed. Portal venous flow is hepatopetal. The right kidney appears normal in size without focal parenchymal mass or nephrolithiasis. The right kidney measurers 3.78 x 4.41 x 12 cm. Cortical thickness is 1.58 cm. Resistive index is 0.63, which is normal.. No hydronephrosis or perirenal fluid can be observed. The pancreas is normal. IMPRESSION: Unremarkable ultrasound of the right upper abdominal quadrant and gallbladder. Common bile duct measures 6.4 mm in diameter which is normal. No common duct stone is seen. Reported By:
[2019-01-27] MEDS: K-DUR TAB 20 MEQ PO PRN (15:05)
[2019-01-27] MEDS ORDERED: ZOSYN VIAL 3.375 GRAMS 3.375 G in NS 100 ML IV + SPIKE MINIBAG* 100 ML IV SCH (21:00)
[2019-01-27] MEDS: AMBIEN PO SCH (21:20)
[2019-01-28] MEDS: NORCO 10/325 TAB PO PRN ×4 (02:08→20:36)
[2019-01-28] MEDS: FLAGYL IV PREMIX 500 MG BAG 500 MG/100 ML BAG IV SCH ×4 (02:08→20:34)
[2019-01-28] MEDS: VANCOMYCIN HCL PO SCH ×4 (02:08→20:35)
[2019-01-28] MEDS: NS 1000 ML 1,000 ML IV SCH ×3 (05:12→20:33)
[2019-01-28 05:40] LABS: BASOPHILS # (AUTO) 0.1 X10^3/uL (0.0-0.1); BASOPHILS % (AUTO) 0.5 % (0.2-1.0); EOSINOPHILS # (AUTO) 0.3 x10^3/uL (0.0-0.2); EOSINOPHILS % (AUTO) 2.6 % (0.9-2.9); HEMATOCRIT 31.8 % (36.0-47.0); HEMOGLOBIN 9.9 g/dL (12.0-16.0); LYMPHOCYTES # (AUTO) 2.8 X10^3/uL (1.3-2.9); LYMPHOCYTES % (AUTO) 21.9 % (21.0-51.0); MEAN CORPUSCULAR HEMOGLOBIN 22.3 pg (27.0-34.0); MEAN CORPUSCULAR VOLUME 71.8 fL (80.0-100.0); MONOCYTES % (AUTO) 7.8 % (0.0-13.0); NEUTROPHILS # (AUTO) 8.6 x10^3/uL (2.2-4.8); NEUTROPHILS % (AUTO) 67.2 % (42.0-75.0); PLATELET COUNT 214 X10^3/uL (150.0-450.0); RED BLOOD COUNT 4.43 X10^6/uL (3.5-5.4); RED CELL DISTRIBUTION WIDTH 15.8 % (11.6-16.5); WHITE BLOOD COUNT 12.8 X10^3/uL (3.6-10.0)
[2019-01-28] MEDS: BENTYL CAP 10 MG PO PRN ×2 (05:45→20:40)
[2019-01-28 05:48] LABS: PLATELET MORPHOLOGY COMMENT NORMAL (NORMAL)
[2019-01-28 05:49] LABS: HYPOCHROMASIA 1+
[2019-01-28 06:02] LABS: ALANINE AMINOTRANSFERASE 13 Units/L (12-78); ALBUMIN 2.9 g/dL (3.4-5.0); ALKALINE PHOSPHATASE 88 Units/L (46-116); ASPARTATE AMINO TRANSFERASE 13 Units/L (15-37); BLOOD UREA NITROGEN 24 mg/dL (7-18); CALCIUM 8.3 mg/dL (8.5-10.1); CARBON DIOXIDE 20.7 mmol/L (21-32); CHLORIDE 109 mmol/L (98-107); COR CA(FOR HYPOALB) 9.2 mg/dL (8.5-10.1); CREATININE 1.47 mg/dL (0.55-1.02); SODIUM 141 mmol/L (136-145); TOTAL PROTEIN 6.5 g/dL (6.4-8.2); eGFR NON BLACK RACES 39 (>60)
[2019-01-28] MEDS: K-DUR TAB 20 MEQ PO PRN (06:25)
[2019-01-28] MEDS: VSL#3 PO SCH (08:40)
[2019-01-28] MEDS: XANAX PO SCH ×2 (08:40→20:35)
[2019-01-28] MEDS: ESTRACE PO SCH (08:40)
[2019-01-28] MEDS: FOLIC ACID TAB 1 MG PO SCH (08:40)
[2019-01-28] MEDS: ZITHROMAX INJ 500 MG VIAL 500 MG in D5W 250 ML IV 250 ML IV SCH (08:42)
[2019-01-28] MEDS: PEPCID 20 MG IV PREMIX* 20 MG/50 ML BAG IV SCH (08:42)
--- NOTE | 2019-01-28 08:51 | PCM.PROG ---
Progress Note Progress Note for Day of Date of Exam: 01/28/19 Subjective Subjective: Patient seen this AM, reports feeling slightly better. Denies fever or chills, no more nausea or vomiting. She still has diarrhea, 4-5 loose stools yesterday and one this AM. Denies blood. She has been tolerating the soft diet. She reports improvement in abdominal pain, not constant like it was on admission. She reports seeing blood in her stool last week, no prior colonoscopy. Past Medical Family Social History Past Med/Fam/Surg Hx: No changes since H&P Allergies: Allergies No Known Drug Allergies Allergy (Verified 08/22/17 12:25) Review of Systems ROS: No change since H&P Vital Signs and I&O's Vital Signs: Temperature 98.1 F Pulse Rate [Left] 76 Pulse Rate 105 Respiratory Rate 18 Blood Pressure [Right Arm] 139/77 Blood Pressure [Left Arm] 135/61 Blood Pressure 147/62 O2 Sat by Pulse Oximetry 100 Intake and Output: Intake & Output 01/25/19 01/26/19 01/27/19 01/28/19 23:59 23:59 23:59 23:59 Intake Total 3550 / 3550 1140 / 1140 Balance 3550 / 3550 1140 / 1140 Physical Exam Oriented: Normal Eyes: Normal Nose: Normal Throat: Normal Respiratory: Normal Cardiovascular: Normal Auscultation: Bowel Sounds: Increased Tenderness: Epigastric and Periumbilical Skin: Normal Musculoskeletal: Normal Psychiatric: Normal Mood Description: Calm Affect: Normal Speech Pattern: Clear and Appropriate Laboratory and Diagnostics Result Diagrams: 01/28/19 05:15 01/28/19 05:15 Labs: 01/26/19 23:30 Stool - Final Laboratory WBC 12.8 X10^3/uL (3.6-10.0) H 01/28/19 05:15 RBC 4.43 X10^6/uL (3.5-5.4) 01/28/19 05:15 Hgb 9.9 g/dL (12.0-16.0) L 01/28/19 05:15 Hct 31.8 % (36.0-47.0) L 01/28/19 05:15 MCV 71.8 fL (80.0-100.0) L 01/28/19 05:15 MCH 22.3 pg (27.0-34.0) L 01/28/19 05:15 MCHC 31.0 g/dL (33.0-35.0) L 01/28/19 05:15 RDW 15.8 % (11.6-16.5) 01/28/19 05:15 Plt Count 214 X10^3/uL (150.0-450.0) 01/28/19 05:15 Plt Count Comment Adequate (ADEQUATE) 01/28/19 05:15 MPV 9.0 fL (7.4-11.0) 01/28/19 05:15 Neut % (Auto) 67.2 % (42.0-75.0) 01/28/19 05:15 Lymph % (Auto) 21.9 % (21.0-51.0) 01/28/19 05:15 [place] % (Auto) 7.8 % (0.0-13.0) 01/28/19 05:15 Eos % (Auto) 2.6 % (0.9-2.9) 01/28/19 05:15 Baso % (Auto) 0.5 % (0.2-1.0) 01/28/19 05:15 Neut # (Auto) 8.6 x10^3/uL (2.2-4.8) H 01/28/19 05:15 Lymph # (Auto) 2.8 X10^3/uL (1.3-2.9) 01/28/19 05:15 [place] # (Auto) 1.0 x10^3/uL (0.3-0.8) H 01/28/19 05:15 Eos # (Auto) 0.3 x10^3/uL (0.0-0.2) H 01/28/19 05:15 Baso # (Auto) 0.1 X10^3/uL (0.0-0.1) 01/28/19 05:15 Absolute Nucleated RBC 0.1 /100WBC 01/28/19 05:15 Plt Morphology Comment Normal (NORMAL) 01/28/19 05:15 RBC Morphology Abnormal (NORMAL) A 01/28/19 05:15 Hypochromasia 1+ A 01/28/19 05:15 Microcytosis Slight A 01/27/19 05:20 Sodium 141 mmol/L (136-145) 01/28/19 05:15 Corrected Sodium TNP 01/28/19 05:15 Potassium 3.3 mmol/L (3.5-5.1) L 01/28/19 05:15 Chloride 109 mmol/L (98-107) H 01/28/19 05:15 Carbon Dioxide 20.7 mmol/L (21-32) L 01/28/19 05:15 BUN 24 mg/dL (7-18) H 01/28/19 05:15 Creatinine 1.47 mg/dL (0.55-1.02) H 01/28/19 05:15 Est GFR (MDRD) Af Amer 47 (>60) L 01/28/19 05:15 Est GFR (MDRD) Non-Af 39 (>60) L 01/28/19 05:15 Glucose 100 mg/dL (65-99) H 01/28/19 05:15 Calcium 8.3 mg/dL (8.5-10.1) L 01/28/19 05:15 Corrected Calcium 9.2 mg/dL (8.5-10.1) 01/28/19 05:15 Magnesium 2.0 mg/dL (1.7-2.9) 01/28/19 05:15 Iron 27 ug/dL (50-175) L 01/27/19 05:20 Transferrin 229 mg/dL (202-364) 01/27/19 05:20 Ferritin 77 ng/mL (8-252) 01/27/19 05:20 Total Bilirubin 0.20 mg/dL (0.2-1.0) 01/28/19 05:15 AST 13 Units/L (15-37) L 01/28/19 05:15 ALT 13 Units/L (12-78) 01/28/19 05:15 Alkaline Phosphatase 88 Units/L (46-116) 01/28/19 05:15 Total Protein 6.5 g/dL (6.4-8.2) 01/28/19 05:15 Albumin 2.9 g/dL (3.4-5.0) L 01/28/19 05:15 Globulin 3.6 g/dL (2.5-4.5) 01/28/19 05:15 Albumin/Globulin Ratio 0.8 Ratio (1.1-2.1) L 01/28/19 05:15 Amylase 73 Units/L (25-115) 01/27/19 05:20 Lipase 75 Units/L (73-393) 01/27/19 05:20 Vitamin B12 767 pg/mL (193-986) 01/27/19 05:20 Folate 14.8 ng/mL (>8.6) 01/27/19 05:20 Specimen Type Clean catch urine 01/26/19 23:30 Urine Color Yellow (YELLOW) 01/26/19 23: Urine Appearance Slightly hazy (CLEAR) 01/26/19 23: Urine pH 5.0 (5.0 - 8.0) 01/26/19 23: Ur Specific [place] 1.015 (1.000-1.030) 01/26/19 23: Urine Protein 2+ (NEGATIVE) 01/26/19 23: Urine Glucose (UA) Negative (NEGATIVE) 01/26/19 23: Urine Ketones Negative (NEGATIVE) 01/26/19 23: Urine Occult Blood 3+ (NEGATIVE) 01/26/19 23: Urine Nitrite Negative (NEGATIVE) 01/26/19 23: Urine Bilirubin Negative (NEGATIVE) 01/26/19 23:30 Urine Urobilinogen Normal (NORMAL) 01/26/19 23:30 Ur Leukocyte Esterase 2+ (NEGATIVE) 01/26/19 23:30 Urine RBC 0-2 /HPF (0-3) 01/26/19 23:30 Urine WBC 0-2 /HPF (0-5) 01/26/19 23:30 Ur Squamous Epith Cells Moderate /HPF (NEGATIVE) 01/26/19 23:30 Urine Bacteria Negative /HPF (NEGATIVE) 01/26/19 23:30 Hyaline Casts Few /LPF (NEGATIVE) 01/26/19 23:30 Granular Casts Moderate /LPF (NEGATIVE) 01/26/19 23:30 Ur Culture Indicated? No/not indicated 01/26/19 23: Stool Description See comment 01/26/19 23:30 Stool Description See comment 01/26/19 23:30 Stl Occult Blood (IFOB) Positive (NEGATIVE) A 01/26/19 23:30 Stool for White Cells Positive (NEGATIVE) A 01/26/19 23: Stl C. diff Tox B Gene Positive (NEGATIVE) A 10/23/19 23:30 Stl C. diff 027-NAP1-BI Negative (NEGATIVE) 01/26/19 23:30 Stool H. pylori Ag Negative (NEGATIVE) 01/26/19 23:30 C. difficile Toxin A&B Negative (NEGATIVE) 01/26/19 23:30 Cryptosporid parvum Ag Negative (NEGATIVE) 01/26/19 23:30 Giardia lamblia Ag Negative (NEGATIVE) 01/26/19 23:30 Plan (1) C. difficile enteritis: Status: Acute Plan: presenting with multiple episodes of diarrhea, abdominal pain C.diff antigen positive, Continue oral Vancomycin, continue Flagyl for severe C.diff due to renal failure and elevated WBC > 20 on admission. WBC trending down, diarrhea slowly improving. Continue soft diet as tolerated (2) Campylobacter enteritis: Status: Acute Plan: Stool culture: campy positive, continue azithromycin 500 mg IV x 5 days (3) Hypokalemia: Status: Acute Plan: replace as per protocol (4) Acute renal failure (ARF): Status: Acute Qualifiers: Acute renal failure type: unspecified Qualified Code(s): N17.9 - Acute kidney failure, unspecified Plan: Cr on admission 5.0, trending down to 1.47, pre-renal, decrease IVF to 75cc/hr. Follow AM labs. Recent renal U/S: negative (5) Epigastric pain: Status: Acute Plan: Diffuse epigastric pain, RUQ pain. CT shows enterocolitis, dilated CBD, normal LFTs. GB U/S: negative for CBD stones or acute cholecystitis. Abdominal pain improving (6) Dehydration: Status: Acute Plan: continue hydration with NS (7) Hypotension: Status: Acute Qualifiers: Hypotension type: hypotension due to hypovolemia Qualified Code(s): I95.89 - Other hypotension; E86.1 - Hypovolemia Plan: SBP on admission 80s, improved now with hydration. Continue gentle hydration (8) Microcytic anemia: Status: Acute Plan: Hgb: 9.9, MCV<80. Hgb trending down, could be dilutional due to IVF. Monitor AM labs. FOBT Positive. Low iron, will start iron supplements. No prior colonoscopy. Will need outpatient follow up once clear from infection. (9) Back pain at L4-L5 level: Status: Acute Plan: continue home [place] prn
[2019-01-28] MEDS: SOMA TAB 350 MG PO PRN ×3 (08:52→20:36)
[2019-01-28] MEDS: NEURONTIN CAP 300 MG PO SCH ×2 (14:19→21:09)
[2019-01-28] MEDS: FERROUS GLUCONATE PO SCH (17:48)
[2019-01-28] MEDS: AMBIEN PO SCH (20:35)
[2019-01-29] MEDS: VANCOMYCIN HCL PO SCH ×5 (02:11→21:15)
[2019-01-29] MEDS: NORCO 10/325 TAB PO PRN ×4 (02:12→19:24)
[2019-01-29] MEDS: FLAGYL IV PREMIX 500 MG BAG 500 MG/100 ML BAG IV SCH ×4 (02:12→21:09)
[2019-01-29] MEDS: NS 1000 ML 1,000 ML IV SCH (03:33)
[2019-01-29] MEDS: NEURONTIN CAP 300 MG PO SCH ×3 (05:02→21:15)
[2019-01-29] MEDS: BENTYL CAP 10 MG PO PRN (05:02)
[2019-01-29 05:29] LABS: BASOPHILS % (AUTO) 0.5 % (0.2-1.0); EOSINOPHILS # (AUTO) 0.2 x10^3/uL (0.0-0.2); EOSINOPHILS % (AUTO) 2.5 % (0.9-2.9); HEMATOCRIT 32.2 % (36.0-47.0); HEMOGLOBIN 9.9 g/dL (12.0-16.0); LYMPHOCYTES # (AUTO) 2.5 X10^3/uL (1.3-2.9); LYMPHOCYTES % (AUTO) 29.4 % (21.0-51.0); MEAN CORPUSCULAR HEMOGLOBIN 22.1 pg (27.0-34.0); MEAN CORPUSCULAR HGB CONC 30.8 g/dL (33.0-35.0); MEAN CORPUSCULAR VOLUME 71.6 fL (80.0-100.0); MEAN PLATELET VOLUME 9.7 fL (7.4-11.0); MONOCYTES # (AUTO) 0.7 x10^3/uL (0.3-0.8); MONOCYTES % (AUTO) 7.7 % (0.0-13.0); NEUTROPHILS # (AUTO) 5.1 x10^3/uL (2.2-4.8); NEUTROPHILS % (AUTO) 59.9 % (42.0-75.0); PLATELET COUNT 216 X10^3/uL (150.0-450.0); RED BLOOD COUNT 4.49 X10^6/uL (3.5-5.4); RED CELL DISTRIBUTION WIDTH 15.8 % (11.6-16.5); WHITE BLOOD COUNT 8.6 X10^3/uL (3.6-10.0)
[2019-01-29 05:38] LABS: ALANINE AMINOTRANSFERASE 13 Units/L (12-78); ALKALINE PHOSPHATASE 83 Units/L (46-116); ASPARTATE AMINO TRANSFERASE 14 Units/L (15-37); BLOOD UREA NITROGEN 11 mg/dL (7-18); CARBON DIOXIDE 23.3 mmol/L (21-32); CHLORIDE 107 mmol/L (98-107); COR CA(FOR HYPOALB) 9.8 mg/dL (8.5-10.1); CREATININE 0.82 mg/dL (0.55-1.02); MAGNESIUM 1.6 mg/dL (1.7-2.9); SODIUM 143 mmol/L (136-145); TOTAL PROTEIN 6.6 g/dL (6.4-8.2); eGFR NON BLACK RACES > 60 (>60)
[2019-01-29 05:58] LABS: HYPOCHROMASIA 1+; MICROCYTOSIS SLIGHT; PLATELET MORPHOLOGY COMMENT NORMAL (NORMAL); TARGET CELLS PRESENT
[2019-01-29] MEDS: SOMA TAB 350 MG PO PRN ×3 (06:04→21:15)
[2019-01-29] MEDS ORDERED: MICRO K EXTEN CAP 10 MEQ PO PRN (06:17)
[2019-01-29] MEDS ORDERED: POTASSIUM CHL 40 MEQ/NS 0.45% 500 ML IV PRN (06:17)
[2019-01-29] MEDS: POTASSIUM CHLORIDE LIQ 20 MEQ UDC PO PRN (06:33)
[2019-01-29] MEDS: MAGNESIUM SULFATE 1 GRAM/100 mL PREMIX 1 GM/100 ML BAG IV PRN ×2 (06:48→09:49)
[2019-01-29] MEDS: ZITHROMAX INJ 500 MG VIAL 500 MG in D5W 250 ML IV 250 ML IV SCH (09:49)
[2019-01-29] MEDS: ESTRACE PO SCH (09:51)
[2019-01-29] MEDS: PEPCID 20 MG IV PREMIX* 20 MG/50 ML BAG IV SCH ×2 (09:52→21:04)
[2019-01-29] MEDS: FOLIC ACID TAB 1 MG PO SCH (09:52)
[2019-01-29] MEDS: XANAX PO SCH ×2 (09:53→21:10)
[2019-01-29] MEDS: VSL#3 PO SCH (09:54)
[2019-01-29] MEDS ORDERED: ZESTRIL TAB 20 MG ONE ×3 (10:35→20:30)
--- NOTE | 2019-01-29 10:35 | PCM.PROG ---
Progress Note Progress Note for Day of Date of Exam: 01/29/19 Subjective Subjective: Patient seen this AM, reports diarrhea has slowed down, had one BM overnight. She still has mid epigastric pain, worse with food yesterday. Denies nausea or vomiting. Her BP was elevated this AM. K:3.1 M.6 Past Medical Family Social History Past Med/Fam/Surg Hx: No changes since H&P Allergies: Allergies No Known Drug Allergies Allergy (Verified 08/22/17 12:25) Review of Systems ROS: No change since H&P Vital Signs and I&O's Vital Signs: Temperature 98.5 F Pulse Rate [Left] 73 Pulse Rate 105 Respiratory Rate 18 Blood Pressure [Right Arm] 139/77 Blood Pressure [Left Arm] 145/91 Blood Pressure 147/62 O2 Sat by Pulse Oximetry 99 Intake and Output: Intake & Output 01/26/19 01/27/19 01/28/19 01/29/19 23:59 23:59 23:59 23:59 Intake Total 3550 / 3550 4288 / 4288 820 / 820 Balance 3550 / 3550 4288 / 4288 820 / 820 Physical Exam Oriented: Normal Eyes: Normal Nose: Normal Throat: Normal Respiratory: Normal Cardiovascular: Normal Auscultation: Bowel Sounds: Normal and Increased Tenderness: Epigastric and Moderate Skin: Normal Musculoskeletal: Normal Psychiatric: Normal Mood Description: Calm Affect: Normal Speech Pattern: Clear and Appropriate Laboratory and Diagnostics Result Diagrams: 01/29/19 04:30 01/29/19 04:30 Labs: 01/26/19 23:30 Stool Stool Culture - Final 01/26/19 23:30 Stool - Final Laboratory WBC 8.6 X10^3/uL (3.6-10.0) 01/29/19 04:30 RBC 4.49 X10^6/uL (3.5-5.4) 01/29/19 04:30 Hgb 9.9 g/dL (12.0-16.0) L 01/29/19 04:30 Hct 32.2 % (36.0-47.0) L 01/29/19 04:30 MCV 71.6 fL (80.0-100.0) L 01/29/19 04:30 MCH 22.1 pg (27.0-34.0) L 01/29/19 04:30 MCHC 30.8 g/dL (33.0-35.0) L 01/29/19 04:30 RDW 15.8 % (11.6-16.5) 01/29/19 04:30 Plt Count 216 X10^3/uL (150.0-450.0) 01/29/19 04:30 Plt Count Comment Adequate (ADEQUATE) 01/29/19 04:30 MPV 9.7 fL (7.4-11.0) 01/29/19 04:30 Neut % (Auto) 59.9 % (42.0-75.0) 01/29/19 04:30 Lymph % (Auto) 29.4 % (21.0-51.0) 01/29/19 04:30 [place] % (Auto) 7.7 % (0.0-13.0) 01/29/19 04:30 Eos % (Auto) 2.5 % (0.9-2.9) 01/29/19 04:30 Baso % (Auto) 0.5 % (0.2-1.0) 01/29/19 04:30 Neut # (Auto) 5.1 x10^3/uL (2.2-4.8) H 01/29/19 04:30 Lymph # (Auto) 2.5 X10^3/uL (1.3-2.9) 01/29/19 04:30 [place] # (Auto) 0.7 x10^3/uL (0.3-0.8) 01/29/19 04:30 Eos # (Auto) 0.2 x10^3/uL (0.0-0.2) 01/29/19 04:30 Baso # (Auto) 0.0 X10^3/uL (0.0-0.1) 01/29/19 04:30 Absolute Nucleated RBC 0.0 /100WBC 01/29/19 04:30 Plt Morphology Comment Normal (NORMAL) 01/29/19 04:30 RBC Morphology Abnormal (NORMAL) A 01/29/19 04:30 Hypochromasia 1+ A 01/29/19 04:30 Microcytosis Slight A 01/29/19 04:30 Target Cells Present 01/29/19 04:30 Sodium 143 mmol/L (136-145) 01/29/19 04:30 Corrected Sodium TNP 01/29/19 04:30 Potassium 3.1 mmol/L (3.5-5.1) L 01/29/19 04:30 Chloride 107 mmol/L (98-107) 01/29/19 04:30 Carbon Dioxide 23.3 mmol/L (21-32) 01/29/19 04:30 BUN 11 mg/dL (7-18) 01/29/19 04:30 Creatinine 0.82 mg/dL (0.55-1.02) 01/29/19 04:30 Est GFR (MDRD) Af Amer > 60 (>60) 01/29/19 04:30 Est GFR (MDRD) Non-Af > 60 (>60) 01/29/19 04:30 Glucose 101 mg/dL (65-99) H 01/29/19 04:30 Calcium 9.0 mg/dL (8.5-10.1) 01/29/19 04:30 Corrected Calcium 9.8 mg/dL (8.5-10.1) 01/29/19 04:30 Magnesium 1.6 mg/dL (1.7-2.9) L 01/29/19 04:30 Magnesium 1.6 mg/dL (1.7-2.9) L 01/29/19 04:30 Iron 27 ug/dL (50-175) L 01/27/19 05:20 Transferrin 229 mg/dL (202-364) 01/27/19 05:20 Ferritin 77 ng/mL (8-252) 01/27/19 05:20 Total Bilirubin 0.20 mg/dL (0.2-1.0) 01/29/19 04:30 AST 14 Units/L (15-37) L 01/29/19 04:30 ALT 13 Units/L (12-78) 01/29/19 04:30 Alkaline Phosphatase 83 Units/L (46-116) 01/29/19 04:30 Total Protein 6.6 g/dL (6.4-8.2) 01/29/19 04:30 Albumin 3.0 g/dL (3.4-5.0) L 01/29/19 04:30 Globulin 3.6 g/dL (2.5-4.5) 01/29/19 04:30 Albumin/Globulin Ratio 0.8 Ratio (1.1-2.1) L 01/29/19 04:30 Amylase 73 Units/L (25-115) 01/27/19 05:20 Lipase 75 Units/L (73-393) 01/27/19 05:20 Vitamin B12 767 pg/mL (193-986) 01/27/19 05:20 Folate 14.8 ng/mL (>8.6) 01/27/19 05:20 Specimen Type Clean catch urine 01/26/19 23:30 Urine Color Yellow (YELLOW) 01/26/19 23:30 Urine Appearance Slightly hazy (CLEAR) 01/26/19 23:30 Urine pH 5.0 (5.0 - 8.0) 01/26/19 23:30 Ur Specific [place] 1.015 (1.000-1.030) 01/26/19 23:30 Urine Protein 2+ (NEGATIVE) 01/26/19 23:30 Urine Glucose (UA) Negative (NEGATIVE) 01/26/19 23: Urine Ketones Negative (NEGATIVE) 01/26/19 23:30 Urine Occult Blood 3+ (NEGATIVE) 01/26/19 23:30 Urine Nitrite Negative (NEGATIVE) 01/26/19 23:30 Urine Bilirubin Negative (NEGATIVE) 01/26/19 23: Urine Urobilinogen Normal (NORMAL) 01/26/19 23:30 Ur Leukocyte Esterase 2+ (NEGATIVE) 01/26/19 23:30 Urine RBC 0-2 /HPF (0-3) 01/26/19 23:30 Urine WBC 0-2 /HPF (0-5) 01/26/19 23:30 Ur Squamous Epith Cells Moderate /HPF (NEGATIVE) 01/26/19 23:30 Urine Bacteria Negative /HPF (NEGATIVE) 01/26/19 23:30 Hyaline Casts Few /LPF (NEGATIVE) 01/26/19 23:30 Granular Casts Moderate /LPF (NEGATIVE) 01/26/19 23:30 Ur Culture Indicated? No/not indicated 01/26/19 23:30 Stool Description See comment 01/26/19 23:30 Stool Description See comment 01/26/19 23:30 Stl Occult Blood (IFOB) Positive (NEGATIVE) A 01/26/19 23: Stool for White Cells Positive (NEGATIVE) A 01/26/19 23:30 Stl C. diff Tox B Gene Positive (NEGATIVE) A 01/26/19 23:30 Stl C. diff 027-NAP1-BI Negative (NEGATIVE) 01/26/19 23:30 Stool H. pylori Ag Negative (NEGATIVE) 01/26/19 23:30 C. difficile Toxin A&B Negative (NEGATIVE) 01/26/19 23:30 Cryptosporid parvum Ag Negative (NEGATIVE) 01/26/19 23:30 Giardia lamblia Ag Negative (NEGATIVE) 01/26/19 23:30 Plan (1) C. difficile enteritis: Status: Acute Plan: presenting with multiple episodes of diarrhea, abdominal pain C.diff antigen positive, Continue oral Vancomycin, continue Flagyl for severe C .diff due to renal failure and elevated WBC > 20 on admission. WBC normal, diarrhea slowly improving. (2) Campylobacter enteritis: Status: Acute Plan: Stool culture: campy positive, switch to PO azithromycin 500 mg x 2 more days (3) Hypokalemia: Status: Acute Plan: replace as per protocol (4) Acute renal failure (ARF): Status: Acute Qualifiers: Acute renal failure type: unspecified Qualified Code(s): N17.9 - Acute kidney failure, unspecified Plan: Cr on admission 5.0, back to normal today, pre-renal. Stop IVF. Follow AM labs. Recent renal U/S: negative (5) Epigastric pain: Status: Acute Plan: Diffuse epigastric pain, RUQ pain. CT shows enterocolitis, dilated CBD, normal LFTs. GB U/S: negative for CBD stones or acute cholecystitis. Abdominal pain mostly upper epigastric region, Could be gastritis, will change Pepcid to BID, add Carafate. Start full liquid diet. (6) Dehydration: Status: Acute Plan: Resolved (7) Hypotension: Status: Acute Qualifiers: Hypotension type: hypotension due to hypovolemia Qualified Code(s): I95.89 - Other hypotension; E86.1 - Hypovolemia Plan: SBP on admission 80s, Resolved. Resume Lisinopril 20 mg BID (8) Microcytic anemia: Status: Acute Plan: Hgb: 9.9, MCV<80. Hgb stable, Monitor AM labs. FOBT Positive. Low iron, continue iron supplements. No prior EGD/colonoscopy. Will need outpatient follow up once clear from infection. (9) Back pain at L4-L5 level: Status: Acute Plan: continue home [place] prn (10) Hypomagnesemia: Status: Acute Plan: M.6, replace as per protocol
[2019-01-29] MEDS: ZESTRIL TAB 20 MG PO SCH ×2 (11:54→21:13)
[2019-01-29] MEDS: CARAFATE ORAL SUSP PO SCH ×2 (11:55→21:09)
[2019-01-29] MEDS: FERROUS GLUCONATE PO SCH (17:12)
[2019-01-29] MEDS: ZOFRAN INJ 4 MG VIAL IVP PRN (17:12)
[2019-01-29] MEDS: AMBIEN PO SCH (21:13)
[2019-01-30] MEDS: VANCOMYCIN HCL PO SCH ×4 (03:05→20:50)
[2019-01-30] MEDS: FLAGYL IV PREMIX 500 MG BAG 500 MG/100 ML BAG IV SCH ×4 (03:09→20:46)
[2019-01-30 04:58] LABS: BASOPHILS # (AUTO) 0.1 X10^3/uL (0.0-0.1); BASOPHILS % (AUTO) 1.2 % (0.2-1.0); EOSINOPHILS # (AUTO) 0.2 x10^3/uL (0.0-0.2); EOSINOPHILS % (AUTO) 2.8 % (0.9-2.9); HEMATOCRIT 31.2 % (36.0-47.0); HEMOGLOBIN 9.8 g/dL (12.0-16.0); LYMPHOCYTES # (AUTO) 2.5 X10^3/uL (1.3-2.9); MEAN CORPUSCULAR HEMOGLOBIN 22.5 pg (27.0-34.0); MEAN CORPUSCULAR HGB CONC 31.5 g/dL (33.0-35.0); MEAN CORPUSCULAR VOLUME 71.5 fL (80.0-100.0); MEAN PLATELET VOLUME 9.5 fL (7.4-11.0); MONOCYTES # (AUTO) 0.6 x10^3/uL (0.3-0.8); MONOCYTES % (AUTO) 9.2 % (0.0-13.0); NEUTROPHILS # (AUTO) 3.5 x10^3/uL (2.2-4.8); NEUTROPHILS % (AUTO) 50.8 % (42.0-75.0); PLATELET COUNT 225 X10^3/uL (150.0-450.0); RED BLOOD COUNT 4.36 X10^6/uL (3.5-5.4); RED CELL DISTRIBUTION WIDTH 15.5 % (11.6-16.5); WHITE BLOOD COUNT 6.9 X10^3/uL (3.6-10.0)
[2019-01-30 05:04] LABS: ALANINE AMINOTRANSFERASE 11 Units/L (12-78); ALBUMIN 2.8 g/dL (3.4-5.0); ALKALINE PHOSPHATASE 80 Units/L (46-116); ASPARTATE AMINO TRANSFERASE 13 Units/L (15-37); BLOOD UREA NITROGEN 5 mg/dL (7-18); CARBON DIOXIDE 24.7 mmol/L (21-32); CHLORIDE 107 mmol/L (98-107); CREATININE 0.67 mg/dL (0.55-1.02); MAGNESIUM 1.7 mg/dL (1.7-2.9); SODIUM 142 mmol/L (136-145); TOTAL PROTEIN 6.4 g/dL (6.4-8.2); eGFR NON BLACK RACES > 60 (>60)
[2019-01-30 05:25] LABS: HYPOCHROMASIA 1+; MICROCYTOSIS 1+; PLATELET MORPHOLOGY COMMENT NORMAL (NORMAL); TARGET CELLS PRESENT
[2019-01-30] MEDS: MAGNESIUM SULFATE 1 GRAM/100 mL PREMIX 1 GM/100 ML BAG IV PRN ×2 (06:00→09:02)
[2019-01-30] MEDS: NEURONTIN CAP 300 MG PO SCH ×3 (06:00→21:00)
[2019-01-30] MEDS ORDERED: ZESTRIL TAB 20 MG ONE (08:39)
[2019-01-30] MEDS: PEPCID 20 MG IV PREMIX* 20 MG/50 ML BAG IV SCH ×2 (08:58→20:47)
[2019-01-30] MEDS: ZITHROMAX TAB 250 MG PO SCH (08:58)
[2019-01-30] MEDS: FOLIC ACID TAB 1 MG PO SCH (08:58)
[2019-01-30] MEDS: ZESTRIL TAB 20 MG PO SCH (08:58)
[2019-01-30] MEDS: NORCO 10/325 TAB PO PRN ×4 (08:59→22:03)
[2019-01-30] MEDS: XANAX PO SCH ×2 (08:59→20:51)
[2019-01-30] MEDS: VSL#3 PO SCH (08:59)
[2019-01-30] MEDS: ESTRACE PO SCH (08:59)
[2019-01-30] MEDS: CARAFATE ORAL SUSP PO SCH ×2 (09:00→20:49)
--- NOTE | 2019-01-30 10:40 | PCM.PROG ---
Progress Note Progress Note for Day of Date of Exam: 01/30/19 Subjective Subjective: Patient seen this Am, reports feeling better. Only had 2 episodes of diarrhea yesterday. Tolerated full liquid diet well. She reports significant improvement in abdominal pain today. Denies N/V, no fever or chills. Past Medical Family Social History Past Med/Fam/Surg Hx: No changes since H&P Allergies: Allergies No Known Drug Allergies Allergy (Verified 08/22/17 12:25) Review of Systems ROS: No change since H&P Vital Signs and I&O's Vital Signs: Temperature 98.3 F Pulse Rate [Left] 61 Pulse Rate 105 Respiratory Rate 20 Blood Pressure [Right Arm] 139/77 Blood Pressure [Left Arm] 110/60 Blood Pressure 147/62 O2 Sat by Pulse Oximetry 99 Intake and Output: Intake & Output 01/27/19 01/28/19 01/29/19 01/30/19 23:59 23:59 23:59 23:59 Intake Total 3550 / 3550 4288 / 4288 3439 / 3439 220 / 220 Balance 3550 / 3550 4288 / 4288 3439 / 3439 220 / 220 Physical Exam Oriented: Normal Eyes: Normal Nose: Normal Throat: Normal Respiratory: Normal Cardiovascular: Normal Auscultation: Bowel Sounds: Normal Tenderness: Normal Skin: Normal Musculoskeletal: Normal Psychiatric: Normal Mood Description: Calm Affect: Normal Speech Pattern: Clear and Appropriate Laboratory and Diagnostics Result Diagrams: 01/30/19 04:10 01/30/19 04:10 Labs: 01/26/19 23:30 Stool Stool Culture - Final 01/26/19 23:30 Stool - Final Laboratory WBC 6.9 X10^3/uL (3.6-10.0) 01/30/19 04:10 RBC 4.36 X10^6/uL (3.5-5.4) 01/30/19 04:10 Hgb 9.8 g/dL (12.0-16.0) L 01/30/19 04:10 Hct 31.2 % (36.0-47.0) L 01/30/19 04:10 MCV 71.5 fL (80.0-100.0) L 01/30/19 04:10 MCH 22.5 pg (27.0-34.0) L 01/30/19 04:10 MCHC 31.5 g/dL (33.0-35.0) L 01/30/19 04:10 RDW 15.5 % (11.6-16.5) 01/30/19 04:10 Plt Count 225 X10^3/uL (150.0-450.0) 01/30/19 04:10 Plt Count Comment Adequate (ADEQUATE) 01/30/19 04:10 MPV 9.5 fL (7.4-11.0) 01/30/19 04:10 Neut % (Auto) 50.8 % (42.0-75.0) 01/30/19 04:10 Lymph % (Auto) 36.0 % (21.0-51.0) 01/30/19 04:10 [place] % (Auto) 9.2 % (0.0-13.0) 01/30/19 04:10 Eos % (Auto) 2.8 % (0.9-2.9) 01/30/19 04:10 Baso % (Auto) 1.2 % (0.2-1.0) H 01/30/19 04:10 Neut # (Auto) 3.5 x10^3/uL (2.2-4.8) 01/30/19 04:10 Lymph # (Auto) 2.5 X10^3/uL (1.3-2.9) 01/30/19 04:10 [place] # (Auto) 0.6 x10^3/uL (0.3-0.8) 01/30/19 04:10 Eos # (Auto) 0.2 x10^3/uL (0.0-0.2) 01/30/19 04:10 Baso # (Auto) 0.1 X10^3/uL (0.0-0.1) 01/30/19 04:10 Absolute Nucleated RBC 0.0 /100WBC 01/30/19 04:10 Plt Morphology Comment Normal (NORMAL) 01/30/19 04:10 RBC Morphology Abnormal (NORMAL) A 01/30/19 04:10 Hypochromasia 1+ A 01/30/19 04:10 Microcytosis 1+ A 01/30/19 04:10 Target Cells Present 01/30/19 04:10 Sodium 142 mmol/L (136-145) 01/30/19 04:10 Corrected Sodium TNP 01/30/19 04:10 Potassium 3.4 mmol/L (3.5-5.1) L 01/30/19 04:10 Chloride 107 mmol/L (98-107) 01/30/19 04:10 Carbon Dioxide 24.7 mmol/L (21-32) 01/30/19 04:10 BUN 5 mg/dL (7-18) L 01/30/19 04:10 Creatinine 0.67 mg/dL (0.55-1.02) 01/30/19 04:10 Est GFR (MDRD) Af Amer > 60 (>60) 01/30/19 04:10 Est GFR (MDRD) Non-Af > 60 (>60) 01/30/19 04:10 Glucose 95 mg/dL (65-99) 01/30/19 04:10 Calcium 9.0 mg/dL (8.5-10.1) 01/30/19 04:10 Corrected Calcium 10.0 mg/dL (8.5-10.1) 01/30/19 04:10 Magnesium 1.7 mg/dL (1.7-2.9) 01/30/19 04:10 Iron 27 ug/dL (50-175) L 01/27/19 05:20 Transferrin 229 mg/dL (202-364) 01/27/19 05:20 Ferritin 77 ng/mL (8-252) 01/27/19 05:20 Total Bilirubin 0.20 mg/dL (0.2-1.0) 01/30/19 04:10 AST 13 Units/L (15-37) L 01/30/19 04:10 ALT 11 Units/L (12-78) L 01/30/19 04:10 Alkaline Phosphatase 80 Units/L (46-116) 01/30/19 04:10 Total Protein 6.4 g/dL (6.4-8.2) 01/30/19 04:10 Albumin 2.8 g/dL (3.4-5.0) L 01/30/19 04:10 Globulin 3.6 g/dL (2.5-4.5) 01/30/19 04:10 Albumin/Globulin Ratio 0.8 Ratio (1.1-2.1) L 01/30/19 04:10 Amylase 73 Units/L (25-115) 01/27/19 05:20 Lipase 75 Units/L (73-393) 01/27/19 05:20 Vitamin B12 767 pg/mL (193-986) 01/27/19 05:20 Folate 14.8 ng/mL (>8.6) 01/27/19 05:20 Specimen Type Clean catch urine 01/26/19 23:30 Urine Color Yellow (YELLOW) 01/26/19 23:30 Urine Appearance Slightly hazy (CLEAR) 01/26/19 23:30 Urine pH 5.0 (5.0 - 8.0) 01/26/19 23:30 Ur Specific [place] 1.015 (1.000-1.030) 01/26/19 23:30 Urine Protein 2+ (NEGATIVE) 01/26/19 23:30 Urine Glucose (UA) Negative (NEGATIVE) 01/26/19 23:30 Urine Ketones Negative (NEGATIVE) 01/26/19 23:30 Urine Occult Blood 3+ (NEGATIVE) 01/26/19 23:30 Urine Nitrite Negative (NEGATIVE) 01/26/19 23:30 Urine Bilirubin Negative (NEGATIVE) 01/26/19 23:30 Urine Urobilinogen Normal (NORMAL) 01/26/19 23:30 Ur Leukocyte Esterase 2+ (NEGATIVE) 01/26/19 23:30 Urine RBC 0-2 /HPF (0-3) 01/26/19 23:30 Urine WBC 0-2 /HPF (0-5) 01/26/19 23:30 Ur Squamous Epith Cells Moderate /HPF (NEGATIVE) 01/26/19 23:30 Urine Bacteria Negative /HPF (NEGATIVE) 01/26/19 23:30 Hyaline Casts Few /LPF (NEGATIVE) 01/26/19 23:30 Granular Casts Moderate /LPF (NEGATIVE) 01/26/19 23:30 Ur Culture Indicated? No/not indicated 01/26/19 23:30 Stool Description See comment 01/26/19 23:30 Stool Description See comment 01/26/19 23:30 Stl Occult Blood (IFOB) Positive (NEGATIVE) A 01/26/19 23:30 Stool for White Cells Positive (NEGATIVE) A 01/26/19 23:30 Stl C. diff Tox B Gene Positive (NEGATIVE) A 01/26/19 23:30 Stl C. diff 027-NAP1-BI Negative (NEGATIVE) 01/26/19 23:30 Stool H. pylori Ag Negative (NEGATIVE) 01/26/19 23:30 C. difficile Toxin A&B Negative (NEGATIVE) 01/26/19 23:30 Cryptosporid parvum Ag Negative (NEGATIVE) 01/26/19 23:30 Giardia lamblia Ag Negative (NEGATIVE) 01/26/19 23:30 Plan (1) C. difficile enteritis: Status: Acute Plan: presenting with multiple episodes of diarrhea, abdominal pain C.diff antigen positive, Continue oral Vancomycin, continue Flagyl for severe C.diff WBC normal, diarrhea almost resolved. (2) Campylobacter enteritis: Status: Acute Plan: Stool culture: campy positive, PO azithromycin 500 mg (3) Hypokalemia: Status: Acute Plan: replace as per protocol (4) Acute renal failure (ARF): Status: Acute Qualifiers: Acute renal failure type: unspecified Qualified Code(s): N17.9 - Acute kidney failure, unspecified Plan: Cr on admission 5.0, back to normal, pre-renal. Follow AM labs. Recent renal U/S: negative (5) Epigastric pain: Status: Acute Plan: Diffuse epigastric pain, RUQ pain. CT shows enterocolitis, dilated CBD, normal LFTs. GB U/S: negative for CBD stones or acute cholecystitis. Likely Gastritis, improved with changing Pepcid to BID and addition of Carafate. Advance to cardiac diet today. (6) Dehydration: Status: Acute Plan: Resolved (7) Hypotension: Status: Acute Qualifiers: Hypotension type: hypotension due to hypovolemia Qualified Code(s): I95.89 - Other hypotension; E86.1 - Hypovolemia Plan: SBP on admission 80s, Resolved. BP in low 100s, will change lisinopril to 20 mg qday (8) Microcytic anemia: Status: Acute Plan: Hgb: 9.8, MCV<80. Hgb stable, Monitor AM labs. FOBT Positive. Low iron, continue iron supplements. No prior EGD/colonoscopy. Will need outpatient follow up once clear from infection. (9) Back pain at L4-L5 level: Status: Acute Plan: continue home [place] prn (10) Hypomagnesemia: Status: Acute Plan: M.7, replace as per protocol
[2019-01-30] MEDS: K-DUR TAB 20 MEQ PO PRN (14:42)
[2019-01-30] MEDS: FERROUS GLUCONATE PO SCH (18:00)
[2019-01-30] MEDS: SOMA TAB 350 MG PO PRN ×2 (18:03→22:04)
[2019-01-30] MEDS: AMBIEN PO SCH (20:50)
[2019-01-31] MEDS: FLAGYL IV PREMIX 500 MG BAG 500 MG/100 ML BAG IV SCH ×2 (03:10→08:26)
[2019-01-31] MEDS: VANCOMYCIN HCL PO SCH ×2 (03:15→08:26)
[2019-01-31] MEDS: NORCO 10/325 TAB PO PRN ×2 (04:27→08:27)
[2019-01-31 05:18] LABS: BASOPHILS # (AUTO) 0.1 X10^3/uL (0.0-0.1); BASOPHILS % (AUTO) 0.7 % (0.2-1.0); EOSINOPHILS # (AUTO) 0.3 x10^3/uL (0.0-0.2); EOSINOPHILS % (AUTO) 3.7 % (0.9-2.9); HEMATOCRIT 34.6 % (36.0-47.0); HEMOGLOBIN 10.8 g/dL (12.0-16.0); MEAN CORPUSCULAR HEMOGLOBIN 22.2 pg (27.0-34.0); MEAN CORPUSCULAR HGB CONC 31.2 g/dL (33.0-35.0); MEAN CORPUSCULAR VOLUME 71.2 fL (80.0-100.0); MEAN PLATELET VOLUME 9.8 fL (7.4-11.0); MONOCYTES # (AUTO) 0.7 x10^3/uL (0.3-0.8); MONOCYTES % (AUTO) 7.6 % (0.0-13.0); NEUTROPHILS # (AUTO) 4.9 x10^3/uL (2.2-4.8); PLATELET COUNT 260 X10^3/uL (150.0-450.0); RED BLOOD COUNT 4.86 X10^6/uL (3.5-5.4); RED CELL DISTRIBUTION WIDTH 15.3 % (11.6-16.5)
[2019-01-31] MEDS: NEURONTIN CAP 300 MG PO SCH (05:25)
[2019-01-31 05:27] LABS: ALANINE AMINOTRANSFERASE 12 Units/L (12-78); ALBUMIN 3.3 g/dL (3.4-5.0); ALKALINE PHOSPHATASE 91 Units/L (46-116); ASPARTATE AMINO TRANSFERASE 13 Units/L (15-37); BLOOD UREA NITROGEN 7 mg/dL (7-18); CALCIUM 9.3 mg/dL (8.5-10.1); CARBON DIOXIDE 25.7 mmol/L (21-32); CHLORIDE 105 mmol/L (98-107); COR CA(FOR HYPOALB) 9.9 mg/dL (8.5-10.1); CREATININE 0.74 mg/dL (0.55-1.02); MAGNESIUM 1.7 mg/dL (1.7-2.9); SODIUM 141 mmol/L (136-145); TOTAL PROTEIN 7.2 g/dL (6.4-8.2); eGFR NON BLACK RACES > 60 (>60)
[2019-01-31 05:34] LABS: HYPOCHROMASIA 1+; MICROCYTOSIS 1+; PLATELET MORPHOLOGY COMMENT NORMAL (NORMAL); TARGET CELLS PRESENT
[2019-01-31] MEDS: MAGNESIUM SULFATE 1 GRAM/100 mL PREMIX 1 GM/100 ML BAG IV PRN ×2 (06:40→08:30)
[2019-01-31] MEDS ORDERED: ZESTRIL TAB 20 MG ONE (07:40)
[2019-01-31] MEDS: ZESTRIL TAB 20 MG PO SCH (08:26)
[2019-01-31] MEDS: FOLIC ACID TAB 1 MG PO SCH (08:26)
[2019-01-31] MEDS: CARAFATE ORAL SUSP PO SCH (08:26)
[2019-01-31] MEDS: PEPCID 20 MG IV PREMIX* 20 MG/50 ML BAG IV SCH (08:26)
[2019-01-31] MEDS: ZITHROMAX TAB 250 MG PO SCH (08:26)
[2019-01-31] MEDS: SOMA TAB 350 MG PO PRN (08:27)
[2019-01-31] MEDS: BENTYL CAP 10 MG PO PRN (08:27)
[2019-01-31] MEDS: POTASSIUM CHLORIDE LIQ 20 MEQ UDC PO PRN (08:27)
[2019-01-31] MEDS: VSL#3 PO SCH (08:28)
[2019-01-31] MEDS: ESTRACE PO SCH (08:28)
[2019-01-31] MEDS: XANAX PO SCH (08:28)
[2019-01-31 09:03] VITALS: BP 145/85
--- NOTE | 2019-01-31 11:10 | W.DIS.FURT ---
Summary of Discharge Discharge Summary of Date Date of Exam: 01/31/19 Admission Date Date of Admission: 01/26/19 Admission Diagnosis Patient Problems (Updated 01/31/19 @ 11:12 by Agnes Page) Gastritis (Acute) K29.70 Blood in stool (Acute) K92.1 Hypokalemia (Acute) E87.6 Hypomagnesemia (Acute) E83.42 Microcytic anemia (Acute) D50.9 C. difficile enteritis (Acute) A04.72 Campylobacter enteritis (Acute) A04.5 Hypotension (Acute) I95.9 Hospital Course: Ms. Montgomery is a 58y/o female presented with generalied weakness, dizziness, abdominal pain and diarrhea. She was noted to be hypotensive, SBP in 70s on admission. She recieved multiple boluses of IVF to stablize her blood pressure. Stool studies were collected and CTAP was done which showed diffuse colitis. C.diff and campylobacter came back positive along with FOBT positive for blood. She was started on IV Flagyl and oral Vancomycin due to WBC > 20 and acute renal failure. She was also started on Azithromycin for Camylobacter. Her labs and e lectrolyes were monitored closely daily. Her Creatinine normalized with fluids. Potassium and magnesium were replaced as needed. She was also having RUQ pain on admission, gall bladder U/S was done which was negative for acute cholecystitis. Her diet was advanced as tolerated. She had some intermittent epigastric pain which resolved with pepcid and carafate suggeting gastritis. Patient stable for discharge. She will continue oral vancomycin for 5 more days along with probiotics. She will also continue iron supplements. Her blood pressure medications were also adjusted, lisinopril 20 mg qday. She will need follow up with GI for EGD/Colonoscopy. She will follow up with PCP within one week. Vital Signs: Vital Signs (72 hours) 01/28/19 12:00 01/28/19 14:18 01/28/19 15:18 Temperature 98.3 F Pulse Rate [Left] 76 Pulse Rate [Right Brachial] Respiratory Rate 20 18 18 Blood Pressure [Left Arm] 116/73 Blood Pressure [Right Arm] O2 Sat by Pulse Oximetry 98 01/28/19 16:00 01/28/19 20:00 01/28/19 20:36 Temperature 99.1 F 98.9 F Pulse Rate [Left] 84 86 Pulse Rate [Right Brachial] Respiratory Rate 20 22 18 Blood Pressure [Left Arm] 127/84 135/89 Blood Pressure [Right Arm] O2 Sat by Pulse Oximetry 100 99 01/28/19 21:36 01/28/19 23:49 01/29/19 02:12 Temperature 98.6 F Pulse Rate [Left] 81 Pulse Rate [Right Brachial] Respiratory Rate 18 24 18 Blood Pressure [Left Arm] 144/82 Blood Pressure [Right Arm] O2 Sat by Pulse Oximetry 100 01/29/19 03:12 01/29/19 03:38 01/29/19 05:59 Temperature 98.5 F Pulse Rate [Left] 73 Pulse Rate [Right Brachial] Respiratory Rate 18 22 18 Blood Pressure [Left Arm] 145/91 Blood Pressure [Right Arm] O2 Sat by Pulse Oximetry 99 01/29/19 06:59 01/29/19 08:00 01/29/19 12:00 Temperature 99 F 98 F Pulse Rate [Left] 86 80 Pulse Rate [Right Brachial] Respiratory Rate 18 18 18 Blood Pressure [Left Arm] 140/89 165/94 Blood Pressure [Right Arm] O2 Sat by Pulse Oximetry 98 97 01/29/19 14:43 01/29/19 15:43 01/29/19 16:00 Temperature 98.7 F Pulse Rate [Left] 80 Pulse Rate [Right Brachial] Respiratory Rate 18 20 20 Blood Pressure [Left Arm] 135/80 Blood Pressure [Right Arm] O2 Sat by Pulse Oximetry 97 01/29/19 19:24 01/29/19 20:00 01/29/19 20:24 Temperature 98.6 F Pulse Rate [Left] 76 Pulse Rate [Right Brachial] Respiratory Rate 20 20 20 Blood Pressure [Left Arm] 176/81 Blood Pressure [Right Arm] O2 Sat by Pulse Oximetry 100 01/30/19 00:00 01/30/19 04:00 01/30/19 08:00 Temperature 98.6 F 98.3 F 99.1 F Pulse Rate [Left] 76 61 Pulse Rate [Right Brachial] 81 Respiratory Rate 20 20 22 Blood Pressure [Left Arm] 107/56 110/60 Blood Pressure [Right Arm] 117/73 O2 Sat by Pulse Oximetry 98 99 99 01/30/19 08:59 01/30/19 09:59 01/30/19 12:00 Temperature 98.5 F Pulse Rate [Left] Pulse Rate [Right Brachial] 67 Respiratory Rate 20 22 22 Blood Pressure [Left Arm] Blood Pressure [Right Arm] 122/59 O2 Sat by Pulse Oximetry 95 01/30/19 13:19 01/30/19 14:19 01/30/19 16:00 Temperature 98.6 F Pulse Rate [Left] Pulse Rate [Right Brachial] 69 Respiratory Rate 22 20 20 Blood Pressure [Left Arm] Blood Pressure [Right Arm] 114/73 O2 Sat by Pulse Oximetry 98 01/30/19 18:00 01/30/19 19:00 01/30/19 20:00 Temperature 98.4 F Pulse Rate [Left] Pulse Rate [Right Brachial] 78 Respiratory Rate 20 20 20 Blood Pressure [Left Arm] Blood Pressure [Right Arm] 120/72 O2 Sat by Pulse Oximetry 98 01/30/19 22:03 01/30/19 23:03 01/31/19 00:00 Temperature 99 F Pulse Rate [Left] Pulse Rate [Right Brachial] 84 Respiratory Rate 20 20 20 Blood Pressure [Left Arm] Blood Pressure [Right Arm] 141/85 O2 Sat by Pulse Oximetry 99 01/31/19 04:00 01/31/19 04:27 01/31/19 05:27 Temperature 99.1 F Pulse Rate [Left] Pulse Rate [Right Brachial] 72 Respiratory Rate 20 20 20 Blood Pressure [Left Arm] Blood Pressure [Right Arm] 117/79 O2 Sat by Pulse Oximetry 100 01/31/19 08:00 01/31/19 08:27 01/31/19 09:27 Temperature 98.4 F Pulse Rate [Left] 79 Pulse Rate [Right Brachial] Respiratory Rate 18 20 20 Blood Pressure [Left Arm] 145/85 Blood Pressure [Right Arm] O2 Sat by Pulse Oximetry 100 Labs: Laboratory Last Values WBC 9.0 X10^3/uL (3.6-10.0) 01/31/19 04:28 RBC 4.86 X10^6/uL (3.5-5.4) 01/31/19 04:28 Hgb 10.8 g/dL (12.0-16.0) L 01/31/19 04:28 Hct 34.6 % (36.0-47.0) L 01/31/19 04:28 MCV 71.2 fL (80.0-100.0) L 01/31/19 04:28 MCH 22.2 pg (27.0-34.0) L 01/31/19 04:28 MCHC 31.2 g/dL (33.0-35.0) L 01/31/19 04:28 RDW 15.3 % (11.6-16.5) 01/31/19 04:28 Plt Count 260 X10^3/uL (150.0-450.0) 01/31/19 04:28 Plt Count Comment Adequate (ADEQUATE) 01/31/19 04:28 MPV 9.8 fL (7.4-11.0) 01/31/19 04: Neut % (Auto) 55.0 % (42.0-75.0) 01/31/19 04: Lymph % (Auto) 33.0 % (21.0-51.0) 01/31/19 04:28 [place] % (Auto) 7.6 % (0.0-13.0) 01/31/19 04:28 Eos % (Auto) 3.7 % (0.9-2.9) H 01/31/19 04:28 Baso % (Auto) 0.7 % (0.2-1.0) 01/31/19 04:28 Neut # (Auto) 4.9 x10^3/uL (2.2-4.8) H 01/31/19 04:28 Lymph # (Auto) 3.0 X10^3/uL (1.3-2.9) H 01/31/19 04:28 [place] # (Auto) 0.7 x10^3/uL (0.3-0.8) 01/31/19 04:28 Eos # (Auto) 0.3 x10^3/uL (0.0-0.2) H 01/31/19 04:28 Baso # (Auto) 0.1 X10^3/uL (0.0-0.1) 01/31/19 04:28 Absolute Nucleated RBC 0.2 /100WBC 01/31/19 04:28 Plt Morphology Comment Normal (NORMAL) 01/31/19 04:28 RBC Morphology Abnormal (NORMAL) A 01/31/19 04:28 Hypochromasia 1+ A 01/31/19 04:28 Microcytosis 1+ A 01/31/19 04:28 Target Cells Present 01/31/19 04:28 Sodium 141 mmol/L (136-145) 01/31/19 04:28 Corrected Sodium TNP 01/31/19 04:28 Potassium 4.4 mmol/L (3.5-5.1) 01/31/19 10:36 Chloride 105 mmol/L (98-107) 01/31/19 04:28 Carbon Dioxide 25.7 mmol/L (21-32) 01/31/19 04:28 BUN 7 mg/dL (7-18) 01/31/19 04:28 Creatinine 0.74 mg/dL (0.55-1.02) 01/31/19 04:28 Est GFR (MDRD) Af Amer > 60 (>60) 01/31/19 04:28 Est GFR (MDRD) Non-Af > 60 (>60) 01/31/19 04:28 Glucose 96 mg/dL (65-99) 01/31/19 04:28 Calcium 9.3 mg/dL (8.5-10.1) 01/31/19 04:28 Corrected Calcium 9.9 mg/dL (8.5-10.1) 01/31/19 04:28 Magnesium 1.7 mg/dL (1.7-2.9) 01/31/19 04:28 Iron 27 ug/dL (50-175) L 01/27/19 05:20 Transferrin 229 mg/dL (202-364) 01/27/19 05:20 Ferritin 77 ng/mL (8-252) 01/27/19 05:20 Total Bilirubin 0.20 mg/dL (0.2-1.0) 01/31/19 04:28 AST 13 Units/L (15-37) L 01/31/19 04:28 ALT 12 Units/L (12-78) 01/31/19 04:28 Alkaline Phosphatase 91 Units/L (46-116) 01/31/19 04:28 Total Protein 7.2 g/dL (6.4-8.2) 01/31/19 04:28 Albumin 3.3 g/dL (3.4-5.0) L 01/31/19 04:28 Globulin 3.9 g/dL (2.5-4.5) 01/31/19 04:28 Albumin/Globulin Ratio 0.8 Ratio (1.1-2.1) L 01/31/19 04:28 Amylase 73 Units/L (25-115) 01/27/19 05:20 Lipase 75 Units/L (73-393) 01/27/19 05:20 Vitamin B12 767 pg/mL (193-986) 01/27/19 05:20 Folate 14.8 ng/mL (>8.6) 01/27/19 05:20 Specimen Type Clean catch urine 01/26/19 23:30 Urine Color Yellow (YELLOW) 01/26/19 23:30 Urine Appearance Slightly hazy (CLEAR) 01/26/19 23:30 Urine pH 5.0 (5.0 - 8.0) 01/26/19 23:30 Ur Specific [place] 1.015 (1.000-1.030) 01/26/19 23:30 Urine Protein 2+ (NEGATIVE) 01/26/19 23:30 Urine Glucose (UA) Negative (NEGATIVE) 01/26/19 23:30 Urine Ketones Negative (NEGATIVE) 01/26/19 23:30 Urine Occult Blood 3+ (NEGATIVE) 01/26/19 23:30 Urine Nitrite Negative (NEGATIVE) 01/26/19 23:30 Urine Bilirubin Negative (NEGATIVE) 01/26/19 23:30 Urine Urobilinogen Normal (NORMAL) 01/26/19 23:30 Ur Leukocyte Esterase 2+ (NEGATIVE) 01/26/19 23:30 Urine RBC 0-2 /HPF (0-3) 01/26/19 23:30 Urine WBC 0-2 /HPF (0-5) 01/26/19 23:30 Ur Squamous Epith Cells Moderate /HPF (NEGATIVE) 01/26/19 23:30 Urine Bacteria Negative /HPF (NEGATIVE) 01/26/19 23:30 Hyaline Casts Few /LPF (NEGATIVE) 01/26/19 23:30 Granular Casts Moderate /LPF (NEGATIVE) 01/26/19 23:30 Ur Culture Indicated? No/not indicated 01/26/19 23:30 Stool Description See comment 01/26/19 23:30 Stool Description See comment 01/26/19 23:30 Stl Occult Blood (IFOB) Positive (NEGATIVE) A 01/26/19 23:30 Stool for White Cells Positive (NEGATIVE) A 01/26/19 23:30 Stl C. diff Tox B Gene Positive (NEGATIVE) A 01/26/19 23:30 Stl C. diff 027-NAP1-BI Negative (NEGATIVE) 01/26/19 23:30 Stool H. pylori Ag Negative (NEGATIVE) 01/26/19 23:30 C. difficile Toxin A&B Negative (NEGATIVE) 01/26/19 23:30 Cryptosporid parvum Ag Negative (NEGATIVE) 01/26/19 23:30 Giardia lamblia Ag Negative (NEGATIVE) 01/26/19 23:30 Reason For Visit: ARF,CDIFF/CAMPY,LEUKOCYTOSIS,HYPOTENISON Discharge Date Discharge Date: 01/31/19 Discharge Diagnosis All Active Problems (Updated 01/31/19 @ 11:12 by Agnes Page) Gastritis (Acute) Blood in stool (Acute) Hypokalemia (Acute) Hypomagnesemia (Acute) Microcytic anemia (Acute) C. difficile enteritis (Acute) Campylobacter enteritis (Acute) Hypotension (Acute) Carpal tunnel syndrome (Chronic) Anxiety (Chronic) Flank pain, chronic (Chronic) Hypertension (Chronic) Fibromyalgia (Chronic) Knee pain, left (Chronic) Myalgia (Chronic) Arthralgia (Chronic) Plan of Treatment: Continue with present treatment and follow up plan. Pt is to keep follow up appointment as instructed and take medications as ordered. Discharge Medications Discharge Medications: No Known Drug Allergies Allergy (Verified 08/22/17 12:25) New Prescriptions Lactobac #2-Bifido #1-S. therm [VSL#3] 1 cap PO DAILY 30 Days #30 cap 01/31/19 [Rx] famotidine 20 mg PO BID 30 Days #60 tab 01/31/19 [Rx] ferrous gluconate 324 mg PO DAILYPC 30 Days #30 tab 01/31/19 [Rx] lisinopril 20 mg PO DAILY 30 Days #30 tab 01/31/19 [Rx] sucralfate 1 g PO BID 30 Days #600 ml 01/31/19 [Rx] vancomycin 250 mg PO Q6HR 5 Days #20 cap 01/31/19 [Rx] Follow up and Referral Follow Up: 1 Week Discharge Disposition Discharge Disposition: Home
[2019-01-31] MEDS ORDERED: ZOFRAN TAB 4 MG SL ONE (11:42)
== END 2019-01-31 12:00 | disposition home or self-care (01) | DRG 371 ==
LOC: MED/SURG 18:42 → ER 18:42 → OBSVTOIN 01-27 01:39 → MED/SURG 01-27 02:14
PROVIDERS: ADMIT Internal Medicine; ATTEND Internal Medicine
DX: N17.9 Acute kidney failure, unspecified; K29.70 Gastritis, unspecified, without bleeding; R94.4 Abnormal results of kidney function studies; E86.1 Hypovolemia; A04.72 Enterocolitis due to Clostridium difficile, not specified as recurrent; E83.42 Hypomagnesemia; M54.5 Low back pain; K92.1 Melena; D50.8 Other iron deficiency anemias; I95.89 Other hypotension; K85.90 Acute pancreatitis without necrosis or infection, unspecified; R11.2 Nausea with vomiting, unspecified; R10.13 Epigastric pain; R53.1 Weakness; E86.0 Dehydration; R42 Dizziness and giddiness; R26.89 Other abnormalities of gait and mobility; E87.6 Hypokalemia; A04.5 Campylobacter enteritis
CPT/HCPCS: 36415; 74176; 76705; 80053; 81001; 82150; 82270; 82607; 82728; 82746; 83540; 83630; 83690; 83735; 84132; 84466; 85025; 87045; 87324; 87328; 87329; 87338; 87427; 87449; 87493; 87899; 96365; 96367; 96374; 97161; 97165; 99284; A4222; Q0144; S0028; S0030; J0456; J2270; J2405; J2543; J3475; J7030; J7050; J7060; S0119; S0181

== ENCOUNTER 2022-01-23 12:21 | Observation (INO) ==
[2022-01-23 12:34] VITALS: BMI 30.7
--- NOTE | 2022-01-23 12:57 | DR.GENAD ---
HPI Time Seen Time Seen by Provider: 01/23/22 12:56 PCP Primary Care Physician: AMY Complaint/Symptoms Chief Complaint Doctors Comments: 61 y/o female ill x 3 days. Having decreased PO intake , due to nausea and vomiting. Bowels have been loose. Denies abdominal pain. Has not been urinating as much. + generalized weakness. Had a near syncopal episode today with standing. Denies chest pain, diaphoresis, cough, dyspnea. Chief Complaint:: PT C/O DECREASED INTAKE, WEAKNESS, ANXIETY, AND NEAR SYNCOPAL EPISODE. PATIENT STATES SHE HAS BEEN FEELING THIS WAY FOR THE PAST 3 DAYS. COVID-19 Coronavirus risk:travel/contact w/high risk person: No Has patient experienced Coronavirus symptoms: No Nurses notes reviewed Nurses Notes Review: Yes Source History Provided: Patient and EMS Mode of Arrival Mode of Arrival: EMS Timing Onset of Chief Complaint: 01/20/22 PMH PMH Past Medical History: Yes Past Medical History: Anxiety, Arthritis, Depression and Hypertension Past Surgical History: Yes Surgical History: and 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 Family History History of Family Medical Conditions: Yes Family Medical History: Hypertension Social History Does patient currently use any type of tobacco product: No Does any household member use tobacco: No Alcohol Use: None Do you use any recreational Drugs:: No Lives With: Family Lives Where: Home Travel Risk Coronavirus risk:travel/contact w/high risk person: No Has patient experienced Coronavirus symptoms: No Infectious screening In the last 2 months have you had wt loss of >10#?: NO Have you had fever, night sweats or hemotysis?: No Have you traveled outside the country in the last 6 months?: No Isolation: Standard ROS Review of Systems Constitutional: Malaise, Weakness and Loss of Appetite Eyes: No Symptoms Reported ENTM: No Symptoms Reported Respiratoy: No Symptoms Reported Cardiovascular: Syncope Gastrointestinal/Abdominal: Diarrhea, Nausea and Vomiting Genitourinary: Other (decreased urination) Neurological: Weakness Musculoskeletal: No Symptoms Reported Integumentary: No Symptoms Reported Hematologic/Lymphatic: No Symptoms Reported Psychiatric: No Symptoms Reported All Other Systems: Reviewed and Negative PE Vital Signs Vitals: Temperature 98.2 F Pulse Rate 83 Respiratory Rate 20 Blood Pressure [Left Arm] 112/69 Blood Pressure 93/56 O2 Sat by Pulse Oximetry 96 General General Appearance: Alert, In No Apparent Distress and Other (appears weak) Eyes Eye exam: PERRL and EOMI COURSE Treatment Treatment: 61 y/o female ill x several days with N/V and decreased po intake. Had a near syncopal episode prior to arrival. W/u initiated. Given IV fluids, IV zofran. 1500 - Labs shows increased Cr - 3.3, was normal (0.6) few months ago. Pt with dehydration, near syncope. Will admit for further hydration. Discussed with Dr Pemberton, accepts the admission. ROR Labs Reviewed Laboratory Results Reviewed?: Yes Result Diagrams: 01/23/22 12:50 01/23/22 12:50 Laboratory: WBC 11.0 X10^3/uL (3.6-10.0) H 01/23/22 12:50 RBC 5.38 X10^6/uL (3.5-5.4) 01/23/22 12:50 Hgb 12.1 g/dL (12.0-16.0) 01/23/22 12:50 Hct 38.0 % (36.0-47.0) 01/23/22 12:50 MCV 70.7 fL (80.0-100.0) L 01/23/22 12:50 MCH 22.5 pg (27.0-34.0) L 01/23/22 12:50 MCHC 31.9 g/dL (33.0-35.0) L 01/23/22 12:50 RDW 15.2 % (11.6-16.5) 01/23/22 12:50 Plt Count 210 X10^3/uL (150.0-450.0) 01/23/22 12:50 Plt Count Comment Adequate (ADEQUATE) 01/23/22 12:50 MPV 9.5 fL (7.4-11.0) 01/23/22 12:50 Neut % (Auto) 62.1 % (42.0-75.0) 01/23/22 12:50 Lymph % (Auto) 20.9 % (21.0-51.0) L 01/23/22 12:50 [place] % (Auto) 15.7 % (0.0-13.0) H 01/23/22 12:50 Eos % (Auto) 0.9 % (0.9-2.9) 01/23/22 12:50 Baso % (Auto) 0.4 % (0.2-1.0) 01/23/22 12:50 Neut # (Auto) 6.8 x10^3/uL (2.2-4.8) H 01/23/22 12:50 Lymph # (Auto) 2.3 X10^3/uL (1.3-2.9) 01/23/22 12:50 [place] # (Auto) 1.7 x10^3/uL (0.3-0.8) H 01/23/22 12:50 Eos # (Auto) 0.1 x10^3/uL (0.0-0.2) 01/23/22 12:50 Baso # (Auto) 0.0 X10^3/uL (0.0-0.1) 01/23/22 12:50 Absolute Nucleated RBC 0.1 /100WBC 01/23/22 12:50 Plt Morphology Comment Normal (NORMAL) 01/23/22 12:50 RBC Morphology Abnormal (NORMAL) A 01/23/22 12:50 Hypochromasia 2+ A 01/23/22 12:50 Microcytosis Slight A 01/23/22 12:50 Target Cells Slight A 01/23/22 12:50 Stomatocytes Slight A 01/23/22 12:50 Sodium 135 mmol/L (136-145) L 01/23/22 12:50 Corrected Sodium TNP 01/23/22 12:50 Potassium 3.2 mmol/L (3.5-5.1) L 01/23/22 12:50 Chloride 99 mmol/L (98-107) 01/23/22 12:50 Carbon Dioxide 29.4 mmol/L (21-32) 01/23/22 12:50 BUN 30 mg/dL (7-18) H 01/23/22 12:50 Creatinine 3.22 mg/dL (0.55-1.02) H 01/23/22 12:50 Est GFR (MDRD) Af Amer 19 (>60) L 01/23/22 12:50 Est GFR (MDRD) Non-Af 15 (>60) L 01/23/22 12:50 Glucose 90 mg/dL (65-99) 01/23/22 12:50 Calcium 8.1 mg/dL (8.5-10.1) L 01/23/22 12:50 Corrected Calcium TNP 01/23/22 12:50 Total Bilirubin 0.20 mg/dL (0.2-1.0) 01/23/22 12:50 AST 20 Units/L (15-37) 01/23/22 12:50 ALT 20 Units/L (12-78) 01/23/22 12:50 Alkaline Phosphatase 113 Units/L (46-116) 01/23/22 12:50 Troponin I High Sens 12.7 ng/L (4.0-60.0) 01/23/22 12:50 Total Protein 7.2 g/dL (6.4-8.2) 01/23/22 12:50 Albumin 3.4 g/dL (3.4-5.0) 01/23/22 12:50 Globulin 3.8 g/dL (2.5-4.5) 01/23/22 12:50 Albumin/Globulin Ratio 0.9 Ratio (1.1-2.1) L 01/23/22 12:50 Lipase 139 Units/L (73-393) 01/23/22 12:50 SARS-CoV-2 (PCR) Negative (NEGATIVE) 01/23/22 12:40 Influenza Type A (PCR) Negative (NEGATIVE) 01/23/22 12:40 Influenza Type B (PCR) Negative (NEGATIVE) 01/23/22 12:40 RSV (PCR) Negative (NEGATIVE) 01/23/22 12:40 + elevated Cr Opioid Opioid Risk Tool Age (Vineet box if 16-45): No History of Preadolescent Sexual Abuse: No Total: 0 Total Score Risk Category: Low Risk Copyright: Kuldeep VILLEGAS predicting aberrant behaviors Discharge Plan Diagnosis Discharge Problem: Acute nontraumatic kidney injury Discharge Plan Patient Disposition: 09 ADMITTED INPATIENT Condition: Stable Prescriptions: No Action sucralfate 1 gram tablet 1 tab PO TID lisinopril 20 mg tablet 20 mg PO BID ondansetron HCl 4 mg tablet 4 mg PO Q6H PRN gabapentin 400 mg capsule 400 mg PO TID potassium chloride 10 mEq tablet extended release 10 meq PO QDAY alprazolam 0.5 mg tablet 0.5 mg PO QDAY PRN famotidine 20 mg tablet 20 mg PO BID oxycodone-acetaminophen 10-325 mg tablet 1 tab PO TID PRN meclizine 25 mg tablet 25 mg PO QDAY PRN amlodipine 10 mg tablet 10 mg PO QDAY pantoprazole 40 mg tablet,delayed release (DR/EC) 40 mg PO BID Health Concerns: Post Hospitalization: new medications and changes needed to prevent readmission or further decline. Pt educated and given instructions on all concerns. Orders to Discharge Patient Discharge Orders: Transfer (Routine); Ordered 01/23/22 Ordered By: Venkatesh Lr Follow ups/Referrals Follow ups/Referrals: GABRIEL REYES [Primary Care Provider] - 3 days
[2022-01-23 12:59] LABS: BASOPHILS % (AUTO) 0.4 % (0.2-1.0); EOSINOPHILS # (AUTO) 0.1 x10^3/uL (0.0-0.2); EOSINOPHILS % (AUTO) 0.9 % (0.9-2.9); HEMOGLOBIN 12.1 g/dL (12.0-16.0); LYMPHOCYTES # (AUTO) 2.3 X10^3/uL (1.3-2.9); LYMPHOCYTES % (AUTO) 20.9 % (21.0-51.0); MEAN CORPUSCULAR HEMOGLOBIN 22.5 pg (27.0-34.0); MEAN CORPUSCULAR HGB CONC 31.9 g/dL (33.0-35.0); MEAN CORPUSCULAR VOLUME 70.7 fL (80.0-100.0); MEAN PLATELET VOLUME 9.5 fL (7.4-11.0); MONOCYTES # (AUTO) 1.7 x10^3/uL (0.3-0.8); MONOCYTES % (AUTO) 15.7 % (0.0-13.0); NEUTROPHILS # (AUTO) 6.8 x10^3/uL (2.2-4.8); NEUTROPHILS % (AUTO) 62.1 % (42.0-75.0); RED BLOOD COUNT 5.38 X10^6/uL (3.5-5.4); RED CELL DISTRIBUTION WIDTH 15.2 % (11.6-16.5)
[2022-01-23 13:13] LABS: ALANINE AMINOTRANSFERASE 20 Units/L (12-78); ALBUMIN 3.4 g/dL (3.4-5.0); ALKALINE PHOSPHATASE 113 Units/L (46-116); ASPARTATE AMINO TRANSFERASE 20 Units/L (15-37); BLOOD UREA NITROGEN 30 mg/dL (7-18); CALCIUM 8.1 mg/dL (8.5-10.1); CARBON DIOXIDE 29.4 mmol/L (21-32); CHLORIDE 99 mmol/L (98-107); CREATININE 3.22 mg/dL (0.55-1.02); LIPASE 139 Units/L (73-393); PLATELET MORPHOLOGY COMMENT NORMAL (NORMAL); SODIUM 135 mmol/L (136-145); TOTAL PROTEIN 7.2 g/dL (6.4-8.2); eGFR NON BLACK RACES 15 (>60)
[2022-01-23 13:14] LABS: HYPOCHROMASIA 2+; MICROCYTOSIS SLIGHT; STOMATOCYTES SLIGHT; TARGET CELLS SLIGHT
[2022-01-23] MEDS ORDERED: NS 1,000 ML IV 1,000 ML IV ONE (14:19)
[2022-01-23] MEDS ORDERED: NS 1,000 ML IV 1,000 ML ONE (14:34)
--- NOTE | 2022-01-23 15:21 | RAD ---
CHEST, 1 VIEWHISTORY: WeaknessStudy: AP view of the chest.Comparison:NoneFindings:The cardiomediastinal silhouette is normal. No focal consolidations, pleural effusions or pneumothorax. Osseous structures demonstrate no acute abnormality. Bilateral hyperexpansion and interstitial prominence.IMPRESSION:1. No acute cardiopulmonary process.2. Findings of COPD.Electronically signed by: ART BECK (Jan 23, 2022 15:19:15)
[2022-01-23] MEDS ORDERED: PATIENT'S HOME MEDICATION (Oxycodone-Acetaminophen 10-325 mg tablet) PO PRN (16:18)
[2022-01-23] MEDS ORDERED: ANTIVERT TAB 25 MG PO PRN (16:18)
[2022-01-23] MEDS ORDERED: PATIENT'S HOME MEDICATION (Alprazolam 0.5 mg tablet) PO PRN (16:18)
[2022-01-23] MEDS ORDERED: PERCOCET TAB 5/325 MG ONE (16:58)
[2022-01-23] MEDS ORDERED: XANAX PO PRN (17:20)
[2022-01-23] MEDS ORDERED: PERCOCET TAB 5/325 MG PO PRN (17:23)
[2022-01-23] MEDS ORDERED: FLUZONE II4 or AFLURIA II4 IM ONE (17:44)
[2022-01-23 18:36] LABS: BILIRUBIN,URINE NEGATIVE (NEGATIVE); BLOOD/HEMOGLOBIN,URINE 1+ (NEGATIVE); GLUCOSE, URINE NEGATIVE (NEGATIVE); KETONES,URINE NEGATIVE (NEGATIVE); LEUKOCYTE ESTERASE ,URINE NEGATIVE (NEGATIVE); NITRITES,URINE NEGATIVE (NEGATIVE); PH,URINE 6.5 (5.0 - 8.0); PROTEIN,URINE 2+ (NEGATIVE); UROBILINOGEN,URINE NORMAL (NORMAL)
[2022-01-23 18:37] LABS: APPEARANCE,URINE CLEAR (CLEAR); COLOR,URINE STRAW (YELLOW)
[2022-01-23 18:46] LABS: BACTERIA,URINE NEGATIVE /HPF (NEGATIVE); RBC,URINE 0-2 /HPF (0-3); SQUAMOUS EPITHELIAL CELL,UR FEW /HPF (NEGATIVE)
[2022-01-23] MEDS: PROTONIX TAB 40 MG PO SCH (20:30)
[2022-01-23] MEDS: ROXICODONE TAB 5 MG PO PRN (20:30)
[2022-01-23] MEDS: D5 1/2 NS 1,000 ML 1,000 ML IV SCH (20:32)
[2022-01-24] MEDS: D5 1/2 NS 1,000 ML 1,000 ML IV SCH ×2 (00:49→08:48)
[2022-01-24] MEDS: CARAFATE PO SCH ×2 (05:43→12:07)
[2022-01-24 06:41] LABS: BASOPHILS % (AUTO) 0.4 % (0.2-1.0); EOSINOPHILS # (AUTO) 0.1 x10^3/uL (0.0-0.2); EOSINOPHILS % (AUTO) 1.2 % (0.9-2.9); HEMATOCRIT 34.5 % (36.0-47.0); HEMOGLOBIN 11.1 g/dL (12.0-16.0); LYMPHOCYTES # (AUTO) 2.6 X10^3/uL (1.3-2.9); LYMPHOCYTES % (AUTO) 33.5 % (21.0-51.0); MEAN CORPUSCULAR HEMOGLOBIN 22.7 pg (27.0-34.0); MEAN CORPUSCULAR HGB CONC 32.1 g/dL (33.0-35.0); MEAN CORPUSCULAR VOLUME 70.8 fL (80.0-100.0); MEAN PLATELET VOLUME 9.8 fL (7.4-11.0); MONOCYTES # (AUTO) 0.9 x10^3/uL (0.3-0.8); MONOCYTES % (AUTO) 10.8 % (0.0-13.0); NEUTROPHILS # (AUTO) 4.3 x10^3/uL (2.2-4.8); NEUTROPHILS % (AUTO) 54.1 % (42.0-75.0); RED BLOOD COUNT 4.88 X10^6/uL (3.5-5.4); RED CELL DISTRIBUTION WIDTH 14.8 % (11.6-16.5); WHITE BLOOD COUNT 7.9 X10^3/uL (3.6-10.0)
[2022-01-24 06:57] LABS: ALANINE AMINOTRANSFERASE 17 Units/L (12-78); ALBUMIN 2.8 g/dL (3.4-5.0); ALKALINE PHOSPHATASE 94 Units/L (46-116); ASPARTATE AMINO TRANSFERASE 16 Units/L (15-37); BLOOD UREA NITROGEN 17 mg/dL (7-18); CALCIUM 7.7 mg/dL (8.5-10.1); CARBON DIOXIDE 26.6 mmol/L (21-32); CHLORIDE 105 mmol/L (98-107); COR CA(FOR HYPOALB) 8.7 mg/dL (8.5-10.1); CREATININE 1.04 mg/dL (0.55-1.02); SODIUM 140 mmol/L (136-145); TOTAL PROTEIN 6.2 g/dL (6.4-8.2); eGFR NON BLACK RACES 57 (>60)
[2022-01-24 07:21] LABS: HYPOCHROMASIA 1+; MICROCYTOSIS SLIGHT; PLATELET MORPHOLOGY COMMENT NORMAL (NORMAL); TARGET CELLS SLIGHT
[2022-01-24] MEDS ORDERED: K-RIDER 10 MEQ/NS 100 ML 10 MEQ/100 ML BAG IV PRN (08:46)
[2022-01-24] MEDS ORDERED: POTASSIUM CHL 40 MEQ/NS 0.45% 500 ML IV PRN (08:46)
[2022-01-24] MEDS ORDERED: K-DUR TAB 20 MEQ PO PRN (08:46)
[2022-01-24] MEDS ORDERED: MAGNESIUM SULFATE 1 GRAM/100 mL PREMIX 1 G/100 ML BAG IV PRN (08:46)
[2022-01-24] MEDS ORDERED: KLOR-CON PO PRN (08:46)
[2022-01-24] MEDS ORDERED: POTASSIUM CHL 60 MEQ/NS 0.45% 500 ML IV PRN (08:46)
[2022-01-24] MEDS ORDERED: POTASSIUM CHLORIDE LIQ 20 MEQ UDC PO PRN (08:46)
[2022-01-24] MEDS ORDERED: MICRO K EXTEN CAP 10 MEQ PO PRN (08:46)
[2022-01-24] MEDS ORDERED: NS 1,000 ML IV 1,000 ML IV ONE (08:48)
[2022-01-24] MEDS ORDERED: TORADOL 30 MG VIAL IVP PRN (08:48)
[2022-01-24] MEDS: PROTONIX TAB 40 MG PO SCH (08:49)
[2022-01-24] MEDS ORDERED: TORADOL 30 MG VIAL ONE (08:50)
[2022-01-24] MEDS ORDERED: NS 1,000 ML IV 1,000 ML ONE (09:02)
[2022-01-24] MEDS: ROXICODONE TAB 5 MG PO PRN (12:09)
[2022-01-24 12:12] VITALS: BP 121/70
--- NOTE | 2022-01-24 13:25 | DR.H&P ---
H&P History & Physical for Day of: H&P Date: 01/23/22 Chief Complaint Chief Complaint: Weakness and near syncope Allergies Allergies Allergy/AdvReac Type Severity Reaction Status Date / Time No Known Drug Allergies Allergy Verified 09/08/20 08:58 History of Present Illness History of Present Illness: This is a 61-year-old black female who presented to the [facility] emergency department for reporting decreased intake, weakness, near syncopal event and anxiety. She reports he has been feeling this way for the last 3 days. She reports to have a lot of nausea and vomiting and her bowels have been loose. She also reports not urinating as much and having gene ralized muscular weakness. She nearly passed out today with standing she reports. She denies any chest pain, diaphoresis, cough and dyspnea. It is noted that she is fairly dehydrated with a creatinine greater than 3. We decided go ahead and put her in for observation and give her IV fluid overnight. We will recheck a CMP in the morning to see if her hydration status is improved. She was also noted to have some mild hypokalemia on admission also. Past Medical History Past Medical History: Anxiety, Arthritis, Depression and Hypertension Additional Medical History: FIBROMYALGIA Past Surgical History Surgical History: and 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 Family History Family Medical History: Hypertension Social History Does patient currently use any type of tobacco product: No Have you used tobacco products in the last 12 months: No Type of Tobacco Use: None Does any household member use tobacco: No Alcohol Use: Occasionally Drug Use: None Medications Home Medications: No Known Drug Allergies Allergy (Verified 09/08/20 08:58) CONTINUE taking the following medications alprazolam 0.5 mg tablet 0.5 mg PO QDAY PRN 01/23/22 [History] amlodipine 10 mg tablet 10 mg PO QDAY 01/23/22 [History] famotidine 20 mg tablet 20 mg PO BID 01/23/22 [History] gabapentin 400 mg capsule 400 mg PO TID 01/23/22 [History] lisinopril 20 mg tablet 20 mg PO BID 01/23/22 [History] meclizine 25 mg tablet 25 mg PO QDAY PRN 01/23/22 [History] ondansetron HCl 4 mg tablet 4 mg PO Q6H PRN 01/23/22 [History] oxycodone-acetaminophen 10 mg-325 mg tablet 1 tab PO TID PRN 01/23/22 [History] pantoprazole 40 mg tablet,delayed release 40 mg PO BID 01/23/22 [History] potassium chloride 10 mEq tablet,extended release 10 meq PO QDAY 01/23/22 [History] sucralfate 1 gram tablet 1 tab PO TID 01/23/22 [History] Labs Result Diagrams: 01/24/22 05:33 01/24/22 05:33 Labs: Laboratory WBC 7.9 X10^3/uL (3.6-10.0) 01/24/22 05:33 RBC 4.88 X10^6/uL (3.5-5.4) 01/24/22 05:33 Hgb 11.1 g/dL (12.0-16.0) L 01/24/22 05:33 Hct 34.5 % (36.0-47.0) L 01/24/22 05:33 MCV 70.8 fL (80.0-100.0) L 01/24/22 05:33 MCH 22.7 pg (27.0-34.0) L 01/24/22 05:33 MCHC 32.1 g/dL (33.0-35.0) L 01/24/22 05:33 RDW 14.8 % (11.6-16.5) 01/24/22 05:33 Plt Count 181 X10^3/uL (150.0-450.0) 01/24/22 05:33 Plt Count Comment Adequate (ADEQUATE) 01/24/22 05:33 MPV 9.8 fL (7.4-11.0) 01/24/22 05:33 Neut % (Auto) 54.1 % (42.0-75.0) 01/24/22 05:33 Lymph % (Auto) 33.5 % (21.0-51.0) 01/24/22 05:33 [place] % (Auto) 10.8 % (0.0-13.0) 01/24/22 05:33 Eos % (Auto) 1.2 % (0.9-2.9) 01/24/22 05:33 Baso % (Auto) 0.4 % (0.2-1.0) 01/24/22 05:33 Neut # (Auto) 4.3 x10^3/uL (2.2-4.8) 01/24/22 05:33 Lymph # (Auto) 2.6 X10^3/uL (1.3-2.9) 01/24/22 05:33 [place] # (Auto) 0.9 x10^3/uL (0.3-0.8) H 01/24/22 05:33 Eos # (Auto) 0.1 x10^3/uL (0.0-0.2) 01/24/22 05:33 Baso # (Auto) 0.0 X10^3/uL (0.0-0.1) 01/24/22 05:33 Absolute Nucleated RBC 0.0 /100WBC 01/24/22 05:33 Plt Morphology Comment Normal (NORMAL) 01/24/22 05:33 RBC Morphology Abnormal (NORMAL) A 01/24/22 05:33 Hypochromasia 1+ A 01/24/22 05:33 Microcytosis Slight A 01/24/22 05:33 Target Cells Slight A 01/24/22 05:33 Stomatocytes Slight A 01/23/22 12:50 Sodium 140 mmol/L (136-145) 01/24/22 05:33 Corrected Sodium TNP 01/24/22 05:33 Potassium 3.2 mmol/L (3.5-5.1) L 01/24/22 05:33 Chloride 105 mmol/L (98-107) 01/24/22 05:33 Carbon Dioxide 26.6 mmol/L (21-32) 01/24/22 05:33 BUN 17 mg/dL (7-18) 01/24/22 05:33 Creatinine 1.04 mg/dL (0.55-1.02) H 01/24/22 05:33 Est GFR (MDRD) Af Amer > 60 (>60) 01/24/22 05:33 Est GFR (MDRD) Non-Af 57 (>60) L 01/24/22 05:33 Glucose 90 mg/dL (65-99) 01/24/22 05:33 POC Glucose (mg/dL) 94 mg/dL (65-99) 01/24/22 12:03 Calcium 7.7 mg/dL (8.5-10.1) L 01/24/22 05:33 Corrected Calcium 8.7 mg/dL (8.5-10.1) 01/24/22 05:33 Magnesium 1.6 mg/dL (2.0-2.9) L 01/24/22 05:33 Total Bilirubin 0.30 mg/dL (0.2-1.0) 01/24/22 05:33 AST 16 Units/L (15-37) 01/24/22 05:33 ALT 17 Units/L (12-78) 01/24/22 05:33 Alkaline Phosphatase 94 Units/L (46-116) 01/24/22 05:33 Troponin I High Sens 9.8 ng/L (4.0-60.0) 01/23/22 19:06 Total Protein 6.2 g/dL (6.4-8.2) L 01/24/22 05:33 Albumin 2.8 g/dL (3.4-5.0) L 01/24/22 05:33 Globulin 3.4 g/dL (2.5-4.5) 01/24/22 05:33 Albumin/Globulin Ratio 0.8 Ratio (1.1-2.1) L 01/24/22 05:33 Lipase 139 Units/L (73-393) 01/23/22 12:50 Specimen Type Clean catch urine 01/23/22 18:00 Urine Color Straw (YELLOW) 01/23/22 18:00 Urine Appearance Clear (CLEAR) 01/23/22 18:00 Urine pH 6.5 (5.0 - 8.0) 01/23/22 18:00 Ur Specific [place] 1.015 (1.000-1.030) 01/23/22 18:00 Urine Protein 2+ (NEGATIVE) 01/23/22 18:00 Urine Glucose (UA) Negative (NEGATIVE) 01/23/22 18:00 Urine Ketones Negative (NEGATIVE) 01/23/22 18:00 Urine Blood 1+ (NEGATIVE) 01/23/22 18:00 Urine Nitrite Negative (NEGATIVE) 01/23/22 18:00 Urine Bilirubin Negative (NEGATIVE) 01/23/22 18:00 Urine Urobilinogen Normal (NORMAL) 01/23/22 18:00 Ur Leukocyte Esterase Negative (NEGATIVE) 01/23/22 18:00 Urine RBC 0-2 /HPF (0-3) 01/23/22 18:00 Urine WBC None seen /HPF (0-5) 01/23/22 18:00 Ur Squamous Epith Cells Few /HPF (NEGATIVE) 01/23/22 18:00 Urine Bacteria Negative /HPF (NEGATIVE) 01/23/22 18:00 Ur Culture Indicated? No/not indicated 01/23/22 18:00 SARS-CoV-2 (PCR) Negative (NEGATIVE) 01/23/22 12:40 Influenza Type A (PCR) Negative (NEGATIVE) 01/23/22 12:40 Influenza Type B (PCR) Negative (NEGATIVE) 01/23/22 12:40 RSV (PCR) Negative (NEGATIVE) 01/23/22 12:40 Review of Systems Constitutional: Weakness Eyes: No Symptoms Reported ENT: No Symptoms Reported Respiratory: No Symptoms Reported Cardiovascular: No Symptoms Reported Gastrointestinal: Nausea, Vomiting and Diarrhea Genitourinary: No Symptoms Reported Musculoskeletal: Shoulder Pain and Neck Pain Skin: No Symptoms Reported Neurological: No Symptoms Reported Physical Exam Vital Signs: Temperature 98.6 F Pulse Rate [Right Radial] 70 Pulse Rate 83 Respiratory Rate 20 Blood Pressure [Left Arm] 121/70 Blood Pressure 93/56 O2 Sat by Pulse Oximetry 97 Oriented: Normal, Time, Person and Place Eyes: Normal Ear: Normal Nose: Normal Throat: Normal Respiratory: Clear Throughout Cardiovascular: Normal Auscultation: Bowel Sounds: Normal Palpation: Normal Tenderness: Normal Skin: Normal Musculoskeletal: Right and Shoulder Psychiatric: Normal Mood Description: Calm Affect: Normal Speech Pattern: Clear and Appropriate Assessment/Plan (1) Diarrhea: Qualifiers: Diarrhea type: unspecified type Qualified Code(s): R19.7 - Diarrhea, unspecified Narrative Support Text: Patient reports symptoms of acute opioid withdrawal. I know she does have a history of taking opioids and I suspect her loose bowel movements and nausea vomiting is from coming off opioids. Status: Acute Plan: Monitor for worsening pain or improvement. (2) Acute dehydration: Status: Acute Plan: IV fluid hydration (3) Hypokalemia: Status: Acute Plan: Potassium replacement protocol (4) Near syncope: Narrative Support Text: Suspect the patient's near syncopal event is from being dehydrated. Status: Acute Plan: IV hydration Review H&P Reviewed: Yes Patient was examined?: Yes
--- NOTE | 2022-01-24 13:34 | PCM.DCPLAN ---
DISCHARGE SUMMARY Admission Date Date of Admission: 01/23/22 Discharge Date Discharge Date: 01/24/22 Admission Diagnoses (1) Diarrhea: Status: Acute (2) Acute dehydration: Status: Acute (3) Hypokalemia: Status: Acute (4) Near syncope: Status: Acute Discharge Diagnoses Discharge Diagnosis: 1. Diarrhea resolved 2. Dehydration resolved 3. Hypokalemia 4. Near syncope resolved Discharge Medications Discharge Medications: Home Medication List alprazolam 0.5 mg tablet 0.5 mg PO QDAY PRN 01/23/22 [History] amlodipine 10 mg tablet 10 mg PO QDAY 01/23/22 [History] famotidine 20 mg tablet 20 mg PO BID 01/23/22 [History] gabapentin 400 mg capsule 400 mg PO TID 01/23/22 [History] lisinopril 20 mg tablet 20 mg PO BID 01/23/22 [History] meclizine 25 mg tablet 25 mg PO QDAY PRN 01/23/22 [History] ondansetron HCl 4 mg tablet 4 mg PO Q6H PRN 01/23/22 [History] oxycodone-acetaminophen 10 mg-325 mg tablet 1 tab PO TID PRN 01/23/22 [History] pantoprazole 40 mg tablet,delayed release 40 mg PO BID 01/23/22 [History] potassium chloride 10 mEq tablet,extended release 10 meq PO QDAY 01/23/22 [History] sucralfate 1 gram tablet 1 tab PO TID 01/23/22 [History] Prescriptions: Hospital Course Vital Signs: Temperature 98.6 F Pulse Rate [Right Radial] 70 Pulse Rate 83 Respiratory Rate 20 Blood Pressure [Left Arm] 121/70 Blood Pressure 93/56 O2 Sat by Pulse Oximetry 97 Latest Lab Results: Laboratory Last Values WBC 7.9 X10^3/uL (3.6-10.0) 01/24/22 05:33 RBC 4.88 X10^6/uL (3.5-5.4) 01/24/22 05:33 Hgb 11.1 g/dL (12.0-16.0) L 01/24/22 05:33 Hct 34.5 % (36.0-47.0) L 01/24/22 05:33 MCV 70.8 fL (80.0-100.0) L 01/24/22 05:33 MCH 22.7 pg (27.0-34.0) L 01/24/22 05:33 MCHC 32.1 g/dL (33.0-35.0) L 01/24/22 05:33 RDW 14.8 % (11.6-16.5) 01/24/22 05:33 Plt Count 181 X10^3/uL (150.0-450.0) 01/24/22 05:33 Plt Count Comment Adequate (ADEQUATE) 01/24/22 05:33 MPV 9.8 fL (7.4-11.0) 01/24/22 05:33 Neut % (Auto) 54.1 % (42.0-75.0) 01/24/22 05:33 Lymph % (Auto) 33.5 % (21.0-51.0) 01/24/22 05:33 [place] % (Auto) 10.8 % (0.0-13.0) 01/24/22 05:33 Eos % (Auto) 1.2 % (0.9-2.9) 01/24/22 05:33 Baso % (Auto) 0.4 % (0.2-1.0) 01/24/22 05:33 Neut # (Auto) 4.3 x10^3/uL (2.2-4.8) 01/24/22 05:33 Lymph # (Auto) 2.6 X10^3/uL (1.3-2.9) 01/24/22 05:33 [place] # (Auto) 0.9 x10^3/uL (0.3-0.8) H 01/24/22 05:33 Eos # (Auto) 0.1 x10^3/uL (0.0-0.2) 01/24/22 05:33 Baso # (Auto) 0.0 X10^3/uL (0.0-0.1) 01/24/22 05:33 Absolute Nucleated RBC 0.0 /100WBC 01/24/22 05:33 Plt Morphology Comment Normal (NORMAL) 01/24/22 05:33 RBC Morphology Abnormal (NORMAL) A 01/24/22 05:33 Hypochromasia 1+ A 01/24/22 05:33 Microcytosis Slight A 01/24/22 05:33 Target Cells Slight A 01/24/22 05:33 Stomatocytes Slight A 01/23/22 12:50 Sodium 140 mmol/L (136-145) 01/24/22 05:33 Corrected Sodium TNP 01/24/22 05:33 Potassium 3.2 mmol/L (3.5-5.1) L 01/24/22 05:33 Chloride 105 mmol/L (98-107) 01/24/22 05:33 Carbon Dioxide 26.6 mmol/L (21-32) 01/24/22 05:33 BUN 17 mg/dL (7-18) 01/24/22 05:33 Creatinine 1.04 mg/dL (0.55-1.02) H 01/24/22 05:33 Est GFR (MDRD) Af Amer > 60 (>60) 01/24/22 05:33 Est GFR (MDRD) Non-Af 57 (>60) L 01/24/22 05:33 Glucose 90 mg/dL (65-99) 01/24/22 05:33 POC Glucose (mg/dL) 94 mg/dL (65-99) 01/24/22 12:03 Calcium 7.7 mg/dL (8.5-10.1) L 01/24/22 05:33 Corrected Calcium 8.7 mg/dL (8.5-10.1) 01/24/22 05:33 Magnesium 1.6 mg/dL (2.0-2.9) L 01/24/22 05:33 Total Bilirubin 0.30 mg/dL (0.2-1.0) 01/24/22 05:33 AST 16 Units/L (15-37) 01/24/22 05:33 ALT 17 Units/L (12-78) 01/24/22 05:33 Alkaline Phosphatase 94 Units/L (46-116) 01/24/22 05:33 Troponin I High Sens 9.8 ng/L (4.0-60.0) 01/23/22 19:06 Total Protein 6.2 g/dL (6.4-8.2) L 01/24/22 05:33 Albumin 2.8 g/dL (3.4-5.0) L 01/24/22 05:33 Globulin 3.4 g/dL (2.5-4.5) 01/24/22 05:33 Albumin/Globulin Ratio 0.8 Ratio (1.1-2.1) L 01/24/22 05:33 Lipase 139 Units/L (73-393) 01/23/22 12:50 Specimen Type Clean catch urine 01/23/22 18:00 Urine Color Straw (YELLOW) 01/23/22 18:00 Urine Appearance Clear (CLEAR) 01/23/22 18:00 Urine pH 6.5 (5.0 - 8.0) 01/23/22 18:00 Ur Specific [place] 1.015 (1.000-1.030) 01/23/22 18:00 Urine Protein 2+ (NEGATIVE) 01/23/22 18:00 Urine Glucose (UA) Negative (NEGATIVE) 01/23/22 18:00 Urine Ketones Negative (NEGATIVE) 01/23/22 18:00 Urine Blood 1+ (NEGATIVE) 01/23/22 18:00 Urine Nitrite Negative (NEGATIVE) 01/23/22 18:00 Urine Bilirubin Negative (NEGATIVE) 01/23/22 18:00 Urine Urobilinogen Normal (NORMAL) 01/23/22 18:00 Ur Leukocyte Esterase Negative (NEGATIVE) 01/23/22 18:00 Urine RBC 0-2 /HPF (0-3) 01/23/22 18:00 Urine WBC None seen /HPF (0-5) 01/23/22 18:00 Ur Squamous Epith Cells Few /HPF (NEGATIVE) 01/23/22 18:00 Urine Bacteria Negative /HPF (NEGATIVE) 01/23/22 18:00 Ur Culture Indicated? No/not indicated 01/23/22 18:00 SARS-CoV-2 (PCR) Negative (NEGATIVE) 01/23/22 12:40 Influenza Type A (PCR) Negative (NEGATIVE) 01/23/22 12:40 Influenza Type B (PCR) Negative (NEGATIVE) 01/23/22 12:40 RSV (PCR) Negative (NEGATIVE) 01/23/22 12:40 Hospital Course: This was a 61-year-old black female who was admitted for dehydration secondary to nausea vomiting and diarrhea for 3 days. Since admission we have been giving her antiemetics and IV fluid. Her creatinine was greater than 3, and in today's just over 1 it is much improved. She is feeling much better walking up and down the halls. It was noted she has some hypokalemia and also some hypomagnesemia which were corrected via the potassium replacement protocol which also corrects low magnesium. I think her symptoms are more likely than not secondary to opioid withdrawal however she does not appear to be in any fulminant withdrawal today. She was complaining of some right-sided neck pain and shoulder pain kunal g down her right arm. She has chronic problems with this and I gave her a shot of Toradol IV which helped her relieve her pain. She will be discharged home today stable condition and following up with her primary care physician Dr. Kenney in [place], [place]. She can resume her regular home medications no new prescriptions were given for her today.
== END 2022-01-24 13:15 | disposition home or self-care (01) ==
LOC: MED/SURG 12:21 → ER 12:21 → MED/SURG 16:07
PROVIDERS: ADMIT Family Medicine; ATTEND Family Medicine
DX: M54.2 Cervicalgia; M25.511 Pain in right shoulder; E87.6 Hypokalemia; Z20.822 Contact with and (suspected) exposure to COVID-19; R55 Syncope and collapse; E86.0 Dehydration; R53.1 Weakness; R19.7 Diarrhea, unspecified; E83.42 Hypomagnesemia; R11.2 Nausea with vomiting, unspecified; R94.31 Abnormal electrocardiogram [ECG] [EKG]; F41.8 Other specified anxiety disorders; M79.7 Fibromyalgia

== ENCOUNTER 2023-01-17 09:16 | Observation (INO) ==
--- NOTE | 2023-01-17 09:36 | DR.GENAD ---
HPI Time Seen Time Seen by Provider: 01/17/23 09:35 PMH PMH Past Medical History: Anxiety, Arthritis, Depression, Gout and Hypertension Past Surgical History: Yes Surgical History: and 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 Family History Family Medical History: Hypertension Social History Do you use any recreational Drugs:: No PE Vital Signs Vitals: Vital Signs Temperature 98.9 F Pulse Rate 100 Pulse Rate 98 Pulse Rate 97 Pulse Rate 97 Pulse Rate 96 Pulse Rate 96 Pulse Rate 104 Pulse Rate 104 Pulse Rate 99 Pulse Rate 101 Pulse Rate 97 Pulse Rate 101 Pulse Rate 101 Pulse Rate 101 Pulse Rate 100 Pulse Rate 99 Pulse Rate 100 Pulse Rate 100 Pulse Rate 96 Pulse Rate 99 Pulse Rate 100 Pulse Rate 98 Pulse Rate 99 Pulse Rate 104 Pulse Rate 103 Pulse Rate 103 Pulse Rate 110 Pulse Rate 105 Pulse Rate 103 Respiratory Rate 18 Respiratory Rate 18 Respiratory Rate 18 Respiratory Rate 20 Respiratory Rate 20 Respiratory Rate 20 Blood Pressure 94/56 Blood Pressure 105/60 Blood Pressure 93/54 Blood Pressure 93/54 Blood Pressure 93/54 Blood Pressure 92/66 Blood Pressure 92/66 Blood Pressure 95/57 Blood Pressure 95/57 Blood Pressure 116/61 Blood Pressure 106/62 Blood Pressure 106/62 Blood Pressure 106/62 Blood Pressure 95/55 Blood Pressure 102/59 Blood Pressure 97/54 Blood Pressure 90/57 Blood Pressure 90/57 Blood Pressure 113/63 Blood Pressure 113/63 Blood Pressure 115/74 Blood Pressure 115/74 O2 Sat by Pulse Oximetry 96 O2 Sat by Pulse Oximetry 96 O2 Sat by Pulse Oximetry 95 O2 Sat by Pulse Oximetry 94 O2 Sat by Pulse Oximetry 97 O2 Sat by Pulse Oximetry 97 O2 Sat by Pulse Oximetry 98 O2 Sat by Pulse Oximetry 98 O2 Sat by Pulse Oximetry 95 O2 Sat by Pulse Oximetry 99 O2 Sat by Pulse Oximetry 93 O2 Sat by Pulse Oximetry 95 O2 Sat by Pulse Oximetry 94 O2 Sat by Pulse Oximetry 94 O2 Sat by Pulse Oximetry 94 O2 Sat by Pulse Oximetry 95 O2 Sat by Pulse Oximetry 95 O2 Sat by Pulse Oximetry 95 O2 Sat by Pulse Oximetry 97 O2 Sat by Pulse Oximetry 96 O2 Sat by Pulse Oximetry 97 O2 Sat by Pulse Oximetry 96 O2 Sat by Pulse Oximetry 83 O2 Sat by Pulse Oximetry 97 O2 Sat by Pulse Oximetry 100 O2 Sat by Pulse Oximetry 96 O2 Sat by Pulse Oximetry 96 O2 Sat by Pulse Oximetry 98 O2 Sat by Pulse Oximetry 96 O2 Sat by Pulse Oximetry 94 ROR Labs Reviewed 01/17/23 10:01 01/17/23 10:01 Laboratory: 01/17/23 13:00 Stool - Final WBC 20.2 X10^3/uL (3.6-10.0) H 01/17/23 10:01 RBC 5.00 X10^6/uL (3.5-5.4) 01/17/23 10:01 Hgb 11.0 g/dL (12.0-16.0) L 01/17/23 10:01 Hct 35.6 % (36.0-47.0) L 01/17/23 10:01 MCV 71.3 fL (80.0-100.0) L 01/17/23 10:01 MCH 22.0 pg (27.0-34.0) L 01/17/23 10:01 MCHC 30.9 g/dL (33.0-35.0) L 01/17/23 10:01 RDW 15.2 % (11.6-16.5) 01/17/23 10:01 Plt Count 196 X10^3/uL (150.0-450.0) 01/17/23 10:01 Plt Count Comment Adequate (ADEQUATE) 01/17/23 10:01 MPV 9.3 fL (7.4-11.0) 01/17/23 10:01 Neut % (Auto) 83.6 % (42.0-75.0) H 01/17/23 10:01 Lymph % (Auto) 7.5 % (21.0-51.0) L 01/17/23 10:01 [place] % (Auto) 8.6 % (0.0-13.0) 01/17/23 10:01 Eos % (Auto) 0.1 % (0.9-2.9) L 01/17/23 10:01 Baso % (Auto) 0.2 % (0.2-1.0) 01/17/23 10:01 Neut # (Auto) 16.9 x10^3/uL (2.2-4.8) H 01/17/23 10:01 Lymph # (Auto) 1.5 X10^3/uL (1.3-2.9) 01/17/23 10:01 [place] # (Auto) 1.7 x10^3/uL (0.3-0.8) H 01/17/23 10:01 Eos # (Auto) 0.0 x10^3/uL (0.0-0.2) 01/17/23 10:01 Baso # (Auto) 0.0 X10^3/uL (0.0-0.1) 01/17/23 10:01 Absolute Nucleated RBC 0.1 /100WBC 01/17/23 10:01 Plt Morphology Comment Normal (NORMAL) 01/17/23 10:01 RBC Morphology Abnormal (NORMAL) A 01/17/23 10:01 Hypochromasia 1+ A 01/17/23 10:01 Microcytosis Slight A 01/17/23 10:01 Target Cells Slight A 01/17/23 10:01 Tear Drop Cells Slight A 01/17/23 10:01 Sodium 137 mmol/L (136-145) 01/17/23 10:01 Corrected Sodium TNP 01/17/23 10:01 Potassium 3.2 mmol/L (3.5-5.1) L 01/17/23 10:01 Chloride 101 mmol/L (98-107) 01/17/23 10:01 Carbon Dioxide 24.5 mmol/L (21-32) 01/17/23 10:01 BUN 39 mg/dL (7-18) H 01/17/23 10:01 Creatinine 1.98 mg/dL (0.55-1.02) H 01/17/23 10:01 Est GFR (MDRD) Af Amer 33 (>60) L 01/17/23 10:01 Est GFR (MDRD) Non-Af 27 (>60) L 01/17/23 10:01 Glucose 95 mg/dL (65-99) 01/17/23 10:01 Calcium 8.6 mg/dL (8.5-10.1) 01/17/23 10:01 Corrected Calcium 9.2 mg/dL (8.5-10.1) 01/17/23 10:01 Total Bilirubin 0.60 mg/dL (0.2-1.0) 01/17/23 10:01 AST 18 Units/L (15-37) 01/17/23 10:01 ALT 13 Units/L (12-78) 01/17/23 10:01 Alkaline Phosphatase 117 Units/L (46-116) H 01/17/23 10:01 Total Protein 7.5 g/dL (6.4-8.2) 01/17/23 10:01 Albumin 3.3 g/dL (3.4-5.0) L 01/17/23 10:01 Globulin 4.2 g/dL (2.5-4.5) 01/17/23 10:01 Albumin/Globulin Ratio 0.8 Ratio (1.1-2.1) L 01/17/23 10:01 Specimen Type Clean catch urine 01/17/23 13:12 Urine Color Yellow (YELLOW) 01/17/23 13:12 Urine Appearance Clear (CLEAR) 01/17/23 13:12 Urine pH 6.0 (5.0 - 8.0) 01/17/23 13:12 Ur Specific [place] 1.020 (1.000-1.030) 01/17/23 13:12 Urine Protein 2+ (NEGATIVE) 01/17/23 13:12 Urine Glucose (UA) Negative (NEGATIVE) 01/17/23 13:12 Urine Ketones Negative (NEGATIVE) 01/17/23 13:12 Urine Blood 2+ (NEGATIVE) 01/17/23 13:12 Urine Nitrite Negative (NEGATIVE) 01/17/23 13:12 Urine Bilirubin Negative (NEGATIVE) 01/17/23 13:12 Urine Urobilinogen Normal (NORMAL) 01/17/23 13:12 Ur Leukocyte Esterase Negative (NEGATIVE) 01/17/23 13:12 Urine RBC 0-2 /HPF (0-3) 01/17/23 13:12 Urine WBC 0-2 /HPF (0-5) 01/17/23 13:12 Ur Squamous Epith Cells Many /HPF (NEGATIVE) 01/17/23 13:12 Urine Bacteria 1+ /HPF (NEGATIVE) 01/17/23 13:12 Urine Yeast Moderate /HPF (NEGATIVE) 01/17/23 13:12 Ur Culture Indicated? No/not indicated 01/17/23 13:12 Stl Occult Blood (IFOB) Positive (NEGATIVE) A 01/17/23 13:00 Stool for White Cells Positive (NEGATIVE) A 01/17/23 13:00 Stl C. diff Tox B Gene Negative (NEGATIVE) 01/17/23 13:00 Stl C. diff [id number] Presumptive negative (NEGATIVE) 01/17/23 13:00 SARS-CoV-2 (PCR) Negative (NEGATIVE) 01/17/23 09:23 Cryptosporid parvum Ag Negative (NEGATIVE) 01/17/23 13:00 Giardia lamblia Ag Negative (NEGATIVE) 01/17/23 13:00 Influenza Type A (PCR) Negative (NEGATIVE) 01/17/23 09:23 Influenza Type B (PCR) Negative (NEGATIVE) 01/17/23 09:23 RSV (PCR) Negative (NEGATIVE) 01/17/23 09:23 Opioid Opioid Risk Tool Age (Vineet box if 16-45): No History of Preadolescent Sexual Abuse: No Total: 0 Total Score Risk Category: Low Risk Copyright: Kuldeep VILLEGAS predicting aberrant behaviors Discharge Plan Discharge Plan Patient Disposition: 01 HOME, SELF-CARE Condition: Stable Orders to Discharge Patient Discharge Orders: Transfer (Routine); Ordered 01/17/23 Ordered By: SHIRA RIOS
[2023-01-17] MEDS ORDERED: TORADOL 30 MG VIAL IVP ONE (09:43)
[2023-01-17] MEDS ORDERED: NORFLEX INJ IM ONE (09:43)
[2023-01-17] MEDS ORDERED: TORADOL 30 MG VIAL ONE (09:45)
[2023-01-17] MEDS ORDERED: NORFLEX INJ ONE (09:45)
[2023-01-17 10:11] LABS: EOSINOPHILS % (AUTO) 0.1 % (0.9-2.9); HEMATOCRIT 35.6 % (36.0-47.0); MEAN PLATELET VOLUME 9.3 fL (7.4-11.0); MONOCYTES # (AUTO) 1.7 x10^3/uL (0.3-0.8); MONOCYTES % (AUTO) 8.6 % (0.0-13.0)
[2023-01-17 10:16] LABS: BASOPHILS % (AUTO) 0.2 % (0.2-1.0); LYMPHOCYTES # (AUTO) 1.5 X10^3/uL (1.3-2.9); LYMPHOCYTES % (AUTO) 7.5 % (21.0-51.0); MEAN CORPUSCULAR HGB CONC 30.9 g/dL (33.0-35.0); MEAN CORPUSCULAR VOLUME 71.3 fL (80.0-100.0); NEUTROPHILS # (AUTO) 16.9 x10^3/uL (2.2-4.8); NEUTROPHILS % (AUTO) 83.6 % (42.0-75.0); PLATELET COUNT 196 X10^3/uL (150.0-450.0); RED CELL DISTRIBUTION WIDTH 15.2 % (11.6-16.5); WHITE BLOOD COUNT 20.2 X10^3/uL (3.6-10.0)
[2023-01-17 10:24] LABS: ALANINE AMINOTRANSFERASE 13 Units/L (12-78); ALBUMIN 3.3 g/dL (3.4-5.0); ALKALINE PHOSPHATASE 117 Units/L (46-116); ASPARTATE AMINO TRANSFERASE 18 Units/L (15-37); BLOOD UREA NITROGEN 39 mg/dL (7-18); CALCIUM 8.6 mg/dL (8.5-10.1); CARBON DIOXIDE 24.5 mmol/L (21-32); CHLORIDE 101 mmol/L (98-107); COR CA(FOR HYPOALB) 9.2 mg/dL (8.5-10.1); CREATININE 1.98 mg/dL (0.55-1.02); GLUCOSE 95 mg/dL (65-99); POTASSIUM 3.2 mmol/L (3.5-5.1); SODIUM 137 mmol/L (136-145); TOTAL PROTEIN 7.5 g/dL (6.4-8.2); eGFR NON BLACK RACES 27 (>60)
[2023-01-17 10:38] LABS: PLATELET MORPHOLOGY COMMENT NORMAL (NORMAL)
[2023-01-17 10:39] LABS: HYPOCHROMASIA 1+; MICROCYTOSIS SLIGHT; TARGET CELLS SLIGHT; TEAR DROP CELLS SLIGHT
[2023-01-17] MEDS ORDERED: NS + KCL 20 MEQ/L 1,000 ML IV ONE (10:56)
[2023-01-17] MEDS ORDERED: NS + KCL 20 MEQ/L 500 ML IV SCH (11:00)
[2023-01-17 13:28] LABS: BILIRUBIN,URINE NEGATIVE (NEGATIVE); BLOOD/HEMOGLOBIN,URINE 2+ (NEGATIVE); GLUCOSE, URINE NEGATIVE (NEGATIVE); KETONES,URINE NEGATIVE (NEGATIVE); LEUKOCYTE ESTERASE ,URINE NEGATIVE (NEGATIVE); NITRITES,URINE NEGATIVE (NEGATIVE); PROTEIN,URINE 2+ (NEGATIVE); UROBILINOGEN,URINE NORMAL (NORMAL)
[2023-01-17 13:43] LABS: APPEARANCE,URINE CLEAR (CLEAR); COLOR,URINE YELLOW (YELLOW)
[2023-01-17 13:44] LABS: BACTERIA,URINE 1+ /HPF (NEGATIVE); RBC,URINE 0-2 /HPF (0-3); SQUAMOUS EPITHELIAL CELL,UR MANY /HPF (NEGATIVE); YEAST,URINE MODERATE /HPF (NEGATIVE)
[2023-01-17 14:19] LABS: CRYPTOSPORIDIUM PARVUM ANTIGEN NEGATIVE (NEGATIVE); GIARDIA LAMBLIA ANTIGEN NEGATIVE (NEGATIVE)
--- NOTE | 2023-01-17 14:47 | CT ---
EXAM:CT abdomen and pelvis without contrastHISTORY:Pt complains of backpain, neck pain, hurting all over, chills, diahrreax2 days, Patient also states she received flu vaccine a week ago; Abdominal painCOMPARISON:CT abdomen and pelvis from 01/16/2020.TECHNIQUE:Multiple axial images of the abdomen and pelvis were obtained from the lung bases to the pubic symphysis without the administration of IV contrast. Dose reduction techniques including Automated Exposure Control (AEC) and adjustment of mA and kV were utilized.FINDINGS:LOWER CHEST: No significant abnormality.LIVER: There is mild steatosis without other significant abnormalities.BILIARY: The gallbladder is unremarkable. No biliary ductal dilatation.PANCREAS:No significant abnormality.SPLEEN: No significant abnormality.ADRENALS: No significant abnormality.KIDNEYS: No significant abnormality.STOMACH AND BOWEL: No significant abnormality of the stomach. There is mild generalized prominence of the small bowel with scattered air-fluid levels. Scattered air-fluid levels are also present throughout the colon, consistent with the provided history of diarrhea. The appendix is unremarkable.PERITONEUM: No free air, free fluid or fluid collection.VASCULATURE: No significant abnormality.LYMPH NODES: No adenopathy.BLADDER: No significant abnormality.REPRODUCTIVE ORGANS: Prior hysterectomy. No significant adnexal abnormality.ADDITIONAL FINDINGS: None.BONES: No significant abnormality.IMPRESSION:Evidence of uncomplicated enterocolitis without other acute findings.THIS IS AN ELECTRONICALLY VERIFIED FINAL [id number]/2023 2:43 PM - Electronically signed by Mert Sanderson MD
[2023-01-17] MEDS ORDERED: MORPHINE SULFATE INJ 4 MG IVP ONE (15:39)
[2023-01-17] MEDS ORDERED: ZOFRAN INJ 4 MG VIAL IVP ONE (15:39)
[2023-01-17] MEDS ORDERED: MORPHINE SULFATE INJ 4 MG ONE (15:41)
[2023-01-17] MEDS ORDERED: ZOFRAN INJ 4 MG VIAL ONE (15:41)
--- NOTE | 2023-01-17 18:10 | RAD ---
EXAM:KNEE COMPLETE, LEFTHISTORY:PT STATES THAT SHE FELL THIS MORNING AND INJURED HERE LEFT KNEE; SX: LT KNEE REPLACEMENT, HYSTERECTOMYCOMPARISON:Left knee series from 01/18/2022.FINDINGS:BONES: No acute fracture or dislocation. A small joint effusion is present. There is expected positioning of a total knee arthroplasty.SOFT TISSUES: No significant abnormality.IMPRESSION:Small left knee joint effusion without other acute findings.THIS IS AN ELECTRONICALLY VERIFIED FINAL TUBKWR4601/17/2023 6:07 PM - Electronically signed by Mert Sanderson MD
[2023-01-17 18:14] VITALS: BMI 32.3
[2023-01-17] MEDS: FLAGYL IV PREMIX 500 MG BAG 500 MG/100 ML BAG IV SCH (20:19)
[2023-01-17] MEDS: CIPRO IV 400 MG PREMIX* 400 MG/200 ML IV.SOLN. IV SCH (20:19)
[2023-01-17] MEDS: PROTONIX INJ 40 MG VIAL IVP SCH (20:26)
[2023-01-17] MEDS: MORPHINE SULFATE INJ 2 MG INJ IVP PRN (21:04)
[2023-01-17] MEDS: TYLENOL 325 MG TAB PO PRN (21:18)
--- NOTE | 2023-01-17 21:49 | RAD ---
EXAM:CHEST, 1 VIEWHISTORY:ELEVATED WBC - RECENT FLU SHOT ;COMPARISON:10/28/2022TECHNIQUE:Portable AP view of the chestFINDINGS:Heart size is mildly enlarged. Aorta is tortuous. There is mild stranding in the right upper lobe near the minor fissure. There is opacity in the medial right base worrisome for infiltrate. There is some stranding in the left base typical for atelectasis. There is no pleural effusion.IMPRESSION:Medial right base opacity worrisome for pneumonia.THIS IS AN ELECTRONICALLY VERIFIED FINAL AORRCO9901/17/2023 9:46 PM - Electronically signed by Black He MD
[2023-01-18] MEDS: FLAGYL IV PREMIX 500 MG BAG 500 MG/100 ML BAG IV SCH ×4 (02:55→21:23)
[2023-01-18] MEDS: MORPHINE SULFATE INJ 2 MG INJ IVP PRN ×2 (03:20→08:54)
[2023-01-18] MEDS: TYLENOL 325 MG TAB PO PRN ×2 (05:16→21:22)
[2023-01-18 05:31] LABS: BASOPHILS # (AUTO) 0.1 X10^3/uL (0.0-0.1); BASOPHILS % (AUTO) 0.4 % (0.2-1.0); EOSINOPHILS # (AUTO) 0.1 x10^3/uL (0.0-0.2); EOSINOPHILS % (AUTO) 0.8 % (0.9-2.9); HEMATOCRIT 33.2 % (36.0-47.0); HEMOGLOBIN 10.4 g/dL (12.0-16.0); LYMPHOCYTES # (AUTO) 2.1 X10^3/uL (1.3-2.9); LYMPHOCYTES % (AUTO) 11.9 % (21.0-51.0); MEAN CORPUSCULAR HGB CONC 31.4 g/dL (33.0-35.0); MEAN PLATELET VOLUME 9.7 fL (7.4-11.0); MONOCYTES # (AUTO) 1.7 x10^3/uL (0.3-0.8); MONOCYTES % (AUTO) 9.4 % (0.0-13.0); NEUTROPHILS % (AUTO) 77.5 % (42.0-75.0); PLATELET COUNT 198 X10^3/uL (150.0-450.0); RED BLOOD COUNT 4.73 X10^6/uL (3.5-5.4); RED CELL DISTRIBUTION WIDTH 15.3 % (11.6-16.5); WHITE BLOOD COUNT 18.1 X10^3/uL (3.6-10.0)
[2023-01-18 05:45] LABS: ALANINE AMINOTRANSFERASE 10 Units/L (12-78); ALBUMIN 2.6 g/dL (3.4-5.0); ALKALINE PHOSPHATASE 106 Units/L (46-116); ASPARTATE AMINO TRANSFERASE 14 Units/L (15-37); BLOOD UREA NITROGEN 25 mg/dL (7-18); CALCIUM 8.7 mg/dL (8.5-10.1); CARBON DIOXIDE 22.6 mmol/L (21-32); CHLORIDE 104 mmol/L (98-107); COR CA(FOR HYPOALB) 9.8 mg/dL (8.5-10.1); CREATININE 0.97 mg/dL (0.55-1.02); GLUCOSE 102 mg/dL (65-99); POTASSIUM 3.1 mmol/L (3.5-5.1); SODIUM 138 mmol/L (136-145); TOTAL PROTEIN 6.8 g/dL (6.4-8.2); eGFR NON BLACK RACES > 60 (>60)
[2023-01-18 05:50] LABS: HYPOCHROMASIA SLIGHT; MICROCYTOSIS SLIGHT; PLATELET MORPHOLOGY COMMENT NORMAL (NORMAL)
[2023-01-18 05:51] LABS: SCHISTOCYTES SLIGHT; TARGET CELLS SLIGHT
[2023-01-18] MEDS ORDERED: CONSULT PHARMACY - POTASSIUM & MAGNESIUM XX SCH (07:00)
[2023-01-18] MEDS: ZOFRAN INJ 4 MG VIAL IVP PRN (08:53)
[2023-01-18] MEDS ORDERED: NS 100 ML IV 100 ML ONE (09:10)
[2023-01-18] MEDS: CIPRO IV 400 MG PREMIX* 400 MG/200 ML IV.SOLN. IV SCH ×2 (09:21→21:23)
[2023-01-18] MEDS: MAG-OX TAB PO SCH ×2 (09:29→10:55)
[2023-01-18] MEDS: PROTONIX INJ 40 MG VIAL IVP SCH (09:29)
[2023-01-18] MEDS: K-DUR TAB 20 MEQ PO SCH ×2 (09:30→10:54)
[2023-01-18] MEDS: PROTONIX TAB 40 MG PO SCH ×2 (10:16→21:23)
[2023-01-18] MEDS: LOPRESSOR TAB 25 MG PO SCH ×2 (10:55→21:23)
--- NOTE | 2023-01-18 11:07 | DR.H&P ---
H&P History & Physical for Day of: H&P Date: 01/18/23 Chief Complaint Chief Complaint: abdominal pain, nausea, diarrhea, fall Allergies Allergies Allergy/AdvReac Type Severity Reaction Status Date / Time No Known Drug Allergies Allergy Unknown Verified 05/23/22 09:25 History of Present Illness History of Present Illness: Ms Montgomery is a 62y/o female with a PMH of chronic pain, OA, Anxiety/MDD, HTN and GERD presented with abdominal pain, nausea and diarrhea. She reports being sick for a few days. She was not able to eat much at home and felt weak. She had a fall yesterday due to increased weakness. She reports left hand and knee pain. In the ER, CTAP showed enterocolitis. Her labs showed elevated WBC, low K and Mag. CXR showed right base pneumonia. She was started on pain control, hydration and IV antibiotics. She states she is still having a lot of diarrhea. She was able to eat some liquids today. She also reports left hand pain and knee pain. Labs/imaging reviewed Stool studies: FOBT + WBC + [place] (-) WBC 18 K 3.1 Mg 1.9 Left knee XR: small joint effusion, no fracture Plan: continue hydration and IV antibiotics. Continue anti-emetics. Continue morphine prn, will add [place] prn for breakthrough pain. Continue full liquids, advance as tolerated. Replace electrolytes as needed. Resume home medications. Follow pending cultures. Monitor AM labs/imaging. Past Medical History Past Medical History: Anxiety, Arthritis, Depression, Gout and Hypertension Additional Medical History: FIBROMYALGIA Past Surgical History Surgical History: , 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 and Other Family History Family Medical History: Hypertension Social History Does patient currently use any type of tobacco product: No Have you used tobacco products in the last 12 months: No Type of Tobacco Use: None Does any household member use tobacco: No Alcohol Use: None Drug Use: None Medications Home Medications: Home Medications Medication Instructions Recorded Confirmed Type amlodipine 10 mg tablet 10 mg PO QDAY 01/17/23 01/17/23 History amoxicillin 875 mg-potassium 1 tab PO BID 01/17/23 01/17/23 History clavulanate 125 mg tablet gabapentin 600 mg tablet 600 mg PO TID 01/17/23 01/17/23 History ketorolac 10 mg tablet 10 mg PO Q6H PRN 01/17/23 01/17/23 History lisinopril 10 mg tablet 10 mg PO QDAY 01/17/23 01/17/23 History metoprolol tartrate 25 mg tablet 25 mg PO BID 01/17/23 01/17/23 History pantoprazole 40 mg tablet,delayed 40 mg PO BID 01/17/23 01/17/23 History release potassium chloride 10 mEq 10 meq PO QDAY 01/17/23 01/17/23 History tablet,extended release pregabalin 100 mg capsule 100 mg PO BID 01/17/23 01/17/23 History tramadol 50 mg tablet 50 mg PO TID PRN 01/17/23 01/17/23 History Labs 01/18/23 05:12 01/18/23 05:12 Labs: 01/17/23 13:00 Stool Stool Culture - Preliminary 01/17/23 13:00 Stool - Final Laboratory WBC 18.1 X10^3/uL (3.6-10.0) H 01/18/23 05:12 RBC 4.73 X10^6/uL (3.5-5.4) 01/18/23 05:12 Hgb 10.4 g/dL (12.0-16.0) L 01/18/23 05:12 Hct 33.2 % (36.0-47.0) L 01/18/23 05:12 MCV 70.0 fL (80.0-100.0) L 01/18/23 05:12 MCH 22.0 pg (27.0-34.0) L 01/18/23 05:12 MCHC 31.4 g/dL (33.0-35.0) L 01/18/23 05:12 RDW 15.3 % (11.6-16.5) 01/18/23 05:12 Plt Count 198 X10^3/uL (150.0-450.0) 01/18/23 05:12 Plt Count Comment Adequate (ADEQUATE) 01/18/23 05:12 MPV 9.7 fL (7.4-11.0) 01/18/23 05:12 Neut % (Auto) 77.5 % (42.0-75.0) H 01/18/23 05:12 Lymph % (Auto) 11.9 % (21.0-51.0) L 01/18/23 05:12 [place] % (Auto) 9.4 % (0.0-13.0) 01/18/23 05:12 Eos % (Auto) 0.8 % (0.9-2.9) L 01/18/23 05:12 Baso % (Auto) 0.4 % (0.2-1.0) 01/18/23 05:12 Neut # (Auto) 14.0 x10^3/uL (2.2-4.8) H 01/18/23 05:12 Lymph # (Auto) 2.1 X10^3/uL (1.3-2.9) 01/18/23 05:12 [place] # (Auto) 1.7 x10^3/uL (0.3-0.8) H 01/18/23 05:12 Eos # (Auto) 0.1 x10^3/uL (0.0-0.2) 01/18/23 05:12 Baso # (Auto) 0.1 X10^3/uL (0.0-0.1) 01/18/23 05:12 Absolute Nucleated RBC 0.0 /100WBC 01/18/23 05:12 Plt Morphology Comment Normal (NORMAL) 01/18/23 05:12 RBC Morphology Abnormal (NORMAL) A 01/18/23 05:12 Hypochromasia Slight A 01/18/23 05:12 Microcytosis Slight A 01/18/23 05:12 Target Cells Slight A 01/18/23 05:12 Tear Drop Cells Slight A 01/17/23 10:01 Schistocytes Slight A 01/18/23 05:12 Sodium 138 mmol/L (136-145) 01/18/23 05:12 Corrected Sodium TNP 01/18/23 05:12 Potassium 3.1 mmol/L (3.5-5.1) L 01/18/23 05:12 Chloride 104 mmol/L (98-107) 01/18/23 05:12 Carbon Dioxide 22.6 mmol/L (21-32) 01/18/23 05:12 BUN 25 mg/dL (7-18) H 01/18/23 05:12 Creatinine 0.97 mg/dL (0.55-1.02) 01/18/23 05:12 Est GFR (MDRD) Af Amer > 60 (>60) 01/18/23 05:12 Est GFR (MDRD) Non-Af > 60 (>60) 01/18/23 05:12 Glucose 102 mg/dL (65-99) H 01/18/23 05:12 Calcium 8.7 mg/dL (8.5-10.1) 01/18/23 05:12 Corrected Calcium 9.8 mg/dL (8.5-10.1) 01/18/23 05:12 Magnesium 1.9 mg/dL (2.0-2.9) L 01/18/23 05:12 Total Bilirubin 0.50 mg/dL (0.2-1.0) 01/18/23 05:12 AST 14 Units/L (15-37) L 01/18/23 05:12 ALT 10 Units/L (12-78) L 01/18/23 05:12 Alkaline Phosphatase 106 Units/L (46-116) 01/18/23 05:12 Total Protein 6.8 g/dL (6.4-8.2) 01/18/23 05:12 Albumin 2.6 g/dL (3.4-5.0) L 01/18/23 05:12 Globulin 4.2 g/dL (2.5-4.5) 01/18/23 05:12 Albumin/Globulin Ratio 0.6 Ratio (1.1-2.1) L 01/18/23 05:12 Specimen Type Clean catch urine 01/17/23 13:12 Urine Color Yellow (YELLOW) 01/17/23 13:12 Urine Appearance Clear (CLEAR) 01/17/23 13:12 Urine pH 6.0 (5.0 - 8.0) 01/17/23 13:12 Ur Specific [place] 1.020 (1.000-1.030) 01/17/23 13:12 Urine Protein 2+ (NEGATIVE) 01/17/23 13:12 Urine Glucose (UA) Negative (NEGATIVE) 01/17/23 13:12 Urine Ketones Negative (NEGATIVE) 01/17/23 13:12 Urine Blood 2+ (NEGATIVE) 01/17/23 13:12 Urine Nitrite Negative (NEGATIVE) 01/17/23 13:12 Urine Bilirubin Negative (NEGATIVE) 01/17/23 13:12 Urine Urobilinogen Normal (NORMAL) 01/17/23 13:12 Ur Leukocyte Esterase Negative (NEGATIVE) 01/17/23 13:12 Urine RBC 0-2 /HPF (0-3) 01/17/23 13:12 Urine WBC 0-2 /HPF (0-5) 01/17/23 13:12 Ur Squamous Epith Cells Many /HPF (NEGATIVE) 01/17/23 13:12 Urine Bacteria 1+ /HPF (NEGATIVE) 01/17/23 13:12 Urine Yeast Moderate /HPF (NEGATIVE) 01/17/23 13:12 Ur Culture Indicated? No/not indicated 01/17/23 13:12 Stl Occult Blood (IFOB) Positive (NEGATIVE) A 01/17/23 13:00 Stool for White Cells Positive (NEGATIVE) A 01/17/23 13:00 Stl C. diff Tox B Gene Negative (NEGATIVE) 01/17/23 13:00 Stl C. diff [id number] Presumptive negative (NEGATIVE) 01/17/23 13:00 SARS-CoV-2 (PCR) Negative (NEGATIVE) 01/17/23 09:23 Cryptosporid parvum Ag Negative (NEGATIVE) 01/17/23 13:00 Giardia lamblia Ag Negative (NEGATIVE) 01/17/23 13:00 Influenza Type A (PCR) Negative (NEGATIVE) 01/17/23 09:23 Influenza Type B (PCR) Negative (NEGATIVE) 01/17/23 09:23 RSV (PCR) Negative (NEGATIVE) 01/17/23 09:23 Review of Systems Constitutional: Weakness and Malaise Eyes: No Symptoms Reported Respiratory: Cough Cardiovascular: No Symptoms Reported Gastrointestinal: Nausea, Abdominal Pain and Diarrhea Musculoskeletal: Arm Pain and Leg Pain Skin: No Symptoms Reported Neurological: No Symptoms Reported Physical Exam Vital Signs: Vital Signs Temperature 98.4 F Temperature 99.2 F Pulse Rate [Left Brachial] 108 Pulse Rate [Left Brachial] 88 Respiratory Rate 20 Respiratory Rate 20 Respiratory Rate 20 Respiratory Rate 20 Respiratory Rate 22 Respiratory Rate 20 Respiratory Rate 18 Respiratory Rate 18 Blood Pressure [Left Arm] 121/76 Blood Pressure [Left Arm] 147/66 O2 Sat by Pulse Oximetry 98 O2 Sat by Pulse Oximetry 97 Oriented: Normal Eyes: Normal Throat: Normal Respiratory: Diminished Throughout Cardiovascular: Normal Auscultation: Bowel Sounds: Increased Tenderness: Epigastric and Periumbilical Skin: Normal Musculoskeletal: Left (knee: mild tenderness and swelling, no redness or signs of trauma ) and Wrist Psychiatric: Anxiety Affect: Anxious Speech Pattern: Clear and Appropriate Assessment/Plan (1) Enterocolitis: Status: Acute (2) Acute dehydration: Status: Acute (3) Pneumonia: Qualifiers: Laterality: right Lung location: lower lobe of lung Pneumonia type: due to unspecified organism Qualified Code(s): J18.9 - Pneumonia, unspecified organism Status: Acute (4) Generalized weakness: Status: Acute (5) Hypokalemia: Status: Acute (6) Hypomagnesemia: Status: Acute (7) Left knee sprain: Qualifiers: Encounter type: initial encounter Involved ligament of knee: unspecified ligament Qualified Code(s): S83.92XA - Sprain of unspecified site of left knee, initial encounter Status: Acute (8) Osteoarthritis: Qualifiers: Osteoarthritis location: multiple joints Osteoarthritis type: primary Qualified Code(s): M15.9 - Polyosteoarthritis, unspecified Status: Acute (9) Anemia: Qualifiers: Anemia type: unspecified type Qualified Code(s): D64.9 - Anemia, unspecified Status: Acute (10) Frequent falls: Status: Acute (11) Fibromyalgia: Status: Acute (12) Chronic back pain: Qualifiers: Back pain laterality: unspecified Back pain location: low back pain Sciatica presence: unspecified whether sciatica present Qualified Code(s): M54.50 - Low back pain, unspecified; G89.29 - Other chronic pain Status: Acute Review H&P Reviewed: Yes Patient was examined?: Yes
[2023-01-18] MEDS: NEURONTIN TAB 600 MG PO SCH ×4 (11:47→21:23)
[2023-01-18] MEDS: NS 1,000 ML IV 1,000 ML IV SCH (11:48)
[2023-01-18] MEDS: NORCO 10/325 TAB PO PRN ×2 (14:26→19:35)
[2023-01-19] MEDS: NORCO 10/325 TAB PO PRN ×4 (01:18→21:33)
[2023-01-19] MEDS: NS 1,000 ML IV 1,000 ML IV SCH ×3 (02:41→20:02)
[2023-01-19] MEDS: FLAGYL IV PREMIX 500 MG BAG 500 MG/100 ML BAG IV SCH ×4 (02:41→20:07)
[2023-01-19 05:21] LABS: BASOPHILS % (AUTO) 0.2 % (0.2-1.0); EOSINOPHILS # (AUTO) 0.2 x10^3/uL (0.0-0.2); EOSINOPHILS % (AUTO) 1.2 % (0.9-2.9); HEMATOCRIT 31.8 % (36.0-47.0); HEMOGLOBIN 9.9 g/dL (12.0-16.0); LYMPHOCYTES # (AUTO) 2.2 X10^3/uL (1.3-2.9); LYMPHOCYTES % (AUTO) 14.7 % (21.0-51.0); MEAN CORPUSCULAR HGB CONC 31.3 g/dL (33.0-35.0); MEAN CORPUSCULAR VOLUME 70.4 fL (80.0-100.0); MEAN PLATELET VOLUME 10.3 fL (7.4-11.0); MONOCYTES # (AUTO) 1.4 x10^3/uL (0.3-0.8); MONOCYTES % (AUTO) 9.4 % (0.0-13.0); NEUTROPHILS # (AUTO) 10.9 x10^3/uL (2.2-4.8); NEUTROPHILS % (AUTO) 74.5 % (42.0-75.0); PLATELET COUNT 189 X10^3/uL (150.0-450.0); RED BLOOD COUNT 4.52 X10^6/uL (3.5-5.4); RED CELL DISTRIBUTION WIDTH 14.7 % (11.6-16.5); WHITE BLOOD COUNT 14.7 X10^3/uL (3.6-10.0)
[2023-01-19] MEDS: NEURONTIN TAB 600 MG PO SCH ×3 (05:29→21:03)
[2023-01-19 05:35] LABS: ALANINE AMINOTRANSFERASE 8 Units/L (12-78); ALBUMIN 2.4 g/dL (3.4-5.0); ALKALINE PHOSPHATASE 103 Units/L (46-116); ASPARTATE AMINO TRANSFERASE 12 Units/L (15-37); BLOOD UREA NITROGEN 11 mg/dL (7-18); CALCIUM 8.8 mg/dL (8.5-10.1); CARBON DIOXIDE 25.2 mmol/L (21-32); CHLORIDE 101 mmol/L (98-107); COR CA(FOR HYPOALB) 10.1 mg/dL (8.5-10.1); CREATININE 0.74 mg/dL (0.55-1.02); GLUCOSE 105 mg/dL (65-99); MAGNESIUM 1.9 mg/dL (2.0-2.9); POTASSIUM 3.3 mmol/L (3.5-5.1); SODIUM 137 mmol/L (136-145); TOTAL PROTEIN 6.6 g/dL (6.4-8.2); eGFR NON BLACK RACES > 60 (>60)
[2023-01-19 05:44] LABS: PLATELET MORPHOLOGY COMMENT NORMAL (NORMAL)
[2023-01-19 05:45] LABS: HYPOCHROMASIA 1+; MICROCYTOSIS SLIGHT; TARGET CELLS SLIGHT
[2023-01-19] MEDS ORDERED: CONSULT PHARMACY - POTASSIUM & MAGNESIUM XX SCH (06:00)
[2023-01-19] MEDS ORDERED: NS + KCL 20 MEQ/L 1,000 ML IV SCH ×2 (08:00→09:00)
[2023-01-19] MEDS: PROTONIX TAB 40 MG PO SCH ×2 (09:00→20:01)
[2023-01-19] MEDS ORDERED: K-RIDER 10 MEQ/NS 100 ML 20 MEQ/200 ML BAG IV SCH (09:00)
[2023-01-19] MEDS: LOPRESSOR TAB 25 MG PO SCH ×2 (09:01→20:01)
[2023-01-19] MEDS: LOVENOX INJ 40 MG SYR SC SCH (09:01)
[2023-01-19] MEDS: MAGNESIUM SULFATE 1 GRAM/100 mL PREMIX 1 G/100 ML BAG IV SCH ×2 (09:01→10:50)
[2023-01-19] MEDS: CIPRO IV 400 MG PREMIX* 400 MG/200 ML IV.SOLN. IV SCH ×2 (09:02→20:01)
--- NOTE | 2023-01-19 09:22 | PCM.PROG ---
Progress Note Progress Note for Day of Date of Exam: 01/19/23 Subjective Subjective: Patient seen at bedside, no acute events overnight. She states her nausea and diarrhea is better. She reports improvement in abdominal pain. She continues to have left-sided hand pain and foot pain. She has been ambulating some to the bedside commode. She states the pain medication has been helping. She was able to tolerate full liquid diet. Labs and imaging reviewed -Hemoglobin 9.9 WBC 14.7 K 3.3 -Blood culture negative Plan: Continue IV ciprofloxacin and Flagyl. Continue hydration with NS plus KCl. Replace K. We will get left foot x-ray to rule out any fracture. Advance diet to soft diet. Continue pain control with morphine and [place] as needed. Continue home medications. Replace electrolytes as needed. Monitor a.m. labs and imaging. Past Medical Family Social History Allergies: Allergies No Known Drug Allergies Allergy (Unknown, Verified 05/23/22 09:25) Onset Date: 12/02/2021 Vital Signs and I&O's Vital Signs: Vital Signs Temperature 98.8 F Temperature 98.9 F Pulse Rate [Left Brachial] 93 Pulse Rate [Left Brachial] 80 Respiratory Rate 20 Respiratory Rate 18 Respiratory Rate 18 Respiratory Rate 18 Respiratory Rate 18 Respiratory Rate 18 Blood Pressure [Left Arm] 124/75 Blood Pressure [Left Arm] 102/61 O2 Sat by Pulse Oximetry 93 O2 Sat by Pulse Oximetry 97 Intake and Output: Intake & Output 01/16/23 01/17/23 01/18/23 01/19/23 23:59 23:59 23:59 23:59 Intake Total 890 / 890 1770 / 1770 807 / 807 Output Total Balance 890 / 890 1740 / 1740 807 / 807 Physical Exam Oriented: Normal Eyes: Normal Throat: Normal Cardiovascular: Normal Auscultation: Bowel Sounds: Normal Tenderness: Epigastric and Periumbilical Skin: Normal Musculoskeletal: Left (knee: mild tenderness and swelling, no redness or signs of trauma. Foot: Mild tenderness and slight limitation of range of motion ) and Wrist Psychiatric: Anxiety Affect: Anxious Speech Pattern: Clear and Appropriate Laboratory and Diagnostics 01/19/23 04:20 01/19/23 04:20 Labs: 01/17/23 21:24 Blood Blood Culture - Preliminary 01/17/23 21:15 Blood Blood Culture - Preliminary 01/17/23 13:00 Stool Stool Culture - Preliminary 01/17/23 13:00 Stool - Final Laboratory WBC 14.7 X10^3/uL (3.6-10.0) H 01/19/23 04:20 RBC 4.52 X10^6/uL (3.5-5.4) 01/19/23 04:20 Hgb 9.9 g/dL (12.0-16.0) L 01/19/23 04:20 Hct 31.8 % (36.0-47.0) L 01/19/23 04:20 MCV 70.4 fL (80.0-100.0) L 01/19/23 04:20 MCH 22.0 pg (27.0-34.0) L 01/19/23 04:20 MCHC 31.3 g/dL (33.0-35.0) L 01/19/23 04:20 RDW 14.7 % (11.6-16.5) 01/19/23 04:20 Plt Count 189 X10^3/uL (150.0-450.0) 01/19/23 04:20 Plt Count Comment Adequate (ADEQUATE) 01/19/23 04:20 MPV 10.3 fL (7.4-11.0) 01/19/23 04:20 Neut % (Auto) 74.5 % (42.0-75.0) 01/19/23 04:20 Lymph % (Auto) 14.7 % (21.0-51.0) L 01/19/23 04:20 [place] % (Auto) 9.4 % (0.0-13.0) 01/19/23 04:20 Eos % (Auto) 1.2 % (0.9-2.9) 01/19/23 04:20 Baso % (Auto) 0.2 % (0.2-1.0) 01/19/23 04:20 Neut # (Auto) 10.9 x10^3/uL (2.2-4.8) H 01/19/23 04:20 Lymph # (Auto) 2.2 X10^3/uL (1.3-2.9) 01/19/23 04:20 [place] # (Auto) 1.4 x10^3/uL (0.3-0.8) H 01/19/23 04:20 Eos # (Auto) 0.2 x10^3/uL (0.0-0.2) 01/19/23 04:20 Baso # (Auto) 0.0 X10^3/uL (0.0-0.1) 01/19/23 04:20 Absolute Nucleated RBC 0.0 /100WBC 01/19/23 04:20 Plt Morphology Comment Normal (NORMAL) 01/19/23 04:20 RBC Morphology Abnormal (NORMAL) A 01/19/23 04:20 Hypochromasia 1+ A 01/19/23 04:20 Microcytosis Slight A 01/19/23 04:20 Target Cells Slight A 01/19/23 04:20 Tear Drop Cells Slight A 01/17/23 10:01 Schistocytes Slight A 01/18/23 05:12 Sodium 137 mmol/L (136-145) 01/19/23 04:20 Corrected Sodium TNP 01/19/23 04:20 Potassium 3.3 mmol/L (3.5-5.1) L 01/19/23 04:20 Chloride 101 mmol/L (98-107) 01/19/23 04:20 Carbon Dioxide 25.2 mmol/L (21-32) 01/19/23 04:20 BUN 11 mg/dL (7-18) 01/19/23 04:20 Creatinine 0.74 mg/dL (0.55-1.02) 01/19/23 04:20 Est GFR (MDRD) Af Amer > 60 (>60) 01/19/23 04:20 Est GFR (MDRD) Non-Af > 60 (>60) 01/19/23 04:20 Glucose 105 mg/dL (65-99) H 01/19/23 04:20 Calcium 8.8 mg/dL (8.5-10.1) 01/19/23 04:20 Corrected Calcium 10.1 mg/dL (8.5-10.1) 01/19/23 04:20 Magnesium 1.9 mg/dL (2.0-2.9) L 01/19/23 04:20 Total Bilirubin 0.50 mg/dL (0.2-1.0) 01/19/23 04:20 AST 12 Units/L (15-37) L 01/19/23 04:20 ALT 8 Units/L (12-78) L 01/19/23 04:20 Alkaline Phosphatase 103 Units/L (46-116) 01/19/23 04:20 Total Protein 6.6 g/dL (6.4-8.2) 01/19/23 04:20 Albumin 2.4 g/dL (3.4-5.0) L 01/19/23 04:20 Globulin 4.2 g/dL (2.5-4.5) 01/19/23 04:20 Albumin/Globulin Ratio 0.6 Ratio (1.1-2.1) L 01/19/23 04:20 Specimen Type Clean catch urine 01/17/23 13:12 Urine Color Yellow (YELLOW) 01/17/23 13:12 Urine Appearance Clear (CLEAR) 01/17/23 13:12 Urine pH 6.0 (5.0 - 8.0) 01/17/23 13:12 Ur Specific [place] 1.020 (1.000-1.030) 01/17/23 13:12 Urine Protein 2+ (NEGATIVE) 01/17/23 13:12 Urine Glucose (UA) Negative (NEGATIVE) 01/17/23 13:12 Urine Ketones Negative (NEGATIVE) 01/17/23 13:12 Urine Blood 2+ (NEGATIVE) 01/17/23 13:12 Urine Nitrite Negative (NEGATIVE) 01/17/23 13:12 Urine Bilirubin Negative (NEGATIVE) 01/17/23 13:12 Urine Urobilinogen Normal (NORMAL) 01/17/23 13:12 Ur Leukocyte Esterase Negative (NEGATIVE) 01/17/23 13:12 Urine RBC 0-2 /HPF (0-3) 01/17/23 13:12 Urine WBC 0-2 /HPF (0-5) 01/17/23 13:12 Ur Squamous Epith Cells Many /HPF (NEGATIVE) 01/17/23 13:12 Urine Bacteria 1+ /HPF (NEGATIVE) 01/17/23 13:12 Urine Yeast Moderate /HPF (NEGATIVE) 01/17/23 13:12 Ur Culture Indicated? No/not indicated 01/17/23 13:12 Stl Occult Blood (IFOB) Positive (NEGATIVE) A 01/17/23 13:00 Stool for White Cells Positive (NEGATIVE) A 01/17/23 13:00 Stl C. diff Tox B Gene Negative (NEGATIVE) 01/17/23 13:00 Stl C. diff [id number] Presumptive negative (NEGATIVE) 01/17/23 13:00 SARS-CoV-2 (PCR) Negative (NEGATIVE) 01/17/23 09:23 Cryptosporid parvum Ag Negative (NEGATIVE) 01/17/23 13:00 Giardia lamblia Ag Negative (NEGATIVE) 01/17/23 13:00 Influenza Type A (PCR) Negative (NEGATIVE) 01/17/23 09:23 Influenza Type B (PCR) Negative (NEGATIVE) 01/17/23 09:23 RSV (PCR) Negative (NEGATIVE) 01/17/23 09:23 Plan (1) Left foot pain: Status: Acute (2) Enterocolitis: Status: Acute (3) Acute dehydration: Status: Acute (4) Pneumonia: Status: Acute Qualifiers: Laterality: right Lung location: lower lobe of lung Pneumonia type: due to unspecified organism Qualified Code(s): J18.9 - Pneumonia, unspecified organism (5) Generalized weakness: Status: Acute (6) Hypokalemia: Status: Acute (7) Hypomagnesemia: Status: Acute (8) Left knee sprain: Status: Acute Qualifiers: Encounter type: initial encounter Involved ligament of knee: unspecified ligament Qualified Code(s): S83.92XA - Sprain of unspecified site of left knee, initial encounter (9) Osteoarthritis: Status: Acute Qualifiers: Osteoarthritis location: multiple joints Osteoarthritis type: primary Qualified Code(s): M15.9 - Polyosteoarthritis, unspecified (10) Anemia: Status: Acute Qualifiers: Anemia type: unspecified type Qualified Code(s): D64.9 - Anemia, unspecified (11) Frequent falls: Status: Acute (12) Fibromyalgia: Status: Acute (13) Chronic back pain: Status: Acute Qualifiers: Back pain laterality: unspecified Back pain location: low back pain Sciatica presence: unspecified whether sciatica present Qualified Code(s): M54.50 - Low back pain, unspecified; G89.29 - Other chronic pain
[2023-01-19] MEDS: K-DUR TAB 20 MEQ PO SCH ×2 (10:25→20:01)
[2023-01-19] MEDS: DIFLUCAN PO SCH (11:05)
[2023-01-19] MEDS: MORPHINE SULFATE INJ 2 MG INJ IVP PRN ×2 (11:05→18:35)
[2023-01-20] MEDS: MORPHINE SULFATE INJ 2 MG INJ IVP PRN ×2 (01:22→09:26)
[2023-01-20] MEDS: FLAGYL IV PREMIX 500 MG BAG 500 MG/100 ML BAG IV SCH ×3 (03:46→11:36)
[2023-01-20] MEDS: NORCO 10/325 TAB PO PRN (03:47)
[2023-01-20] MEDS: NEURONTIN TAB 600 MG PO SCH (05:28)
[2023-01-20] MEDS: NS 1,000 ML IV 1,000 ML IV SCH (05:33)
--- NOTE | 2023-01-20 05:55 | RAD ---
PROCEDURE: Chest X-ray 1 View .HISTORY: PNEUMONIA .TECHNIQUE: AP view .COMPARISON: 01/17/2023.TECHNICAL QUALITY: Satisfactory .FINDINGS:Normal size heart .Mediastinum and hilar regions show no masses or lymphadenopathy .Normal central vascularity .No pulmonary consolidation, masses, pleural fluid, or pneumothorax .No acute bony abnormality .IMPRESSION:No active cardiopulmonary disease .Electronically signed by: Terry Doyle (Jan 20, 2023 05:54:22)
--- NOTE | 2023-01-20 06:01 | RAD ---
PROCEDURE: Left Foot 3 Views .HISTORY: Fall and pain.TECHNIQUE: Left AP, lateral, and oblique views .COMPARISON: None .TECHNICAL QUALITY: Satisfactory .FINDINGS:No fracture or dislocation.Moderate inferior calcaneal spur.No other bony abnormality.No soft tissue abnormality.IMPRESSION:1. No acute bony abnormality.2. Calcaneal spur.Electronically signed by: Terry Doyle (Jan 20, 2023 06:00:31)
[2023-01-20 06:55] LABS: BASOPHILS # (AUTO) 0.1 X10^3/uL (0.0-0.1); EOSINOPHILS # (AUTO) 0.2 x10^3/uL (0.0-0.2); EOSINOPHILS % (AUTO) 1.1 % (0.9-2.9); MEAN PLATELET VOLUME 10.5 fL (7.4-11.0)
[2023-01-20 06:58] LABS: BASOPHILS % (AUTO) 0.3 % (0.2-1.0); HEMATOCRIT 33.3 % (36.0-47.0); HEMOGLOBIN 10.4 g/dL (12.0-16.0); LYMPHOCYTES # (AUTO) 2.4 X10^3/uL (1.3-2.9); LYMPHOCYTES % (AUTO) 14.9 % (21.0-51.0); MEAN CORPUSCULAR HEMOGLOBIN 22.1 pg (27.0-34.0); MEAN CORPUSCULAR HGB CONC 31.2 g/dL (33.0-35.0); MEAN CORPUSCULAR VOLUME 70.7 fL (80.0-100.0); MONOCYTES # (AUTO) 1.5 x10^3/uL (0.3-0.8); MONOCYTES % (AUTO) 9.2 % (0.0-13.0); NEUTROPHILS % (AUTO) 74.5 % (42.0-75.0); PLATELET COUNT 218 X10^3/uL (150.0-450.0); RED BLOOD COUNT 4.71 X10^6/uL (3.5-5.4); RED CELL DISTRIBUTION WIDTH 14.8 % (11.6-16.5)
[2023-01-20 07:15] LABS: ALANINE AMINOTRANSFERASE 8 Units/L (12-78); ALBUMIN 2.4 g/dL (3.4-5.0); ALKALINE PHOSPHATASE 106 Units/L (46-116); ASPARTATE AMINO TRANSFERASE 13 Units/L (15-37); BLOOD UREA NITROGEN 8 mg/dL (7-18); CALCIUM 8.9 mg/dL (8.5-10.1); CARBON DIOXIDE 22.8 mmol/L (21-32); CHLORIDE 103 mmol/L (98-107); COR CA(FOR HYPOALB) 10.2 mg/dL (8.5-10.1); COR NA(FOR HYPERGLY) 140 mmol/L (136-145); CREATININE 0.77 mg/dL (0.55-1.02); GLUCOSE 137 mg/dL (65-99); POTASSIUM 3.5 mmol/L (3.5-5.1); SODIUM 139 mmol/L (136-145); TOTAL PROTEIN 6.9 g/dL (6.4-8.2); eGFR NON BLACK RACES > 60 (>60)
[2023-01-20 07:35] LABS: HYPOCHROMASIA 1+; MICROCYTOSIS SLIGHT; PLATELET MORPHOLOGY COMMENT NORMAL (NORMAL); TARGET CELLS SLIGHT; WHITE BLOOD COUNT 16.2 X10^3/uL (3.6-10.0)
[2023-01-20] MEDS ORDERED: CONSULT PHARMACY - POTASSIUM & MAGNESIUM XX SCH (08:00)
[2023-01-20] MEDS: ZOFRAN INJ 4 MG VIAL IVP PRN (08:07)
[2023-01-20] MEDS: MAG-OX TAB PO SCH ×2 (08:15→09:20)
[2023-01-20 09:12] VITALS: BP 126/87; PULSE 93; RESP 20; TEMP 98.6; O2SAT 98
[2023-01-20] MEDS: LOVENOX INJ 40 MG SYR SC SCH (09:19)
[2023-01-20] MEDS: DIFLUCAN PO SCH (09:20)
[2023-01-20] MEDS: K-DUR TAB 20 MEQ PO SCH (09:20)
[2023-01-20] MEDS: LOPRESSOR TAB 25 MG PO SCH (09:20)
[2023-01-20] MEDS: PROTONIX TAB 40 MG PO SCH (09:20)
[2023-01-20] MEDS: CIPRO IV 400 MG PREMIX* 400 MG/200 ML IV.SOLN. IV SCH (09:21)
--- NOTE | 2023-01-22 06:23 | W.DIS.FURT ---
Summary of Discharge Discharge Summary of Date Date of Exam: 01/20/23 Admission Date Date of Admission: 01/17/23 Admission Diagnosis Hospital Course: Patient is a 62 year old female admitted for enteritis and electrolyte abnormalities. Her hospital/treatment course included:IV ciprofloxacin and Flagyl. Electrolytes repleted. Labs/imaging: wbc 16.2, hemoglobin 10.4, platelets 218, sodium 140, potassium 3.5, creatinine 0.77, glucose 137. Blood culture negative. Pt responded well to treatment. Symptoms significantly improved, diet was advanced. Pt discharged in stable condition. Rx cipro and flagyl to complete course. Instructed to follow up with pcp in 1 week. Vital Signs: Vital Signs (72 hours) 01/17/23 09:26 01/17/23 09:21 01/17/23 09:24 Temperature 98.9 F Pulse Rate 105 H 103 H Pulse Rate [Left Brachial] Respiratory Rate 20 Blood Pressure 115/74 115/74 Blood Pressure [Left Arm] Blood Pressure [Right Arm] O2 Sat by Pulse Oximetry 96 94 L Oxygen Delivery Method Room Air 01/17/23 09:30 01/17/23 09:32 01/17/23 09:32 Temperature Pulse Rate 110 H Pulse Rate [Left Brachial] Respiratory Rate Blood Pressure 113/63 113/63 Blood Pressure [Left Arm] Blood Pressure [Right Arm] O2 Sat by Pulse Oximetry 98 Oxygen Delivery Method 01/17/23 09:32 01/17/23 09:45 01/17/23 10:09 Temperature Pulse Rate 103 H 103 H Pulse Rate [Left Brachial] Respiratory Rate 20 Blood Pressure Blood Pressure [Left Arm] Blood Pressure [Right Arm] O2 Sat by Pulse Oximetry 96 96 Oxygen Delivery Method 01/17/23 10:07 01/17/23 10:00 01/17/23 10:15 Temperature Pulse Rate 104 H 99 H Pulse Rate [Left Brachial] Respiratory Rate 20 Blood Pressure Blood Pressure [Left Arm] Blood Pressure [Right Arm] O2 Sat by Pulse Oximetry 100 97 Oxygen Delivery Method 01/17/23 10:26 01/17/23 10:30 01/17/23 10:30 Temperature Pulse Rate Pulse Rate [Left Brachial] Respiratory Rate Blood Pressure 90/57 90/57 Blood Pressure [Left Arm] Blood Pressure [Right Arm] O2 Sat by Pulse Oximetry 83 L Oxygen Delivery Method 01/17/23 10:50 01/17/23 10:58 01/17/23 11:00 Temperature Pulse Rate 98 H 100 H Pulse Rate [Left Brachial] Respiratory Rate Blood Pressure 97/54 Blood Pressure [Left Arm] Blood Pressure [Right Arm] O2 Sat by Pulse Oximetry 96 97 Oxygen Delivery Method 01/17/23 11:13 01/17/23 11:15 01/17/23 11:30 Temperature Pulse Rate 99 H 96 H Pulse Rate [Left Brachial] Respiratory Rate Blood Pressure 102/59 Blood Pressure [Left Arm] Blood Pressure [Right Arm] O2 Sat by Pulse Oximetry 96 97 Oxygen Delivery Method 01/17/23 11:30 01/17/23 11:45 01/17/23 12:00 Temperature Pulse Rate 100 H 100 H Pulse Rate [Left Brachial] Respiratory Rate Blood Pressure 95/55 Blood Pressure [Left Arm] Blood Pressure [Right Arm] O2 Sat by Pulse Oximetry 95 95 Oxygen Delivery Method 01/17/23 12:00 01/17/23 12:15 01/17/23 12:29 Temperature Pulse Rate 99 H 100 H 101 H Pulse Rate [Left Brachial] Respiratory Rate Blood Pressure Blood Pressure [Left Arm] Blood Pressure [Right Arm] O2 Sat by Pulse Oximetry 95 94 L 94 L Oxygen Delivery Method 01/17/23 12:30 01/17/23 11:07 01/17/23 10:39 Temperature Pulse Rate Pulse Rate [Left Brachial] Respiratory Rate 18 18 Blood Pressure 106/62 Blood Pressure [Left Arm] Blood Pressure [Right Arm] O2 Sat by Pulse Oximetry Oxygen Delivery Method 01/17/23 12:30 01/17/23 12:30 01/17/23 12:30 Temperature Pulse Rate 101 H Pulse Rate [Left Brachial] Respiratory Rate Blood Pressure 106/62 106/62 Blood Pressure [Left Arm] Blood Pressure [Right Arm] O2 Sat by Pulse Oximetry 94 L Oxygen Delivery Method 01/17/23 12:45 01/17/23 13:19 01/17/23 13:19 Temperature Pulse Rate 101 H 97 H Pulse Rate [Left Brachial] Respiratory Rate Blood Pressure 116/61 Blood Pressure [Left Arm] Blood Pressure [Right Arm] O2 Sat by Pulse Oximetry 95 93 L Oxygen Delivery Method 01/17/23 13:30 01/17/23 13:30 01/17/23 13:30 Temperature Pulse Rate 101 H Pulse Rate [Left Brachial] Respiratory Rate Blood Pressure 95/57 95/57 Blood Pressure [Left Arm] Blood Pressure [Right Arm] O2 Sat by Pulse Oximetry 99 Oxygen Delivery Method 01/17/23 13:57 01/17/23 14:00 01/17/23 14:00 Temperature Pulse Rate 99 H 104 H Pulse Rate [Left Brachial] Respiratory Rate Blood Pressure 92/66 Blood Pressure [Left Arm] Blood Pressure [Right Arm] O2 Sat by Pulse Oximetry 95 98 Oxygen Delivery Method 01/17/23 14:00 01/17/23 14:00 01/17/23 14:15 Temperature Pulse Rate 104 H 96 H Pulse Rate [Left Brachial] Respiratory Rate Blood Pressure 92/66 Blood Pressure [Left Arm] Blood Pressure [Right Arm] O2 Sat by Pulse Oximetry 98 97 Oxygen Delivery Method 01/17/23 14:30 01/17/23 14:30 01/17/23 14:30 Temperature Pulse Rate Pulse Rate [Left Brachial] Respiratory Rate Blood Pressure 93/54 93/54 93/54 Blood Pressure [Left Arm] Blood Pressure [Right Arm] O2 Sat by Pulse Oximetry Oxygen Delivery Method 01/17/23 14:30 01/17/23 14:45 01/17/23 15:00 Temperature Pulse Rate 96 H 97 H Pulse Rate [Left Brachial] Respiratory Rate Blood Pressure 105/60 Blood Pressure [Left Arm] Blood Pressure [Right Arm] O2 Sat by Pulse Oximetry 97 94 L Oxygen Delivery Method 01/17/23 15:00 01/17/23 15:24 01/17/23 15:30 Temperature Pulse Rate 97 H 98 H Pulse Rate [Left Brachial] Respiratory Rate Blood Pressure 94/56 Blood Pressure [Left Arm] Blood Pressure [Right Arm] O2 Sat by Pulse Oximetry 95 96 Oxygen Delivery Method 01/17/23 15:30 01/17/23 15:46 01/17/23 17:04 Temperature 98.9 F Pulse Rate 100 H Pulse Rate [Left Brachial] Respiratory Rate 18 16 Blood Pressure Blood Pressure [Left Arm] 115/74 Blood Pressure [Right Arm] O2 Sat by Pulse Oximetry 96 96 Oxygen Delivery Method Room Air 01/17/23 17:05 01/17/23 16:43 01/17/23 19:00 Temperature 99.9 F H Pulse Rate Pulse Rate [Left Brachial] 101 H Respiratory Rate 20 Blood Pressure Blood Pressure [Left Arm] 125/72 Blood Pressure [Right Arm] O2 Sat by Pulse Oximetry 97 Oxygen Delivery Method Room Air Room Air Room Air 01/17/23 19:55 01/17/23 21:04 01/17/23 21:02 Temperature 100.2 F H 101.4 F H Pulse Rate Pulse Rate [Left Brachial] 100 H Respiratory Rate 22 22 Blood Pressure Blood Pressure [Left Arm] 138/71 Blood Pressure [Right Arm] O2 Sat by Pulse Oximetry 93 L Oxygen Delivery Method Room Air 01/17/23 21:18 01/17/23 22:18 01/17/23 21:34 Temperature Pulse Rate Pulse Rate [Left Brachial] Respiratory Rate 20 20 20 Blood Pressure Blood Pressure [Left Arm] Blood Pressure [Right Arm] O2 Sat by Pulse Oximetry Oxygen Delivery Method 01/17/23 23:38 01/18/23 03:20 01/18/23 05:16 Temperature 99.3 F Pulse Rate Pulse Rate [Left Brachial] 93 H Respiratory Rate 18 18 22 Blood Pressure Blood Pressure [Left Arm] 102/70 Blood Pressure [Right Arm] O2 Sat by Pulse Oximetry 96 Oxygen Delivery Method Room Air 01/18/23 04:00 01/18/23 03:50 01/18/23 06:16 Temperature 99.2 F Pulse Rate Pulse Rate [Left Brachial] 88 Respiratory Rate 20 18 20 Blood Pressure Blood Pressure [Left Arm] 147/66 Blood Pressure [Right Arm] O2 Sat by Pulse Oximetry 97 Oxygen Delivery Method Room Air 01/18/23 07:00 01/18/23 08:00 01/18/23 08:54 Temperature 98.4 F Pulse Rate Pulse Rate [Left Brachial] 108 H Respiratory Rate 20 20 Blood Pressure Blood Pressure [Left Arm] 121/76 Blood Pressure [Right Arm] O2 Sat by Pulse Oximetry 98 Oxygen Delivery Method Room Air Room Air 01/18/23 09:24 01/18/23 12:00 01/18/23 14:26 Temperature 97.6 F Pulse Rate Pulse Rate [Left Brachial] 80 Respiratory Rate 20 20 20 Blood Pressure Blood Pressure [Left Arm] Blood Pressure [Right Arm] 132/65 O2 Sat by Pulse Oximetry 97 Oxygen Delivery Method Room Air 01/18/23 15:46 01/18/23 15:26 01/18/23 19:35 Temperature 99.1 F Pulse Rate Pulse Rate [Left Brachial] 82 Respiratory Rate 20 99 H 20 Blood Pressure Blood Pressure [Left Arm] 104/62 Blood Pressure [Right Arm] O2 Sat by Pulse Oximetry 100 Oxygen Delivery Method Room Air 01/18/23 21:22 01/18/23 19:00 01/18/23 20:00 Temperature 100.9 F H Pulse Rate Pulse Rate [Left Brachial] 106 H Respiratory Rate 20 18 Blood Pressure Blood Pressure [Left Arm] 100/57 Blood Pressure [Right Arm] O2 Sat by Pulse Oximetry 96 Oxygen Delivery Method Room Air Room Air 01/18/23 20:35 01/18/23 22:22 01/18/23 22:32 Temperature 99.0 F Pulse Rate Pulse Rate [Left Brachial] Respiratory Rate 20 20 Blood Pressure Blood Pressure [Left Arm] Blood Pressure [Right Arm] O2 Sat by Pulse Oximetry Oxygen Delivery Method 01/19/23 00:00 01/19/23 01:18 01/19/23 02:18 Temperature 99.9 F H Pulse Rate Pulse Rate [Left Brachial] 81 Respiratory Rate 18 18 18 Blood Pressure Blood Pressure [Left Arm] 104/64 Blood Pressure [Right Arm] O2 Sat by Pulse Oximetry 97 Oxygen Delivery Method Room Air 01/19/23 04:00 01/19/23 05:30 01/19/23 07:55 Temperature 98.9 F 98.8 F Pulse Rate Pulse Rate [Left Brachial] 80 93 H Respiratory Rate 18 18 20 Blood Pressure Blood Pressure [Left Arm] 102/61 124/75 Blood Pressure [Right Arm] O2 Sat by Pulse Oximetry 97 93 L Oxygen Delivery Method Room Air Room Air 01/19/23 06:30 01/19/23 07:00 01/19/23 11:05 Temperature Pulse Rate Pulse Rate [Left Brachial] Respiratory Rate 18 18 Blood Pressure Blood Pressure [Left Arm] Blood Pressure [Right Arm] O2 Sat by Pulse Oximetry Oxygen Delivery Method Room Air 01/19/23 11:35 01/19/23 11:51 01/19/23 15:20 Temperature 98.5 F Pulse Rate Pulse Rate [Left Brachial] 84 Respiratory Rate 18 20 18 Blood Pressure Blood Pressure [Left Arm] Blood Pressure [Right Arm] 132/79 O2 Sat by Pulse Oximetry 97 Oxygen Delivery Method Room Air 01/19/23 16:00 01/19/23 16:20 01/19/23 18:35 Temperature 98.4 F Pulse Rate Pulse Rate [Left Brachial] 86 Respiratory Rate 20 18 18 Blood Pressure Blood Pressure [Left Arm] Blood Pressure [Right Arm] 120/77 O2 Sat by Pulse Oximetry 98 Oxygen Delivery Method Room Air 01/19/23 21:33 01/19/23 19:05 01/19/23 20:00 Temperature 99.3 F Pulse Rate Pulse Rate [Left Brachial] 96 H Respiratory Rate 18 18 20 Blood Pressure Blood Pressure [Left Arm] 159/84 Blood Pressure [Right Arm] O2 Sat by Pulse Oximetry 98 Oxygen Delivery Method 01/19/23 19:00 01/20/23 00:00 01/19/23 22:33 Temperature 98.0 F Pulse Rate Pulse Rate [Left Brachial] 83 Respiratory Rate 20 18 Blood Pressure Blood Pressure [Left Arm] 133/67 Blood Pressure [Right Arm] O2 Sat by Pulse Oximetry 97 Oxygen Delivery Method Room Air 01/20/23 01:22 01/20/23 03:47 01/20/23 03:48 Temperature Pulse Rate Pulse Rate [Left Brachial] Respiratory Rate 20 20 20 Blood Pressure Blood Pressure [Left Arm] Blood Pressure [Right Arm] O2 Sat by Pulse Oximetry Oxygen Delivery Method 01/20/23 04:00 01/20/23 05:33 Temperature 97.7 F Pulse Rate Pulse Rate [Left Brachial] 90 Respiratory Rate 22 22 Blood Pressure Blood Pressure [Left Arm] 123/78 Blood Pressure [Right Arm] O2 Sat by Pulse Oximetry 94 L Oxygen Delivery Method Labs: Laboratory Last Values WBC 16.2 X10^3/uL (3.6-10.0) H 01/20/23 05:37 RBC 4.71 X10^6/uL (3.5-5.4) 01/20/23 05:37 Hgb 10.4 g/dL (12.0-16.0) L 01/20/23 05:37 Hct 33.3 % (36.0-47.0) L 01/20/23 05:37 MCV 70.7 fL (80.0-100.0) L 01/20/23 05:37 MCH 22.1 pg (27.0-34.0) L 01/20/23 05:37 MCHC 31.2 g/dL (33.0-35.0) L 01/20/23 05:37 RDW 14.8 % (11.6-16.5) 01/20/23 05:37 Plt Count 218 X10^3/uL (150.0-450.0) 01/20/23 05:37 Plt Count Comment Adequate (ADEQUATE) 01/20/23 05:37 MPV 10.5 fL (7.4-11.0) 01/20/23 05:37 Neut % (Auto) 74.5 % (42.0-75.0) 01/20/23 05:37 Lymph % (Auto) 14.9 % (21.0-51.0) L 01/20/23 05:37 [place] % (Auto) 9.2 % (0.0-13.0) 01/20/23 05:37 Eos % (Auto) 1.1 % (0.9-2.9) 01/20/23 05:37 Baso % (Auto) 0.3 % (0.2-1.0) 01/20/23 05:37 Neut # (Auto) 12.0 x10^3/uL (2.2-4.8) H 01/20/23 05:37 Lymph # (Auto) 2.4 X10^3/uL (1.3-2.9) 01/20/23 05:37 [place] # (Auto) 1.5 x10^3/uL (0.3-0.8) H 01/20/23 05:37 Eos # (Auto) 0.2 x10^3/uL (0.0-0.2) 01/20/23 05:37 Baso # (Auto) 0.1 X10^3/uL (0.0-0.1) 01/20/23 05:37 Absolute Nucleated RBC 0.1 /100WBC 01/20/23 05:37 Plt Clumps, EDTA Rare 01/20/23 05:37 Plt Morphology Comment Normal (NORMAL) 01/20/23 05:37 RBC Morphology Abnormal (NORMAL) A 01/20/23 05:37 Hypochromasia 1+ A 01/20/23 05:37 Microcytosis Slight A 01/20/23 05:37 Target Cells Slight A 01/20/23 05:37 Tear Drop Cells Slight A 01/17/23 10:01 Schistocytes Slight A 01/18/23 05:12 Sodium 139 mmol/L (136-145) 01/20/23 05:37 Corrected Sodium 140 mmol/L (136-145) 01/20/23 05:37 Potassium 3.5 mmol/L (3.5-5.1) 01/20/23 05:37 Chloride 103 mmol/L (98-107) 01/20/23 05:37 Carbon Dioxide 22.8 mmol/L (21-32) 01/20/23 05:37 BUN 8 mg/dL (7-18) 01/20/23 05:37 Creatinine 0.77 mg/dL (0.55-1.02) 01/20/23 05:37 Est GFR (MDRD) Af Amer > 60 (>60) 01/20/23 05:37 Est GFR (MDRD) Non-Af > 60 (>60) 01/20/23 05:37 Glucose 137 mg/dL (65-99) H 01/20/23 05:37 Calcium 8.9 mg/dL (8.5-10.1) 01/20/23 05:37 Corrected Calcium 10.2 mg/dL (8.5-10.1) H 01/20/23 05:37 Magnesium 1.6 mg/dL (2.0-2.9) L 01/20/23 05:37 Total Bilirubin 0.40 mg/dL (0.2-1.0) 01/20/23 05:37 AST 13 Units/L (15-37) L 01/20/23 05:37 ALT 8 Units/L (12-78) L 01/20/23 05:37 Alkaline Phosphatase 106 Units/L (46-116) 01/20/23 05:37 Total Protein 6.9 g/dL (6.4-8.2) 01/20/23 05:37 Albumin 2.4 g/dL (3.4-5.0) L 01/20/23 05:37 Globulin 4.5 g/dL (2.5-4.5) 01/20/23 05:37 Albumin/Globulin Ratio 0.5 Ratio (1.1-2.1) L 01/20/23 05:37 Specimen Type Clean catch urine 01/17/23 13:12 Urine Color Yellow (YELLOW) 01/17/23 13:12 Urine Appearance Clear (CLEAR) 01/17/23 13:12 Urine pH 6.0 (5.0 - 8.0) 01/17/23 13:12 Ur Specific [place] 1.020 (1.000-1.030) 01/17/23 13:12 Urine Protein 2+ (NEGATIVE) 01/17/23 13:12 Urine Glucose (UA) Negative (NEGATIVE) 01/17/23 13:12 Urine Ketones Negative (NEGATIVE) 01/17/23 13:12 Urine Blood 2+ (NEGATIVE) 01/17/23 13:12 Urine Nitrite Negative (NEGATIVE) 01/17/23 13:12 Urine Bilirubin Negative (NEGATIVE) 01/17/23 13:12 Urine Urobilinogen Normal (NORMAL) 01/17/23 13:12 Ur Leukocyte Esterase Negative (NEGATIVE) 01/17/23 13:12 Urine RBC 0-2 /HPF (0-3) 01/17/23 13:12 Urine WBC 0-2 /HPF (0-5) 01/17/23 13:12 Ur Squamous Epith Cells Many /HPF (NEGATIVE) 01/17/23 13:12 Urine Bacteria 1+ /HPF (NEGATIVE) 01/17/23 13:12 Urine Yeast Moderate /HPF (NEGATIVE) 01/17/23 13:12 Ur Culture Indicated? No/not indicated 01/17/23 13:12 Stl Occult Blood (IFOB) Positive (NEGATIVE) A 01/17/23 13:00 Stool for White Cells Positive (NEGATIVE) A 01/17/23 13:00 Stl C. diff Tox B Gene Negative (NEGATIVE) 01/17/23 13:00 Stl C. diff [id number] Presumptive negative (NEGATIVE) 01/17/23 13:00 SARS-CoV-2 (PCR) Negative (NEGATIVE) 01/17/23 09:23 Cryptosporid parvum Ag Negative (NEGATIVE) 01/17/23 13:00 Giardia lamblia Ag Negative (NEGATIVE) 01/17/23 13:00 Influenza Type A (PCR) Negative (NEGATIVE) 01/17/23 09:23 Influenza Type B (PCR) Negative (NEGATIVE) 01/17/23 09:23 RSV (PCR) Negative (NEGATIVE) 01/17/23 09:23 Reason For Visit: ABDOMINAL PAIN, ENTERITIS, LEUKOCYTOSIS, LEFT KNEE Discharge Date Discharge Date: 01/20/23 Discharge Diagnosis All Active Problems (Updated 01/19/23 @ 09:20 by Agnes Page) Left foot pain (Acute) Pneumonia (Acute) Sprain of left shoulder (Acute) Sprain of left hip (Acute) Left knee sprain (Acute) Left ankle sprain (Acute) De Quervain's tenosynovitis, right (Acute) Osteoarthritis (Acute) Vertigo (Acute) Vertigo (Acute) Hypotension (Acute) Anemia (Acute) Non-cardiac chest pain (Acute) Anxiety (Acute) Acute right-sided back pain with sciatica (Acute) Diarrhea (Acute) Acute dehydration (Acute) Enterocolitis (Acute) Near syncope (Acute) Frequent falls (Acute) Right shoulder pain (Acute) Acute kidney insufficiency (Acute) Generalized weakness (Acute) Hypokalemia (Acute) Pain in both hands (Acute) Contracture of hand (Acute) Acute lumbar myofascial strain (Acute) Acute UTI (Acute) Second degree burn of wrist (Acute) Hip pain (Acute) Chronic left shoulder pain (Acute) Fibromyalgia (Acute) Chronic back pain (Acute) Upper respiratory infection, viral (Acute) Anterolisthesis of lumbar spine (Acute) Arm pain, right (Acute) Cervicalgia (Acute) Acute chest wall pain (Acute) Anxiety (Acute) UTI (urinary tract infection) (Acute) Renal insufficiency (Acute) Chest wall pain (Acute) Hypokalemia (Acute) Contusion, multiple sites (Acute) Acute nontraumatic kidney injury (Acute) Gastritis (Acute) Blood in stool (Acute) Hypokalemia (Acute) Hypomagnesemia (Acute) Microcytic anemia (Acute) C. difficile enteritis (Acute) Campylobacter enteritis (Acute) Hypotension (Acute) Carpal tunnel syndrome (Chronic) Anxiety (Chronic) Flank pain, chronic (Chronic) Hypertension (Chronic) Fibromyalgia (Chronic) Knee pain, left (Chronic) Myalgia (Chronic) Arthralgia (Chronic) Fibromyalgia (Acute) Plan of Treatment: Continue with present treatment and follow up plan. Pt is to keep follow up appointment as instructed and take medications as ordered. Discharge Medications Discharge Medications: No Known Drug Allergies Allergy (Unknown, Verified 05/23/22 09:25) CONTINUE taking the following medications amlodipine 10 mg tablet 10 mg PO QDAY 01/17/23 [History] amoxicillin 875 mg-potassium clavulanate 125 mg tablet 1 tab PO BID 01/17/23 [History] gabapentin 600 mg tablet 600 mg PO TID 01/17/23 [History] ketorolac 10 mg tablet 10 mg PO Q6H PRN 01/17/23 [History] lisinopril 10 mg tablet 10 mg PO QDAY 01/17/23 [History] metoprolol tartrate 25 mg tablet 25 mg PO BID 01/17/23 [History] pantoprazole 40 mg tablet,delayed release 40 mg PO BID 01/17/23 [History] potassium chloride 10 mEq tablet,extended release 10 meq PO QDAY 01/17/23 [History] pregabalin 100 mg capsule 100 mg PO BID 01/17/23 [History] tramadol 50 mg tablet 50 mg PO TID PRN 01/17/23 [History] New Prescriptions ciprofloxacin HCl 500 mg tablet (Cipro) 500 mg PO BID 7 days #14 tabs 01/20/23 [Rx] hydrocodone 10 mg-acetaminophen 325 mg tablet 1 tab PO TID PRN 5 days #15 tabs 01/20/23 [Rx] metronidazole 500 mg tablet 500 mg PO TID 7 days #21 tabs 01/20/23 [Rx] Discharge Disposition Assessment: No distress noted at discharge. Discharge Plan Discharge Plan Hospital Course: Patient is a 62 year old female admitted for enteritis and electrolyte abnormalities. Her hospital/treatment course included:IV ciprofloxacin and Flagyl. Electrolytes repleted. Labs/imaging: wbc 16.2, hemoglobin 10.4, platelets 218, sodium 140, potassium 3.5, creatinine 0.77, glucose 137. Blood culture negative. Pt responded well to treatment. Symptoms significantly improved, diet was advanced. Pt discharged in stable condition. Rx cipro and flagyl to complete course. Instructed to follow up with pcp in 1 week. Patient Disposition: HOME HEALTH SERVICE Condition: Stable Health Concerns: Post Hospitalization: new medications and changes needed to prevent readmission or further decline. Pt educated and given instructions on all concerns. Care Plan Goals: Problem: Infection Goal: Temperature within normal limits. Resolved infection. Instructions: Follow provided instructions. Follow up with primary physician as directed. Contact primary care physician or report to the closest Emergency Room if condition worsens. Plan of Treatment: Continue with present treatment and follow up plan. Pt is to keep follow up appointment as instructed and take medications as ordered. Assessment: No distress noted at discharge. Prescriptions: New metronidazole 500 mg Tablet 500 mg PO TID 7 Days Qty: 21 0RF ciprofloxacin HCl [Cipro] 500 mg Tablet 500 mg PO BID 7 Days Qty: 14 0RF hydrocodone-acetaminophen 10-325 mg tablet 1 tab PO TID MDD 3 PRN5 Days Qty: 15 0RF Continued gabapentin 600 mg tablet 600 mg PO TID potassium chloride 10 mEq tablet extended release 10 meq PO QDAY tramadol 50 mg tablet 50 mg PO TID PRN ketorolac 10 mg tablet 10 mg PO Q6H PRN amlodipine 10 mg tablet 10 mg PO QDAY pantoprazole 40 mg tablet,delayed release (DR/EC) 40 mg PO BID lisinopril 10 mg tablet 10 mg PO QDAY amoxicillin-pot clavulanate 875-125 mg tablet 1 tab PO BID metoprolol tartrate 25 mg tablet 25 mg PO BID pregabalin 100 mg capsule 100 mg PO BID Follow ups/Referrals Follow ups/Referrals: [facility] [Other] ([place] office ) [facility] [STAFF PHYSICIAN] - (Referal sent 01/20/23) Magali Hopkins [REFERRING] - 01/27/23 10:00 am Instructions Instructions: Leukocytosis, Abdominal Pain, Adult, [id number], Antibiotic Medicine, Adult Stand Alone Forms: Post Hospital Follow Up Care
== END 2023-01-20 11:35 | disposition home health service (06) ==
LOC: ER 09:16 → MED/SURG 09:16
PROVIDERS: ADMIT Internal Medicine; ATTEND Internal Medicine
DX: W18.39XA Other fall on same level, initial encounter; R53.1 Weakness; M25.562 Pain in left knee; R29.6 Repeated falls; S83.92XA Sprain of unspecified site of left knee, initial encounter; K52.89 Other specified noninfective gastroenteritis and colitis; M79.642 Pain in left hand; J18.8 Other pneumonia, unspecified organism; Z20.822 Contact with and (suspected) exposure to COVID-19; K21.9 Gastro-esophageal reflux disease without esophagitis; K92.1 Melena; R10.84 Generalized abdominal pain; D64.89 Other specified anemias; E87.6 Hypokalemia; E83.42 Hypomagnesemia; M54.59 Other low back pain; M79.7 Fibromyalgia; I10 Essential (primary) hypertension; E86.0 Dehydration; M15.9 Polyosteoarthritis, unspecified; F41.8 Other specified anxiety disorders; R26.89 Other abnormalities of gait and mobility; M77.32 Calcaneal spur, left foot

== ENCOUNTER 2023-08-13 10:17 | Observation (INO) ==
[2023-08-13 10:28] VITALS: BMI 31.7
--- NOTE | 2023-08-13 10:30 | EKG ---
Test Reason : SYNCOPE Blood Pressure : */* mmHG Vent. Rate : 83 BPM Atrial Rate : 83 BPM P-R Int : 136 ms QRS Dur : 82 ms QT Int : 382 ms P-R-T Axes : 66 31 50 degrees QTc Int : 448 ms Normal sinus rhythm Possible Left atrial enlargement Borderline ECG When compared with ECG of 25-MAR-2023 02:24, No significant change was found Confirmed by Kevon Collier MD ([id number]) on 08/14/2023 8:58:25 AM Referred By: Confirmed By: Kevon Collier MD
--- NOTE | 2023-08-13 10:44 | DR.NAUSEAF ---
HPI Time Seen Time Seen by Provider: 08/13/23 10:33 Primary Care Physician Primary Care Physician: NFD Complaints Chief Complaint Doctors Comments: 62 y/o female via EMS for evaluation.. Has been ill over the past 2 days. Having sinus congestion, productive cough, generalized bodyaches. Been having nausea, vomiting and diarrhea. Patient passed out yesterday in the bathroom. She passed out twice today. Has been having fevers and chills. No known contact with ill individuals. Chief Complaint:: Patient reports NVD x 2 days with 3 episodes of "Blacking out" over the past few days. She complains of a productive cough with generalized body aches. [facility] reported to ems a low BP but normotensive upon EMS arrival. COVID-19 Coronavirus risk:travel/contact w/high risk person: No Has patient experienced Coronavirus symptoms: Yes Coronavirus symptoms experienced: Coughing Reviewed Nurses Notes Reviewed: Yes Source History Provided: Patient Mode of Arrival Mode of Arrival: Stretcher Timing Onset of Chief Complaint: 08/11/23 PMH PMH Past Medical History: Yes Past Medical History: Arthritis, GERD, Hypertension and Renal Disease Past Surgical History: Yes Surgical History: , 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, Ortho Surgery and Tonsillectomy Family History History of Family Medical Conditions: Yes Family Medical History: Hypertension Social History Does patient currently use any type of tobacco product: No Have you used tobacco products in the last 12 months: No Type of Tobacco Use: None Does any household member use tobacco: Yes Alcohol Use: Occasionally Do you use any recreational Drugs:: No Lives With: Alone Lives Where: Home Travel Risk Coronavirus risk:travel/contact w/high risk person: No Has patient experienced Coronavirus symptoms: Yes Coronavirus symptoms experienced: Coughing Infectious screening In the last 2 months have you had wt loss of >10#?: NO Have you had fever, night sweats or hemotysis?: No Have you traveled outside the country in the last 6 months?: No Isolation: Standard ROS Review of Systems Constitutional: Chills, Fever and Weakness Eyes: No Symptoms Reported ENTM: Nose Congestion Respiratoy: Productive Cough Cardiovascular: No Symptoms Reported Gastrointestinal/Abdominal: Abdominal Pain (Left side), Diarrhea, Nausea and Vomiting Genitourinary: No Symptoms Reported Neurological: Weakness and Dizziness Musculoskeletal: Muscle Pain Integumentary: No Symptoms Reported Hematologic/Lymphatic: No Symptoms Reported Psychiatric: No Symptoms Reported All Other Systems: Reviewed and Negative PE Vital Signs Vitals: Vital Signs Temperature 97.8 F Pulse Rate 88 Pulse Rate 87 Pulse Rate 84 Pulse Rate 86 Pulse Rate 86 Respiratory Rate 20 Respiratory Rate 20 Respiratory Rate 20 Respiratory Rate 22 Respiratory Rate 22 Respiratory Rate 29 Respiratory Rate 30 Respiratory Rate 30 Respiratory Rate 36 Respiratory Rate 20 Blood Pressure 87/65 Blood Pressure 87/65 Blood Pressure 100/70 Blood Pressure 100/70 Blood Pressure 85/54 Blood Pressure 92/54 Blood Pressure 108/58 Blood Pressure 118/70 Blood Pressure 131/76 O2 Sat by Pulse Oximetry 82 O2 Sat by Pulse Oximetry 97 O2 Sat by Pulse Oximetry 97 O2 Sat by Pulse Oximetry 96 O2 Sat by Pulse Oximetry 95 General General Appearance: Alert and In No Apparent Distress Head Head Exam: Normal Inspection, Atraumatic and Normocephalic Eyes Eye exam: PERRL and EOMI ENT ENT Exam: Normal Oropharynx, Mucous Membranes Moist and TM's Normal Bilaterally Neck Neck Exam: Normal Inspection and Full ROM; negative Tenderness Respiratory Respiratory Exam: Normal Lung Sounds Bilat; negative Accessory Muscle Use or Respiratory Distress Cardiovascular Cardiovascular Exam: Regular Rate, Normal Rhythm and Normal Heart Sounds Abdominal Exam Abdominal Exam: Normal Bowel Sounds, Soft and Tenderness (Mild, left side of abdomen); negative Guarding or Rebound Extremities Extremities Exam: Normal Inspection and Full ROM; negative Edema Back Back Exam: Normal Inspection; negative (R) CVA Tenderness or (L) CVA Tenderness Neurologic Neurological Exam: Alert, Oriented X3 and CN II-XII Intact; negative Motor Sensory Deficit Skin Skin Exam: Warm and Dry COURSE Treatment Treatment: 62-year-old female alert past 2 days. Having URI symptoms, productive cough, vomiting diarrhea. Patient is several episodes of syncope over the last 2 days. No injuries from passing out. Workup initiated. Patient given IV fluids, IV Zofran/Toradol/morphine. 1317 -patient positive for type a influenza. Labs show elevated creatinine of 2.53, consistent with volume depletion. Patient's last creatinine 6 months ago was less than 1. Patient also had several syncopal episodes the past 24 hours. Recommend admission for further hydration, treatment of her influenza, observation on air sampling and monitoring. Discussed with Dr. Page, accepts admission. [facility] Labs Reviewed Laboratory Results Reviewed?: Yes 08/13/23 10:57 08/13/23 10:57 Laboratory: WBC 13.4 X10^3/uL (3.6-10.0) H 08/13/23 10:57 RBC 5.47 X10^6/uL (3.5-5.4) H 08/13/23 10:57 Hgb 12.0 g/dL (12.0-16.0) 08/13/23 10:57 Hct 39.4 % (36.0-47.0) 08/13/23 10:57 MCV 72.0 fL (80.0-100.0) L 08/13/23 10:57 MCH 22.0 pg (27.0-34.0) L 08/13/23 10:57 MCHC 30.6 g/dL (33.0-35.0) L 08/13/23 10:57 RDW 14.5 % (11.6-16.5) 08/13/23 10:57 Plt Count 178 X10^3/uL (150.0-450.0) 08/13/23 10:57 Plt Count Comment Adequate (ADEQUATE) 08/13/23 10:57 MPV 9.4 fL (7.4-11.0) 08/13/23 10:57 Neut % (Auto) 82.3 % (42.0-75.0) H 08/13/23 10:57 Lymph % (Auto) 9.9 % (21.0-51.0) L 08/13/23 10:57 [place] % (Auto) 7.6 % (0.0-13.0) 08/13/23 10:57 Eos % (Auto) 0.0 % (0.9-2.9) L 08/13/23 10:57 Baso % (Auto) 0.2 % (0.2-1.0) 08/13/23 10:57 Neut # (Auto) 11.0 x10^3/uL (2.2-4.8) H 08/13/23 10:57 Lymph # (Auto) 1.3 X10^3/uL (1.3-2.9) 08/13/23 10:57 [place] # (Auto) 1.0 x10^3/uL (0.3-0.8) H 08/13/23 10:57 Eos # (Auto) 0.0 x10^3/uL (0.0-0.2) 08/13/23 10:57 Baso # (Auto) 0.0 X10^3/uL (0.0-0.1) 08/13/23 10:57 Absolute Nucleated RBC 0.1 /100WBC 08/13/23 10:57 Plt Morphology Comment Normal (NORMAL) 08/13/23 10:57 RBC Morphology Abnormal (NORMAL) A 08/13/23 10:57 Hypochromasia 2+ A 08/13/23 10:57 Microcytosis Slight A 08/13/23 10:57 Target Cells Slight A 08/13/23 10:57 Sodium 137 mmol/L (136-145) 08/13/23 10:57 Corrected Sodium TNP 08/13/23 10:57 Potassium 3.2 mmol/L (3.5-5.1) L 08/13/23 10:57 Chloride 102 mmol/L (98-107) 08/13/23 10:57 Carbon Dioxide 23.8 mmol/L (21-32) 08/13/23 10:57 BUN 41 mg/dL (7-18) H 08/13/23 10:57 Creatinine 2.53 mg/dL (0.55-1.02) H 08/13/23 10:57 Est GFR (MDRD) Af Amer 25 (>60) L 08/13/23 10:57 Est GFR (MDRD) Non-Af 20 (>60) L 08/13/23 10:57 Glucose 106 mg/dL (65-99) H 08/13/23 10:57 Calcium 8.2 mg/dL (8.5-10.1) L 08/13/23 10:57 Corrected Calcium 9.0 mg/dL (8.5-10.1) 08/13/23 10:57 Total Bilirubin 0.30 mg/dL (0.2-1.0) 08/13/23 10:57 AST 27 Units/L (15-37) 08/13/23 10:57 ALT 21 Units/L (12-78) 08/13/23 10:57 Alkaline Phosphatase 114 Units/L (46-116) 08/13/23 10:57 Troponin I High Sens 13.6 ng/L (4.0-60.0) 08/13/23 10:57 Total Protein 7.9 g/dL (6.4-8.2) 08/13/23 10:57 Albumin 3.0 g/dL (3.4-5.0) L 08/13/23 10:57 Globulin 4.9 g/dL (2.5-4.5) H 08/13/23 10:57 Albumin/Globulin Ratio 0.6 Ratio (1.1-2.1) L 08/13/23 10:57 Lipase 35 Units/L (16-77) 08/13/23 10:57 Specimen Type Clean catch urine 08/13/23 12:07 Urine Color Yellow (YELLOW) 08/13/23 12:07 Urine Appearance Slightly hazy (CLEAR) 08/13/23 12:07 Urine pH 6.0 (5.0 - 8.0) 08/13/23 12:07 Ur Specific [place] 1.020 (1.000-1.030) 08/13/23 12:07 Urine Protein 3+ (NEGATIVE) 08/13/23 12:07 Urine Glucose (UA) Negative (NEGATIVE) 08/13/23 12:07 Urine Ketones Negative (NEGATIVE) 08/13/23 12:07 Urine Blood 5+ (NEGATIVE) 08/13/23 12:07 Urine Nitrite Negative (NEGATIVE) 08/13/23 12:07 Urine Bilirubin Negative (NEGATIVE) 08/13/23 12:07 Urine Urobilinogen Normal (NORMAL) 08/13/23 12:07 Ur Leukocyte Esterase Negative (NEGATIVE) 08/13/23 12:07 Urine RBC None seen /HPF (0-3) 08/13/23 12:07 Urine WBC None seen /HPF (0-5) 08/13/23 12:07 Ur Squamous Epith Cells Rare /HPF (NEGATIVE) 08/13/23 12:07 Amorphous Sediment 1+ /HPF (NEGATIVE) 08/13/23 12:07 Urine Bacteria Trace /HPF (NEGATIVE) 08/13/23 12:07 Ur Culture Indicated? No/not indicated 08/13/23 12:07 SARS-CoV-2 (PCR) Negative (NEGATIVE) 08/13/23 10:48 Influenza Type A (PCR) Positive (NEGATIVE) A 08/13/23 10:48 Influenza Type B (PCR) Negative (NEGATIVE) 08/13/23 10:48 RSV (PCR) Negative (NEGATIVE) 08/13/23 10:48 XRAY XRAY Interpreted by: Both X-ray Results: Chest x-ray without acute abnormalities EKG Rate: 83 [place]: Normal Rhythm: NSR Block: None Hypertrophy: LAE ST: Normal Opioid Opioid Risk Tool Age (Vineet box if 16-45): No History of Preadolescent Sexual Abuse: No Total: 0 Total Score Risk Category: Low Risk Copyright: [facility] predicting aberrant behaviors Discharge Plan Diagnosis Discharge Problem: Type A influenza, Volume depletion, Syncope Discharge Plan Patient Disposition: ADMITTED INPATIENT Condition: Stable Orders to Discharge Patient Discharge Orders: Transfer (Routine); Ordered 08/13/23 Ordered By: Venkatesh Lr
[2023-08-13] MEDS: MORPHINE SULFATE INJ 4 MG IVP ONE (10:55)
[2023-08-13] MEDS: ZOFRAN INJ 4 MG VIAL IVP ONE (10:56)
[2023-08-13] MEDS: TORADOL 30 MG VIAL IVP ONE (10:56)
[2023-08-13 11:04] LABS: BASOPHILS % (AUTO) 0.2 % (0.2-1.0); RED CELL DISTRIBUTION WIDTH 14.5 % (11.6-16.5)
--- NOTE | 2023-08-13 11:13 | RAD ---
EXAM:CHEST, 1 VIEWHISTORY:COUGH;COMPARISON:Prior study or studies were utilized for comparison during interpretation with the most relevant dated 03/25/2023TECHNIQUE:CHEST, 1 VIEWFINDINGS:Chest:Lines and tubes: Cardiac leads overlie the chest.Mediastinum: Cardiac and mediastinal shadow is within normal limits for size and contour.Pulmonary vessels: No pulmonary vascular congestion.Lung [place]: No suspicious airspace opacity.Pleura: No effusion. No pneumothorax.Bones and soft tissues: No acute osseous or soft tissue abnormality.IMPRESSION:1. No acute cardiopulmonary abnormalityTHIS IS AN ELECTRONICALLY VERIFIED FINAL REPORT08/13/2023 11:09 AM - Electronically signed by Sarbjit Slater MD
[2023-08-13 11:21] LABS: HEMATOCRIT 39.4 % (36.0-47.0); LYMPHOCYTES # (AUTO) 1.3 X10^3/uL (1.3-2.9); LYMPHOCYTES % (AUTO) 9.9 % (21.0-51.0); MEAN CORPUSCULAR HGB CONC 30.6 g/dL (33.0-35.0); MEAN PLATELET VOLUME 9.4 fL (7.4-11.0); MONOCYTES % (AUTO) 7.6 % (0.0-13.0); NEUTROPHILS % (AUTO) 82.3 % (42.0-75.0); PLATELET COUNT 178 X10^3/uL (150.0-450.0); RED BLOOD COUNT 5.47 X10^6/uL (3.5-5.4); WHITE BLOOD COUNT 13.4 X10^3/uL (3.6-10.0)
[2023-08-13 11:22] LABS: ALANINE AMINOTRANSFERASE 21 Units/L (12-78); ALKALINE PHOSPHATASE 114 Units/L (46-116); ASPARTATE AMINO TRANSFERASE 27 Units/L (15-37); BLOOD UREA NITROGEN 41 mg/dL (7-18); CALCIUM 8.2 mg/dL (8.5-10.1); CARBON DIOXIDE 23.8 mmol/L (21-32); CHLORIDE 102 mmol/L (98-107); CREATININE 2.53 mg/dL (0.55-1.02); GLUCOSE 106 mg/dL (65-99); LIPASE 35 Units/L (16-77); POTASSIUM 3.2 mmol/L (3.5-5.1); SODIUM 137 mmol/L (136-145); TOTAL PROTEIN 7.9 g/dL (6.4-8.2); eGFR NON BLACK RACES 20 (>60)
[2023-08-13 11:28] LABS: PLATELET MORPHOLOGY COMMENT NORMAL (NORMAL)
[2023-08-13 11:29] LABS: HYPOCHROMASIA 2+; MICROCYTOSIS SLIGHT
[2023-08-13 11:31] LABS: TARGET CELLS SLIGHT
[2023-08-13] MEDS: PROTONIX INJ 40 MG VIAL IVP ONE (12:17)
[2023-08-13] MEDS: LEVSIN/MAALOX/LIDOC VISC PO ONE (12:18)
[2023-08-13 12:26] LABS: BILIRUBIN,URINE NEGATIVE (NEGATIVE); BLOOD/HEMOGLOBIN,URINE 5+ (NEGATIVE); GLUCOSE, URINE NEGATIVE (NEGATIVE); KETONES,URINE NEGATIVE (NEGATIVE); LEUKOCYTE ESTERASE ,URINE NEGATIVE (NEGATIVE); NITRITES,URINE NEGATIVE (NEGATIVE); PROTEIN,URINE 3+ (NEGATIVE); UROBILINOGEN,URINE NORMAL (NORMAL)
[2023-08-13 12:49] LABS: APPEARANCE,URINE SLIGHTLY HAZY (CLEAR); BACTERIA,URINE TRACE /HPF (NEGATIVE); COLOR,URINE YELLOW (YELLOW); RBC,URINE NONE SEEN /HPF (0-3); SQUAMOUS EPITHELIAL CELL,UR RARE /HPF (NEGATIVE)
[2023-08-13] MEDS: NS 1,000 ML IV 1,000 ML IV SCH (13:08)
[2023-08-13] MEDS: TAMIFLU PO ONE (13:08)
[2023-08-13] MEDS ORDERED: CONSULT PHARMACY - POTASSIUM & MAGNESIUM XX SCH (15:21)
[2023-08-13] MEDS ORDERED: ZOFRAN INJ 4 MG VIAL IVP PRN (15:21)
[2023-08-13] MEDS: NEURONTIN CAP 100 MG PO SCH (16:00)
[2023-08-13] MEDS: TAMIFLU PO SCH (16:08)
[2023-08-13] MEDS: PEPCID TAB 20 MG PO SCH (16:23)
[2023-08-13] MEDS: K-DUR TAB 20 MEQ PO SCH (16:23)
[2023-08-13] MEDS: NORCO 7.5/325 MG TAB PO PRN (16:25)
[2023-08-13] MEDS: MORPHINE SULFATE INJ 4 MG IVP PRN (18:56)
[2023-08-13] MEDS: LOPRESSOR TAB 25 MG PO SCH (20:49)
[2023-08-14] MEDS: MAALOX or MYLANTA PO PRN (00:33)
[2023-08-14 06:53] LABS: BASOPHILS % (AUTO) 0.1 % (0.2-1.0); EOSINOPHILS % (AUTO) 0.1 % (0.9-2.9); HEMATOCRIT 35.4 % (36.0-47.0); LYMPHOCYTES % (AUTO) 20.4 % (21.0-51.0); MEAN CORPUSCULAR HEMOGLOBIN 22.4 pg (27.0-34.0); MEAN CORPUSCULAR HGB CONC 31.1 g/dL (33.0-35.0); MONOCYTES % (AUTO) 9.9 % (0.0-13.0); NEUTROPHILS # (AUTO) 6.8 x10^3/uL (2.2-4.8); NEUTROPHILS % (AUTO) 69.5 % (42.0-75.0); PLATELET COUNT 159 X10^3/uL (150.0-450.0); RED BLOOD COUNT 4.92 X10^6/uL (3.5-5.4); RED CELL DISTRIBUTION WIDTH 14.4 % (11.6-16.5); WHITE BLOOD COUNT 9.8 X10^3/uL (3.6-10.0)
[2023-08-14 07:15] LABS: ALANINE AMINOTRANSFERASE 19 Units/L (12-78); ALBUMIN 2.6 g/dL (3.4-5.0); ALKALINE PHOSPHATASE 100 Units/L (46-116); ASPARTATE AMINO TRANSFERASE 23 Units/L (15-37); BLOOD UREA NITROGEN 20 mg/dL (7-18); CALCIUM 8.3 mg/dL (8.5-10.1); CHLORIDE 107 mmol/L (98-107); COR CA(FOR HYPOALB) 9.4 mg/dL (8.5-10.1); CREATININE 1.02 mg/dL (0.55-1.02); GLUCOSE 92 mg/dL (65-99); POTASSIUM 3.4 mmol/L (3.5-5.1); SODIUM 139 mmol/L (136-145); eGFR NON BLACK RACES 58 (>60)
[2023-08-14 07:24] LABS: HYPOCHROMASIA 1+; PLATELET MORPHOLOGY COMMENT NORMAL (NORMAL); TARGET CELLS SLIGHT
[2023-08-14 07:25] LABS: MICROCYTOSIS SLIGHT
[2023-08-14] MEDS ORDERED: CONSULT PHARMACY - POTASSIUM & MAGNESIUM XX SCH (09:00)
[2023-08-14] MEDS: TAMIFLU PO SCH (09:16)
[2023-08-14] MEDS: NORVASC TAB 10 MG PO SCH (09:16)
[2023-08-14] MEDS: PROTONIX INJ 40 MG VIAL IVP SCH (09:17)
[2023-08-14] MEDS: TUSSIONEX PENNKINETIC SUSP PO PRN (11:06)
[2023-08-14] MEDS: K-DUR TAB 20 MEQ PO SCH (11:06)
[2023-08-14] MEDS: LOVENOX INJ 40 MG SYR SC SCH (11:54)
[2023-08-14] MEDS: DUONEB 0.5 MG/3 MG (3 mL) NEB SCH (12:57)
[2023-08-14] MEDS: NEURONTIN TAB 600 MG PO SCH (13:26)
--- NOTE | 2023-08-14 14:29 | RAD ---
EXAM:Left knee two viewsHISTORY:LEFT KNEE PAIN;COMPARISON:Left knee 06/18/2023.TECHNIQUE:Frontal and lateral views were submitted for interpretation.FINDINGS:3 component left knee arthroplasty remains in anatomic alignment without evidence of hardware loosening or failure. No evidence of fracture, subluxation, or dislocation. Small suprapatellar joint effusion is suspected.IMPRESSION:1. 3 component left knee arthroplasty, in anatomic alignment, without evidence of hardware failure or complication.2. Small left knee effusion is suspected.THIS IS AN ELECTRONICALLY VERIFIED FINAL REPORT08/14/2023 2:26 PM - Electronically signed by John Best MD
[2023-08-14] MEDS: PEPCID TAB 20 MG PO SCH (21:15)
--- NOTE | 2023-08-14 23:45 | DR.H&P ---
H&P History & Physical for Day of: H&P Date: 08/14/23 Chief Complaint Chief Complaint: Cough Weakness Allergies Allergies Allergy/AdvReac Type Severity Reaction Status Date / Time No Known Drug Allergies Allergy Unknown Verified 07/14/23 14:07 History of Present Illness History of Present Illness: Patient is a 62-year-old female presenting with sinus congestion, productive cough, generalized bodyaches, along with nausea and vomiting for the past few days. She reports that symptoms have been gradually getting worse and that she is feeling weak. Labs/imaging: WBC 9.8, hemoglobin 11, platelets 159, sodium 139, potassium 3.4, creatinine 2.53>1.02, glucose 92, UA negative, influenza A positive, chest x-ray no acute cardiopulmonary findings. Patient was admitted for influenza A and acute renal failure due to dehydration. On exam patient is reporting some improvement in symptoms but she is also complaining about her left knee hurting. Denies any recent trauma. Will get x-ray of the knee to evaluate. Otherwise we will treat pneumonia with Tamiflu. Will add Tussionex as well as incentive spirometer. Scheduled bronchodilators. Wean oxygen as tolerated. Restart home medications. Continue IV fluids, hold nephrotoxic agents. Otherwise continue current treatment plan. Continue closely monitor and follow-up labs/imaging. Past Medical History Past Medical History: Arthritis, GERD, Hypertension and Renal Disease Additional Medical History: FIBROMYALGIA Past Surgical History Surgical History: and 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 Family History Family Medical History: Hypertension Social History Does patient currently use any type of tobacco product: No Have you used tobacco products in the last 12 months: No Type of Tobacco Use: None Does any household member use tobacco: No Alcohol Use: Occasionally Drug Use: None Medications Home Medications: Home Medications Medication Instructions Recorded Confirmed Type amlodipine 10 mg tablet 10 mg PO QDAY 01/17/23 08/13/23 History gabapentin 600 mg tablet 600 mg PO TID 01/17/23 08/13/23 History pantoprazole 40 mg tablet,delayed 40 mg PO BID 01/17/23 08/13/23 History release lisinopril 20 mg tablet 20 mg PO QDAY 02/11/23 08/13/23 History metoprolol tartrate 25 mg tablet 25 mg PO BID 02/11/23 08/13/23 History famotidine 20 mg tablet 20 mg PO BID 08/13/23 08/13/23 History meclizine 25 mg tablet 25 mg PO BID PRN 08/13/23 08/13/23 History omeprazole 40 mg capsule,delayed 40 mg PO QDAY 08/13/23 08/13/23 History release Labs 08/14/23 05:56 08/14/23 05:56 Labs: Laboratory WBC 9.8 X10^3/uL (3.6-10.0) 08/14/23 05:56 RBC 4.92 X10^6/uL (3.5-5.4) 08/14/23 05:56 Hgb 11.0 g/dL (12.0-16.0) L 08/14/23 05:56 Hct 35.4 % (36.0-47.0) L 08/14/23 05:56 MCV 72.0 fL (80.0-100.0) L 08/14/23 05:56 MCH 22.4 pg (27.0-34.0) L 08/14/23 05:56 MCHC 31.1 g/dL (33.0-35.0) L 08/14/23 05:56 RDW 14.4 % (11.6-16.5) 08/14/23 05:56 Plt Count 159 X10^3/uL (150.0-450.0) 08/14/23 05:56 Plt Count Comment Adequate (ADEQUATE) 08/14/23 05:56 MPV 10.0 fL (7.4-11.0) 08/14/23 05:56 Neut % (Auto) 69.5 % (42.0-75.0) 08/14/23 05:56 Lymph % (Auto) 20.4 % (21.0-51.0) L 08/14/23 05:56 [place] % (Auto) 9.9 % (0.0-13.0) 08/14/23 05:56 Eos % (Auto) 0.1 % (0.9-2.9) L 08/14/23 05:56 Baso % (Auto) 0.1 % (0.2-1.0) L 08/14/23 05:56 Neut # (Auto) 6.8 x10^3/uL (2.2-4.8) H 08/14/23 05:56 Lymph # (Auto) 2.0 X10^3/uL (1.3-2.9) 08/14/23 05:56 [place] # (Auto) 1.0 x10^3/uL (0.3-0.8) H 08/14/23 05:56 Eos # (Auto) 0.0 x10^3/uL (0.0-0.2) 08/14/23 05:56 Baso # (Auto) 0.0 X10^3/uL (0.0-0.1) 08/14/23 05:56 Absolute Nucleated RBC 0.1 /100WBC 08/14/23 05:56 Plt Morphology Comment Normal (NORMAL) 08/14/23 05:56 RBC Morphology Abnormal (NORMAL) A 08/14/23 05:56 Hypochromasia 1+ A 08/14/23 05:56 Microcytosis Slight A 08/14/23 05:56 Target Cells Slight A 08/14/23 05:56 Sodium 139 mmol/L (136-145) 08/14/23 05:56 Corrected Sodium TNP 08/14/23 05:56 Potassium 3.4 mmol/L (3.5-5.1) L 08/14/23 05:56 Chloride 107 mmol/L (98-107) 08/14/23 05:56 Carbon Dioxide 22.0 mmol/L (21-32) 08/14/23 05:56 BUN 20 mg/dL (7-18) H 08/14/23 05:56 Creatinine 1.02 mg/dL (0.55-1.02) 08/14/23 05:56 Est GFR (MDRD) Af Amer > 60 (>60) 08/14/23 05:56 Est GFR (MDRD) Non-Af 58 (>60) L 08/14/23 05:56 Glucose 92 mg/dL (65-99) 08/14/23 05:56 Calcium 8.3 mg/dL (8.5-10.1) L 08/14/23 05:56 Corrected Calcium 9.4 mg/dL (8.5-10.1) 08/14/23 05:56 Magnesium 2.1 mg/dL (2.0-2.9) 08/13/23 10:57 Total Bilirubin 0.30 mg/dL (0.2-1.0) 08/14/23 05:56 AST 23 Units/L (15-37) 08/14/23 05:56 ALT 19 Units/L (12-78) 08/14/23 05:56 Alkaline Phosphatase 100 Units/L (46-116) 08/14/23 05:56 Troponin I High Sens 13.6 ng/L (4.0-60.0) 08/13/23 10:57 Total Protein 7.0 g/dL (6.4-8.2) 08/14/23 05:56 Albumin 2.6 g/dL (3.4-5.0) L 08/14/23 05:56 Globulin 4.4 g/dL (2.5-4.5) 08/14/23 05:56 Albumin/Globulin Ratio 0.6 Ratio (1.1-2.1) L 08/14/23 05:56 Lipase 35 Units/L (16-77) 08/13/23 10:57 Specimen Type Clean catch urine 08/13/23 12:07 Urine Color Yellow (YELLOW) 08/13/23 12:07 Urine Appearance Slightly hazy (CLEAR) 08/13/23 12:07 Urine pH 6.0 (5.0 - 8.0) 08/13/23 12:07 Ur Specific [place] 1.020 (1.000-1.030) 08/13/23 12:07 Urine Protein 3+ (NEGATIVE) 08/13/23 12:07 Urine Glucose (UA) Negative (NEGATIVE) 08/13/23 12:07 Urine Ketones Negative (NEGATIVE) 08/13/23 12:07 Urine Blood 5+ (NEGATIVE) 08/13/23 12:07 Urine Nitrite Negative (NEGATIVE) 08/13/23 12:07 Urine Bilirubin Negative (NEGATIVE) 08/13/23 12:07 Urine Urobilinogen Normal (NORMAL) 08/13/23 12:07 Ur Leukocyte Esterase Negative (NEGATIVE) 08/13/23 12:07 Urine RBC None seen /HPF (0-3) 08/13/23 12:07 Urine WBC None seen /HPF (0-5) 08/13/23 12:07 Ur Squamous Epith Cells Rare /HPF (NEGATIVE) 08/13/23 12:07 Amorphous Sediment 1+ /HPF (NEGATIVE) 08/13/23 12:07 Urine Bacteria Trace /HPF (NEGATIVE) 08/13/23 12:07 Ur Culture Indicated? No/not indicated 08/13/23 12:07 SARS-CoV-2 (PCR) Negative (NEGATIVE) 08/13/23 10:48 Influenza Type A (PCR) Positive (NEGATIVE) A 08/13/23 10:48 Influenza Type B (PCR) Negative (NEGATIVE) 08/13/23 10:48 RSV (PCR) Negative (NEGATIVE) 08/13/23 10:48 Review of Systems Constitutional: Weakness Eyes: No Symptoms Reported ENT: No Symptoms Reported Respiratory: Cough Cardiovascular: No Symptoms Reported Gastrointestinal: Nausea and Vomiting Genitourinary: No Symptoms Reported Musculoskeletal: No Symptoms Reported Skin: No Symptoms Reported Neurological: No Symptoms Reported Physical Exam Vital Signs: Vital Signs Temperature 98.3 F Temperature 99.8 F Pulse Rate [Bilateral Radial] 88 Pulse Rate [Bilateral Radial] 72 Pulse Rate 87 Respiratory Rate 22 Respiratory Rate 18 Respiratory Rate 17 Respiratory Rate 17 Respiratory Rate 17 Blood Pressure [Right Arm] 132/71 Blood Pressure [Right Arm] 119/73 O2 Sat by Pulse Oximetry 99 O2 Sat by Pulse Oximetry 96 O2 Sat by Pulse Oximetry 91 Oriented: Normal Eyes: Normal Ear: Normal Nose: Normal Throat: Normal Respiratory: Clear Throughout Cardiovascular: Normal : Normal Auscultation: Bowel Sounds: Normal Palpation: Normal Tenderness: Normal Skin: Normal Musculoskeletal: Normal Psychiatric: Normal Mood Description: Calm and Appropriate Affect: Normal Speech Pattern: Clear and Appropriate Assessment/Plan (1) Type A influenza: Status: Acute (2) Acute renal failure: Qualifiers: Acute renal failure type: unspecified Qualified Code(s): N17.9 - Acute kidney failure, unspecified Status: Inactive Review H&P Reviewed: Yes Patient was examined?: Yes
[2023-08-15 06:18] LABS: BASOPHILS # (AUTO) 0.1 X10^3/uL (0.0-0.1); BASOPHILS % (AUTO) 0.7 % (0.2-1.0); EOSINOPHILS % (AUTO) 0.6 % (0.9-2.9); HEMATOCRIT 34.2 % (36.0-47.0); HEMOGLOBIN 10.7 g/dL (12.0-16.0); LYMPHOCYTES # (AUTO) 2.2 X10^3/uL (1.3-2.9); LYMPHOCYTES % (AUTO) 28.7 % (21.0-51.0); MEAN CORPUSCULAR HEMOGLOBIN 22.3 pg (27.0-34.0); MEAN CORPUSCULAR HGB CONC 31.3 g/dL (33.0-35.0); MEAN CORPUSCULAR VOLUME 71.3 fL (80.0-100.0); MEAN PLATELET VOLUME 10.2 fL (7.4-11.0); MONOCYTES % (AUTO) 12.8 % (0.0-13.0); NEUTROPHILS # (AUTO) 4.4 x10^3/uL (2.2-4.8); NEUTROPHILS % (AUTO) 57.2 % (42.0-75.0); PLATELET COUNT 161 X10^3/uL (150.0-450.0); RED BLOOD COUNT 4.79 X10^6/uL (3.5-5.4); RED CELL DISTRIBUTION WIDTH 14.2 % (11.6-16.5); WHITE BLOOD COUNT 7.7 X10^3/uL (3.6-10.0)
[2023-08-15 06:40] LABS: ALANINE AMINOTRANSFERASE 18 Units/L (12-78); ALBUMIN 2.4 g/dL (3.4-5.0); ALKALINE PHOSPHATASE 89 Units/L (46-116); ASPARTATE AMINO TRANSFERASE 19 Units/L (15-37); BLOOD UREA NITROGEN 6 mg/dL (7-18); CALCIUM 8.3 mg/dL (8.5-10.1); CARBON DIOXIDE 22.9 mmol/L (21-32); CHLORIDE 110 mmol/L (98-107); COR CA(FOR HYPOALB) 9.6 mg/dL (8.5-10.1); CREATININE 0.64 mg/dL (0.55-1.02); GLUCOSE 87 mg/dL (65-99); POTASSIUM 3.2 mmol/L (3.5-5.1); SODIUM 143 mmol/L (136-145); TOTAL PROTEIN 6.8 g/dL (6.4-8.2); eGFR NON BLACK RACES > 60 (>60)
[2023-08-15 07:11] LABS: HYPOCHROMASIA 1+; MICROCYTOSIS SLIGHT; PLATELET MORPHOLOGY COMMENT NORMAL (NORMAL); TARGET CELLS SLIGHT
[2023-08-15] MEDS: SOLU-Medrol 40 MG VIAL IVP ONE (09:23)
[2023-08-15] MEDS: TORADOL 30 MG VIAL IVP ONE (10:25)
[2023-08-15] MEDS: MORPHINE SULFATE INJ 4 MG IVP PRN (14:26)
[2023-08-16 05:24] LABS: RED CELL DISTRIBUTION WIDTH 14.3 % (11.6-16.5)
[2023-08-16 05:34] LABS: ALANINE AMINOTRANSFERASE 16 Units/L (12-78); ALBUMIN 2.7 g/dL (3.4-5.0); ALKALINE PHOSPHATASE 99 Units/L (46-116); ASPARTATE AMINO TRANSFERASE 15 Units/L (15-37); BASOPHILS % (AUTO) 0.1 % (0.2-1.0); BLOOD UREA NITROGEN 6 mg/dL (7-18); CALCIUM 8.9 mg/dL (8.5-10.1); CARBON DIOXIDE 27.9 mmol/L (21-32); CHLORIDE 105 mmol/L (98-107); COR CA(FOR HYPOALB) 9.9 mg/dL (8.5-10.1); CREATININE 0.67 mg/dL (0.55-1.02); GLUCOSE 101 mg/dL (65-99); HEMATOCRIT 35.5 % (36.0-47.0); HEMOGLOBIN 11.2 g/dL (12.0-16.0); LYMPHOCYTES # (AUTO) 1.3 X10^3/uL (1.3-2.9); LYMPHOCYTES % (AUTO) 12.9 % (21.0-51.0); MEAN CORPUSCULAR HEMOGLOBIN 22.4 pg (27.0-34.0); MEAN CORPUSCULAR HGB CONC 31.6 g/dL (33.0-35.0); MEAN PLATELET VOLUME 10.1 fL (7.4-11.0); MONOCYTES # (AUTO) 1.2 x10^3/uL (0.3-0.8); MONOCYTES % (AUTO) 11.8 % (0.0-13.0); NEUTROPHILS # (AUTO) 7.4 x10^3/uL (2.2-4.8); NEUTROPHILS % (AUTO) 75.2 % (42.0-75.0); PLATELET COUNT 200 X10^3/uL (150.0-450.0); POTASSIUM 3.3 mmol/L (3.5-5.1); SODIUM 144 mmol/L (136-145); TOTAL PROTEIN 7.3 g/dL (6.4-8.2); WHITE BLOOD COUNT 9.8 X10^3/uL (3.6-10.0); eGFR NON BLACK RACES > 60 (>60)
[2023-08-16 05:58] LABS: HYPOCHROMASIA 1+; MICROCYTOSIS SLIGHT; PLATELET MORPHOLOGY COMMENT NORMAL (NORMAL); TARGET CELLS PRESENT
[2023-08-16] MEDS ORDERED: CONSULT PHARMACY - POTASSIUM & MAGNESIUM XX SCH ×2 (07:00)
[2023-08-16] MEDS: K-DUR TAB 20 MEQ PO SCH (08:38)
[2023-08-16] MEDS: MAG-OX TAB PO SCH (09:08)
[2023-08-16] MEDS: SOLU-Medrol 40 MG VIAL IVP SCH (11:30)
--- NOTE | 2023-08-17 01:12 | RAD ---
PROCEDURE: Chest X-ray 2 Views.HISTORY: Influenza with cough and congestion.TECHNIQUE: PA and lateral views.COMPARISON: 08/13/2023.TECHNICAL QUALITY: Satisfactory.FINDINGS:Normal size heart.Mediastinum and hilar regions show no masses or lymphadenopathy.Normal central vascularity.No pulmonary consolidation, masses, pleural fluid, or pneumothorax.No acute bony abnormality.IMPRESSION:No evidence of active cardiopulmonary disease.THIS IS AN ELECTRONICALLY VERIFIED FINAL REPORT08/17/2023 1:09 AM - Electronically signed by Terry Doyle MD
[2023-08-17 04:48] VITALS: O2SAT 97
[2023-08-17 05:10] VITALS: RESP 18
[2023-08-17 06:22] LABS: BASOPHILS % (AUTO) 0.1 % (0.2-1.0); HEMATOCRIT 35.9 % (36.0-47.0); HEMOGLOBIN 11.1 g/dL (12.0-16.0); LYMPHOCYTES # (AUTO) 1.1 X10^3/uL (1.3-2.9); LYMPHOCYTES % (AUTO) 9.1 % (21.0-51.0); MEAN CORPUSCULAR HEMOGLOBIN 21.9 pg (27.0-34.0); MEAN CORPUSCULAR HGB CONC 30.9 g/dL (33.0-35.0); MEAN CORPUSCULAR VOLUME 70.9 fL (80.0-100.0); MEAN PLATELET VOLUME 9.8 fL (7.4-11.0); MONOCYTES # (AUTO) 0.6 x10^3/uL (0.3-0.8); MONOCYTES % (AUTO) 5.1 % (0.0-13.0); NEUTROPHILS # (AUTO) 10.3 x10^3/uL (2.2-4.8); NEUTROPHILS % (AUTO) 85.7 % (42.0-75.0); PLATELET COUNT 239 X10^3/uL (150.0-450.0); RED BLOOD COUNT 5.07 X10^6/uL (3.5-5.4); RED CELL DISTRIBUTION WIDTH 14.3 % (11.6-16.5)
[2023-08-17 06:38] LABS: ALANINE AMINOTRANSFERASE 16 Units/L (12-78); ALBUMIN 2.7 g/dL (3.4-5.0); ALKALINE PHOSPHATASE 98 Units/L (46-116); ASPARTATE AMINO TRANSFERASE 13 Units/L (15-37); BLOOD UREA NITROGEN 8 mg/dL (7-18); CALCIUM 9.1 mg/dL (8.5-10.1); CARBON DIOXIDE 26.3 mmol/L (21-32); CHLORIDE 106 mmol/L (98-107); COR CA(FOR HYPOALB) 10.1 mg/dL (8.5-10.1); COR NA(FOR HYPERGLY) 143 mmol/L (136-145); CREATININE 0.61 mg/dL (0.55-1.02); GLUCOSE 120 mg/dL (65-99); MAGNESIUM 1.7 mg/dL (2.0-2.9); POTASSIUM 3.8 mmol/L (3.5-5.1); SODIUM 143 mmol/L (136-145); TOTAL PROTEIN 7.5 g/dL (6.4-8.2); eGFR NON BLACK RACES > 60 (>60)
[2023-08-17] MEDS ORDERED: CONSULT PHARMACY - POTASSIUM & MAGNESIUM XX SCH (07:00)
[2023-08-17 07:18] LABS: HYPOCHROMASIA 1+; MICROCYTOSIS SLIGHT; PLATELET MORPHOLOGY COMMENT NORMAL (NORMAL); TARGET CELLS 1+
[2023-08-17] MEDS: MAG-OX TAB PO SCH (08:58)
[2023-08-17] MEDS: K-DUR TAB 20 MEQ PO ONE (11:06)
[2023-08-17 13:25] VITALS: BP 164/94; PULSE 68; TEMP 99
--- NOTE | 2023-08-19 10:15 | W.DIS.FURT ---
Summary of Discharge Discharge Summary of Date Date of Exam: 08/17/23 Admission Date Date of Admission: 08/13/23 Admission Diagnosis Patient Problems (Updated 08/13/23 @ 13:18 by Venkatesh Lr) Type A influenza (Acute) J10.1 Volume depletion (Acute) E86.9 Syncope (Acute) R55 Hospital Course: Ms Montgomery is a 62-year-old female presenting with sinus congestion, productive cough, generalized bodyaches, along with nausea and vomiting for the past few days. She reports that symptoms have been gradually getting worse and that she is feeling weak. Labs/imaging: WBC 9.8, hemoglobin 11, platelets 159, sodium 139, potassium 3.4, creatinine 2.53>1.02, glucose 92, UA negative, influenza A positive, chest x-ray no acute cardiopulmonary findings. Patient was admitted for influenza A and acute renal failure due to dehydration. She was stared on hydration and Tamiflu. Patient was also complaining of knee pain, XR did not show any acute changes. Patient's labs were monitored daily and electrolytes rep laced as needed. She was also started on IS, cough medicine and bronchodilators. She was feeling better. She was ambulating in the room. She was stable to be discharged home, will f/u with PCP as scheduled. Vital Signs: Vital Signs (72 hours) 08/14/23 11:18 08/14/23 12:49 08/14/23 16:48 Temperature Pulse Rate Pulse Rate [Bilateral Radial] Pulse Rate [Left Brachial] Respiratory Rate 19 19 17 Blood Pressure [Left Arm] Blood Pressure [Right Arm] O2 Sat by Pulse Oximetry Oxygen Delivery Method 08/14/23 12:00 08/14/23 12:18 08/14/23 12:57 Temperature 98.7 F Pulse Rate Pulse Rate [Bilateral Radial] 71 Pulse Rate [Left Brachial] Respiratory Rate 18 19 Blood Pressure [Left Arm] Blood Pressure [Right Arm] 108/66 O2 Sat by Pulse Oximetry 96 95 Oxygen Delivery Method Room Air 08/14/23 13:19 08/14/23 16:00 08/14/23 17:18 Temperature 99.8 F H Pulse Rate Pulse Rate [Bilateral Radial] 72 Pulse Rate [Left Brachial] Respiratory Rate 19 17 17 Blood Pressure [Left Arm] Blood Pressure [Right Arm] 119/73 O2 Sat by Pulse Oximetry 91 L Oxygen Delivery Method Room Air 08/14/23 19:43 08/14/23 20:00 08/14/23 20:20 Temperature 98.3 F Pulse Rate 87 Pulse Rate [Bilateral Radial] 88 Pulse Rate [Left Brachial] Respiratory Rate 18 Blood Pressure [Left Arm] Blood Pressure [Right Arm] 132/71 O2 Sat by Pulse Oximetry 96 99 Oxygen Delivery Method Room Air Room Air 08/14/23 21:15 08/14/23 23:38 08/15/23 00:00 Temperature 99.3 F Pulse Rate Pulse Rate [Bilateral Radial] Pulse Rate [Left Brachial] 67 Respiratory Rate 22 22 20 Blood Pressure [Left Arm] 108/60 Blood Pressure [Right Arm] O2 Sat by Pulse Oximetry 94 L Oxygen Delivery Method Room Air 08/14/23 22:15 08/15/23 00:08 08/15/23 04:00 Temperature 99.1 F Pulse Rate Pulse Rate [Bilateral Radial] Pulse Rate [Left Brachial] 83 Respiratory Rate 22 18 21 Blood Pressure [Left Arm] 137/68 Blood Pressure [Right Arm] O2 Sat by Pulse Oximetry 96 Oxygen Delivery Method Room Air 08/15/23 08:09 08/15/23 10:25 08/15/23 14:26 Temperature Pulse Rate Pulse Rate [Bilateral Radial] Pulse Rate [Left Brachial] Respiratory Rate 21 21 18 Blood Pressure [Left Arm] Blood Pressure [Right Arm] O2 Sat by Pulse Oximetry Oxygen Delivery Method 08/15/23 08:36 08/15/23 08:00 08/15/23 08:39 Temperature 97.8 F Pulse Rate Pulse Rate [Bilateral Radial] Pulse Rate [Left Brachial] 108 H Respiratory Rate 18 21 Blood Pressure [Left Arm] 139/78 Blood Pressure [Right Arm] O2 Sat by Pulse Oximetry 94 L Oxygen Delivery Method Room Air Room Air 08/15/23 12:00 08/15/23 12:56 08/15/23 10:55 Temperature 97.8 F Pulse Rate 81 Pulse Rate [Bilateral Radial] Pulse Rate [Left Brachial] 84 Respiratory Rate 18 21 Blood Pressure [Left Arm] Blood Pressure [Right Arm] 135/78 O2 Sat by Pulse Oximetry 97 96 Oxygen Delivery Method Room Air 08/15/23 14:56 08/15/23 16:00 08/15/23 19:44 Temperature 97.5 F L Pulse Rate Pulse Rate [Bilateral Radial] Pulse Rate [Left Brachial] 88 Respiratory Rate 18 18 Blood Pressure [Left Arm] Blood Pressure [Right Arm] 127/70 O2 Sat by Pulse Oximetry 95 Oxygen Delivery Method Room Air Room Air 08/15/23 19:51 08/15/23 20:52 08/15/23 21:25 Temperature 98.6 F Pulse Rate Pulse Rate [Bilateral Radial] Pulse Rate [Left Brachial] 104 H Respiratory Rate 20 22 18 Blood Pressure [Left Arm] Blood Pressure [Right Arm] 154/85 O2 Sat by Pulse Oximetry 97 Oxygen Delivery Method Room Air 08/15/23 23:59 08/16/23 03:04 08/16/23 04:02 Temperature 98.1 F Pulse Rate Pulse Rate [Bilateral Radial] Pulse Rate [Left Brachial] 84 Respiratory Rate 20 20 22 Blood Pressure [Left Arm] Blood Pressure [Right Arm] 142/67 O2 Sat by Pulse Oximetry 96 Oxygen Delivery Method Room Air 08/16/23 04:54 08/16/23 05:31 08/16/23 05:04 Temperature 98.7 F Pulse Rate Pulse Rate [Bilateral Radial] Pulse Rate [Left Brachial] 83 Respiratory Rate 22 18 20 Blood Pressure [Left Arm] 179/79 Blood Pressure [Right Arm] O2 Sat by Pulse Oximetry 97 Oxygen Delivery Method Room Air 08/16/23 10:50 08/16/23 16:50 08/16/23 08:41 Temperature Pulse Rate Pulse Rate [Bilateral Radial] Pulse Rate [Left Brachial] Respiratory Rate 18 18 Blood Pressure [Left Arm] Blood Pressure [Right Arm] O2 Sat by Pulse Oximetry Oxygen Delivery Method Room Air 08/16/23 08:00 08/16/23 11:50 08/16/23 12:00 Temperature 98.8 F 97.4 F L Pulse Rate Pulse Rate [Bilateral Radial] Pulse Rate [Left Brachial] 83 71 Respiratory Rate 18 18 18 Blood Pressure [Left Arm] 130/94 147/92 Blood Pressure [Right Arm] O2 Sat by Pulse Oximetry 98 95 Oxygen Delivery Method Room Air Room Air 08/16/23 16:00 08/16/23 17:50 08/16/23 21:54 Temperature 98.5 F Pulse Rate Pulse Rate [Bilateral Radial] Pulse Rate [Left Brachial] 83 Respiratory Rate 17 17 18 Blood Pressure [Left Arm] 132/82 Blood Pressure [Right Arm] O2 Sat by Pulse Oximetry 99 Oxygen Delivery Method Room Air 08/17/23 05:10 08/16/23 19:50 08/16/23 19:50 Temperature Pulse Rate 97 H Pulse Rate [Bilateral Radial] Pulse Rate [Left Brachial] Respiratory Rate 18 Blood Pressure [Left Arm] Blood Pressure [Right Arm] O2 Sat by Pulse Oximetry 97 Oxygen Delivery Method Room Air 08/16/23 20:00 08/16/23 19:00 08/16/23 23:40 Temperature 98.8 F 98.7 F Pulse Rate Pulse Rate [Bilateral Radial] Pulse Rate [Left Brachial] 85 71 Respiratory Rate 20 20 Blood Pressure [Left Arm] 139/84 Blood Pressure [Right Arm] 128/64 O2 Sat by Pulse Oximetry 96 100 Oxygen Delivery Method Room Air Room Air Room Air 08/16/23 22:54 08/17/23 04:00 08/17/23 06:10 Temperature 98.1 F Pulse Rate Pulse Rate [Bilateral Radial] Pulse Rate [Left Brachial] 94 H Respiratory Rate 17 20 18 Blood Pressure [Left Arm] Blood Pressure [Right Arm] 153/79 O2 Sat by Pulse Oximetry 97 Oxygen Delivery Method Room Air 08/17/23 09:27 Temperature Pulse Rate Pulse Rate [Bilateral Radial] Pulse Rate [Left Brachial] Respiratory Rate Blood Pressure [Left Arm] Blood Pressure [Right Arm] O2 Sat by Pulse Oximetry Oxygen Delivery Method Room Air Labs: Laboratory Last Values WBC 12.0 X10^3/uL (3.6-10.0) H 08/17/23 05:35 RBC 5.07 X10^6/uL (3.5-5.4) 08/17/23 05:35 Hgb 11.1 g/dL (12.0-16.0) L 08/17/23 05:35 Hct 35.9 % (36.0-47.0) L 08/17/23 05:35 MCV 70.9 fL (80.0-100.0) L 08/17/23 05:35 MCH 21.9 pg (27.0-34.0) L 08/17/23 05:35 MCHC 30.9 g/dL (33.0-35.0) L 08/17/23 05:35 RDW 14.3 % (11.6-16.5) 08/17/23 05:35 Plt Count 239 X10^3/uL (150.0-450.0) 08/17/23 05:35 Plt Count Comment Adequate (ADEQUATE) 08/17/23 05:35 MPV 9.8 fL (7.4-11.0) 08/17/23 05:35 Neut % (Auto) 85.7 % (42.0-75.0) H 08/17/23 05:35 Lymph % (Auto) 9.1 % (21.0-51.0) L 08/17/23 05:35 [place] % (Auto) 5.1 % (0.0-13.0) 08/17/23 05:35 Eos % (Auto) 0.0 % (0.9-2.9) L 08/17/23 05:35 Baso % (Auto) 0.1 % (0.2-1.0) L 08/17/23 05:35 Neut # (Auto) 10.3 x10^3/uL (2.2-4.8) H 08/17/23 05:35 Lymph # (Auto) 1.1 X10^3/uL (1.3-2.9) L 08/17/23 05:35 [place] # (Auto) 0.6 x10^3/uL (0.3-0.8) 08/17/23 05:35 Eos # (Auto) 0.0 x10^3/uL (0.0-0.2) 08/17/23 05:35 Baso # (Auto) 0.0 X10^3/uL (0.0-0.1) 08/17/23 05:35 Absolute Nucleated RBC 0.1 /100WBC 08/17/23 05:35 Plt Morphology Comment Normal (NORMAL) 08/17/23 05:35 RBC Morphology Abnormal (NORMAL) A 08/17/23 05:35 Hypochromasia 1+ A 08/17/23 05:35 Microcytosis Slight A 08/17/23 05:35 Target Cells 1+ A 08/17/23 05:35 Sodium 143 mmol/L (136-145) 08/17/23 05:35 Corrected Sodium 143 mmol/L (136-145) 08/17/23 05:35 Potassium 3.8 mmol/L (3.5-5.1) 08/17/23 05:35 Chloride 106 mmol/L (98-107) 08/17/23 05:35 Carbon Dioxide 26.3 mmol/L (21-32) 08/17/23 05:35 BUN 8 mg/dL (7-18) 08/17/23 05:35 Creatinine 0.61 mg/dL (0.55-1.02) 08/17/23 05:35 Est GFR (MDRD) Af Amer > 60 (>60) 08/17/23 05:35 Est GFR (MDRD) Non-Af > 60 (>60) 08/17/23 05:35 Glucose 120 mg/dL (65-99) H 08/17/23 05:35 Calcium 9.1 mg/dL (8.5-10.1) 08/17/23 05:35 Corrected Calcium 10.1 mg/dL (8.5-10.1) 08/17/23 05:35 Magnesium 1.7 mg/dL (2.0-2.9) L 08/17/23 05:35 Total Bilirubin 0.30 mg/dL (0.2-1.0) 08/17/23 05:35 AST 13 Units/L (15-37) L 08/17/23 05:35 ALT 16 Units/L (12-78) 08/17/23 05:35 Alkaline Phosphatase 98 Units/L (46-116) 08/17/23 05:35 Troponin I High Sens 13.6 ng/L (4.0-60.0) 08/13/23 10:57 Total Protein 7.5 g/dL (6.4-8.2) 08/17/23 05:35 Albumin 2.7 g/dL (3.4-5.0) L 08/17/23 05:35 Globulin 4.8 g/dL (2.5-4.5) H 08/17/23 05:35 Albumin/Globulin Ratio 0.6 Ratio (1.1-2.1) L 08/17/23 05:35 Lipase 35 Units/L (16-77) 08/13/23 10:57 Specimen Type Clean catch urine 08/13/23 12:07 Urine Color Yellow (YELLOW) 08/13/23 12:07 Urine Appearance Slightly hazy (CLEAR) 08/13/23 12:07 Urine pH 6.0 (5.0 - 8.0) 08/13/23 12:07 Ur Specific Doss 1.020 (1.000-1.030) 08/13/23 12:07 Urine Protein 3+ (NEGATIVE) 08/13/23 12:07 Urine Glucose (UA) Negative (NEGATIVE) 08/13/23 12:07 Urine Ketones Negative (NEGATIVE) 08/13/23 12:07 Urine Blood 5+ (NEGATIVE) 08/13/23 12:07 Urine Nitrite Negative (NEGATIVE) 08/13/23 12:07 Urine Bilirubin Negative (NEGATIVE) 08/13/23 12:07 Urine Urobilinogen Normal (NORMAL) 08/13/23 12:07 Ur Leukocyte Esterase Negative (NEGATIVE) 08/13/23 12:07 Urine RBC None seen /HPF (0-3) 08/13/23 12:07 Urine WBC None seen /HPF (0-5) 08/13/23 12:07 Ur Squamous Epith Cells Rare /HPF (NEGATIVE) 08/13/23 12:07 Amorphous Sediment 1+ /HPF (NEGATIVE) 08/13/23 12:07 Urine Bacteria Trace /HPF (NEGATIVE) 08/13/23 12:07 Ur Culture Indicated? No/not indicated 08/13/23 12:07 SARS-CoV-2 (PCR) Negative (NEGATIVE) 08/13/23 10:48 Influenza Type A (PCR) Positive (NEGATIVE) A 08/13/23 10:48 Influenza Type B (PCR) Negative (NEGATIVE) 08/13/23 10:48 RSV (PCR) Negative (NEGATIVE) 08/13/23 10:48 Reason For Visit: TYPE A FLU, VOLUME DEPLETION, SYNCOPE Discharge Diagnosis All Active Problems (Updated 08/13/23 @ 13:18 by Venkatesh Lr) Abdominal pain (Acute) Enteritis (Acute) Leukocytosis (Acute) Knee pain, left (Acute) Cervical strain, acute (Acute) Cervical strain (Acute) Atypical chest pain (Acute) Dyspepsia (Acute) Bronchitis (Acute) Knee sprain (Acute) Hip sprain (Acute) Rib contusion (Acute) Shoulder sprain (Acute) Fall (Acute) Muscle strain of left shoulder (Acute) Muscle strain of left knee (Acute) Strain of elbow, left (Acute) Chronic idiopathic pain syndrome (Acute) Type A influenza (Acute) Volume depletion (Acute) Syncope (Acute) Left foot pain (Acute) Pneumonia (Acute) Sprain of left shoulder (Acute) Sprain of left hip (Acute) Left knee sprain (Acute) Left ankle sprain (Acute) De Quervain's tenosynovitis, right (Acute) Osteoarthritis (Acute) Vertigo (Acute) Vertigo (Acute) Hypotension (Acute) Anemia (Acute) Non-cardiac chest pain (Acute) Anxiety (Acute) Acute right-sided back pain with sciatica (Acute) Diarrhea (Acute) Acute dehydration (Acute) Enterocolitis (Acute) Near syncope (Acute) Frequent falls (Acute) Right shoulder pain (Acute) Acute kidney insufficiency (Acute) Generalized weakness (Acute) Hypokalemia (Acute) Pain in both hands (Acute) Contracture of hand (Acute) Acute lumbar myofascial strain (Acute) Acute UTI (Acute) Second degree burn of wrist (Acute) Hip pain (Acute) Chronic left shoulder pain (Acute) Fibromyalgia (Acute) Chronic back pain (Acute) Upper respiratory infection, viral (Acute) Anterolisthesis of lumbar spine (Acute) Arm pain, right (Acute) Cervicalgia (Acute) Acute chest wall pain (Acute) Anxiety (Acute) UTI (urinary tract infection) (Acute) Renal insufficiency (Acute) Chest wall pain (Acute) Hypokalemia (Acute) Contusion, multiple sites (Acute) Acute nontraumatic kidney injury (Acute) Gastritis (Acute) Blood in stool (Acute) Hypokalemia (Acute) Hypomagnesemia (Acute) Microcytic anemia (Acute) C. difficile enteritis (Acute) Campylobacter enteritis (Acute) Hypotension (Acute) Carpal tunnel syndrome (Chronic) Anxiety (Chronic) Flank pain, chronic (Chronic) Hypertension (Chronic) Fibromyalgia (Chronic) Knee pain, left (Chronic) Myalgia (Chronic) Arthralgia (Chronic) Fibromyalgia (Acute) Plan of Treatment: Continue with present treatment and follow up plan. Pt is to keep follow up appointment as instructed and take medications as ordered. Discharge Medications Discharge Medications: No Known Drug Allergies Allergy (Unknown, Verified 07/14/23 14:07) CONTINUE taking the following medications famotidine 20 mg tablet 20 mg PO BID 08/13/23 [History] meclizine 25 mg tablet 25 mg PO BID PRN 08/13/23 [History] omeprazole 40 mg capsule,delayed release 40 mg PO QDAY 08/13/23 [History] New Prescriptions oseltamivir 75 mg capsule 75 mg PO BID 2 days #4 caps 08/17/23 [Rx] Discharge Disposition Discharge Disposition: home Discharge Condition: stable Discharge Plan Discharge Plan Hospital Course: Ms Montgomery is a 62-year-old female presenting with sinus congestion, productive cough, generalized bodyaches, along with nausea and vomiting for the past few days. She reports that symptoms have been gradually getting worse and that she is feeling weak. Labs/imaging: WBC 9.8, hemoglobin 11, platelets 159, sodium 139, potassium 3.4, creatinine 2.53>1.02, glucose 92, UA negative, influenza A positive, chest x-ray no acute cardiopulmonary findings. Patient was admitted for influenza A and acute renal failure due to dehydration. She was stared on hydration and Tamiflu. Patient was also complaining of knee pain, XR did not show any acute changes. Patient's labs were monitored daily and electrolytes rep laced as needed. She was also started on IS, cough medicine and bronchodilators. She was feeling better. She was ambulating in the room. She was stable to be discharged home, will f/u with PCP as scheduled. Patient Disposition: 01 HOME, SELF-CARE Condition: Stable Health Concerns: Post Hospitalization: new medications and changes needed to prevent readmission or further decline. Pt educated and given instructions on all concerns. Care Plan Goals: Problem: Infection Goal: Temperature within normal limits. Resolved infection. Instructions: Follow provided instructions. Follow up with primary physician as directed. Contact primary care physician or report to the closest Emergency Room if condition worsens. Plan of Treatment: Continue with present treatment and follow up plan. Pt is to keep follow up appointment as instructed and take medications as ordered. Prescription drug monitoring program results: PDMP reviewed and no concerns identified Prescriptions: Continued lisinopril 20 mg tablet 20 mg PO QDAY metoprolol tartrate 25 mg tablet 25 mg PO BID gabapentin 600 mg tablet 600 mg PO TID amlodipine 10 mg tablet 10 mg PO QDAY omeprazole 40 mg capsule,delayed release(DR/EC) 40 mg PO QDAY famotidine 20 mg tablet 20 mg PO BID meclizine 25 mg tablet 25 mg PO BID PRN Discontinued pantoprazole 40 mg tablet,delayed release (DR/EC) 40 mg PO BID Orders to Discharge Patient Discharge Orders: Discharge (Routine); Ordered 08/17/23 Ordered By: Agnes Page Follow ups/Referrals Follow ups/Referrals: Magali Hopkins [REFERRING] - 08/27/23 11:30 am Instructions Instructions: Fall Prevention in the Home, Adult, [id number], Influenza, Adult, [id number], Dehydration, Adult, Pdey-ev-Siez, Rehydration, Adult, Syncope, Adult, Agef-de-Emun Stand Alone Forms: Post Hospital Follow Up Care
== END 2023-08-17 12:20 | disposition home or self-care (01) ==
LOC: ER 10:17 → U 10:17 → MED/SURG 15:00
PROVIDERS: ADMIT Internal Medicine; ATTEND Internal Medicine

== ENCOUNTER 2024-09-25 12:09 | Observation (INO) ==
[2024-09-25 12:49] LABS: EOSINOPHILS # (AUTO) 0.1 x10^3/uL (0.0-0.2); PLATELET COUNT 221 X10^3/uL (150.0-450.0); WHITE BLOOD COUNT 7.4 X10^3/uL (3.6-10.0)
[2024-09-25 12:53] LABS: INR 0.96 (0.8-1.3)
[2024-09-25 12:54] LABS: BASOPHILS # (AUTO) 0.1 X10^3/uL (0.0-0.1); BASOPHILS % (AUTO) 0.8 % (0.2-1.0); HEMATOCRIT 38.2 % (36.0-47.0); HEMOGLOBIN 12.1 g/dL (12.0-16.0); LYMPHOCYTES # (AUTO) 1.5 X10^3/uL (1.3-2.9); LYMPHOCYTES % (AUTO) 20.3 % (21.0-51.0); MEAN CORPUSCULAR HEMOGLOBIN 22.4 pg (27.0-34.0); MEAN CORPUSCULAR HGB CONC 31.7 g/dL (33.0-35.0); MEAN CORPUSCULAR VOLUME 70.8 fL (80.0-100.0); MEAN PLATELET VOLUME 9.3 fL (7.4-11.0); MONOCYTES # (AUTO) 0.5 x10^3/uL (0.3-0.8); MONOCYTES % (AUTO) 7.1 % (0.0-13.0); NEUTROPHILS # (AUTO) 5.2 x10^3/uL (2.2-4.8); NEUTROPHILS % (AUTO) 70.8 % (42.0-75.0); RED CELL DISTRIBUTION WIDTH 15.7 % (11.6-16.5)
--- NOTE | 2024-09-25 12:54 | EKG ---
Test Reason : htn Blood Pressure : */* mmHG Vent. Rate : 77 BPM Atrial Rate : 77 BPM P-R Int : 152 ms QRS Dur : 88 ms QT Int : 384 ms P-R-T Axes : 50 4 22 degrees QTc Int : 434 ms Normal sinus rhythm Minimal voltage criteria for LVH, may be normal variant ( R in aVL ) Possible Inferior infarct , age undetermined Abnormal ECG When compared with ECG of 13-AUG-2023 10:27, Borderline criteria for Inferior infarct are now present Confirmed by Kevon Collier MD ([id number]) on 09/26/2024 7:11:50 AM Referred By: Confirmed By: Kevon Collier MD
[2024-09-25 13:01] LABS: ALANINE AMINOTRANSFERASE 19 Units/L (12-78); ALBUMIN 4.1 g/dL (3.4-5.0); ALKALINE PHOSPHATASE 159 Units/L (46-116); ASPARTATE AMINO TRANSFERASE 14 Units/L (15-37); BLOOD UREA NITROGEN 8 mg/dL (7-18); CALCIUM 9.3 mg/dL (8.5-10.1); CARBON DIOXIDE 24.3 mmol/L (21-32); CHLORIDE 106 mmol/L (98-107); CHOL/HDL RATIO 2.2 (0.0-5.0); CHOLESTEROL 209 mg/dL (0-200); COR NA(FOR HYPERGLY) 143 mmol/L (136-145); CREATINE KINASE 33 Units/L (26-192); GLUCOSE 116 mg/dL (65-99); HDL CHOLESTEROL 97 mg/dL (40-60); POTASSIUM 3.4 mmol/L (3.5-5.1); SODIUM 143 mmol/L (136-145); TOTAL PROTEIN 9.1 g/dL (6.4-8.2); TRIGLYCERIDES 46 mg/dL (0-150); eGFR NON BLACK RACES > 60 (>60)
--- NOTE | 2024-09-25 13:05 | CT ---
EXAM: BRAIN W/O CON HISTORY: CHEST PAIN / FACIAL DROOPING; COMPARISON: None available. TECHNIQUE: Multiple axial images of the brain were obtained from the skull base to the vertex without administration of IV contrast. Dose reduction techniques including Automated Exposure Control (AEC) and adjustment of mA and kV were utilized. FINDINGS: No acute intraparenchymal hemorrhage or mass can be identified. No extra-axial fluid collections are seen. No alteration in the attenuation of the brain parenchyma can be identified to suggest acute or subacute ischemic change. The ventricular system is symmetric and nondilated. The extracranial structures appear unremarkable. IMPRESSION: 1. No acute intracranial process can be identified. THIS IS AN ELECTRONICALLY VERIFIED FINAL REPORT 09/25/2024 1:01 PM - Electronically signed by Jeff Stevens MD
[2024-09-25 13:17] LABS: HYPOCHROMASIA 1+; PLATELET MORPHOLOGY COMMENT NORMAL (NORMAL)
[2024-09-25 13:18] LABS: MICROCYTOSIS SLIGHT; TARGET CELLS PRESENT
--- NOTE | 2024-09-25 13:47 | RAD ---
EXAM: CHEST HISTORY: CHEST PAIN / FACIAL DROOPING ; COMPARISON: August 16, 2023. TECHNIQUE: Frontal view of the chest was submitted for interpretation. FINDINGS: The cardiomediastinal silhouette is within normal limits. Lungs show no focal consolidation, pneumothorax, or pleural fluid. IMPRESSION: No acute cardiopulmonary process. THIS IS AN ELECTRONICALLY VERIFIED FINAL REPORT 09/25/2024 1:43 PM - Electronically signed by Darryn Obregon MD
--- NOTE | 2024-09-25 14:00 | DR.CP ---
HPI Time Seen Time Seen by Provider: 09/25/24 13:49 PCP Primary Care Physician: Magali Hopkins Complaint Chief Complaint Doctor Comments: left side face pain ,numbness Chief Complaint:: Pt ambulatory into ED w/ no obvious gait abnormalities; pt c/o left side face hurting, describes as "pressure" and "feels like my eye is about to pop out of my head", rates 10/10; c/o mouth/lips numb, left hand tingling. Pt also c/o midsternal chest pain, rates 10/10, describes as "pulling" that comes and goes. States the head pain and chest pain woke her up from sleep around 0700 this morning. Pt states she didn't sleep good last night d/t "not feeling good" COVID-19 Coronavirus risk:travel/contact w/high risk person: No Has patient experienced Coronavirus symptoms: No Reviewed Nurses Notes Review: Yes Source History Provided: Patient Mode of Arrival Mode of Arrival: Ambulatory Timing Onset of Chief Complaint: 09/25/24 Came on: Gradually Pain: Present Now Duration Duration: Since Onset Duration: Hours Location Chest Pain Radiation Location: Left Jaw and Left Hand Context Onset: At rest Cardiac Risk Factors: HTN PE Risk Factors: None Prehospital Care: None Quality Quality: Sharp and Aching Severity Severity: Moderate Modifying Factors Worsens: Nothing Impoves: Nothing Associated Signs and Symptoms Associated Signs and Symptoms: None PMH PMH Past Medical History: Yes Past Medical History: Anemia, Anxiety, Arthritis, Diabetes, Dyslipidemia, GERD, Gout, Hypertension, PUD and Renal Disease Past Surgical History: Yes Surgical History: , 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 and Ortho Surgery Family History History of Family Medical Conditions: Yes Family Medical History: Hypertension Social History Does patient currently use any type of tobacco product: No Have you used tobacco products in the last 12 months: No Type of Tobacco Use: None Does any household member use tobacco: No Alcohol Use: None Do you use any recreational Drugs:: No Lives With: Alone Lives Where: Home Travel Risk Coronavirus risk:travel/contact w/high risk person: No Has patient experienced Coronavirus symptoms: No Infectious screening In the last 2 months have you had wt loss of >10#?: NO Have you had fever, night sweats or hemotysis?: No Have you traveled outside the country in the last 6 months?: No Isolation: Standard ROS Review of Systems Constitutional: Malaise, Weakness and Fatigue Eyes: Tearing ENTM: No Symptoms Reported Respiratoy: No Symptoms Reported Cardiovascular: Chest Pain Gastrointestinal/Abdominal: No Symptoms Reported Genitourinary: No Symptoms Reported Neurological: Headache and Numbness Musculoskeletal: Chest wall Integumentary: No Symptoms Reported Hematologic/Lymphatic: No Symptoms Reported Endocrine: No Symptoms Reported PE Vitals Vitals: Vital Signs Temperature 99.0 F Pulse Rate 70 Pulse Rate 76 Pulse Rate 79 Pulse Rate 76 Pulse Rate 72 Pulse Rate 74 Pulse Rate 80 Pulse Rate 106 Pulse Rate 77 Pulse Rate 77 Pulse Rate 79 Pulse Rate 77 Pulse Rate 77 Respiratory Rate 20 Respiratory Rate 26 Respiratory Rate 24 Respiratory Rate 32 Respiratory Rate 26 Respiratory Rate 22 Respiratory Rate 25 Respiratory Rate 22 Respiratory Rate 35 Respiratory Rate 23 Respiratory Rate 26 Respiratory Rate 27 Respiratory Rate 21 Respiratory Rate 23 Blood Pressure 169/84 Blood Pressure 139/87 Blood Pressure 160/100 Blood Pressure 186/108 Blood Pressure 181/101 Blood Pressure 179/103 Blood Pressure 179/103 O2 Sat by Pulse Oximetry 95 O2 Sat by Pulse Oximetry 97 O2 Sat by Pulse Oximetry 99 O2 Sat by Pulse Oximetry 99 O2 Sat by Pulse Oximetry 96 O2 Sat by Pulse Oximetry 96 O2 Sat by Pulse Oximetry 96 O2 Sat by Pulse Oximetry 96 O2 Sat by Pulse Oximetry 98 O2 Sat by Pulse Oximetry 97 O2 Sat by Pulse Oximetry 98 O2 Sat by Pulse Oximetry 98 O2 Sat by Pulse Oximetry 98 General Limitations: No Limitations General Appearance: Alert and Anxious Head Head Exam: Normal Inspection, Atraumatic and Normocephalic Eyes Eye exam: Normal Appearance, PERRL and EOMI ENT ENT Exam: Mucous Membranes Moist and Other (does not wear lower denture. Pos soreness over nora left TMJ .no prominent temporal artery left or tenderness.Mild soreness over the left temporalis muscle on palpation ) Chest Chest Inspection: Normal Inspection, Symmetric Chest Wall Rise and Tenderness Respiratory Respiratory Exam: Normal Lung Sounds Bilat Respiratory Exam: Bilateral: Clear to Auscultation Extremities Extremities Exam: Normal Inspection Skin Skin Exam: Normal Color Other Exam Other Exam: CN 2-12 intact upper and lower ext tone and power symmetrical reflexes 2+ plantar flexor bilaterally MDM Additional Information Additional Information Obtained From: Old Records Findings: tia,MJ ,headache paresthesia ,HTN ,chest pain muscular COURSE Treatment Treatment: neurology ,labs ct ,ASA ROR Labs Reviewed 09/25/24 12:30 09/25/24 12:30 Laboratory: WBC 7.4 X10^3/uL (3.6-10.0) 09/25/24 12:30 RBC 5.40 X10^6/uL (3.5-5.4) 09/25/24 12:30 Hgb 12.1 g/dL (12.0-16.0) 09/25/24 12:30 Hct 38.2 % (36.0-47.0) 09/25/24 12:30 MCV 70.8 fL (80.0-100.0) L 09/25/24 12:30 MCH 22.4 pg (27.0-34.0) L 09/25/24 12: MCHC 31.7 g/dL (33.0-35.0) L 09/25/24 12: RDW 15.7 % (11.6-16.5) 09/25/24 12: Plt Count 221 X10^3/uL (150.0-450.0) 09/25/24 12:30 Plt Count Comment Adequate (ADEQUATE) 09/25/24 12: MPV 9.3 fL (7.4-11.0) 09/25/24 12: Neut % (Auto) 70.8 % (42.0-75.0) 09/25/24 12: Lymph % (Auto) 20.3 % (21.0-51.0) L 09/25/24 12: [place] % (Auto) 7.1 % (0.0-13.0) 09/25/24 12: Eos % (Auto) 1.0 % (0.9-2.9) 09/25/24 12: Baso % (Auto) 0.8 % (0.2-1.0) 09/25/24 12:30 Neut # (Auto) 5.2 x10^3/uL (2.2-4.8) H 09/25/24 12:30 Lymph # (Auto) 1.5 X10^3/uL (1.3-2.9) 09/25/24 12:30 [place] # (Auto) 0.5 x10^3/uL (0.3-0.8) 09/25/24 12:30 Eos # (Auto) 0.1 x10^3/uL (0.0-0.2) 09/25/24 12:30 Baso # (Auto) 0.1 X10^3/uL (0.0-0.1) 09/25/24 12:30 Absolute Nucleated RBC 0.2 /100WBC 09/25/24 12:30 Plt Morphology Comment Normal (NORMAL) 09/25/24 12:30 RBC Morphology Abnormal (NORMAL) A 09/25/24 12:30 Hypochromasia 1+ A 09/25/24 12:30 Microcytosis Slight A 09/25/24 12:30 Target Cells Present 09/25/24 12:30 PT 12.8 SECONDS (11.8-14.3) 09/25/24 12:30 INR Target Range - 09/25/24 12:30 INR 0.96 (0.8-1.3) 09/25/24 12:30 APTT 35.1 SECONDS (22.9-36.5) 09/25/24 12:30 PTT Comment - 09/25/24 12:30 Fibrinogen 465 mg/dL (239-489) 09/25/24 12:30 Sodium 143 mmol/L (136-145) 09/25/24 12:30 Corrected Sodium 143 mmol/L (136-145) 09/25/24 12:30 Potassium 3.4 mmol/L (3.5-5.1) L 09/25/24 12:30 Chloride 106 mmol/L (98-107) 09/25/24 12:30 Carbon Dioxide 24.3 mmol/L (21-32) 09/25/24 12:30 BUN 8 mg/dL (7-18) 09/25/24 12:30 Creatinine 0.80 mg/dL (0.55-1.02) 09/25/24 12:30 Est GFR (MDRD) Af Amer > 60 (>60) 09/25/24 12:30 Est GFR (MDRD) Non-Af > 60 (>60) 09/25/24 12:30 Glucose 116 mg/dL (65-99) H 09/25/24 12:30 Calcium 9.3 mg/dL (8.5-10.1) 09/25/24 12:30 Corrected Calcium TNP 09/25/24 12:30 Total Bilirubin 0.20 mg/dL (0.2-1.0) 09/25/24 12:30 AST 14 Units/L (15-37) L 09/25/24 12:30 ALT 19 Units/L (12-78) 09/25/24 12:30 Alkaline Phosphatase 159 Units/L (46-116) H 09/25/24 12:30 Creatine Kinase 33 Units/L (26-192) 09/25/24 12:30 Troponin I High Sens 7.9 ng/L (4.0-60.0) 09/25/24 12:30 Total Protein 9.1 g/dL (6.4-8.2) H 09/25/24 12:30 Albumin 4.1 g/dL (3.4-5.0) 09/25/24 12:30 Globulin 5.0 g/dL (2.5-4.5) H 09/25/24 12:30 Albumin/Globulin Ratio 0.8 Ratio (1.1-2.1) L 09/25/24 12:30 Triglycerides 46 mg/dL (0-150) 09/25/24 12:30 Cholesterol 209 mg/dL (0-200) H 09/25/24 12:30 LDL Cholesterol, Calc 103 mg/dL (0-100) H 09/25/24 12:30 HDL Cholesterol 97 mg/dL (40-60) H 09/25/24 12:30 Cholesterol/HDL Ratio 2.2 (0.0-5.0) 09/25/24 12:30 Blood Type O NEGATIVE 09/25/24 12:56 Antibody Screen Negative 09/25/24 12:56 Opioid Opioid Risk Tool Age (Vineet box if 16-45): No History of Preadolescent Sexual Abuse: No Total: 0 Total Score Risk Category: Low Risk Copyright: Kuldeep VILLEGAS predicting aberrant behaviors Discharge Plan Diagnosis Discharge Problem: Brain TIA, Headache, HTN (hypertension), Arthralgia of left temporomandibular joint Discharge Plan Patient Disposition: HOME, SELF-CARE Condition: Stable Prescriptions: Continued duloxetine 60 mg capsule,delayed release(DR/EC) 60 mg PO QDAY gabapentin 600 mg tablet 600 mg PO TID lisinopril 20 mg tablet 20 mg PO QDAY omeprazole 40 mg capsule,delayed release(DR/EC) 40 mg PO QDAY amlodipine 10 mg tablet 10 mg PO QDAY metoprolol tartrate 25 mg tablet 25 mg PO BID Discontinued meloxicam 7.5 mg tablet 7.5 mg PO QDAY Qty: 20 0RF duloxetine 30 mg capsule,delayed release(DR/EC) 30 mg PO QDAY methocarbamol 750 mg tablet 750 mg PO TID PRNQty: 14 0RF prednisone 50 mg tablet 50 mg PO QDAY Qty: 5 0RF naproxen 500 mg tablet 500 mg PO BID PRNQty: 20 0RF meloxicam 15 mg tablet 15 mg PO QDAY Qty: 10 0RF hydrocodone-acetaminophen 10-325 mg tablet 1 tab PO TID PRN meclizine 25 mg tablet 25 mg PO QDAY PRN pantoprazole 40 mg tablet,delayed release (DR/EC) 40 mg PO QDAY zolpidem 5 mg tablet 5 mg PO QPM PRN fluticasone propionate 50 mcg/actuation spray,suspension 1 spray INTRANASAL BID pregabalin 100 mg capsule 100 mg PO DAILY levocetirizine 5 mg tablet 5 mg PO QDAY nystatin 100,000 unit/mL suspension PO gabapentin 600 mg tablet 600 mg PO TID tizanidine 2 mg tablet 2 mg PO QPM lisinopril 20 mg tablet 20 mg PO QDAY omeprazole 40 mg capsule,delayed release(DR/EC) 40 mg PO QDAY tramadol 50 mg tablet 50 mg PO Q6H PRN meclizine 25 mg tablet 25 mg PO BID PRN amlodipine 10 mg tablet 10 mg PO QDAY pantoprazole 40 mg tablet,delayed release (DR/EC) 40 mg PO QDAY fluticasone propionate 50 mcg/actuation spray,suspension INTRANASAL metoprolol tartrate 25 mg tablet 25 mg PO BID duloxetine 60 mg capsule,delayed release(DR/EC) 60 mg PO QDAY pregabalin 100 mg capsule PO chlorhexidine gluconate 0.12 % mouthwash Patient Comments: [NO ORIGINAL SIG] levocetirizine 5 mg tablet 5 mg PO QDAY Health Concerns: Post Hospitalization: new medications and changes needed to prevent readmission or further decline. Pt educated and given instructions on all concerns. Plan of Treatment: Continue with present treatment and follow up plan. Pt is to keep follow up appointment as instructed and take medications as ordered. Orders to Discharge Patient Discharge Orders: Discharge (Routine); Ordered 09/25/24 Ordered By: Gerardo Caballero Transfer (Routine); Ordered 09/25/24 Ordered By: Gerardo Caballero Follow ups/Referrals Follow ups/Referrals: Magali Hopkins [Primary Care Provider, Unknown] - 3 days Instructions Stand Alone Forms: Find Help Web Site, Post Hospital Follow Up Care Print Language: KINYARWANDA ADDITIONAL NOTES Additional Notes Additional Notes: spoke with neurology.CT head neg for acute pathology. They would like to get an MRI without contrast and if neg then patient can go home . asa 81 mg [address] with Dr casanova agreed to admit for observation
[2024-09-25] MEDS: ULTRAM PO ONE (14:19)
[2024-09-25 14:30] LABS: BILIRUBIN,URINE NEGATIVE (NEGATIVE); BLOOD/HEMOGLOBIN,URINE NEGATIVE (NEGATIVE); GLUCOSE, URINE NEGATIVE (NEGATIVE); KETONES,URINE NEGATIVE (NEGATIVE); LEUKOCYTE ESTERASE ,URINE NEGATIVE (NEGATIVE); NITRITES,URINE NEGATIVE (NEGATIVE); PROTEIN,URINE NEGATIVE (NEGATIVE); UROBILINOGEN,URINE NORMAL (NORMAL)
[2024-09-25 14:32] LABS: APPEARANCE,URINE CLEAR (CLEAR); COLOR,URINE PALE YELLOW (YELLOW)
[2024-09-25 15:57] VITALS: BMI 35.4
[2024-09-25] MEDS: NORCO 5/325 MG TAB PO PRN (16:01)
[2024-09-25] MEDS: LOPRESSOR TAB 50 MG PO SCH (16:01)
[2024-09-25] MEDS ORDERED: GLUTOSE 15 GEL ORAL PO PRN (16:22)
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
[2024-09-25] MEDS ORDERED: LOPRESSOR TAB 25 MG PO SCH (21:00)
[2024-09-25] MEDS: NEURONTIN TAB 600 MG PO SCH (21:59)
[2024-09-26 06:08] LABS: BASOPHILS % (AUTO) 0.6 % (0.2-1.0); EOSINOPHILS # (AUTO) 0.1 x10^3/uL (0.0-0.2); EOSINOPHILS % (AUTO) 1.9 % (0.9-2.9); HEMATOCRIT 37.8 % (36.0-47.0); HEMOGLOBIN 11.7 g/dL (12.0-16.0); LYMPHOCYTES # (AUTO) 1.9 X10^3/uL (1.3-2.9); LYMPHOCYTES % (AUTO) 27.7 % (21.0-51.0); MEAN CORPUSCULAR HGB CONC 30.9 g/dL (33.0-35.0); MEAN CORPUSCULAR VOLUME 71.1 fL (80.0-100.0); MEAN PLATELET VOLUME 9.4 fL (7.4-11.0); MONOCYTES # (AUTO) 0.6 x10^3/uL (0.3-0.8); MONOCYTES % (AUTO) 8.1 % (0.0-13.0); NEUTROPHILS # (AUTO) 4.3 x10^3/uL (2.2-4.8); NEUTROPHILS % (AUTO) 61.7 % (42.0-75.0); PLATELET COUNT 203 X10^3/uL (150.0-450.0); RED BLOOD COUNT 5.31 X10^6/uL (3.5-5.4); WHITE BLOOD COUNT 6.9 X10^3/uL (3.6-10.0)
[2024-09-26 06:18] LABS: ALANINE AMINOTRANSFERASE 17 Units/L (12-78); ALBUMIN 3.7 g/dL (3.4-5.0); ALKALINE PHOSPHATASE 143 Units/L (46-116); ASPARTATE AMINO TRANSFERASE 10 Units/L (15-37); BLOOD UREA NITROGEN 8 mg/dL (7-18); CALCIUM 9.5 mg/dL (8.5-10.1); CARBON DIOXIDE 27.3 mmol/L (21-32); CHLORIDE 107 mmol/L (98-107); CREATININE 0.57 mg/dL (0.55-1.02); GLUCOSE 100 mg/dL (65-99); MAGNESIUM 1.9 mg/dL (2.0-2.9); POTASSIUM 3.4 mmol/L (3.5-5.1); SODIUM 143 mmol/L (136-145); TOTAL PROTEIN 8.2 g/dL (6.4-8.2); eGFR NON BLACK RACES > 60 (>60)
[2024-09-26 06:46] LABS: HYPOCHROMASIA 2+; PLATELET MORPHOLOGY COMMENT NORMAL (NORMAL)
[2024-09-26 06:47] LABS: MICROCYTOSIS SLIGHT; STOMATOCYTES SLIGHT; TARGET CELLS SLIGHT
[2024-09-26] MEDS ORDERED: CONSULT PHARMACY - POTASSIUM & MAGNESIUM XX SCH (08:00)
[2024-09-26] MEDS ORDERED: ZESTRIL TAB 20 MG ONE (08:03)
[2024-09-26] MEDS: K-DUR TAB 20 MEQ PO SCH (08:18)
[2024-09-26] MEDS: CYMBALTA PO SCH (08:18)
[2024-09-26] MEDS: ASPIRIN EC 81 MG PO SCH (08:18)
[2024-09-26] MEDS: ZESTRIL TAB 20 MG PO SCH (08:18)
[2024-09-26] MEDS: NORVASC TAB 10 MG PO SCH (08:18)
[2024-09-26] MEDS: PriLOSEC PO SCH (08:36)
[2024-09-26] MEDS ORDERED: PATIENT'S HOME MEDICATION (Omeprazole 40 mg capsule,delayed release(DR/EC)) PO SCH (09:00)
[2024-09-26] MEDS: LOVENOX INJ 40 MG SYR SC SCH (11:07)
--- NOTE | 2024-09-26 11:25 | MRI ---
EXAM: MRI BRAIN WITHOUT CONTRAST HISTORY: paresthesia left face; COMPARISON: CT dated 09/25/2024. TECHNIQUE: Multiplanar multisequence MRI of the brain was performed without intravenous contrast. FINDINGS: No areas of restricted diffusion. No acute intracranial hemorrhage or extra-axial fluid collection. No mass effect or midline shift. No hydrocephalus. Mild cerebral atrophy and chronic microvascular white matter disease. Major intracranial flow voids are preserved. Paranasal sinuses and mastoid air cells are well-aerated. IMPRESSION: No acute intracranial abnormality. Negative for acute infarction or hemorrhage. THIS IS AN ELECTRONICALLY VERIFIED FINAL REPORT 09/26/2024 11:21 AM - Electronically signed by Darryn Spann MD
[2024-09-26 12:58] VITALS: BP 159/87; PULSE 66; RESP 20; TEMP 99; O2SAT 97
== END 2024-09-26 12:45 | disposition home or self-care (01) ==
LOC: MED/SURG 12:09 → ER 12:09 → MED/SURG 14:54
PROVIDERS: ADMIT Obstetrics & Gynecology Obstetrics; ATTEND Obstetrics & Gynecology Obstetrics
DX: E83.42 Hypomagnesemia; Z87.11 Personal history of peptic ulcer disease; R29.810 Facial weakness; E78.5 Hyperlipidemia, unspecified; F41.8 Other specified anxiety disorders; I10 Essential (primary) hypertension; K21.9 Gastro-esophageal reflux disease without esophagitis; E11.65 Type 2 diabetes mellitus with hyperglycemia; R51.9 Headache, unspecified; E87.6 Hypokalemia; R07.89 Other chest pain; R94.31 Abnormal electrocardiogram [ECG] [EKG]; R20.2 Paresthesia of skin; M26.622 Arthralgia of left temporomandibular joint; Z59.86 Financial insecurity